=== PATIENT | female | born 1945 | race Caucasian/White ===

== ENCOUNTER 2021-09-03 13:06 | Inpatient (IN) | payer MEDICARE, OTHER ==
[~2021-09-03] VITALS: Ht 152.4 cm; Wt 49.9 kg
[~2021-09-03 13:06] MED LIST: ACEB200C PO; ALPR0.5T8 PO; ASPI-1169 PO; ATOR20TA PO; CLOP75TA15 PO; DEXL60CA3 PO; IBUP-1957 PO; MECL-159 PO; OLME1TAB19 PO; TRAM50TA2 PO
[2021-09-03] MEDS ORDERED: LOSA50TA39 PO (13:40)
[2021-09-03] MEDS ORDERED: HYDR25TA4 PO (13:40)
[2021-09-03 13:59] LABS: BASOPHILS # (AUTO) 0.1 K/uL (0.0-0.2); BASOPHILS % (AUTO) 0.5 % (0.0-2.0); HEMATOCRIT 39 % (33-45); HEMOGLOBIN 13.1 g/dL (11.5-14.8); LYMPHOCYTES # (AUTO) 2.1 K/uL (0.8-4.8); LYMPHOCYTES % (AUTO) 18.8 % (20.0-44.0); MEAN CORPUSCULAR HGB CONC 33 g/dl (31.0-36.0); MEAN CORPUSCULAR VOLUME 87 fL (82-100); MONOCYTES # (AUTO) 0.8 K/uL (0.1-1.30); MONOCYTES % (AUTO) 7.5 % (2.0-12.0); NEUTROPHILS # (AUTO) 7.9 K/uL (1.8-8.9); NEUTROPHILS % (AUTO) 72.2 % (43.0-81.0); PLATELET COUNT (AUTO) 300 K/uL (150-450); RED BLOOD CELL COUNT(AUTO) 4.51 MIL/uL (4.0-5.2)
[2021-09-03 14:33] LABS: CALCIUM, SERUM 10.2 mg/dL (8.5-10.1); CARBON DIOXIDE 29 mmol/L (21-32); CHLORIDE 103 mmol/L (98-107); CREATININE 0.9 mg/dL (0.6-1.3); GLUCOSE 143 mg/dL (74-106); POTASSIUM 4.1 mmol/L (3.5-5.1); SODIUM SERUM 140 mmol/L (136-145); UREA NITROGEN, BLOOD 16 mg/dL (7-18)
[2021-09-03 14:44] LABS: BILIRUBIN,URINE SMALL (NEGATIVE); COLOR,URINE YELLOW (YELLOW); LEUKOCYTE ESTERASE ,URINE TRACE (NEGATIVE); NITRITE, URINE POSITIVE (NEGATIVE); PROTEIN,URINE 30 mg/dl (NEGATIVE); UGLUCOSE NEGATIVE (NEGATIVE); UROBILINOGEN,URINE 0.2 EU/dL (0.2)
[2021-09-03 14:47] LABS: ALANINE AMINOTRANSFERASE 29 U/L (12-78); ALBUMIN 3.6 g/dL (3.4-5.0); ALKALINE PHOSPHATASE 78 U/L (46-116); ASPARTATE AMINOTRANSFERASE 24 U/L (15-37); BILIRUBIN,DIRECT 0.1 mg/dL (0.0-0.2); BILIRUBIN,TOTAL 0.6 mg/dL (0.2-1.0); TOTAL PROTEIN, SERUM 7.8 g/dL (6.4-8.2)
[2021-09-03 15:09] LABS: BACTERIA,URINE Many /HPF (None Seen); RBC,URINE 0-2 /HPF (0-2); SQUAMOUS EPITHELIAL CELL,UR Few /HPF (None Seen); WBC,URINE 20-30 /HPF (0-3)
[2021-09-03] MEDS ORDERED: MECL-159 PO (15:15)
[2021-09-03] MEDS ORDERED: TRAM50TA2 PO (15:15)
[2021-09-03 15:20] VITALS: BP 145/89
[2021-09-03] MEDS ORDERED: IV NS 0.9% 1,000 ML BAG IV ONE (16:30)
[2021-09-03] MEDS ORDERED: IV NS 0.9% 1,000 ML IV ONE (16:30)
[2021-09-03] MEDS ORDERED: MECLIZINE HCL 25 MG TABLET PO PRN (16:30)
[2021-09-03] MEDS ORDERED: TRAMADOL HCL 50 MG TABLET PO PRN (16:30)
[2021-09-03] MEDS ORDERED: CEFTRIAXONE 1GM BAG (ER ONLY) 50 ML IV ONE (16:30)
[2021-09-03] MEDS ORDERED: Z GUARD REMEDY 4 OZ OINT TP PRN (17:00)
[2021-09-03] MEDS ORDERED: ONDANSETRON HCL/PF 4 MG/2 ML VIAL IVP PRN (17:00)
[2021-09-03] MEDS ORDERED: ASPIRIN 325 MG TABLET PO ONE (17:00)
[2021-09-03] MEDS ORDERED: ALPRAZOLAM 0.5 MG TABLET PO PRN (17:30)
[2021-09-03] MEDS: CEFTRIAXONE 1 G in IV D5W 50 ML IV SCH (17:45)
[2021-09-03] MEDS: ENOXAPARIN SODIUM 40 MG/0.4 ML DISP.SYRIN SQ SCH (17:46)
[2021-09-03 20:00] VITALS: BP_SYST 151; BP_SYST 161; BP_DIAS 83
[2021-09-03] MEDS: ATORVASTATIN 40 MG TABLET PO SCH (21:57)
[2021-09-03] MEDS ORDERED: ALPRAZOLAM 0.5 MG TABLET PO SCH (22:00)
[2021-09-04] VITALS (7 sets, daily range): BP systolic 136–170; BP diastolic 65–82
[2021-09-04] MEDS: ACETAMINOPHEN 325 MG TABLET PO PRN ×3 (06:26→21:48)
[2021-09-04 07:08] LABS: BASOPHILS # (AUTO) 0.1 K/uL (0.0-0.2); BASOPHILS % (AUTO) 0.6 % (0.0-2.0); EOSINOPHILS % (AUTO) 1.3 % (0.0-6.0); HEMATOCRIT 38 % (33-45); HEMOGLOBIN 12.8 g/dL (11.5-14.8); LYMPHOCYTES % (AUTO) 21.2 % (20.0-44.0); MEAN CORPUSCULAR HGB CONC 34 g/dl (31.0-36.0); MEAN CORPUSCULAR VOLUME 87 fL (82-100); MONOCYTES # (AUTO) 0.9 K/uL (0.1-1.30); MONOCYTES % (AUTO) 9.5 % (2.0-12.0); NEUTROPHILS # (AUTO) 6.4 K/uL (1.8-8.9); NEUTROPHILS % (AUTO) 67.4 % (43.0-81.0); PLATELET COUNT (AUTO) 277 K/uL (150-450); RED BLOOD CELL COUNT(AUTO) 4.35 MIL/uL (4.0-5.2); WHITE BLOOD COUNT (AUTO) 9.5 K/uL (4.3-11.0)
[2021-09-04 07:37] LABS: ALBUMIN 3.1 g/dL (3.4-5.0); BILIRUBIN,TOTAL 0.6 mg/dL (0.2-1.0); CALCIUM, SERUM 9.3 mg/dL (8.5-10.1); CREATININE 0.7 mg/dL (0.6-1.3); MAGNESIUM 1.6 mg/dL (1.8-2.4); PHOSPHORUS 3.4 mg/dL (2.5-4.9); POTASSIUM 3.6 mmol/L (3.5-5.1); TOTAL PROTEIN, SERUM 7.1 g/dL (6.4-8.2)
[2021-09-04] MEDS: PANTOPRAZOLE 40 MG TABLET.DR PO SCH (08:52)
[2021-09-04] MEDS: LOSARTAN POTASSIUM 50 MG TABLET PO SCH (08:53)
[2021-09-04] MEDS: ATENOLOL 50 MG TABLET PO SCH (08:53)
[2021-09-04] MEDS: NICOTINE PATCH (7MG) 7 MG PATCH.TD24 TD SCH (08:53)
[2021-09-04] MEDS ORDERED: ACEBUTOLOL HCL 200 MG CAPSULE PO SCH (09:00)
[2021-09-04] MEDS: Magnesium 1GM/D5W 100ML PREMIX 100 ML IV SCH ×2 (09:40→11:06)
[2021-09-04] MEDS: CEFTRIAXONE 1 G in IV D5W 50 ML IV SCH (16:28)
[2021-09-04] MEDS: ENOXAPARIN SODIUM 40 MG/0.4 ML DISP.SYRIN SQ SCH (16:28)
[2021-09-04] MEDS: ATORVASTATIN 40 MG TABLET PO SCH (21:17)
[2021-09-05] VITALS: BP 145/71
[2021-09-05 04:00] VITALS: BP 137/73
[2021-09-05 06:40] LABS: BASOPHILS # (AUTO) 0.1 K/uL (0.0-0.2); BASOPHILS % (AUTO) 0.7 % (0.0-2.0); EOSINOPHILS % (AUTO) 1.6 % (0.0-6.0); HEMATOCRIT 38 % (33-45); HEMOGLOBIN 12.8 g/dL (11.5-14.8); LYMPHOCYTES % (AUTO) 21.6 % (20.0-44.0); MEAN CORPUSCULAR HGB CONC 33 g/dl (31.0-36.0); MEAN CORPUSCULAR VOLUME 88 fL (82-100); MONOCYTES # (AUTO) 0.8 K/uL (0.1-1.30); MONOCYTES % (AUTO) 9.2 % (2.0-12.0); NEUTROPHILS # (AUTO) 6.1 K/uL (1.8-8.9); NEUTROPHILS % (AUTO) 66.9 % (43.0-81.0); PLATELET COUNT (AUTO) 288 K/uL (150-450); RED BLOOD CELL COUNT(AUTO) 4.39 MIL/uL (4.0-5.2); WHITE BLOOD COUNT (AUTO) 9.2 K/uL (4.3-11.0)
[2021-09-05 06:58] LABS: CALCIUM, SERUM 9.6 mg/dL (8.5-10.1); CREATININE 0.7 mg/dL (0.6-1.3); PHOSPHORUS 3.6 mg/dL (2.5-4.9); POTASSIUM 3.7 mmol/L (3.5-5.1)
[2021-09-05] MEDS: PANTOPRAZOLE 40 MG TABLET.DR PO SCH (08:22)
[2021-09-05] MEDS: LOSARTAN POTASSIUM 50 MG TABLET PO SCH (08:22)
[2021-09-05] MEDS: NICOTINE PATCH (7MG) 7 MG PATCH.TD24 TD SCH (08:23)
[2021-09-05 09:29] VITALS: BP 139/74
[2021-09-05] MEDS: ATENOLOL 50 MG TABLET PO SCH (09:29)
[2021-09-05] MEDS: CEFTRIAXONE 1 G in IV D5W 50 ML IV SCH (16:08)
[2021-09-05] MEDS: ENOXAPARIN SODIUM 40 MG/0.4 ML DISP.SYRIN SQ SCH (16:47)
[2021-09-07] MEDS ORDERED: SULF1TAB48 PO (07:25)
== END 2021-09-05 17:00 | disposition home or self-care (01) | DRG 689 ==
LOC: ER 13:15 → TELE 16:40
PROVIDERS: ADMIT Hospitalist; ATTEND Hospitalist
DX: N12 Tubulo-interstitial nephritis, not specified as acute or chronic (principal); G93.41 Metabolic encephalopathy; J98.11 Atelectasis; D68.59 Other primary thrombophilia; E44.1 Mild protein-calorie malnutrition; M48.54XA Collapsed vertebra, not elsewhere classified, thoracic region, initial encounter for fracture; Z86.73 Personal history of transient ischemic attack (TIA), and cerebral infarction without residual deficits; N39.0 Urinary tract infection, site not specified; N20.0 Calculus of kidney; Z20.822 Contact with and (suspected) exposure to COVID-19; I10 Essential (primary) hypertension; G89.29 Other chronic pain; Z79.82 Long term (current) use of aspirin; Z79.899 Other long term (current) drug therapy; Z79.02 Long term (current) use of antithrombotics/antiplatelets; K44.9 Diaphragmatic hernia without obstruction or gangrene; E78.5 Hyperlipidemia, unspecified; I49.9 Cardiac arrhythmia, unspecified; F41.9 Anxiety disorder, unspecified; F17.200 Nicotine dependence, unspecified, uncomplicated; Z87.81 Personal history of (healed) traumatic fracture; E88.09 Other disorders of plasma-protein metabolism, not elsewhere classified; E83.42 Hypomagnesemia; F01.50 Vascular dementia, unspecified severity, without behavioral disturbance, psychotic disturbance, mood disturbance, and anxiety; I70.0 Atherosclerosis of aorta; E86.0 Dehydration; M41.9 Scoliosis, unspecified; R73.9 Hyperglycemia, unspecified; Z86.79 Personal history of other diseases of the circulatory system; I77.811 Abdominal aortic ectasia; Z98.890 Other specified postprocedural states; B96.21 Shiga toxin-producing Escherichia coli [E. coli] [STEC] O157 as the cause of diseases classified elsewhere
CPT/HCPCS: 36415; 70450-TC; 71045-TC; 80048-TC; 80053-TC; 80061-TC; 80076-TC; 81001; 83605-TC; 83735-TC; 83880; 84100-TC; 84484-TC; 85025-TC; 85730-TC; 87040-TC; 87081-TC; 87086-TC; 87186-TC; 93307-TC; C9803; G0378; J0696; J1650; J3475; J7060

== ENCOUNTER 2021-12-16 17:11 | Emergency (ER) | payer MEDICARE, OTHER ==
[~2021-12-16] VITALS: Ht 157.5 cm; Wt 47.6 kg
[~2021-12-16 17:11] MED LIST changes: -ASPI-1169 PO; -CLOP75TA15 PO; -DEXL60CA3 PO; +HYDR25TA4 PO; -IBUP-1957 PO; +LOSA50TA39 PO; -OLME1TAB19 PO; +SULF1TAB48 PO
--- NOTE | 2021-12-16 17:18 | NUR ---
CALLED CODE STROKE
--- NOTE | 2021-12-16 17:20 | NUR ---
PT TRANSPORTED TO CT.
--- NOTE | 2021-12-16 17:20 | NUR ---
BIBFAMILY THIS 76YO FEMALE PATIENT WITH CC OF SLURRING OF SPEECH, LEFT SIDED WEAKNESS AND LEFT FACIAL DROOPING. PATIENT IS ALERT, ORIENTED X4. PATIENT LAST KNOWN WELL 45MINS AGO. ATTACHED TO MOTOR VEHICLES SUPERVISOR. VITALS SIGNS BEING MONITORED.
--- NOTE | 2021-12-16 17:22 | NUR ---
CALLED [facility] [employer] TELE NEUROLOGIST WILL BE DR. GODFREY VOSS.
[2021-12-16] MEDS ORDERED: CT SWABBABLE VALVE TRANS SET 1 EA INFUS.SET MC ONE (17:23)
[2021-12-16] MEDS ORDERED: IOHEXOL-350 100 ML VIAL IV ONE (17:23)
[2021-12-16] MEDS ORDERED: IV NS 0.9% 250 ML IV ONE (17:24)
[2021-12-16 17:33] LABS: BASOPHILS # (AUTO) 0.1 K/uL (0.0-0.2); BASOPHILS % (AUTO) 0.7 % (0.0-2.0); HEMATOCRIT 40 % (33-45); HEMOGLOBIN 13.2 g/dL (11.5-14.8); LYMPHOCYTES # (AUTO) 3.7 K/uL (0.8-4.8); LYMPHOCYTES % (AUTO) 39.8 % (20.0-44.0); MEAN CORPUSCULAR HGB CONC 33 g/dl (31.0-36.0); MEAN CORPUSCULAR VOLUME 87 fL (82-100); MONOCYTES # (AUTO) 0.7 K/uL (0.1-1.30); MONOCYTES % (AUTO) 7.6 % (2.0-12.0); NEUTROPHILS # (AUTO) 4.6 K/uL (1.8-8.9); NEUTROPHILS % (AUTO) 49.9 % (43.0-81.0); PLATELET COUNT (AUTO) 280 K/uL (150-450); WHITE BLOOD COUNT (AUTO) 9.2 K/uL (4.3-11.0)
--- NOTE | 2021-12-16 17:35 | NUR ---
TELENEURO DONE WITH DR. VOSS. FAMILY MEMBER BEING INTERVIEWED WELL
[2021-12-16 17:36] LABS: CALCIUM, SERUM 9.7 mg/dL (8.5-10.1); CARBON DIOXIDE 25 mmol/L (21-32); CHLORIDE 105 mmol/L (98-107); CREATININE 0.8 mg/dL (0.6-1.3); GLUCOSE 105 mg/dL (74-106); POTASSIUM 3.5 mmol/L (3.5-5.1); SODIUM SERUM 143 mmol/L (136-145); UREA NITROGEN, BLOOD 14 mg/dL (7-18)
--- NOTE | 2021-12-16 17:48 | NUR ---
CALLED [facility] [phone] INFORMING OF POSSIBLE CODE STROKE THAT MAY NEED TRANSPORT.
--- NOTE | 2021-12-16 17:49 | NUR ---
FAXED FACE SHEET AND CT READ TO [facility]
--- NOTE | 2021-12-16 17:52 | NUR ---
CALLED [facility] CONFIMING THAT THEY HAVE OUR FAX.
[2021-12-16] MEDS ORDERED: ALTEPLASE 100 MG/VIAL VIAL IV ONE ×2 (18:00→19:00)
[2021-12-16] MEDS ORDERED: ALTEPLASE BOLUS DOSE IV ONE (18:00)
[2021-12-16] MEDS ORDERED: IV NS 0.9% 50 ML BAG IV ONE (18:00)
--- NOTE | 2021-12-16 18:08 | NUR ---
[facility] CT [facility]
--- NOTE | 2021-12-16 18:13 | NUR ---
ACTIPASE 4MG GIVEN IV BOLUS FOR 1 MINUTE ON RIGHT AC G20. FLUSHED WITH NS.
--- NOTE | 2021-12-16 18:16 | NUR ---
DR. MIKE DANGELO
--- NOTE | 2021-12-16 18:16 | NUR ---
DR. RICHARDSNO FROM [facility] SPEAKING WITH DR. ROQUE
--- NOTE | 2021-12-16 18:22 | NUR ---
ALTEPASE DRIP STARTED AT 38MG/HR. PATIENT IS BEING MONITORED FOR SIGNS OF BLEEDING. Addendum: 12/16/21 at 1905 by ARAM ALTEPASE STARTED AT 39MG/HR. PATIENT IS BEING MONITORED FOR SIGNS OF BLEEDING.
--- NOTE | 2021-12-16 18:35 | NUR ---
CASSANDRA MUSE'Kath RN [phone] SPEAKING WITH LILIA VINSON
--- NOTE | 2021-12-16 18:35 | NUR ---
REPORT GIVEN TO CASSANDRA OF [facility].
--- NOTE | 2021-12-16 18:40 | NUR ---
GEE FROM [facility] [phone]
[2021-12-16] MEDS ORDERED: ALTEPLASE IV ONE (19:00)
[2021-12-16] MEDS ORDERED: WATER FOR INJECTION STERILE IV ONE (19:00)
--- NOTE | 2021-12-16 19:00 | NUR ---
REPORT GIVEN TO MJ OF CRITICAL CARE TRANSPORT. PATIENT TRANSPORTED TO [facility] AAOX4. NO SOB, NO CP DISTRESS, WITH ONGOING IV TRANSFUSION OF TPA @39MG/HR. PATIENT IS BEING ACCOMPANIED BY FAMILY MEMBER.
[2021-12-16 19:10] VITALS: BP 170/75
== END 2021-12-16 19:11 | disposition short-term general hospital (02) ==
LOC: ER 17:13
DX: R53.1 Weakness (principal); R47.1 Dysarthria and anarthria; Z86.73 Personal history of transient ischemic attack (TIA), and cerebral infarction without residual deficits; I65.21 Occlusion and stenosis of right carotid artery; Z20.822 Contact with and (suspected) exposure to COVID-19; G89.29 Other chronic pain; M54.9 Dorsalgia, unspecified; F17.200 Nicotine dependence, unspecified, uncomplicated; I10 Essential (primary) hypertension; Z79.899 Other long term (current) drug therapy; R94.31 Abnormal electrocardiogram [ECG] [EKG]
CPT/HCPCS: 36415; 70450; 70496; 70498; 71045; 80048; 82962; 84484; 85025; 85730; 87426; 93005; 96365; 99291; 99292; J2997; J7050; Q9967; C9803

== ENCOUNTER 2022-05-24 12:32 | Inpatient (IN) | payer MEDICARE, OTHER ==
[~2022-05-24] VITALS: Ht 149.9 cm; Wt 43.1 kg
[~2022-05-24 12:32] MED LIST changes: -ALPR0.5T8 PO; +LOSA50TA39 GT; -LOSA50TA39 PO; -SULF1TAB48 PO; +TRAM50TA2 GT; -TRAM50TA2 PO
--- NOTE | 2022-05-24 12:35 | NUR ---
Received pt 76 yrs female came by loren c/o genralized weekness and diarrhea awake fallow command respiration spont and easy
[2022-05-24] MEDS ORDERED: IV NS 0.9% 500 ML BAG IV ONE (13:00)
--- NOTE | 2022-05-24 13:05 | NUR ---
MOVE SHEET SUBMITTED.
--- NOTE | 2022-05-24 13:13 | NUR ---
URINE SAMPLE COLLECTED AND SENT TO LAB
--- NOTE | 2022-05-24 13:15 | NUR ---
SHAWN LEE SENT TO LAB
[2022-05-24] MEDS ORDERED: ACET650S26 GT (14:00)
[2022-05-24] MEDS ORDERED: ASCO-352 GT (14:00)
[2022-05-24] MEDS ORDERED: INSU100V3 SQ (14:00)
[2022-05-24] MEDS ORDERED: ASPI-1169 GT (14:00)
[2022-05-24] MEDS ORDERED: CRAN425C6 GT (14:00)
[2022-05-24] MEDS ORDERED: ATOR40TA GT (14:00)
[2022-05-24] MEDS ORDERED: NA P133E RC (14:00)
[2022-05-24] MEDS ORDERED: ALBU8.5H8 IH (14:00)
[2022-05-24] MEDS ORDERED: DOCU-141 GT (14:00)
[2022-05-24] MEDS ORDERED: BISA10SU11 RC (14:00)
[2022-05-24 14:03] LABS: BILIRUBIN,URINE NEGATIVE (NEGATIVE); COLOR,URINE YELLOW (YELLOW); LEUKOCYTE ESTERASE ,URINE NEGATIVE (NEGATIVE); NITRITE, URINE NEGATIVE (NEGATIVE); PROTEIN,URINE NEGATIVE (NEGATIVE); UGLUCOSE NEGATIVE (NEGATIVE); UROBILINOGEN,URINE 0.2 EU/dL (0.2)
[2022-05-24] MEDS ORDERED: MULT-447 GT (14:04)
[2022-05-24] MEDS ORDERED: MAGN400O6 GT (14:04)
[2022-05-24] MEDS ORDERED: MODAFINIL GT (14:04)
[2022-05-24] MEDS ORDERED: NICO-676 TD (14:04)
[2022-05-24] MEDS ORDERED: AMLO5TAB4 GT (14:04)
[2022-05-24] MEDS ORDERED: PANT40SU2 GT (14:06)
[2022-05-24] MEDS ORDERED: ACET-868 GT (14:06)
[2022-05-24] MEDS ORDERED: ALPR0.25 GT (14:07)
[2022-05-24] MEDS ORDERED: SERT25TA GT (14:07)
[2022-05-24] MEDS ORDERED: ZINC1CAP2 GT (14:07)
--- NOTE | 2022-05-24 14:36 | NUR ---
UNABLE to drow blood BY LAB TACH
[2022-05-24 15:08] LABS: BASOPHILS # (AUTO) 0.1 K/uL (0.0-0.2); BASOPHILS % (AUTO) 0.7 % (0.0-2.0); HEMATOCRIT 44 % (33-45); HEMOGLOBIN 14.1 g/dL (11.5-14.8); LYMPHOCYTES # (AUTO) 2.1 K/uL (0.8-4.8); LYMPHOCYTES % (AUTO) 18.6 % (20.0-44.0); MEAN CORPUSCULAR HGB CONC 32 g/dl (31.0-36.0); MEAN CORPUSCULAR VOLUME 83 fL (82-100); MONOCYTES % (AUTO) 8.4 % (2.0-12.0); NEUTROPHILS # (AUTO) 8.1 K/uL (1.8-8.9); NEUTROPHILS % (AUTO) 71.3 % (43.0-81.0); PLATELET COUNT (AUTO) 299 K/uL (150-450); RED BLOOD CELL COUNT(AUTO) 5.31 MIL/uL (4.0-5.2); WHITE BLOOD COUNT (AUTO) 11.3 K/uL (4.3-11.0)
[2022-05-24 15:44] LABS: ALANINE AMINOTRANSFERASE 40 U/L (12-78); ALBUMIN 3.4 g/dL (3.4-5.0); ALKALINE PHOSPHATASE 128 U/L (46-116); ASPARTATE AMINOTRANSFERASE 40 U/L (15-37); BILIRUBIN,DIRECT 0.2 mg/dL (0.0-0.2); BILIRUBIN,TOTAL 0.8 mg/dL (0.2-1.0); CALCIUM, SERUM 10.8 mg/dL (8.5-10.1); CARBON DIOXIDE 30 mmol/L (21-32); CHLORIDE 103 mmol/L (98-107); CREATININE 0.7 mg/dL (0.6-1.3); GLUCOSE 106 mg/dL (74-106); POTASSIUM 3.9 mmol/L (3.5-5.1); SODIUM SERUM 141 mmol/L (136-145); UREA NITROGEN, BLOOD 23 mg/dL (7-18)
--- NOTE | 2022-05-24 16:22 | NUR ---
GOT BED 329-1
[2022-05-24] MEDS ORDERED: ACETAMINOPHEN 650 MG/SUPP.RECT RC PRN (16:30)
[2022-05-24] MEDS ORDERED: ONDANSETRON HCL/PF 4 MG/2 ML VIAL IVP PRN (16:30)
[2022-05-24] MEDS ORDERED: DEXTROSE 50%-WATER 50 ML DISP.SYRIN IV PRN (16:30)
--- NOTE | 2022-05-24 16:48 | NUR ---
PT REPORT GIVEN TO KAREL CARLSON
--- NOTE | 2022-05-24 16:50 | NUR ---
RN NOTES RECEIVED REPORT FROM ER. SWANSON GAVE THE REPORT AT 8020.
[2022-05-24] MEDS: BLOOD SUGAR DIAGNOSTIC 1 EACH STRIP IN SCH ×2 (17:24→21:39)
[2022-05-24] MEDS ORDERED: MECLIZINE HCL 25 MG TABLET PO PRN (18:00)
[2022-05-24] MEDS ORDERED: ALBUTEROL FS 2.5 MG/0.5 ML VIAL.NEB IH PRN (18:00)
--- NOTE | 2022-05-24 18:00 | NUR ---
MS MACHINERY MOVER NOTES RECEIVED PATIENT VIA GURNEY FROM ER. PATIENT IS ALERT AND ORIENTED TIMES 3 NO PAIN NOTED. NO SOB NOTED. NO DISTRESS NOTED. VITAL SIGNS IN NOR,MAL RANGES.ABLE TO MAKE NEEDS KNOWN IN SAMI LANGUAGE. IV ACCESS ON THE RAC #22 INTACT AND FUSING D5NS AT 75 ML/HR. OVERALL SKIN INTACT. GTUBE PLACEMENT CHECKED. I PLACE. NO RESIDUAL NOTED. PATIENT IS LEGALLY BLIND. BELONGINGS ACCOUNTED AND SIGNED FOR. CALLED THE SON MARCELLUS FOR VACCINE INFORMATION AND GENERAL INFO ABOUT THE PATIENT. ALL SAFETY MEASURES IN PLACE. BED LOCKED IN THE LOWEST POSITION. CALL LIGHT AND TABLE IN EASY REACH. HEAD OF THE BED ELEVATED FOR ASPIRATION PRECAUTION. WILL CONTINUE TO MONITOR CLOSELY.
[2022-05-24] MEDS: IV D5/ 0.9% NACL 1,000 ML IV SCH (18:07)
[2022-05-24] MEDS: SERTRALINE HCL 25 MG TABLET GT SCH (18:14)
[2022-05-24] MEDS: ASPIRIN 81 MG TAB.CHEW GT SCH (18:14)
[2022-05-24 18:53] VITALS: BP 104/72
[2022-05-24] MEDS: VANCOMYCIN HCL 125 MG/2.5 ML ORAL.SUSP GT SCH ×2 (19:12→23:36)
--- NOTE | 2022-05-24 19:35 | NUR ---
MS RN CLOSING NOTES PATIENT IS ALERT AND ORIENTED TIMES 3 AND AWAKE IN BED.NO PAIN NOTED. NO SOB NOTED. NO DISTRESS NOTED. VITAL SIGNS IN NOR,MAL RANGES.ABLE TO MAKE NEEDS KNOWN IN [place] LANGUAGE. IV ACCESS ON THE RAC #22 INTACT AND FUSING D5NS AT 75 ML/HR. OVERALL SKIN INTACT. GTUBE PLACEMENT CHECKED. IN PLACE. NO RESIDUAL NOTED. DUE MEDS GIVEN ORDERED.PATIENT IS LEGALLY BLIND. ALL SAFETY MEASURES IN PLACE. BED ALARM ON. BED LOCKED IN THE LOWEST POSITION. CALL LIGHT AND TABLE IN EASY REACH. HEAD OF THE BED ELEVATED FOR ASPIRATION PRECAUTION. ENDORSED INCOMING SHIFT NURSE FOR TY.
[2022-05-24 20:00] VITALS: BP 131/75
[2022-05-24] MEDS: ATORVASTATIN 40 MG TABLET GT SCH (21:30)
--- NOTE | 2022-05-25 04:44 | NUR ---
Closing Notes: alert to nurse at her bedside She is legally Blind. She will ask "who is there" "What time is it" she is changing her own position in the bed sleeping with her legs up and close to her abd bedalarm in use for safety GT flushes w/o problem towel wrapped aroung the abd over the GT as a binder to prevent pull out in continent UA
[2022-05-25] MEDS: IV D5/ 0.9% NACL 1,000 ML IV SCH ×2 (05:09→19:10)
[2022-05-25] MEDS: BLOOD SUGAR DIAGNOSTIC 1 EACH STRIP IN SCH ×4 (05:39→21:45)
[2022-05-25] MEDS: INSULIN REGULAR, HUMAN 100 UNIT/ML 3 ML VIAL SQ PRN ×2 (05:44→21:46)
[2022-05-25] MEDS: VANCOMYCIN HCL 125 MG/2.5 ML ORAL.SUSP GT SCH ×3 (06:00→18:52)
--- NOTE | 2022-05-25 06:32 | NUR ---
Vanco 250 mg /per GT not given REASON PER PHARMACIST: to be given Later D/T none available at this time will relay this message to the AM shift to give the NOON dose early
--- NOTE | 2022-05-25 07:26 | NUR ---
MS RN OPENING NOTES RECEIVED PATIENT ASLEEP, EASILY ROUSED, A/OX1, ORIENTED TO PERSON. NO SOB AND DISTRESS NOTED. IV ACCESS ON THE RAC #20 INTACT, INFUSING D5NS AT 75 ML/HR. GTUBE PLACEMENT NOTED. PATIENT IS LEGALLY BLIND. PENDING STOOL SAMPLE COLLECTION. ALL SAFETY MEASURES IN PLACE. BED ALARM ON. BED LOCKED IN THE LOWEST POSITION. CALL LIGHT AND TABLE IN EASY REACH, WILL CONT WITH PLAN OF CARE DURING SHIFT. Addendum: 05/25/22 at 0849 by MARTIN MCCLOUD RN PT IS ON 2 L OF O2 VIA NC
[2022-05-25 08:00] VITALS: BP 141/76
[2022-05-25] MEDS: ACETAMINOPHEN 650 MG/20.3 ML UDC GT SCH (08:25)
[2022-05-25] MEDS: TRAMADOL HCL 50 MG TABLET GT SCH ×2 (08:26→16:34)
[2022-05-25] MEDS: LOSARTAN POTASSIUM 50 MG TABLET GT SCH ×2 (08:27→16:34)
[2022-05-25] MEDS: AMLODIPINE BESYLATE 5 MG TABLET GT SCH (08:27)
[2022-05-25] MEDS: PANTOPRAZOLE 40 MG VIAL IV SCH (08:28)
[2022-05-25] MEDS ORDERED: MODAFINIL 100 MG TABLET GT SCH (09:00)
[2022-05-25] MEDS: ASPIRIN 81 MG TAB.CHEW GT SCH (17:18)
[2022-05-25] MEDS ORDERED: GLUCERNA 1.2 1,000 ML BOTTLE GT PRN (18:30)
--- NOTE | 2022-05-25 18:50 | NUR ---
MS RN NOTES: SENT MESSAGE TO MD FOR GTF ORDER. GLUCERNA 30ML/HR STARTED 05/25 @ 1840, D5NS PAUSED.
[2022-05-25] MEDS: SERTRALINE HCL 25 MG TABLET GT SCH (18:53)
[2022-05-25] MEDS: GLUCERNA 1.2 1,000 ML BOTTLE NG PRN (19:05)
[2022-05-25 20:00] VITALS: BP 127/56
--- NOTE | 2022-05-25 20:36 | NUR ---
MS RN OPENING NOTES PATIENT AWAKE, A/OX1, ORIENTED TO PERSON. PT IS ON 2L O2, NO SOB AND DISTRESS NOTED. IV ACCESS ON THE RAC #20 INTACT, SL. PATIENT IS LEGALLY BLIND. G TUBE FEEDING GLUCERNA @ 30ML/HR. STOOL SAMPLE COLLECTED DURING SHIFT BUT REJECTED DUE TO INADEQUATE AMOUNT, WILL RECOLLECT IF POSSIBLE. ALL SAFETY MEASURES IN PLACE. BED ALARM ON. BED LOCKED IN THE LOWEST POSITION. CALL LIGHT AND TABLE WITHIN EASY REACH, ENDORSED TO PM SHIFT.
[2022-05-25] MEDS: ATORVASTATIN 40 MG TABLET GT SCH (21:33)
--- NOTE | 2022-05-25 21:46 | NUR ---
ACCU CHECK Bld glucose 78mg/dl. Hold insulin per level ordered.
[2022-05-25] MEDS: LORAZEPAM 1 MG TABLET PO PRN (22:55)
--- NOTE | 2022-05-25 23:12 | NUR ---
RESTLESS/AGITATION Patient in bed, restless. Confused, pulled out IV line. Agitated, unable to sleep. Given Ativan via GT, will reassess. Fall precaution maintained.
[2022-05-26] MEDS: VANCOMYCIN HCL 125 MG/2.5 ML ORAL.SUSP GT SCH ×5 (01:02→23:27)
[2022-05-26] MEDS: ALPRAZOLAM 0.25 MG TABLET GT PRN ×2 (02:06→20:38)
--- NOTE | 2022-05-26 02:13 | NUR ---
ANXIOUS, NOT SLEEPING Patient confused unable to educate. Slowly calm down with Ativan in the last 3H. Now anxious, no restless in bed, anxious, not sleeping. Give Xanax via GT, will cont to monitor. Fall precaution maintained.
[2022-05-26] MEDS: IV D5/ 0.9% NACL 1,000 ML IV SCH ×2 (03:18→17:13)
[2022-05-26] MEDS: BLOOD SUGAR DIAGNOSTIC 1 EACH STRIP IN SCH ×4 (06:07→21:48)
[2022-05-26] MEDS: INSULIN REGULAR, HUMAN 100 UNIT/ML 3 ML VIAL SQ PRN ×4 (06:08→21:55)
--- NOTE | 2022-05-26 06:21 | NUR ---
END OF SHIFT REPORT Patient in bed, confused. IV in Right hand intact, IVF infusing. On IV abx. Afebrile throughout shift. Gtube feeding tolerated well, zero gastric residual. No BM during the shift as no stool specimen for test, no diarrhea. Turned and repositioned. Fall/ skin precaution maintained. Will endorse to oncoming RN.
[2022-05-26 06:37] LABS: BASOPHILS # (AUTO) 0.1 K/uL (0.0-0.2); BASOPHILS % (AUTO) 0.6 % (0.0-2.0); EOSINOPHILS % (AUTO) 1.5 % (0.0-6.0); HEMATOCRIT 40 % (33-45); HEMOGLOBIN 12.8 g/dL (11.5-14.8); LYMPHOCYTES # (AUTO) 1.8 K/uL (0.8-4.8); LYMPHOCYTES % (AUTO) 19.4 % (20.0-44.0); MEAN CORPUSCULAR HGB CONC 32 g/dl (31.0-36.0); MEAN CORPUSCULAR VOLUME 85 fL (82-100); MONOCYTES # (AUTO) 0.9 K/uL (0.1-1.30); MONOCYTES % (AUTO) 9.4 % (2.0-12.0); NEUTROPHILS # (AUTO) 6.6 K/uL (1.8-8.9); NEUTROPHILS % (AUTO) 69.1 % (43.0-81.0); PLATELET COUNT (AUTO) 271 K/uL (150-450); RED BLOOD CELL COUNT(AUTO) 4.72 MIL/uL (4.0-5.2); WHITE BLOOD COUNT (AUTO) 9.5 K/uL (4.3-11.0)
[2022-05-26 06:49] LABS: ALANINE AMINOTRANSFERASE 49 U/L (12-78); ALBUMIN 2.7 g/dL (3.4-5.0); ALKALINE PHOSPHATASE 99 U/L (46-116); ASPARTATE AMINOTRANSFERASE 48 U/L (15-37); BILIRUBIN,TOTAL 0.5 mg/dL (0.2-1.0); CALCIUM, SERUM 9.5 mg/dL (8.5-10.1); CARBON DIOXIDE 24 mmol/L (21-32); CHLORIDE 109 mmol/L (98-107); CREATININE 0.7 mg/dL (0.6-1.3); GLUCOSE 104 mg/dL (74-106); POTASSIUM 3.2 mmol/L (3.5-5.1); SODIUM SERUM 142 mmol/L (136-145); TOTAL PROTEIN, SERUM 6.7 g/dL (6.4-8.2); UREA NITROGEN, BLOOD 14 mg/dL (7-18)
--- NOTE | 2022-05-26 07:25 | NUR ---
MS RN OPENING NOTE PT IN BED, SLEEPING AT THIS TIME. A/O X1. CONFUSED, AROUSABLE. ON RA WITH NO S/S OF SOB OR DISTRESS. IV ACCESS R HAND #22G RUNNING D5NS @ 75 ML/HR, PATENT AND INTACT. GTUBE INTACT AND FLUSHABLE, RUNNING GLUCERNA @ 30 ML/HR. SAFETY PRECAUTIONS IN PLACE: BED LOCKED AND IN LOW POSITION; SIDE RAILS UP X3; BED ALARM ON; CALL LIGHT WITHIN REACH. WILL CONTINUE TO MONITOR AND ASSIST.
[2022-05-26 08:00] VITALS: BP 120/53
[2022-05-26] MEDS: PANTOPRAZOLE 40 MG VIAL IV SCH (08:19)
[2022-05-26] MEDS: ACETAMINOPHEN 650 MG/20.3 ML UDC GT SCH (08:19)
[2022-05-26] MEDS: TRAMADOL HCL 50 MG TABLET GT SCH ×2 (08:20→17:16)
[2022-05-26] MEDS: LOSARTAN POTASSIUM 50 MG TABLET GT SCH ×2 (08:20→17:17)
[2022-05-26] MEDS: AMLODIPINE BESYLATE 5 MG TABLET GT SCH (08:20)
[2022-05-26] MEDS: MUPIROCIN 2% CREAM 22 GM TUBE TP SCH ×2 (08:23→17:14)
[2022-05-26] MEDS ORDERED: POTASSIUM CHLORIDE 20 MEQ POWDER PACKET GT SCH (10:00)
[2022-05-26] MEDS ORDERED: POTASSIUM CHLORIDE 20 MEQ TAB.PRT.SR PO ONE (12:00)
[2022-05-26 16:00] VITALS: BP 118/52
[2022-05-26] MEDS: SERTRALINE HCL 25 MG TABLET GT SCH (18:03)
[2022-05-26] MEDS: ASPIRIN 81 MG TAB.CHEW GT SCH (18:03)
--- NOTE | 2022-05-26 19:22 | NUR ---
MS RN CLOSING NOTE PT IN BED, SLEEPING AT THIS TIME. A/O X1. AROUSABLE BUT CONFUSED. STABLE ON RA WITH NO S/S OF SOB OR DISTRESS. IV ACCESS R HAND #22G RUNNING D5NS @ 75 ML/HR, PATENT AND INTACT. GTUBE INTACT AND FLUSHABLE, RUNNING GLUCERNA @ 30 ML/HR. TURNED AND REPOSITIONED REGULARLY. ALL CARE PROVIDED AND ADMINISTERED MEDICATIONS TOLERATED WELL. SAFETY PRECAUTIONS MAINTAINED: BED LOCKED AND IN LOW POSITION; SIDE RAILS UP X3; BED ALARM ON; CALL LIGHT WITHIN REACH. WILL ENDORSE TY TO EVENTS TRAFFIC CONTROLLER NURSE.
[2022-05-26 20:00] VITALS: BP 143/64
--- NOTE | 2022-05-26 21:19 | NUR ---
RN NOTE PRN XANAX GIVEN FOR RESTLESSNESS PT KEEPS TRYING TO REMOVE LINES.
[2022-05-26] MEDS: ATORVASTATIN 40 MG TABLET GT SCH (21:48)
[2022-05-27] MEDS: VANCOMYCIN HCL 125 MG/2.5 ML ORAL.SUSP GT SCH ×4 (05:35→23:57)
[2022-05-27] MEDS: GLUCERNA 1.2 1,000 ML BOTTLE NG PRN (05:36)
[2022-05-27] MEDS: INSULIN REGULAR, HUMAN 100 UNIT/ML 3 ML VIAL SQ PRN ×2 (06:03→21:29)
--- NOTE | 2022-05-27 06:27 | NUR ---
MS RN CLOSING NOTE PT IN BED, SLEEPING AT THIS TIME. A/O X1 CONFUSED. STABLE ON RA WITH NO S/S OF SOB OR DISTRESS. IV ACCESS R HAND #22G RUNNING D5NS @ 75 ML/HR, PATENT AND INTACT. GTUBE INTACT AND FLUSHABLE, RUNNING GLUCERNA @ 30 ML/HR. TURNED AND REPOSITIONED REGULARLY. ALL CARE PROVIDED AND ADMINISTERED MEDICATIONS TOLERATED WELL. SAFETY PRECAUTIONS MAINTAINED: BED LOCKED AND IN LOW POSITION; SIDE RAILS UP X3; BED ALARM ON; CALL LIGHT WITHIN REACH. WILL ENDORSE TY ON COMING SHIFT NURSE.
--- NOTE | 2022-05-27 07:30 | NUR ---
MS RN OPENING NOTES PATIENT IS ALERT AND ORIENTED TIMES 3 AND AWAKE IN BED.NO PAIN NOTED. NO SOB NOTED. NO DISTRESS NOTED. ABLE TO MAKE NEEDS KNOWN IN VIETNAMESE LANGUAGE. IV ACCESS ON THE R HAND #22 INTACT AND FUSING D5NS AT 75 ML/HR. OVERALL SKIN INTACT. GTUBE PLACEMENT CHECKED. IN PLACE. NO RESIDUAL NOTED. ON GLUCERNA 1.2 AT 30 ML/HR. TOLERATING WELL.PATIENT IS LEGALLY BLIND. ALL SAFETY MEASURES IN PLACE. BED ALARM ON. BED LOCKED IN THE LOWEST POSITION. CALL LIGHT AND TABLE IN EASY REACH. HEAD OF THE BED ELEVATED FOR ASPIRATION PRECAUTION. WILL CONTINUE TO MONITOR CLOSELY.
[2022-05-27 07:56] LABS: CALCIUM, SERUM 9.1 mg/dL (8.5-10.1); CREATININE 0.6 mg/dL (0.6-1.3); POTASSIUM 3.4 mmol/L (3.5-5.1)
[2022-05-27 08:00] VITALS: BP 160/75
[2022-05-27] MEDS: PANTOPRAZOLE 40 MG/PACK PACK GT SCH (09:18)
[2022-05-27] MEDS: ACETAMINOPHEN 650 MG/20.3 ML UDC GT SCH (09:18)
[2022-05-27] MEDS: AMLODIPINE BESYLATE 5 MG TABLET GT SCH (09:19)
[2022-05-27] MEDS: LOSARTAN POTASSIUM 50 MG TABLET GT SCH ×2 (09:19→17:41)
[2022-05-27] MEDS: TRAMADOL HCL 50 MG TABLET GT SCH ×2 (09:20→17:40)
[2022-05-27] MEDS: MUPIROCIN 2% CREAM 22 GM TUBE TP SCH ×2 (09:21→17:41)
[2022-05-27] MEDS: BLOOD SUGAR DIAGNOSTIC 1 EACH STRIP IN SCH ×4 (09:59→21:21)
[2022-05-27] MEDS ORDERED: POTASSIUM CHLORIDE 20 MEQ POWDER PACKET GT ONE (11:00)
[2022-05-27] MEDS: LORAZEPAM 1 MG TABLET PO PRN (11:08)
[2022-05-27] MEDS: IV D5/ 0.9% NACL 1,000 ML IV SCH ×2 (12:04→23:57)
[2022-05-27 16:00] VITALS: BP 132/62
[2022-05-27] MEDS ORDERED: DIVALPROEX SODIUM 125 MG CAP.SPRINK PO SCH (17:00)
[2022-05-27] MEDS: SERTRALINE HCL 25 MG TABLET GT SCH (17:40)
[2022-05-27] MEDS: ASPIRIN 81 MG TAB.CHEW GT SCH (17:41)
--- NOTE | 2022-05-27 19:30 | NUR ---
MS RN CLOSING NOTES PATIENT IS ALERT AND ORIENTED TIMES 3 AND AWAKE IN BED.NO PAIN NOTED. NO SOB NOTED. NO DISTRESS NOTED. ABLE TO MAKE NEEDS KNOWN IN CAMEROONIAN LANGUAGE. IV ACCESS ON THE R HAND #22 INTACT AND FUSING D5NS AT 75 ML/HR. OVERALL SKIN INTACT. GTUBE PLACEMENT CHECKED. IN PLACE. NO RESIDUAL NOTED. ON GLUCERNA 1.2 AT 30 ML/HR. TOLERATING WELL.PATIENT IS LEGALLY BLIND. ALL DUE MEDS GIVEN ORDERED.ALL SAFETY MEASURES IN PLACE. BED ALARM ON. BED LOCKED IN THE LOWEST POSITION. CALL LIGHT AND TABLE IN EASY REACH. HEAD OF THE BED ELEVATED FOR ASPIRATION PRECAUTION. WILL ENDORSE FOR TY..
--- NOTE | 2022-05-27 19:50 | NUR ---
MS RN OPENING NOTES PATIENT IS AWAKE A/O X2- 3.NO PAIN NOTED. NO SOB NOTED. NO DISTRESS NOTED. ABLE TO MAKE NEEDS KNOWN IN GAMBIAN LANGUAGE. IV ACCESS ON THE R HAND #22 INTACT AND FUSING D5NS AT 75 ML/HR. OVERALL SKIN INTACT. GTUBE PLACEMENT CHECKED. IN PLACE. NO RESIDUAL NOTED. ON GLUCERNA 1.2 AT 30 ML/HR. TOLERATING WELL.PATIENT IS LEGALLY BLIND. ALL SAFETY MEASURES IN PLACE. BED ALARM ON. BED LOCKED IN THE LOWEST POSITION. CALL LIGHT AND TABLE IN EASY REACH. HEAD OF THE BED ELEVATED FOR ASPIRATION PRECAUTION.
[2022-05-27 20:00] VITALS: BP 144/68
[2022-05-27] MEDS: ATORVASTATIN 40 MG TABLET GT SCH (21:21)
[2022-05-28] MEDS: VANCOMYCIN HCL 125 MG/2.5 ML ORAL.SUSP GT SCH ×4 (05:20→23:37)
[2022-05-28] MEDS: INSULIN REGULAR, HUMAN 100 UNIT/ML 3 ML VIAL SQ PRN (06:07)
[2022-05-28] MEDS: GLUCERNA 1.2 1,000 ML BOTTLE NG PRN ×2 (06:08→14:34)
--- NOTE | 2022-05-28 06:36 | NUR ---
MS RN CLOSING NOTES PATIENT IS AWAKE A/O X2- 3.NO PAIN NOTED. NO SOB NOTED. NO DISTRESS NOTED. ABLE TO MAKE NEEDS KNOWN IN MALDIVIAN LANGUAGE AND [place]. IV ACCESS ON THE R HAND #22 INTACT AND FUSING D5NS AT 75 ML/HR. OVERALL SKIN INTACT. GTUBE PLACEMENT CHECKED. IN PLACE. NO RESIDUAL NOTED. ON GLUCERNA 1.2 AT 30 ML/HR. TOLERATING WELL.PATIENT IS LEGALLY BLIND. ALL SAFETY MEASURES IN PLACE. BED ALARM ON. BED LOCKED IN THE LOWEST POSITION. CALL LIGHT AND TABLE IN EASY REACH. HEAD OF THE BED ELEVATED FOR ASPIRATION PRECAUTION. WILL ENDORSE CARE TO DAY SHIFT NURSE.
--- NOTE | 2022-05-28 07:29 | NUR ---
MS RN OPENING NOTES RECEIVED PATIENT IN BED.PATIENT IS ALERT AND ORIENTED TIMES 3 AND AWAKE IN BED.NO PAIN NOTED. NO SOB NOTED. NO DISTRESS NOTED. ABLE TO MAKE NEEDS KNOWN IN MAORI LANGUAGE. IV ACCESS ON THE R HAND #22 INTACT AND FUSING D5NS AT 75 ML/HR. OVERALL SKIN INTACT. GTUBE PLACEMENT CHECKED. IN PLACE. NO RESIDUAL NOTED. ON GLUCERNA 1.2 AT 30 ML/HR. TOLERATING WELL.PATIENT IS LEGALLY BLIND. ALL SAFETY MEASURES IN PLACE. BED ALARM ON. BED LOCKED IN THE LOWEST POSITION. CALL LIGHT AND TABLE IN EASY REACH. HEAD OF THE BED ELEVATED FOR ASPIRATION PRECAUTION. WILL CONTINUE TO MONITOR CLOSELY.
[2022-05-28] MEDS: BLOOD SUGAR DIAGNOSTIC 1 EACH STRIP IN SCH ×4 (08:51→21:49)
[2022-05-28] MEDS: PANTOPRAZOLE 40 MG/PACK PACK GT SCH (08:58)
[2022-05-28] MEDS: ACETAMINOPHEN 650 MG/20.3 ML UDC GT SCH (08:59)
[2022-05-28] MEDS: DIVALPROEX SODIUM 125 MG CAP.SPRINK GT SCH ×2 (08:59→16:33)
[2022-05-28] MEDS: AMLODIPINE BESYLATE 5 MG TABLET GT SCH (08:59)
[2022-05-28] MEDS: LOSARTAN POTASSIUM 50 MG TABLET GT SCH ×2 (09:00→16:34)
[2022-05-28] MEDS: TRAMADOL HCL 50 MG TABLET GT SCH ×2 (09:00→16:34)
[2022-05-28] MEDS: MUPIROCIN 2% CREAM 22 GM TUBE TP SCH ×2 (09:00→17:53)
[2022-05-28] MEDS ORDERED: VANC125C11 GT (10:58)
[2022-05-28] MEDS: MUPIROCIN OINT 2% 22 GM TUBE TP SCH (13:30)
[2022-05-28] MEDS: IV D5/ 0.9% NACL 1,000 ML IV SCH (14:29)
[2022-05-28] MEDS: LORAZEPAM 0.5 MG TABLET PO PRN (15:43)
[2022-05-28] MEDS: ASPIRIN 81 MG TAB.CHEW GT SCH (17:52)
[2022-05-28] MEDS: SERTRALINE HCL 25 MG TABLET GT SCH (17:52)
--- NOTE | 2022-05-28 19:30 | NUR ---
MS RN CLOSING NOTES PATIENT AWAKE IN BED.PATIENT IS ALERT AND ORIENTED TIMES 3 AND AWAKE IN BED.NO PAIN NOTED. NO SOB NOTED. NO DISTRESS NOTED. ABLE TO MAKE NEEDS KNOWN IN GAMBIAN LANGUAGE.PATIENT REMOVED IV ACCESS AT 1845 . TRIED 2 TIMES UNSUCCESSFUL. WILL ENDORSE SALES OFFICE MANAGER TO TRY. R SECOND TOE WOUND NOTED . SILK SCREEN PRINTER MACHINE CHECKED . NEW ORDER GIVEN. GTUBE PLACEMENT CHECKED. IN PLACE. NO RESIDUAL NOTED. ON GLUCERNA 1.2 AT 30 ML/HR. TOLERATING WELL.PATIENT IS LEGALLY BLIND. ALL DUE MEDS GIVEN ORDERED.ALL SAFETY MEASURES IN PLACE. BED ALARM ON. BED LOCKED IN THE LOWEST POSITION. CALL LIGHT AND TABLE IN EASY REACH. HEAD OF THE BED ELEVATED FOR ASPIRATION PRECAUTION. WILL ENDORSE FOR TY.
--- NOTE | 2022-05-28 19:59 | NUR ---
MS RN OPENING NOTE; PATIENT RECEIVED IN BED AAOX2,ON RM AIR TIN WELL NO SIGN SOB/DISTRESS NOTED,BREATHING EVEN AND UNLABORED.NO COMPLAIN FOR PAIN/DISCOMFORT AT THIS TIME,IV ACCESS ON THE LEFT HAND G 22, ON SALINE LOCK, PATENT AND INTACT. SAFETY MEASURES ENSURED WITH BED ON LOWEST LOCKED POSITION. SIDERAILS RAISED, AND CALL LIGHT WITHIN REACH,WILL CONTINUE TO MONITOR.
[2022-05-28] MEDS: ATORVASTATIN 40 MG TABLET GT SCH (21:44)
[2022-05-29] MEDS: MUPIROCIN OINT 2% 22 GM TUBE TP SCH ×2 (01:18→12:25)
[2022-05-29] MEDS: IV D5/ 0.9% NACL 1,000 ML IV SCH ×2 (04:09→16:48)
[2022-05-29] MEDS: VANCOMYCIN HCL 125 MG/2.5 ML ORAL.SUSP GT SCH ×3 (05:06→17:36)
--- NOTE | 2022-05-29 06:07 | NUR ---
MS RN CLOSING NOTE; PATIENT IN BED AAOX2,ON RM AIR TIN WELL NO SIGN SOB/DISTRESS NOTED,BREATHING EVEN AND UNLABORED.NO COMPLAIN FOR PAIN/DISCOMFORT DURING SHIFT,DUE MEDS GIVEN ORDER,ALL NEEDS ATTENDED,IV ACCESS ON THE LEFT HAND G 22, ON SALINE LOCK, PATENT AND INTACT. SAFETY MEASURES ENSURED WITH BED ON LOWEST LOCKED POSITION. SIDERAILS RAISED, AND CALL LIGHT WITHIN REACH,WILL ENDORSED TO NEXT SHIFT.
[2022-05-29] MEDS: BLOOD SUGAR DIAGNOSTIC 1 EACH STRIP IN SCH ×4 (06:29→22:33)
[2022-05-29 07:00] VITALS: BP 151/75
[2022-05-29] MEDS: ACETAMINOPHEN 650 MG/20.3 ML UDC GT SCH (08:43)
[2022-05-29] MEDS: DIVALPROEX SODIUM 125 MG CAP.SPRINK GT SCH ×2 (08:44→17:01)
[2022-05-29] MEDS: PANTOPRAZOLE 40 MG/PACK PACK GT SCH (08:44)
[2022-05-29] MEDS: TRAMADOL HCL 50 MG TABLET GT SCH ×2 (08:44→17:02)
[2022-05-29] MEDS: AMLODIPINE BESYLATE 5 MG TABLET GT SCH (08:44)
[2022-05-29] MEDS: LOSARTAN POTASSIUM 50 MG TABLET GT SCH ×2 (08:44→16:22)
[2022-05-29] MEDS: MUPIROCIN 2% CREAM 22 GM TUBE TP SCH ×2 (08:45→17:02)
--- NOTE | 2022-05-29 09:00 | NUR ---
MS RN OPENING NOTES PATIENT LAYING IN BED, A/O X 2, TOLERATING WELL ON ROOM AIR WITH NO S/S RESPIRATORY DISTRESS. NO COMPLAINTS OF PAIN OR DISCOMFORT. L HAND # 22 SL CLEAN, INTACT, AND FLUSHING WELL. SAFETY MEASURES IN PLACE: BED IN LOWEST LOCKED POSITION, SIDE RAILS UP X 2, CALL LIGHT WITHIN REACH. G-TUBE IN PLACE WITH FEEDING INFUSING @ 45 ML/HR. WILL CONTINUE TO MONITOR.
[2022-05-29] MEDS: ASPIRIN 81 MG TAB.CHEW GT SCH (17:38)
[2022-05-29] MEDS: SERTRALINE HCL 25 MG TABLET GT SCH (17:38)
--- NOTE | 2022-05-29 19:00 | NUR ---
MS RN OPENING NOTES RECEIVED PATIENT IN BED. ALERT AND ORIENTED , A/O X 1. PATIENT IS ON RA, TOLERATES WELL. NO S/S OF SOB OR DISTRESS. NO S/S OF HAVING PAIN. IV ACCESS IS AT RIGHT FA, #22G, INFILTRATED. REMOVED THE NEEDLE, AND REINSERTED THE IV AT THE LEFT FA, #22G. SAFETY MEASURE IN PLACE: BED IN LOWEST POSITION, LOCKED; BED ALARM ACTIVATED, CALL MARTINEZ IN REACH, BED SIDE TABLE AND WATER ARE IN REACH.WILL MONITOR THE PATIENT'S CONDITION, AND PROVIDE PATIENT CARE.
--- NOTE | 2022-05-29 19:00 | NUR ---
MS RN CLOSING NOTES PATIENT LAYING IN BED, A/O X 2, TOLERATING WELL ON ROOM AIR WITH NO S/S RESPIRATORY DISTRESS. NO COMPLAINTS OF PAIN OR DISCOMFORT. L HAND # 22 SL CLEAN, INTACT, AND FLUSHING WELL. SAFETY MEASURES IN PLACE: BED IN LOWEST LOCKED POSITION, SIDE RAILS UP X 2, CALL LIGHT WITHIN REACH. G-TUBE IN PLACE WITH GLUCERNA 1.2 INFUSING @ 45 ML/HR. ALL NEEDS MET. WILL ENDORSE TO DOUBLE CUTTER FOR TY.
[2022-05-29 20:00] VITALS: BP 116/62
[2022-05-29] MEDS: ATORVASTATIN 40 MG TABLET GT SCH (21:55)
--- NOTE | 2022-05-29 22:40 | NUR ---
PATIENT'S BS 95 MG/DL, NO COVERAGE GIVEN. PATIENT IS ON CONTINUOUS TF, WILL MONITOR FOR HYPO/HYPERGLYCEMIA
[2022-05-30] MEDS: MUPIROCIN OINT 2% 22 GM TUBE TP SCH ×2 (01:00→12:05)
[2022-05-30] MEDS: VANCOMYCIN HCL 125 MG/2.5 ML ORAL.SUSP GT SCH ×5 (01:01→23:35)
--- NOTE | 2022-05-30 04:32 | NUR ---
RN NOTE INCREASED RATE OF TUBE FEEDING TO 40 ML/HR, WILL RECHECK RESIDUAL AND PATIENT'S TOLERANCE TO INCREASED TF RATE AT A LATER TIME.
[2022-05-30] MEDS: IV D5/ 0.9% NACL 1,000 ML IV SCH ×2 (05:14→20:28)
[2022-05-30] MEDS: GLUCERNA 1.2 1,000 ML BOTTLE NG PRN (05:20)
--- NOTE | 2022-05-30 06:30 | NUR ---
RN NOTE TUBE FEEDING INCREASED TO 45 ML/HR, TOLERATED WELL AFTER ONE HOUR OF INCREASING TF. NO RESIDUAL.
[2022-05-30] MEDS: BLOOD SUGAR DIAGNOSTIC 1 EACH STRIP IN SCH ×4 (06:59→22:20)
[2022-05-30 07:00] VITALS: BP 156/70
--- NOTE | 2022-05-30 07:00 | NUR ---
MS RN OPENING NOTES PATIENT LAYING IN BED, A/O X 2, TOLERATING WELL ON ROOM AIR WITH NO S/S RESPIRATORY DISTRESS. NO COMPLAINTS OF PAIN OR DISCOMFORT AT THIS TIME. L FA # 22 G IV WITH D5 NS @ 75 ML/HR. SAFETY MEASURES IN PLACE: BED IN LOWEST LOCKED POSITION, SIDE RAILS UP X 2, CALL LIGHT WITHIN REACH. WILL CONTINUE TO MONITOR.
--- NOTE | 2022-05-30 07:03 | NUR ---
MS RN CLOSING NOTES PATIENT IS SLEEPING IN BED. PATIENT IS ON RA, TOLERATES WELL. NO S/S OF SOB OR DISTRESS. NO S/S OF HAVING PAIN. IV ACCESS IS AT LEFT FA, #22G, PATENT AND INTACT. D5NS RUNNING @ 75 ML/HR. SAFETY MEASURE IN PLACE: BED IN LOWEST POSITION, LOCKED; BED ALARM ACTIVATED, CALL MARTINEZ IN REACH, BED SIDE TABLE AND WATER ARE IN REACH. WILL ENDORSE NEXT SHIFT NURSE FOR CONTINUING PATIENT CARE.
[2022-05-30 07:37] LABS: BASOPHILS % (AUTO) 0.7 % (0.0-2.0); EOSINOPHILS % (AUTO) 3.1 % (0.0-6.0); HEMATOCRIT 39 % (33-45); HEMOGLOBIN 12.8 g/dL (11.5-14.8); LYMPHOCYTES # (AUTO) 1.7 K/uL (0.8-4.8); LYMPHOCYTES % (AUTO) 22.3 % (20.0-44.0); MEAN CORPUSCULAR HGB CONC 33 g/dl (31.0-36.0); MEAN CORPUSCULAR VOLUME 82 fL (82-100); MONOCYTES # (AUTO) 0.8 K/uL (0.1-1.30); MONOCYTES % (AUTO) 10.5 % (2.0-12.0); NEUTROPHILS # (AUTO) 4.7 K/uL (1.8-8.9); NEUTROPHILS % (AUTO) 63.4 % (43.0-81.0); PLATELET COUNT (AUTO) 294 K/uL (150-450); WHITE BLOOD COUNT (AUTO) 7.5 K/uL (4.3-11.0)
[2022-05-30 07:54] LABS: ALBUMIN 2.6 g/dL (3.4-5.0); BILIRUBIN,TOTAL 0.5 mg/dL (0.2-1.0); CALCIUM, SERUM 9.6 mg/dL (8.5-10.1); CREATININE 0.7 mg/dL (0.6-1.3); MAGNESIUM 1.8 mg/dL (1.8-2.4); PHOSPHORUS 3.2 mg/dL (2.5-4.9); POTASSIUM 3.2 mmol/L (3.5-5.1); TOTAL PROTEIN, SERUM 6.7 g/dL (6.4-8.2)
[2022-05-30] MEDS: PANTOPRAZOLE 40 MG/PACK PACK GT SCH (08:54)
[2022-05-30] MEDS: DIVALPROEX SODIUM 125 MG CAP.SPRINK GT SCH ×2 (08:54→16:25)
[2022-05-30] MEDS: AMLODIPINE BESYLATE 5 MG TABLET GT SCH (08:54)
[2022-05-30] MEDS: TRAMADOL HCL 50 MG TABLET GT SCH ×2 (08:54→16:25)
[2022-05-30] MEDS: LOSARTAN POTASSIUM 50 MG TABLET GT SCH ×2 (08:54→16:25)
[2022-05-30] MEDS: ACETAMINOPHEN 650 MG/20.3 ML UDC GT SCH (08:55)
[2022-05-30] MEDS: MUPIROCIN 2% CREAM 22 GM TUBE TP SCH ×2 (08:55→16:26)
[2022-05-30] MEDS ORDERED: POTASSIUM CHLORIDE 20 MEQ POWDER PACKET PO SCH (11:00)
[2022-05-30] MEDS: INSULIN REGULAR, HUMAN 100 UNIT/ML 3 ML VIAL SQ PRN (11:25)
[2022-05-30 16:00] VITALS: BP 147/58
[2022-05-30] MEDS: ASPIRIN 81 MG TAB.CHEW GT SCH (17:45)
[2022-05-30] MEDS: SERTRALINE HCL 25 MG TABLET GT SCH (17:45)
--- NOTE | 2022-05-30 19:00 | NUR ---
MS RN CLOSING NOTES PATIENT LAYING IN BED, A/O X 2, TOLERATING WELL ON ROOM AIR WITH NO S/S RESPIRATORY DISTRESS. NO COMPLAINTS OF PAIN OR DISCOMFORT AT THIS TIME. NO IV ACCESS AT THIS TIME, WILL ENDORSE TO CREPE SOLE WIRE BRUSHER. SAFETY MEASURES IN PLACE: BED IN LOWEST LOCKED POSITION, SIDE RAILS UP X 2, CALL LIGHT WITHIN REACH. ALL NEEDS MET. PATIENT TURNED Q2H DURING SHIFT. WILL ENDORSE TO CREPE SOLE WIRE BRUSHER FOR TY.
--- NOTE | 2022-05-30 19:30 | NUR ---
RN OPENING NOTE PATIENT IN BED, AWAKE. PATIENT IS A/O X 1 AT THIS TIME, CONFUSED SAYING "TAKE ME TO MY LIVING ROOM", PATIENT REDIRECTABLE. PER JUDITH RN, PATIENT PULLED OUT HER IV ACCESS. WILL INSERT NEW IV ACCESS. PATIENT DOES NOT REPORT ANY PAIN AT THIS TIME. PATIENT HAS A GT WITH ONGOING GLUCERNA 1.2 45 ML/HR, TOLERATING WELL. NO RESIDUAL. GT PATENT AND INTACT, IN APPROPRIATE PLACE. PATIENT NOT IN ANY APPARENT DISTRESS. SAFETY MEASURES IN PLACE: BED LOCKED AND IN LOWEST POSITION, CALL LIGHT WITHIN REACH, SIDE RAILS UP. WILL MONITOR PATIENT CLOSELY.
--- NOTE | 2022-05-30 20:10 | NUR ---
NEW LFA IV ACCESS 22G PATENT AND INTACT, FLUSHING WELL.
[2022-05-30 20:54] VITALS: BP 143/74
[2022-05-30] MEDS: ATORVASTATIN 40 MG TABLET GT SCH (22:20)
[2022-05-30] MEDS: ALPRAZOLAM 0.25 MG TABLET GT PRN (22:29)
--- NOTE | 2022-05-30 22:30 | NUR ---
RN NOTE XANAX 0.25 MG TAB D/T PATIENT BEING RESTLESS AND ANXIOUS
[2022-05-31] MEDS: MUPIROCIN OINT 2% 22 GM TUBE TP SCH ×2 (01:05→12:05)
[2022-05-31] MEDS: VANCOMYCIN HCL 125 MG/2.5 ML ORAL.SUSP GT SCH ×3 (06:33→17:20)
[2022-05-31] MEDS: BLOOD SUGAR DIAGNOSTIC 1 EACH STRIP IN SCH ×4 (06:34→21:38)
[2022-05-31] MEDS: GLUCERNA 1.2 1,000 ML BOTTLE NG PRN (06:56)
[2022-05-31 07:15] LABS: BASOPHILS # (AUTO) 0.1 K/uL (0.0-0.2); BASOPHILS % (AUTO) 0.7 % (0.0-2.0); EOSINOPHILS % (AUTO) 2.1 % (0.0-6.0); HEMATOCRIT 40 % (33-45); HEMOGLOBIN 13.2 g/dL (11.5-14.8); LYMPHOCYTES # (AUTO) 1.3 K/uL (0.8-4.8); MEAN CORPUSCULAR HGB CONC 33 g/dl (31.0-36.0); MEAN CORPUSCULAR VOLUME 83 fL (82-100); MONOCYTES # (AUTO) 0.7 K/uL (0.1-1.30); MONOCYTES % (AUTO) 7.9 % (2.0-12.0); NEUTROPHILS # (AUTO) 6.8 K/uL (1.8-8.9); NEUTROPHILS % (AUTO) 75.3 % (43.0-81.0); PLATELET COUNT (AUTO) 302 K/uL (150-450); RED BLOOD CELL COUNT(AUTO) 4.83 MIL/uL (4.0-5.2)
[2022-05-31 07:44] LABS: CALCIUM, SERUM 9.8 mg/dL (8.5-10.1); CARBON DIOXIDE 28 mmol/L (21-32); CHLORIDE 109 mmol/L (98-107); CREATININE 0.6 mg/dL (0.6-1.3); GLUCOSE 92 mg/dL (74-106); MAGNESIUM 1.7 mg/dL (1.8-2.4); PHOSPHORUS 2.6 mg/dL (2.5-4.9); SODIUM SERUM 144 mmol/L (136-145); UREA NITROGEN, BLOOD 12 mg/dL (7-18)
--- NOTE | 2022-05-31 07:45 | NUR ---
RN OPENING NOTE RECEIVED PATIENT IN BED, AWAKE. PATIENT IS A/O X 1, CONFUSED SAYING SHE KNOWS ME SO WELL, PATIENT IS BLIND, FOLLOWS COMMANDS, PATIENT IS ON SOFT RESTRAINTS ON THE RIGHT HAND D/T HER PULLING HER IV LINES AND TUBES. WITH LFA 22G WITH D5NS @75 ML/HR PATENT, FLUSHING WELL. PATIENT DOES NOT REPORT ANY PAIN AT THIS TIME. WITH GT WITH ONGOING GLUCERNA 1.2 45 ML/HR, TOLERATING WELL. NO RESIDUAL. GT PATENT AND INTACT, IN APPROPRIATE PLACE. PATIENT NOT IN ANY APPARENT DISTRESS. SAFETY MEASURES IN PLACE: BED LOCKED AND IN LOWEST POSITION, CALL LIGHT WITHIN REACH, SIDE RAILS UP. WILL MONITOR PATIENT DURING MY SHIFT.
--- NOTE | 2022-05-31 07:47 | NUR ---
RN CLOSING NOTE PATIENT IN BED, AWAKE. PATIENT IS A/O X 1 AT THIS TIME, CONFUSED. INFORMED ALVARADO HUMPHREY TAX ADJUSTER REGARDING PATIENT BEING RESTLESS DESPITE BEING ADMINISTERED XANAX , PULLING ON HER GTUBE, DISROBING, AND PULLING OUT IV ACCESS. OBTAINED ORDER FOR R SOFT WRIST RESTRAINS. PATIENT DOES NOT REPORT ANY PAIN AT THIS TIME. PATIENT HAS A GT WITH ONGOING GLUCERNA 1.2 45 ML/HR, TOLERATING WELL. NO RESIDUAL. GT PATENT AND INTACT, IN APPROPRIATE PLACE. PATIENT NOT IN ANY APPARENT DISTRESS. SAFETY MEASURES IN PLACE: BED LOCKED AND IN LOWEST POSITION, CALL LIGHT WITHIN REACH, SIDE RAILS UP. ALL NEEDS MET AND ATTENDED. ALL ORDERS CARRIED OUT. ENDORSED PATIENT TO DAY SHIFT RN FOR TY.
--- NOTE | 2022-05-31 07:47 | NUR ---
RN OPENING NOTE PATIENT IN BED, AWAKE. PATIENT IS A/O X 1 AT THIS TIME, CONFUSED. INFORMED ALVARADO HUMPHREY NP REGARDING PATIENT BEING RESTLESS DESPITE BEING ADMINISTERED XANAX , PULLING ON HER GTUBE, DISROBING, AND PULLING OUT IV ACCESS. OBTAINED ORDER FOR R SOFT WRIST RESTRAINS. PATIENT DOES NOT REPORT ANY PAIN AT THIS TIME. PATIENT HAS A GT WITH ONGOING GLUCERNA 1.2 45 ML/HR, TOLERATING WELL. NO RESIDUAL. GT PATENT AND INTACT, IN APPROPRIATE PLACE. PATIENT NOT IN ANY APPARENT DISTRESS. SAFETY MEASURES IN PLACE: BED LOCKED AND IN LOWEST POSITION, CALL LIGHT WITHIN REACH, SIDE RAILS UP. ALL NEEDS MET AND ATTENDED. ALL ORDERS CARRIED OUT. ENDORSED PATIENT TO DAY SHIFT RN FOR TY. Addendum: 05/31/22 at 0759 by MICAELA LIANG RN RN CLOSING NOTE
[2022-05-31 08:05] LABS: POTASSIUM 2.7 mmol/L (3.5-5.1)
[2022-05-31] MEDS ORDERED: POTASSIUM CHLORIDE 20 MEQ TAB.PRT.SR PO ONE ×2 (08:30→10:30)
[2022-05-31 08:38] VITALS: BP 122/60
[2022-05-31] MEDS ORDERED: MAGNESIUM OXIDE 400 MG TABLET GT ONE (09:00)
[2022-05-31] MEDS: PANTOPRAZOLE 40 MG/PACK PACK GT SCH (09:18)
[2022-05-31] MEDS: AMLODIPINE BESYLATE 5 MG TABLET GT SCH (09:19)
[2022-05-31] MEDS: LOSARTAN POTASSIUM 50 MG TABLET GT SCH ×2 (09:20→17:17)
[2022-05-31] MEDS: ACETAMINOPHEN 650 MG/20.3 ML UDC GT SCH (09:20)
[2022-05-31] MEDS: DIVALPROEX SODIUM 125 MG CAP.SPRINK GT SCH ×2 (09:20→17:17)
[2022-05-31] MEDS: TRAMADOL HCL 50 MG TABLET GT SCH ×2 (09:26→17:18)
--- NOTE | 2022-05-31 09:40 | NUR ---
WOUND CARE CONSULT: AREAS OF REDNESS NOTED TO FEET, PRESENT ON ADMISSION. DEFER TO ULTRASONIC TESTER ON CASE. RECOMMENDATIONS MADE FOR SKIN PROTECTION DISCUSSED WITH NURSING STAFF. MD IN AGREEMENT WITH PLAN OF CARE.
[2022-05-31] MEDS: IV D5/ 0.9% NACL 1,000 ML IV SCH ×2 (09:47→21:27)
--- NOTE | 2022-05-31 10:52 | NUR ---
RN NOTES Aurelia DOAN, CALLED TO ADVISE TO GIVE 12.5 MG SEROQUEL ONCE TIME AND NOT GIVE THE 1300 DOSE.
[2022-05-31] MEDS ORDERED: QUETIAPINE FUMARATE 25 MG TABLET GT ONE (11:00)
[2022-05-31] MEDS: Z GUARD REMEDY 4 OZ OINT TP SCH (11:09)
[2022-05-31] MEDS: INSULIN REGULAR, HUMAN 100 UNIT/ML 3 ML VIAL SQ PRN ×2 (12:07→21:38)
[2022-05-31] MEDS: QUETIAPINE FUMARATE 25 MG TABLET GT SCH ×2 (12:09→21:24)
--- NOTE | 2022-05-31 12:09 | NUR ---
RN NOTES SEROQUEL 12.5 MG PLACED ON HOLD THE DOSE WAS GIVEN EARLY PER DR CRAIG'S ORDERS AT 11AM
[2022-05-31 16:23] VITALS: BP 126/64
[2022-05-31] MEDS: ASPIRIN 81 MG TAB.CHEW GT SCH (17:19)
[2022-05-31] MEDS ORDERED: SERTRALINE HCL 25 MG TABLET GT SCH (18:00)
--- NOTE | 2022-05-31 19:45 | NUR ---
RN OPENING NOTES RECEIVED PT IN BED, AWAKE. AOx1, CONFUSED. ON RA AND TOLERATING WELL. NO SOB NOTED. NO S/SX OF RESPIRATORY DISTRESS NOTED. IV ACCESS IN LFA #22G RUNNING D5NS @ 75 ML/HR. SAFETY PRECAUTIONS IN PLACE: BED IN LOWEST, LOCKED POSITION, SIDERAILS UPx2, AND BRAKES ON. TABLE AND CALL LIGHT WITHIN REACH. ALL NEEDS MET AT THIS TIME.
--- NOTE | 2022-05-31 19:56 | NUR ---
RN CLOSING NOTE RECEIVED PATIENT IN BED, AWAKE. PATIENT IS A/O X 1, PATIENT IS BLIND, FOLLOWS COMMANDS, STILL ON SOFT RESTRAINT ON THE RIGHT HAND D/T HER PULLING HER IV LINES AND TUBES. WITH LFA 22G WITH D5NS @75 ML/HR PATENT, FLUSHING WELL. PATIENT DOES NOT REPORT ANY PAIN AT THIS TIME. WITH GT WITH ONGOING GLUCERNA 1.2 45 ML/HR, TOLERATING WELL. NO RESIDUAL. GT PATENT AND INTACT, IN APPROPRIATE PLACE. PATIENT NOT IN ANY APPARENT DISTRESS. ALL DUE MEDS GIVEN, PATIENT KEPT SAFE, ALL NEEDS MET. SAFETY MEASURES MAINTAINED: BED LOCKED AND IN LOWEST POSITION, CALL LIGHT WITHIN REACH, SIDE RAILS UP. ENDORSED TO KERRICK KLEANER OPERATOR NURSE.
[2022-05-31 20:00] VITALS: BP 162/55
[2022-05-31] MEDS: ATORVASTATIN 40 MG TABLET GT SCH (21:24)
[2022-06-01] MEDS: VANCOMYCIN HCL 125 MG/2.5 ML ORAL.SUSP GT SCH ×5 (00:47→23:54)
[2022-06-01] MEDS: MUPIROCIN OINT 2% 22 GM TUBE TP SCH ×2 (00:47→13:21)
[2022-06-01] MEDS: INSULIN REGULAR, HUMAN 100 UNIT/ML 3 ML VIAL SQ PRN (06:41)
[2022-06-01] MEDS: BLOOD SUGAR DIAGNOSTIC 1 EACH STRIP IN SCH ×4 (06:41→22:11)
--- NOTE | 2022-06-01 07:35 | NUR ---
MS RN OPENING NOTE RECEIVED PATIENT IN BED, AWAKE. PATIENT IS A/O X 1, CONFUSED, PATIENT IS BLIND, PATIENT IS ON SOFT RESTRAINTS ON THE RIGHT HAND D/T HER PULLING HER IV LINES AND TUBES. WITH LFA 22G WITH D5NS @75 ML/HR PATENT, FLUSHING WELL. PATIENT DOES NOT REPORT ANY PAIN AT THIS TIME. WITH GT WITH ONGOING GLUCERNA 1.2 45 ML/HR, TOLERATING WELL. NO RESIDUAL SEEN. GT PATENT AND INTACT, IN APPROPRIATE PLACE. PATIENT NOT IN ANY APPARENT DISTRESS. SAFETY MEASURES IN PLACE: BED LOCKED AND IN LOWEST POSITION, CALL LIGHT WITHIN REACH, SIDE RAILS UP. WILL CONTINUE TO MONITOR DURING MY SHIFT.
--- NOTE | 2022-06-01 07:42 | NUR ---
RN CLOSING NOTES PT IN BED, ASLEEP, AWAKENS TO VERBAL STIMULI. AOx1, CONFUSED. ON RA AND TOLERATING WELL. NO SOB NOTED. NO S/SX OF RESPIRATORY DISTRESS NOTED. IV ACCESS IN LFA #22G RUNNING D5NS @ 75 ML/HR. ALL ORDERS CARRIED OUT. ALL NEEDS MET. PT KEPT CLEAN AND DRY. SAFETY PRECAUTIONS IN PLACE: BED IN LOWEST, LOCKED POSITION, SIDERAILS UPx2, AND BRAKES ON. TABLE AND CALL LIGHT WITHIN REACH. WILL ENDORSE TO ONCOMING SHIFT FOR TY.
[2022-06-01 07:44] LABS: BASOPHILS # (AUTO) 0.1 K/uL (0.0-0.2); BASOPHILS % (AUTO) 1.3 % (0.0-2.0); HEMOGLOBIN 12.4 g/dL (11.5-14.8); LYMPHOCYTES # (AUTO) 1.9 K/uL (0.8-4.8)
[2022-06-01 07:50] LABS: CALCIUM, SERUM 9.5 mg/dL (8.5-10.1); CARBON DIOXIDE 28 mmol/L (21-32); CHLORIDE 113 mmol/L (98-107); CREATININE 0.5 mg/dL (0.6-1.3); GLUCOSE 96 mg/dL (74-106); MAGNESIUM 1.8 mg/dL (1.8-2.4); PHOSPHORUS 3.5 mg/dL (2.5-4.9); SODIUM SERUM 145 mmol/L (136-145); UREA NITROGEN, BLOOD 9 mg/dL (7-18)
[2022-06-01 08:00] VITALS: BP 146/66
[2022-06-01 08:12] LABS: EOSINOPHILS % (AUTO) 3.9 % (0.0-6.0); HEMATOCRIT 38 % (33-45); MEAN CORPUSCULAR HGB CONC 33 g/dl (31.0-36.0); MEAN CORPUSCULAR VOLUME 83 fL (82-100); MONOCYTES # (AUTO) 0.6 K/uL (0.1-1.30); NEUTROPHILS # (AUTO) 3.4 K/uL (1.8-8.9); NEUTROPHILS % (AUTO) 54.8 % (43.0-81.0); PLATELET COUNT (AUTO) 298 K/uL (150-450); RED BLOOD CELL COUNT(AUTO) 4.56 MIL/uL (4.0-5.2); WHITE BLOOD COUNT (AUTO) 6.2 K/uL (4.3-11.0)
[2022-06-01] MEDS: DIVALPROEX SODIUM 125 MG CAP.SPRINK GT SCH ×2 (09:36→17:05)
[2022-06-01] MEDS: ACETAMINOPHEN 650 MG/20.3 ML UDC GT SCH (09:36)
[2022-06-01] MEDS: TRAMADOL HCL 50 MG TABLET GT SCH ×2 (09:36→17:05)
[2022-06-01] MEDS: LOSARTAN POTASSIUM 50 MG TABLET GT SCH ×2 (09:36→17:05)
[2022-06-01] MEDS: PANTOPRAZOLE 40 MG/PACK PACK GT SCH (09:37)
[2022-06-01] MEDS: AMLODIPINE BESYLATE 5 MG TABLET GT SCH (09:37)
[2022-06-01] MEDS: Z GUARD REMEDY 4 OZ OINT TP PRN ×2 (09:49→09:51)
[2022-06-01] MEDS: Z GUARD REMEDY 4 OZ OINT TP SCH (09:52)
[2022-06-01] MEDS: IV D5/ 0.9% NACL 1,000 ML IV SCH (12:54)
[2022-06-01] MEDS: QUETIAPINE FUMARATE 25 MG TABLET GT SCH ×2 (12:55→21:26)
[2022-06-01 16:00] VITALS: BP 139/60
[2022-06-01] MEDS: ASPIRIN 81 MG TAB.CHEW GT SCH (17:05)
--- NOTE | 2022-06-01 17:30 | NUR ---
RN NOTES PATIENT MANAGED TO RELEASE HER HAND OFF RESTRAINTS, PULLED HER LEFT ARM IV ACCESS. BLEEDING STOPPED. CHANGED PATIENT'S DIAPERS, STILL WITH WATERY STOOLS FOR THE 6TH TIME TODAY. PLACED PATIENT BACK TO RESTRAINTS SHE MIGHT PULL G-TUBE, REPOSITIONED PATIENT TO NOT BE ABLE TO REACH THE TUBES.
[2022-06-01] MEDS: LORAZEPAM 0.5 MG TABLET PO PRN (18:55)
--- NOTE | 2022-06-01 19:15 | NUR ---
MS RN CLOSING NOTE PATIENT IN BED, AWAKE. PATIENT IS A/O X 1, CONFUSED, PATIENT IS BLIND, PATIENT IS ON SOFT RESTRAINTS ON THE RIGHT HAND D/T HER PULLING HER IV LINES AND TUBES. WITH LFA 22G WITH D5NS @75 ML/HR PATENT, FLUSHING WELL. PATIENT DOES NOT REPORT ANY PAIN AT THIS TIME. WITH GT WITH ONGOING GLUCERNA 1.2 45 ML/HR, TOLERATING WELL. NO RESIDUAL SEEN. GT PATENT AND INTACT, IN APPROPRIATE PLACE. PATIENT APPEARS TO BE AGITATED AND ANXIOUS, GIVEN LORAZEPAM 0.25 AT 1857 VIA GT. MIDLINE WAS JUST INSERTED ON FABIÁN G#18. ENDORSED TO THE RISK CONTROL ANALYST NURSE. ALL NEEDS MEDS MET, ALL MEDS GIVEN, SAFETY MEASURES IN PLACE: BED LOCKED AND IN LOWEST POSITION, CALL LIGHT WITHIN REACH, SIDE RAILS UP. ENDORSED TO THE ONCOMING NURSE.
--- NOTE | 2022-06-01 19:54 | NUR ---
RN OPENING NOTES; RECEIVED PT IN BED ASLEEP BUT EASY TO AROUSED,AOx1, CONFUSED. ON RA AND TOLERATING WELL. NO SOB/DISTRESS NOTED. IV ACCESS FABIÁN ML 18G INTACT,RUNNING D5NS @ 75 ML/HR.SAFETY PRECAUTIONS IN PLACE: BED IN LOWEST, LOCKED POSITION, SIDERAILS UPx2, AND BRAKES ON. TABLE AND CALL LIGHT WITHIN REACH. WILL CONTINUE TO MONITOR.
[2022-06-01 20:00] VITALS: BP 171/70
[2022-06-01] MEDS ORDERED: QUETIAPINE FUMARATE 25 MG TABLET GT PRN (21:00)
--- NOTE | 2022-06-01 21:00 | NUR ---
RN NOTES; DOC,Marry CRAIGGIVE A NEW ORDER SEROQUEL 12.5 MG Q6HR PRN.
[2022-06-01] MEDS: ATORVASTATIN 40 MG TABLET GT SCH (21:26)
[2022-06-02] MEDS: MUPIROCIN OINT 2% 22 GM TUBE TP SCH ×2 (00:04→13:00)
[2022-06-02] MEDS: IV D5/ 0.9% NACL 1,000 ML IV SCH ×2 (00:15→17:56)
[2022-06-02] MEDS: VANCOMYCIN HCL 125 MG/2.5 ML ORAL.SUSP GT SCH ×4 (05:07→23:37)
--- NOTE | 2022-06-02 06:23 | NUR ---
RN CLOSING [id number]: PT IN BED SLEEPING BUT EASY TO AROUSED, NON VERBAL,TRACH INTACT ON COOL AEROSOL TIN WELL NO SIGN SOB/DISTRESS NOTED,DUE MEDS GIVEN ORDER,ALL NEEDS ATTENDED,IV ACCESS ON LEFT HAND GAUGE 20 PATENT INTACT AND INFUSING NS @ 75ML/HR.GTUBE FEEDING INTACT GLUCERNA 1.2 @60ML/HR.TIN WELL,NO RESIDUAL NOTED, ALL SAFETY MEASURES INITIATED: BED LOCKED AND IN LOWEST POSITION, SIDE RAILS UP X 2. CALL LIGHT IN EASY R EACH FOR HELP. HOB ELEVATED FOR ASPIRATION PRECAUTION. WILL ENDORSED TO NEXT SHIFT.
[2022-06-02 07:35] LABS: BASOPHILS % (AUTO) 0.7 % (0.0-2.0); EOSINOPHILS % (AUTO) 3.3 % (0.0-6.0); HEMATOCRIT 36 % (33-45); LYMPHOCYTES # (AUTO) 1.5 K/uL (0.8-4.8); LYMPHOCYTES % (AUTO) 22.9 % (20.0-44.0); MEAN CORPUSCULAR HGB CONC 33 g/dl (31.0-36.0); MEAN CORPUSCULAR VOLUME 83 fL (82-100); MONOCYTES # (AUTO) 0.6 K/uL (0.1-1.30); MONOCYTES % (AUTO) 9.2 % (2.0-12.0); NEUTROPHILS # (AUTO) 4.2 K/uL (1.8-8.9); NEUTROPHILS % (AUTO) 63.9 % (43.0-81.0); PLATELET COUNT (AUTO) 307 K/uL (150-450); RED BLOOD CELL COUNT(AUTO) 4.35 MIL/uL (4.0-5.2); WHITE BLOOD COUNT (AUTO) 6.7 K/uL (4.3-11.0)
[2022-06-02] MEDS: BLOOD SUGAR DIAGNOSTIC 1 EACH STRIP IN SCH ×4 (07:37→21:58)
[2022-06-02 08:00] VITALS: BP 139/72
[2022-06-02 08:21] LABS: VALPROIC ACID 33 ug/mL (50-100)
[2022-06-02 08:23] LABS: ALANINE AMINOTRANSFERASE 24 U/L (12-78); ALBUMIN 2.6 g/dL (3.4-5.0); ALKALINE PHOSPHATASE 88 U/L (46-116); ASPARTATE AMINOTRANSFERASE 25 U/L (15-37); BILIRUBIN,TOTAL 0.4 mg/dL (0.2-1.0); CALCIUM, SERUM 9.3 mg/dL (8.5-10.1); CARBON DIOXIDE 27 mmol/L (21-32); CHLORIDE 109 mmol/L (98-107); CREATININE 0.6 mg/dL (0.6-1.3); GLUCOSE 107 mg/dL (74-106); POTASSIUM 3.3 mmol/L (3.5-5.1); SODIUM SERUM 143 mmol/L (136-145); TOTAL PROTEIN, SERUM 6.3 g/dL (6.4-8.2); UREA NITROGEN, BLOOD 11 mg/dL (7-18)
[2022-06-02] MEDS ORDERED: DIVA125C2 GT (08:29)
[2022-06-02] MEDS ORDERED: Lorazepam PO (08:29)
[2022-06-02] MEDS ORDERED: Quetiapine Fumarate GT ×2 (08:29)
[2022-06-02] MEDS: PANTOPRAZOLE 40 MG/PACK PACK GT SCH (09:50)
[2022-06-02] MEDS: DIVALPROEX SODIUM 125 MG CAP.SPRINK GT SCH ×2 (09:50→17:53)
[2022-06-02] MEDS: Z GUARD REMEDY 4 OZ OINT TP SCH (09:50)
[2022-06-02] MEDS: ACETAMINOPHEN 650 MG/20.3 ML UDC GT SCH (09:50)
[2022-06-02] MEDS: TRAMADOL HCL 50 MG TABLET GT SCH ×2 (09:50→17:53)
[2022-06-02] MEDS: LOSARTAN POTASSIUM 50 MG TABLET GT SCH ×2 (09:51→17:56)
[2022-06-02] MEDS: AMLODIPINE BESYLATE 5 MG TABLET GT SCH (09:52)
[2022-06-02] MEDS ORDERED: POTASSIUM CHLORIDE 20 MEQ POWDER PACKET GT SCH (12:00)
[2022-06-02] MEDS: QUETIAPINE FUMARATE 25 MG TABLET GT SCH ×2 (12:37→21:16)
[2022-06-02 16:00] VITALS: BP 133/70
[2022-06-02] MEDS: ASPIRIN 81 MG TAB.CHEW GT SCH (17:53)
[2022-06-02 20:00] VITALS: BP 127/63
[2022-06-02] MEDS: ATORVASTATIN 40 MG TABLET GT SCH (21:16)
[2022-06-03] MEDS: MUPIROCIN OINT 2% 22 GM TUBE TP SCH ×2 (01:23→13:11)
[2022-06-03] MEDS: IV D5/ 0.9% NACL 1,000 ML IV SCH (03:32)
[2022-06-03] MEDS: VANCOMYCIN HCL 125 MG/2.5 ML ORAL.SUSP GT SCH ×3 (05:20→18:41)
--- NOTE | 2022-06-03 06:31 | NUR ---
RN CLOSING NOTES;329 PT IN BED SLEEPING BUT EASY TO AROUSED, NON VERBAL,NO SIGN SOB/DISTRESS NOTED,DUE MEDS GIVEN ORDER,ALL NEEDS ATTENDED,IV ACCESS ON FABIÁN ML G 18 PATENT INTACT AND INFUSING D5 NS @ 75ML/HR.GTUBE FEEDING INTACT GLUCERNA 1.2 @60ML/HR.TIN WELL,NO RESIDUAL NOTED, ALL SAFETY MEASURES INITIATED: BED LOCKED AND IN LOWEST POSITION, SIDE RAILS UP X 2. CALL LIGHT IN EASY R EACH FOR HELP. HOB ELEVATED FOR ASPIRATION PRECAUTION. WILL ENDORSED TO NEXT SHIFT.
[2022-06-03] MEDS: BLOOD SUGAR DIAGNOSTIC 1 EACH STRIP IN SCH ×3 (06:33→17:41)
--- NOTE | 2022-06-03 07:25 | NUR ---
RN OPENING NOTES; RECEIVED PT IN BED ASLEEP BUT EASY TO AROUSED,AOx1. ON RA AND TOLERATING WELL. NO SOB/DISTRESS NOTED. IV ACCESS FABIÁN ML 18G INTACT,RUNNING D5NS @ 75 ML/HR. ON RESTRAINT @ RT HAND, NO BLEEDING/REDNESS NOTED. SAFETY PRECAUTIONS IN PLACE: BED IN LOWEST, LOCKED POSITION, SIDERAILS UPx2, AND BRAKES ON. TABLE AND CALL LIGHT WITHIN REACH. WILL CONTINUE TO MONITOR.
[2022-06-03 08:03] LABS: CALCIUM, SERUM 9.6 mg/dL (8.5-10.1); CARBON DIOXIDE 26 mmol/L (21-32); CHLORIDE 107 mmol/L (98-107); CREATININE 0.6 mg/dL (0.6-1.3); GLUCOSE 116 mg/dL (74-106); POTASSIUM 3.5 mmol/L (3.5-5.1); SODIUM SERUM 143 mmol/L (136-145); UREA NITROGEN, BLOOD 11 mg/dL (7-18)
[2022-06-03 08:32] VITALS: BP 150/58
[2022-06-03] MEDS: PANTOPRAZOLE 40 MG/PACK PACK GT SCH (08:40)
[2022-06-03] MEDS: DIVALPROEX SODIUM 125 MG CAP.SPRINK GT SCH ×2 (08:40→17:43)
[2022-06-03] MEDS: LOSARTAN POTASSIUM 50 MG TABLET GT SCH ×2 (08:40→17:44)
[2022-06-03] MEDS: TRAMADOL HCL 50 MG TABLET GT SCH ×2 (08:40→17:45)
[2022-06-03] MEDS: AMLODIPINE BESYLATE 5 MG TABLET GT SCH (08:41)
[2022-06-03] MEDS: ACETAMINOPHEN 650 MG/20.3 ML UDC GT SCH (08:42)
[2022-06-03] MEDS: Z GUARD REMEDY 4 OZ OINT TP SCH (09:09)
[2022-06-03] MEDS: QUETIAPINE FUMARATE 25 MG TABLET GT SCH ×2 (12:30→21:28)
[2022-06-03] MEDS: IV NS 0.9% 1,000 ML IV PRN (16:05)
[2022-06-03 16:24] VITALS: BP 128/72
[2022-06-03] MEDS: ASPIRIN 81 MG TAB.CHEW GT SCH (17:52)
--- NOTE | 2022-06-03 19:30 | NUR ---
RN NOTE PATIENT IN BED, ON SEMI SERRATO'S, AO X 1, IN NO ACUTE DISTRESS, SATURATION AT 98% ON ROOM AIR, HR IS 88. FABIÁN MIDLINE PATENT AND FLUSHING WELL, NO S/S OF INFECTION OR INFILTRATION, WITH NS INFUSING AT 80 ML/HR. GTUBE IN PLACE, POSITIVE PLACEMENT NOTED, NO RESIDUAL, WITH GLUCERNA AT 45 ML/HR. SOFT RESTRAINTS IN PLACE AT R WRIST, SKIN AND CIRCULATION CHECKED AND ARE WNL. SAFETY MEASURES IN PLACE, HOB ELEVATED, BED IS LOCKED AND AT LOWEST POSITION, CALL LIGHT WITHIN REACH OF PATIENT. WILL CONT TO MONITOR AND REASSESS.
[2022-06-03 20:00] VITALS: BP 131/66
--- NOTE | 2022-06-03 20:03 | NUR ---
RN CLOSING NOTES; PT IN BED ASLEEP BUT EASY TO AROUSED,AOx1. ON RA AND TOLERATING WELL. NO SOB/DISTRESS NOTED. IV ACCESS FABIÁN ML 18G INTACT,RUNNING D5NS @ 75 ML/HR. ON RESTRAINT @ RT HAND, NO BLEEDING/REDNESS NOTED. DUE MEDS GIVEN. KEPT COMFORTABLE. SAFETY PRECAUTIONS IN PLACE: BED IN LOWEST, LOCKED POSITION, SIDERAILS UPx2, AND BRAKES ON. TABLE AND CALL LIGHT WITHIN REACH. WILL CONTINUE TO MONITOR.
[2022-06-03 20:43] VITALS: BP 131/66
[2022-06-03] MEDS ORDERED: DEXTROSE 50%-WATER 50 ML DISP.SYRIN IV PRN (21:00)
[2022-06-03] MEDS: ATORVASTATIN 40 MG TABLET GT SCH (21:28)
[2022-06-04] MEDS: VANCOMYCIN HCL 125 MG/2.5 ML ORAL.SUSP GT SCH ×4 (00:11→17:00)
[2022-06-04] MEDS: MUPIROCIN OINT 2% 22 GM TUBE TP SCH ×2 (00:16→13:36)
[2022-06-04] MEDS: BLOOD SUGAR DIAGNOSTIC 1 EACH STRIP IN SCH ×4 (00:23→17:24)
[2022-06-04] MEDS: IV NS 0.9% 1,000 ML IV PRN ×2 (04:09→19:33)
--- NOTE | 2022-06-04 04:15 | NUR ---
RN NOTE URINE COLLECTED AND PLACED IN [place], LAB WAS NOTIFIED.
[2022-06-04 04:41] LABS: BILIRUBIN,URINE NEGATIVE (NEGATIVE); COLOR,URINE YELLOW (YELLOW); LEUKOCYTE ESTERASE ,URINE NEGATIVE (NEGATIVE); NITRITE, URINE NEGATIVE (NEGATIVE); PH,URINE 7.5 (5.0-8.0); PROTEIN,URINE NEGATIVE (NEGATIVE); UGLUCOSE NEGATIVE (NEGATIVE); UROBILINOGEN,URINE 0.2 EU/dL (0.2)
[2022-06-04 07:39] LABS: ALBUMIN 2.6 g/dL (3.4-5.0); BILIRUBIN,TOTAL 0.4 mg/dL (0.2-1.0); CALCIUM, SERUM 9.4 mg/dL (8.5-10.1); CREATININE 0.6 mg/dL (0.6-1.3); POTASSIUM 3.4 mmol/L (3.5-5.1); TOTAL PROTEIN, SERUM 6.6 g/dL (6.4-8.2)
--- NOTE | 2022-06-04 07:40 | NUR ---
RN OPENING NOTE PATIENT IN BED, ON SEMI SERRATO'S, AO X 1, IN NO ACUTE DISTRESS, SATURATION AT 98% ON ROOM AIR. FABIÁN MIDLINE PATENT AND FLUSHING WELL, NO S/S OF INFECTION OR INFILTRATION, WITH NS INFUSING AT 80 ML/HR. GTUBE IN PLACE, POSITIVE PLACEMENT NOTED, NO RESIDUAL, WITH GLUCERNA AT 45 ML/HR. SOFT RESTRAINTS IN PLACE AT R WRIST, SKIN AND CIRCULATION CHECKED AND ARE WNL. SAFETY MEASURES IN PLACE, HOB ELEVATED, BED IS LOCKED AND AT LOWEST POSITION, CALL LIGHT WITHIN REACH OF PATIENT. WILL CONT TO MONITOR AND REASSESS
[2022-06-04 08:00] VITALS: BP 126/69
[2022-06-04] MEDS: ACETAMINOPHEN 650 MG/20.3 ML UDC GT SCH (08:42)
[2022-06-04 08:45] VITALS: BP 126/68
[2022-06-04] MEDS: AMLODIPINE BESYLATE 5 MG TABLET GT SCH (08:45)
[2022-06-04] MEDS: LOSARTAN POTASSIUM 50 MG TABLET GT SCH ×2 (08:45→16:57)
[2022-06-04] MEDS: PANTOPRAZOLE 40 MG/PACK PACK GT SCH (08:46)
[2022-06-04] MEDS: TRAMADOL HCL 50 MG TABLET GT SCH ×2 (08:46→16:58)
[2022-06-04] MEDS: DIVALPROEX SODIUM 125 MG CAP.SPRINK GT SCH ×2 (09:00→16:57)
[2022-06-04] MEDS: Z GUARD REMEDY 4 OZ OINT TP SCH (09:00)
[2022-06-04] MEDS: Z GUARD REMEDY 4 OZ OINT TP PRN ×3 (09:02→09:27)
[2022-06-04] MEDS: GLUCERNA 1.2 1,000 ML BOTTLE PEG PRN (09:08)
[2022-06-04] MEDS ORDERED: POTASSIUM CHLORIDE 20 MEQ POWDER PACKET PO ONE (11:00)
[2022-06-04] MEDS ORDERED: POTASSIUM CHLORIDE 20 MEQ POWDER PACKET GT ONE (11:00)
[2022-06-04] MEDS: INSULIN REGULAR, HUMAN 100 UNIT/ML 3 ML VIAL SQ PRN (11:41)
[2022-06-04] MEDS: QUETIAPINE FUMARATE 25 MG TABLET GT SCH ×2 (12:02→21:34)
[2022-06-04 15:55] VITALS: BP 144/54
[2022-06-04] MEDS: ASPIRIN 81 MG TAB.CHEW GT SCH (17:00)
--- NOTE | 2022-06-04 19:32 | NUR ---
RN OPENING NOTE PATIENT AWAKE IN BED. A/OX1 (NAME). NO S/S OF DISTRESS, BREATHING WITHOUT DIFFICULTY ON ROOM AIR. FABIÁN MIDLINE #18 INTACT AND PATENT W/ NS 80ML/HR. SAFETY MEASURES IN PLACE: BED LOCKED AND AT LOWEST POSITION, RAILS UP X2, CALL MARTINEZ WITHIN REACH. WILL CONTINUE TO MONITOR PATIENT.
--- NOTE | 2022-06-04 19:39 | NUR ---
RN CLOSING NOTE PATIENT IN BED, ON HIGH SERRATO'S, AO X 1, IN NO ACUTE DISTRESS, SATURATION AT 98% ON ROOM AIR. FABIÁN MIDLINE PATENT AND FLUSHING WELL, NO S/S OF INFECTION OR INFILTRATION, WITH NS INFUSING AT 80 ML/HR. GTUBE IN PLACE, POSITIVE PLACEMENT NOTED, NO RESIDUAL, WITH GLUCERNA AT 45 ML/HR. RESTRAINTS REMOVED AT AROUND 1500H, MITTENS IN PLACE. BRUISED NOTED ON RIGHT LOWER ARM, PICTURES TAKEN,MD AWARE. SAFETY MEASURES IN PLACE, HOB ELEVATED, BED IS LOCKED AND AT LOWEST POSITION, CALL LIGHT WITHIN REACH OF PATIENT. ENDORSED TO INCOMING STAFF
[2022-06-04 20:00] VITALS: BP 155/78
[2022-06-04] MEDS: ATORVASTATIN 40 MG TABLET GT SCH (21:34)
[2022-06-05] MEDS: VANCOMYCIN HCL 125 MG/2.5 ML ORAL.SUSP GT SCH ×4 (00:04→17:00)
[2022-06-05] MEDS: BLOOD SUGAR DIAGNOSTIC 1 EACH STRIP IN SCH ×4 (00:04→17:27)
[2022-06-05] MEDS: MUPIROCIN OINT 2% 22 GM TUBE TP SCH ×2 (00:05→12:33)
[2022-06-05] MEDS: INSULIN REGULAR, HUMAN 100 UNIT/ML 3 ML VIAL SQ PRN (05:32)
--- NOTE | 2022-06-05 06:40 | NUR ---
RN CLOSING NOTE PATIENT AWAKE IN BED. A/OX1 (NAME). NO S/S OF DISTRESS, BREATHING WITHOUT DIFFICULTY ON ROOM AIR. FABIÁN MIDLINE #18 INTACT AND PATENT W/ NS 80ML/HR. GLUCERNA 1.2 @45ML/HR. SAFETY MEASURES IN PLACE: BED LOCKED AND AT LOWEST POSITION, RAILS UP X2, CALL MARTINEZ WITHIN REACH. WILL ENDORSE TO NEXT SHIFT FOR TY.
--- NOTE | 2022-06-05 07:36 | NUR ---
MS RN OPENING NOTE RECEIVED PATIENT IN BED, AWAKE. PATIENT IS A/O X 1, CONFUSED, PATIENT IS BLIND, PATIENT HAS MITTEN ON THE RIGHT HAND D/T HER PULLING HER IV LINES AND TUBES. WITH FABIÁN MIDLINE G18 WITH NS RUNNING AT 80 ML/HR PATENT, FLUSHING WELL. PATIENT DOES NOT REPORT ANY PAIN AT THIS TIME. WITH GT WITH ONGOING GLUCERNA 1.2 45 ML/HR, TOLERATING WELL. NO RESIDUAL SEEN. GT PATENT AND INTACT, IN APPROPRIATE PLACE. PATIENT NOT IN ANY APPARENT DISTRESS. SAFETY MEASURES IN PLACE: BED LOCKED AND IN LOWEST POSITION, CALL LIGHT WITHIN REACH, SIDE RAILS UP. WILL CONTINUE TO MONITOR DURING MY SHIFT.
[2022-06-05 07:58] LABS: BASOPHILS # (AUTO) 0.1 K/uL (0.0-0.2); BASOPHILS % (AUTO) 0.7 % (0.0-2.0); EOSINOPHILS % (AUTO) 2.9 % (0.0-6.0); HEMATOCRIT 39 % (33-45); HEMOGLOBIN 12.8 g/dL (11.5-14.8); LYMPHOCYTES # (AUTO) 2.1 K/uL (0.8-4.8); LYMPHOCYTES % (AUTO) 27.2 % (20.0-44.0); MEAN CORPUSCULAR HGB CONC 33 g/dl (31.0-36.0); MEAN CORPUSCULAR VOLUME 83 fL (82-100); MONOCYTES # (AUTO) 0.6 K/uL (0.1-1.30); MONOCYTES % (AUTO) 7.2 % (2.0-12.0); NEUTROPHILS # (AUTO) 4.9 K/uL (1.8-8.9); PLATELET COUNT (AUTO) 309 K/uL (150-450); RED BLOOD CELL COUNT(AUTO) 4.75 MIL/uL (4.0-5.2); WHITE BLOOD COUNT (AUTO) 7.9 K/uL (4.3-11.0)
[2022-06-05 08:00] VITALS: BP 129/67
[2022-06-05 08:05] LABS: CALCIUM, SERUM 9.1 mg/dL (8.5-10.1); CREATININE 0.6 mg/dL (0.6-1.3); MAGNESIUM 1.6 mg/dL (1.8-2.4); POTASSIUM 3.8 mmol/L (3.5-5.1)
[2022-06-05] MEDS: IV NS 0.9% 1,000 ML IV PRN (08:34)
[2022-06-05] MEDS: GLUCERNA 1.2 1,000 ML BOTTLE PEG PRN (08:36)
[2022-06-05] MEDS: PANTOPRAZOLE 40 MG/PACK PACK GT SCH (08:38)
[2022-06-05] MEDS: ACETAMINOPHEN 650 MG/20.3 ML UDC GT SCH (08:38)
[2022-06-05] MEDS: TRAMADOL HCL 50 MG TABLET GT SCH ×2 (08:38→17:01)
[2022-06-05] MEDS: LOSARTAN POTASSIUM 50 MG TABLET GT SCH ×2 (08:38→17:01)
[2022-06-05] MEDS: DIVALPROEX SODIUM 125 MG CAP.SPRINK GT SCH ×2 (08:39→17:01)
[2022-06-05] MEDS: AMLODIPINE BESYLATE 5 MG TABLET GT SCH (08:39)
[2022-06-05] MEDS: Z GUARD REMEDY 4 OZ OINT TP SCH (08:46)
[2022-06-05] MEDS: Magnesium 1GM/D5W 100ML PREMIX 100 ML IV SCH ×2 (11:10→12:23)
[2022-06-05] MEDS: QUETIAPINE FUMARATE 25 MG TABLET GT SCH ×2 (12:23→20:59)
[2022-06-05 16:00] VITALS: BP 126/65
[2022-06-05] MEDS: ASPIRIN 81 MG TAB.CHEW GT SCH (17:01)
--- NOTE | 2022-06-05 19:14 | NUR ---
MS RN CLOSING NOTE PATIENT IN BED, AWAKE, PATIENT IS A/OX1, LEGALLY BLIND, FOLLOWS COMMANDS, RIGHT HAND D/T HER PULLING HER IV LINES AND TUBES. WITH LFA 22G WITH D5NS @75 ML/HR PATENT, FLUSHING WELL. PATIENT DOES NOT REPORT ANY PAIN AT THIS TIME. WITH GT WITH ONGOING GLUCERNA 1.2 45 ML/HR, TOLERATING WELL. NO RESIDUAL. GT PATENT AND INTACT, IN APPROPRIATE PLACE. PATIENT NOT IN ANY APPARENT DISTRESS. ALL DUE MEDS GIVEN, PATIENT KEPT SAFE, ALL NEEDS MET. SAFETY MEASURES MAINTAINED: BED LOCKED AND IN LOWEST POSITION, CALL LIGHT WITHIN REACH, SIDE RAILS UP. ENDORSED TO SAMPLE COLOR MAKER NURSE.
--- NOTE | 2022-06-05 19:30 | NUR ---
MS RN OPENING NOTE RECEIVED PT AWAKE IN BED. A/O X1 TO NAME ONLY. PT STABLE ON ROOM AIR. NO SOB OR S/S OF RESPIRATORY DISTRESS. BREATHING EVEN AND UNLABORED. IV ACCESS FABIÁN ML 18G SL, INTACT AND PATENT, RUNNING NS @ 80 ML/HR. G TUBE IN PLACE, INTACT AND PATENT, RUNNING GLUCERNA 1.2 @ 45 ML/HR, NO RESIDUAL NOTED. WITH MITTEN RESTRAINTS, CIRCULATION CHECKED AND WNL. SAFETY PRECAUTIONS IN PLACE. BED IN LOWEST LOCKED POSITION, HOB ELEVATED, SIDE RAILS UP X3, AND CALL LIGHT AND TABLE WITHIN REACH. ALL NEEDS MET AT THIS TIME.
[2022-06-05 20:00] VITALS: BP 128/69
[2022-06-05] MEDS: ATORVASTATIN 40 MG TABLET GT SCH (21:00)
[2022-06-06] MEDS: VANCOMYCIN HCL 125 MG/2.5 ML ORAL.SUSP GT SCH ×4 (00:09→17:21)
[2022-06-06] MEDS: MUPIROCIN OINT 2% 22 GM TUBE TP SCH ×2 (00:09→12:03)
[2022-06-06] MEDS: BLOOD SUGAR DIAGNOSTIC 1 EACH STRIP IN SCH ×4 (00:25→17:30)
[2022-06-06] MEDS: IV NS 0.9% 1,000 ML IV PRN ×2 (04:11→17:23)
--- NOTE | 2022-06-06 06:44 | NUR ---
MS RN CLOSING NOTE PT AWAKE IN BED. A/O X1 TO NAME ONLY. PT STABLE ON ROOM AIR. NO SOB OR S/S OF RESPIRATORY DISTRESS. BREATHING EVEN AND UNLABORED. IV ACCESS FABIÁN ML 18G SL, INTACT AND PATENT, RUNNING NS @ 80 ML/HR. G TUBE IN PLACE, INTACT AND PATENT, RUNNING GLUCERNA 1.2 @ 45 ML/HR, NO RESIDUAL NOTED. WITH MITTEN RESTRAINTS, CIRCULATION CHECKED AND WNL DURING ENTIRE SHIFT. KEPT CLEAN AND DRY. WOUND CARE RENDERED. SAFETY PRECAUTIONS IN PLACE AT ALL TIMES. BED IN LOWEST LOCKED POSITION, HOB ELEVATED, SIDE RAILS UP X3, AND CALL LIGHT AND TABLE WITHIN REACH. ALL NEEDS MET AT THIS TIME AND WILL ENDORSE TO ONCOMING NURSE FOR TY.
--- NOTE | 2022-06-06 07:45 | NUR ---
MS RN OPENING NOTE RECEIVED PATIENT IN BED, AWAKE. PATIENT IS A/O X 1, CONFUSED, PATIENT IS LEGALLY BLIND, PATIENT IS WEARING MITTENS ON THE RIGHT HAND D/T HER PULLING HER IV LINES AND TUBES. WITH FABIÁN MIDLINE G#18 DRAINING NS AT 80 ML/HR PATENT, FLUSHING WELL. PATIENT DOES NOT REPORT ANY PAIN AT THIS TIME. WITH GT WITH ONGOING GLUCERNA 1.2 45 ML/HR, TOLERATING WELL. NO RESIDUAL SEEN. GT PATENT AND INTACT, IN APPROPRIATE PLACE. PATIENT NOT IN ANY APPARENT DISTRESS. SAFETY MEASURES IN PLACE: BED LOCKED AND IN LOWEST POSITION, CALL LIGHT WITHIN REACH, SIDE RAILS UP. WILL CONTINUE TO MONITOR DURING MY SHIFT.
[2022-06-06 08:00] VITALS: BP 143/72
[2022-06-06] MEDS: PANTOPRAZOLE 40 MG/PACK PACK GT SCH (09:10)
[2022-06-06] MEDS: LOSARTAN POTASSIUM 50 MG TABLET GT SCH ×2 (09:10→17:21)
[2022-06-06] MEDS: AMLODIPINE BESYLATE 5 MG TABLET GT SCH (09:11)
[2022-06-06] MEDS: ACETAMINOPHEN 650 MG/20.3 ML UDC GT SCH (09:11)
[2022-06-06] MEDS: TRAMADOL HCL 50 MG TABLET GT SCH ×2 (09:11→17:21)
[2022-06-06] MEDS: DIVALPROEX SODIUM 125 MG CAP.SPRINK GT SCH ×2 (09:11→17:21)
[2022-06-06] MEDS: Z GUARD REMEDY 4 OZ OINT TP SCH (09:31)
[2022-06-06] MEDS: QUETIAPINE FUMARATE 25 MG TABLET GT SCH ×2 (12:02→21:31)
[2022-06-06 16:00] VITALS: BP 120/69
[2022-06-06] MEDS: ASPIRIN 81 MG TAB.CHEW GT SCH (17:22)
[2022-06-06] MEDS: GLUCERNA 1.2 1,000 ML BOTTLE PEG PRN (17:28)
--- NOTE | 2022-06-06 18:50 | NUR ---
MS RN CLOSING NOTE PATIENT IN BED, AWAKE. PATIENT IS A/O X 1, CONFUSED, WEARING MITTENS ON THE RIGHT HAND D/T HER PULLING HER IV LINES AND TUBES. LET PATIENT OFF MITTENS Q2H FOR CIRCULATION AND SAFETY, WITH FABIÁN MIDLINE G#18 DRAINING NS AT 80 ML/HR PATENT, FLUSHING WELL. PATIENT DOES NOT REPORT ANY PAIN AT THIS TIME. WITH GT WITH ONGOING GLUCERNA 1.2 45 ML/HR, TOLERATING WELL. NO RESIDUAL SEEN. GT PATENT AND INTACT, IN APPROPRIATE PLACE. PATIENT NOT IN ANY APPARENT DISTRESS. ALL DUE MEDS GIVEN, ALL NEEDS MET, WOUND CARE PROVIDED. SAFETY MEASURES IN PLACE: BED LOCKED AND IN LOWEST POSITION, CALL LIGHT WITHIN REACH, SIDE RAILS UP. WILL CONTINUE TO MONITOR DURING MY SHIFT. Addendum: 06/06/22 at 1852 by GREGORY AVINA RN WILL ENDORSE TO THE TELECOMMUNICATION OPERATOR NURSE
--- NOTE | 2022-06-06 19:45 | NUR ---
MS RN OPENING NOTE RECEIVED PATIENT IN BED, AWAKE. PATIENT IS A/O X 1, CONFUSED, PATIENT IS LEGALLY BLIND, PATIENT IS WEARING MITTENS ON THE RIGHT HAND D/T HER PULLING HER IV LINES AND TUBES. WITH LEFT UA MIDLINE G#18 RUNNING NS AT 80 ML/HR PATENT. WITH G-TUBE ONGOING GLUCERNA 1.2 45 ML/HR, TOLERATING WELL. NO RESIDUAL SEEN. GT PATENT AND INTACT, IN APPROPRIATE PLACE. PATIENT NOT IN ANY APPARENT DISTRESS. SAFETY MEASURES IN PLACE: BED LOCKED AND IN LOWEST POSITION, CALL LIGHT WITHIN REACH, SIDE RAILS UP. WILL CONTINUE TO MONITOR DURING MY SHIFT.
[2022-06-06] MEDS: ATORVASTATIN 40 MG TABLET GT SCH (21:31)
[2022-06-07] MEDS: VANCOMYCIN HCL 125 MG/2.5 ML ORAL.SUSP GT SCH ×2 (00:05→05:28)
[2022-06-07] MEDS: MUPIROCIN OINT 2% 22 GM TUBE TP SCH ×2 (00:06→13:20)
[2022-06-07] MEDS: BLOOD SUGAR DIAGNOSTIC 1 EACH STRIP IN SCH ×4 (00:06→17:28)
[2022-06-07] MEDS: IV NS 0.9% 1,000 ML IV PRN (05:18)
--- NOTE | 2022-06-07 07:22 | NUR ---
MS RN CLOSING NOTE PATIENT IN BED, AWAKE. A/O X 1, CONFUSED, WEARING MITTENS ON THE RIGHT HAND D/T HER PULLING HER IV LINES AND TUBES. LET PATIENT OFF MITTENS Q2H FOR CIRCULATION AND SAFETY, WITH FABIÁN MIDLINE G#18 DRAINING NS AT 80 ML/HR PATENT, FLUSHING WELL. PATIENT DOES NOT REPORT ANY PAIN AT THIS TIME. WITH GT WITH ONGOING GLUCERNA 1.2 45 ML/HR, TOLERATING WELL. NO RESIDUAL SEEN. GT PATENT AND INTACT, IN APPROPRIATE PLACE. PATIENT NOT IN ANY APPARENT DISTRESS. ALL DUE MEDS GIVEN, ALL NEEDS MET, WOUND CARE PROVIDED. SAFETY MEASURES IN PLACE: BED LOCKED AND IN LOWEST POSITION, CALL LIGHT WITHIN REACH, SIDE RAILS UP. WILL ENDORSE TO DAYSHIFT NURSE.
--- NOTE | 2022-06-07 07:30 | NUR ---
MS RN OPENING NOTES PATIENT IS ALERT AND ORIENTED TIMES 3 AND AWAKE IN BED.NO PAIN NOTED. NO SOB NOTED. NO DISTRESS NOTED. ABLE TO MAKE NEEDS KNOWN IN MALAYSIAN LANGUAGE. IV ACCESS ON THE FABIÁN MID LINE G# 18 INTACT AND FUSING NS AT 80 ML/HR. GTUBE PLACEMENT CHECKED. IN PLACE. NO RESIDUAL NOTED. ON GLUCERNA 1.2 AT 45 ML/HR. TOLERATING WELL.PATIENT IS LEGALLY BLIND. ALL SAFETY MEASURES IN PLACE. BED ALARM ON. BED LOCKED IN THE LOWEST POSITION. CALL LIGHT AND TABLE IN EASY REACH. HEAD OF THE BED ELEVATED FOR ASPIRATION PRECAUTION. WILL CONTINUE TO MONITOR CLOSELY.
[2022-06-07 08:00] VITALS: BP 166/89
[2022-06-07] MEDS: ACETAMINOPHEN 650 MG/20.3 ML UDC GT SCH (09:03)
[2022-06-07] MEDS: AMLODIPINE BESYLATE 5 MG TABLET GT SCH (09:03)
[2022-06-07] MEDS: PANTOPRAZOLE 40 MG/PACK PACK GT SCH (09:03)
[2022-06-07] MEDS: DIVALPROEX SODIUM 125 MG CAP.SPRINK GT SCH ×2 (09:03→16:29)
[2022-06-07] MEDS: TRAMADOL HCL 50 MG TABLET GT SCH ×2 (09:04→16:30)
[2022-06-07] MEDS: LOSARTAN POTASSIUM 50 MG TABLET GT SCH ×2 (09:04→16:30)
[2022-06-07] MEDS: Z GUARD REMEDY 4 OZ OINT TP SCH (09:06)
[2022-06-07] MEDS: QUETIAPINE FUMARATE 25 MG TABLET GT SCH ×2 (12:39→21:31)
[2022-06-07 16:00] VITALS: BP 128/64
[2022-06-07] MEDS: ASPIRIN 81 MG TAB.CHEW GT SCH (17:28)
[2022-06-07] MEDS: GLUCERNA 1.2 1,000 ML BOTTLE PEG PRN (18:37)
--- NOTE | 2022-06-07 19:00 | NUR ---
MS RN CLOSING NOTES PATIENT IS ALERT AND ORIENTED TIMES 3 AND AWAKE IN BED.NO PAIN NOTED. NO SOB NOTED. NO DISTRESS NOTED. ABLE TO MAKE NEEDS KNOWN IN ALBANIAN LANGUAGE. IV ACCESS ON THE FABIÁN MID LINE G# 18 INTACT AND FUSING NS AT 80 ML/HR. GTUBE PLACEMENT CHECKED. IN PLACE. NO RESIDUAL NOTED. ON GLUCERNA 1.2 AT 45 ML/HR. TOLERATING WELL.PATIENT IS LEGALLY BLIND. ALL DUE MEDS GIVEN ORDERED.ALL SAFETY MEASURES IN PLACE. BED ALARM ON. BED LOCKED IN THE LOWEST POSITION. CALL LIGHT AND TABLE IN EASY REACH. HEAD OF THE BED ELEVATED FOR ASPIRATION PRECAUTION. WILL ENDORSE FOR TY.
[2022-06-07 20:00] VITALS: BP 131/52
--- NOTE | 2022-06-07 20:00 | NUR ---
MS KAREL OPENING NOTES PATIENT IS ALERT AND ORIENTED TIMES 3 AND AWAKE IN BED. NO PAIN NOTED. NO SOB NOTED. NO DISTRESS NOTED. ABLE TO MAKE NEEDS KNOWN IN PORTUGUESE LANGUAGE. NO IV ACCESS, PATIENT PULLED OUT HER IV. SOFT RESTRAINTS MITTENS ON. MONITORED FOR SKIN AND CIRCULATION. G-TUBE PLACEMENT CHECKED. IN PLACE. NO RESIDUAL NOTED. ON GLUCERNA 1.2 AT 45 ML/HR. TOLERATING WELL.PATIENT IS LEGALLY BLIND. ALL SAFETY MEASURES IN PLACE. BED ALARM ON. BED LOCKED IN THE LOWEST POSITION. CALL LIGHT AND TABLE IN EASY REACH. HEAD OF THE BED ELEVATED FOR ASPIRATION PRECAUTION. WILL CONTINUE TO MONITOR CLOSELY. Addendum: 06/08/22 at 0039 by VIVIAN MELENDEZ RN PATIENT HAS NO IV ACCESS- CHARGE NURSE MADE AWARE. WITH DISCHARGE ORDER.
[2022-06-07] MEDS: ATORVASTATIN 40 MG TABLET GT SCH (21:30)
[2022-06-08] MEDS: BLOOD SUGAR DIAGNOSTIC 1 EACH STRIP IN SCH ×4 (00:11→18:00)
[2022-06-08] MEDS: MUPIROCIN OINT 2% 22 GM TUBE TP SCH ×2 (00:37→12:41)
--- NOTE | 2022-06-08 07:22 | NUR ---
MS RN CLOSING NOTES PATIENT IS ALERT AND ORIENTED TIMES 3 AND AWAKE IN BED. NO PAIN NOTED. NO SOB NOTED. NO DISTRESS NOTED. ABLE TO MAKE NEEDS KNOWN IN ANDORRAN LANGUAGE. NO IV ACCESS. G-TUBE PLACEMENT CHECKED. IN PLACE. NO RESIDUAL NOTED. ON GLUCERNA 1.2 AT 45 ML/HR. TOLERATING WELL.PATIENT IS LEGALLY BLIND. ALL DUE MEDS GIVEN ORDERED. ALL SAFETY MEASURES IN PLACE. BED ALARM ON. BED LOCKED IN THE LOWEST POSITION. CALL LIGHT AND TABLE IN EASY REACH. HEAD OF THE BED ELEVATED FOR ASPIRATION PRECAUTION. WILL ENDORSE FOR TY.
--- NOTE | 2022-06-08 07:30 | NUR ---
MS RN OPENING NOTES PATIENT IS ALERT AND ORIENTED TIMES 3 AND AWAKE IN BED.NO PAIN NOTED. NO SOB NOTED. NO DISTRESS NOTED. ABLE TO MAKE NEEDS KNOWN IN [place]GI[place] LANGUAGE. NI IV ACCESS NOTED. PATIENT RERMOVED IV ACCESS PREVIOUS SHIFT. GTUBE PLACEMENT CHECKED. IN PLACE. NO RESIDUAL NOTED. ON GLUCERNA 1.2 AT 45 ML/HR. TOLERATING WELL.PATIENT IS LEGALLY BLIND. ALL SAFETY MEASURES IN PLACE. BED ALARM ON. BED LOCKED IN THE LOWEST POSITION. CALL LIGHT AND TABLE IN EASY REACH. HEAD OF THE BED ELEVATED FOR ASPIRATION PRECAUTION. WILL CONTINUE TO MONITOR CLOSELY.
[2022-06-08 08:00] VITALS: BP 126/64
[2022-06-08] MEDS: ACETAMINOPHEN 650 MG/20.3 ML UDC GT SCH (08:32)
[2022-06-08] MEDS: DIVALPROEX SODIUM 125 MG CAP.SPRINK GT SCH ×2 (08:32→17:00)
[2022-06-08] MEDS: PANTOPRAZOLE 40 MG/PACK PACK GT SCH (08:32)
[2022-06-08] MEDS: TRAMADOL HCL 50 MG TABLET GT SCH ×2 (08:32→17:00)
[2022-06-08] MEDS: AMLODIPINE BESYLATE 5 MG TABLET GT SCH (08:33)
[2022-06-08] MEDS: LOSARTAN POTASSIUM 50 MG TABLET GT SCH ×2 (08:33→16:59)
[2022-06-08] MEDS: Z GUARD REMEDY 4 OZ OINT TP SCH (08:34)
[2022-06-08] MEDS: QUETIAPINE FUMARATE 25 MG TABLET GT SCH ×2 (12:40→17:00)
[2022-06-08 16:00] VITALS: BP 140/71
[2022-06-08 16:59] VITALS: BP 140/71
--- NOTE | 2022-06-08 17:00 | NUR ---
CALLED LENA FROM [facility] WITH PHONE NUMBER [phone] AND GAVE REPORT TO THE NURSE.
--- NOTE | 2022-06-08 19:50 | NUR ---
RN NOTES DISCHARGE PATIENT IN STABLE CONDITION WITH STABLE VITAL SIGNS. NO PAIN NOTED. NO SOB NOTED. NO DISTRESS NOTED. G-TUBE SITE INTACT AND FLUSHING WELL. ALL THE BELONGING ACCOUNTED AND SIGNED FOR BY THE DAUGHTER KAY. ID BAND REMOVED. PATIENT LEFT HOSPITAL WITH AMBULANCE AT 1830 IN STABLE CONDITION WITH STABLE VITAL SIGNS. MD DR COTTRELL AND CHARGE NURSE KYLE AWARE OF THE DISCHARGE.
[2022-06-08] MEDS ORDERED: DIVALPROEX SODIUM 250 MG TABLET.DR PO SCH (21:00)
== END 2022-06-08 19:50 | DRG 371 ==
LOC: ER 12:35 → MED 17:16
PROVIDERS: ADMIT Legal Medicine; ATTEND Legal Medicine
PROC: 05HC33Z Insertion of Infusion Device into Left Basilic Vein, Percutaneous Approach (ICD-10-PCS; principal; 2022-06-01)
DX: A04.72 Enterocolitis due to Clostridium difficile, not specified as recurrent (principal); G92.8 Other toxic encephalopathy; F01.518 Vascular dementia, unspecified severity, with other behavioral disturbance; F01.53 Vascular dementia, unspecified severity, with mood disturbance; F01.54 Vascular dementia, unspecified severity, with anxiety; F33.9 Major depressive disorder, recurrent, unspecified; F03.90 Unspecified dementia, unspecified severity, without behavioral disturbance, psychotic disturbance, mood disturbance, and anxiety; E11.621 Type 2 diabetes mellitus with foot ulcer; L97.519 Non-pressure chronic ulcer of other part of right foot with unspecified severity; E78.5 Hyperlipidemia, unspecified; I69.398 Other sequelae of cerebral infarction; G89.29 Other chronic pain; H81.10 Benign paroxysmal vertigo, unspecified ear; I10 Essential (primary) hypertension; J44.9 Chronic obstructive pulmonary disease, unspecified; L03.031 Cellulitis of right toe; Z22.322 Carrier or suspected carrier of Methicillin resistant Staphylococcus aureus; M20.11 Hallux valgus (acquired), right foot; I69.391 Dysphagia following cerebral infarction; R13.10 Dysphagia, unspecified; Z79.4 Long term (current) use of insulin; Z79.82 Long term (current) use of aspirin; Z79.899 Other long term (current) drug therapy; M54.50 Low back pain, unspecified
CPT/HCPCS: 36410; 36415; 70450-TC; 71045-TC; 73630-TC; 76700-TC; 80048-TC; 80053-TC; 80076-TC; 80164-TC; 82140-TC; 82962-TC; 83605-TC; 83735-TC; 84100-TC; 84484-TC; 85025-TC; 85730-TC; 87040-TC; 87081-TC; 87086-TC; 94799-TC; 97110-TC; 97112-TC; 97530-TC; C9113; C9803; G0378; J1815; J3475; J7030; J7040; J7042

== ENCOUNTER 2022-07-06 23:45 | Inpatient (IN) | payer MEDICARE, OTHER ==
[~2022-07-06] VITALS: Ht 154.9 cm; Wt 40.4 kg
[~2022-07-06 23:45] MED LIST changes: -ACEB200C PO; +ACET-868 GT; +ACET650S26 GT; +ALBU8.5H8 IH; +ALPR0.25 GT; +AMLO5TAB4 GT; +ASCO-352 GT; +ASPI-1169 GT; -ATOR20TA PO; +ATOR40TA GT; +BISA10SU11 RC; +CRAN425C6 GT; +DOCU-141 GT; -HYDR25TA4 PO; +INSU100V3 SQ; +MAGN400O6 GT; +MECL-159 GT; -MECL-159 PO; +MODAFINIL GT; +MULT-447 GT; +NA P133E RC; +NICO-676 TD; +PANT40SU2 GT; +SERT25TA GT; +VANC125C11 GT; +ZINC1CAP2 GT
--- NOTE | 2022-07-07 | NUR ---
BIBS THIS 76YO FEMALE FROM [facility]. CAME WITH CC OF PULLED OUT GTUBE. PATIENT WAS PLACED COMFORTABLY IN BED. PATIENT CAME WITH DRESSING APPLIED TO THE STOMA. WITH RIGHT HAND SOFT MITTENS. AAOX3. VITALS CHECKED.
--- NOTE | 2022-07-07 00:10 | NUR ---
COVID SWAB DONE AND SENT TO LAB
--- NOTE | 2022-07-07 00:39 | NUR ---
BLOOD DRAWN BY EDUCATIONAL TECHNOLOGIST
[2022-07-07 02:00] LABS: CALCIUM, SERUM 9.6 mg/dL (8.5-10.1); CARBON DIOXIDE 25 mmol/L (21-32); CHLORIDE 105 mmol/L (98-107); CREATININE 0.6 mg/dL (0.6-1.3); GLUCOSE 105 mg/dL (74-106); POTASSIUM 3.9 mmol/L (3.5-5.1); SODIUM SERUM 138 mmol/L (136-145); UREA NITROGEN, BLOOD 25 mg/dL (7-18)
[2022-07-07 02:03] LABS: BASOPHILS # (AUTO) 0.1 K/uL (0.0-0.2); BASOPHILS % (AUTO) 0.7 % (0.0-2.0); EOSINOPHILS % (AUTO) 3.9 % (0.0-6.0); HEMATOCRIT 45 % (33-45); HEMOGLOBIN 14.3 g/dL (11.5-14.8); LYMPHOCYTES # (AUTO) 2.2 K/uL (0.8-4.8); LYMPHOCYTES % (AUTO) 23.5 % (20.0-44.0); MEAN CORPUSCULAR HGB CONC 32 g/dl (31.0-36.0); MEAN CORPUSCULAR VOLUME 86 fL (82-100); MONOCYTES # (AUTO) 0.8 K/uL (0.1-1.30); MONOCYTES % (AUTO) 8.7 % (2.0-12.0); NEUTROPHILS # (AUTO) 5.9 K/uL (1.8-8.9); NEUTROPHILS % (AUTO) 63.2 % (43.0-81.0); PLATELET COUNT (AUTO) 210 K/uL (150-450); RED BLOOD CELL COUNT(AUTO) 5.19 MIL/uL (4.0-5.2); WHITE BLOOD COUNT (AUTO) 9.3 K/uL (4.3-11.0)
--- NOTE | 2022-07-07 02:07 | NUR ---
REPOSITIONED PATIENT COMFORTABLE. NEEDS ATTENDED.
[2022-07-07] MEDS ORDERED: DEXTROSE 50%-WATER 50 ML DISP.SYRIN IV PRN (02:30)
[2022-07-07] MEDS ORDERED: ACETAMINOPHEN 325 MG TABLET PO PRN (02:30)
[2022-07-07] MEDS ORDERED: ONDANSETRON HCL/PF 4 MG/2 ML VIAL IVP PRN (02:30)
--- NOTE | 2022-07-07 04:15 | NUR ---
REPORT GIVEN TO KAREL MAY
--- NOTE | 2022-07-07 04:23 | NUR ---
IV CANNULA G20 INSERTED ON RIGHT FA.
[2022-07-07 04:38] VITALS: BP 138/76
--- NOTE | 2022-07-07 04:38 | NUR ---
TRANSFERRED TO ROOM VIA BED.
[2022-07-07] MEDS: IV NS 0.9% 1,000 ML IV PRN (05:13)
[2022-07-07] MEDS: BLOOD SUGAR DIAGNOSTIC 1 EACH STRIP IN SCH ×4 (07:04→23:55)
[2022-07-07] MEDS: INSULIN REGULAR, HUMAN 100 UNIT/ML 3 ML VIAL SQ PRN ×2 (07:05→19:17)
--- NOTE | 2022-07-07 07:20 | NUR ---
MS RN OPENING NOTE PATIENT AWAKE IN BED, ALERT/ORIENTED X 2, PATIENT LEGALLY BLIND. PATIENT STABLE ON RA, NO S/S OF DISTRESS OR SOB NOTED, BREATHING EVEN AND UNLABORED. IV ACCESS ON RIGHT FOREARM #20G INTACT AND INFUSING NS @ 75 ML/HR. PATIENT KEPT NPO, HERE FOR GTUBE DISLODGEMENT. PATIENT NOTED WITH LEFT HEEL WOUND, LEFT TOE WOUND, BACK WOUND, RASH ON LEFT ARM, AND SCATTERED SCRATCH TOM ON BODY, WOUND CARE CONSULT ORDERED. PATIENT WITH RIGHT HAND MITTEN, PATIENT UNABLE TO MOVE LEFT SIDE OF BODY. BLOOD SUGAR WNL THIS AM. SAFETY MEASURES IN PLACE: CALL LIGHT WITHIN REACH, SIDE RAILS UP X 2, BED LOCKED IN LOWEST POSITION, HOB ELEVATED, BED ALARM ON. WILL ENDORSE TO DAYSHIFT RN FOR CONTINUITY OF CARE
[2022-07-07 08:00] VITALS: BP 151/72
[2022-07-07] MEDS ORDERED: DIVA250T4 GT (08:38)
[2022-07-07] MEDS ORDERED: QUET25TA GT (08:38)
[2022-07-07] MEDS ORDERED: NUT.237L30 GT (08:38)
[2022-07-07] MEDS ORDERED: POVI3780 TP (08:38)
[2022-07-07] MEDS ORDERED: ALLA266C2 TP (08:38)
[2022-07-07] MEDS ORDERED: AMIN30LI2 GT (08:38)
--- NOTE | 2022-07-07 09:13 | NUR ---
WOUND CARE CONSULT: PT PRESENTS WITH BACK WOUND, STAGE 3 WITH SURROUNDING DEEP TISSUE INJURY WELL DRY WOUNDS TO HEELS AND TOES, PRESENT ON ADMISSION. PT REFUSED ASSESSMENT OF FEET. DR PENA AND DR ABREU CALLED FOR SURGICAL AND DPM CONSULTS. PT IS INCONTINENT. DISCUSSED SKIN PROTECTION WITH NURSING STAFF. MD IN AGREEMENT WITH PLAN OF CARE.
[2022-07-07] MEDS ORDERED: Z GUARD REMEDY 4 OZ OINT TP PRN (09:30)
[2022-07-07] MEDS: Z GUARD REMEDY 4 OZ OINT TP SCH (10:00)
[2022-07-07] MEDS ORDERED: hydrALAZINE HCL IV 20 MG VIAL IV PRN (10:30)
[2022-07-07] MEDS ORDERED: hydrALAZINE HCL IV 20 MG VIAL ONE (12:08)
[2022-07-07] MEDS ORDERED: LABETALOL HCL IV 100MG VIAL ONE (12:24)
[2022-07-07] MEDS ORDERED: FENTANYL PF 100MCG/2ML AMPUL ONE (12:36)
[2022-07-07 16:00] VITALS: BP 124/61
--- NOTE | 2022-07-07 19:30 | NUR ---
MS RN OPENING NOTE RECEIVED PT AWAKE IN BED. A/O X2, EPISODES OF CONFUSION, AND ABLE TO MAKE NEEDS KNOWN. PT STABLE ON ROOM AIR. NO SOB OR S/S OF RESPIRATORY DISTRESS. BREATHING EVEN AND UNLABORED. IV ACCESS RFA 20G, INTACT AND PATENT, RUNNING NS @ 75 ML/HR. WITH GTUBE RUNNING JEVITY 1.3 @ 60 ML/HR. WITH R MITTEN, RELEASED AND CIRCULATION CHECKED. SAFETY PRECAUTIONS IN PLACE. BED IN LOWEST LOCKED POSITION, HOB ELEVATED, SIDE RAILS UP X3, AND CALL LIGHT AND TABLE WITHIN REACH. ALL NEEDS MET AT THIS TIME.
--- NOTE | 2022-07-07 21:20 | NUR ---
RN NOTE PT BP 161/78 AND HR 98. ADMINISTERED HYDRALAZINE 10 MG FOR SBP > 160 ORDERED. MADE COMFORTABLE IN BED. ALL NEEDS MET AT THIS TIME.
[2022-07-07] MEDS: GLUCERNA 1.2 1,000 ML BOTTLE GT PRN (22:22)
[2022-07-08] MEDS: BLOOD SUGAR DIAGNOSTIC 1 EACH STRIP IN SCH ×3 (05:16→17:24)
[2022-07-08 05:57] LABS: CALCIUM, SERUM 9.9 mg/dL (8.5-10.1); CREATININE 0.6 mg/dL (0.6-1.3); MAGNESIUM 1.9 mg/dL (1.8-2.4); PHOSPHORUS 3.3 mg/dL (2.5-4.9); POTASSIUM 3.2 mmol/L (3.5-5.1)
--- NOTE | 2022-07-08 06:35 | NUR ---
MS RN CLOSING NOTE PT RESTING IN BED, VERBALLY RESPONSIVE. A/O X2, EPISODES OF CONFUSION, AND ABLE TO MAKE NEEDS KNOWN. PT STABLE ON ROOM AIR. NO SOB OR S/S OF RESPIRATORY DISTRESS. BREATHING EVEN AND UNLABORED. IV ACCESS RFA 20G, INTACT AND PATENT, RUNNING NS @ 75 ML/HR. WITH GTUBE RUNNING GLUCERNA 1.2 @ 60 ML/HR. WITH R MIKATEN, RELEASED AND CIRCULATION CHECKED Q2H. TURNED AND REPOSITIONED Q2H. KEPT CLEAN AND DRY. ALL DUE MEDS GIVEN ORDERED. SAFETY PRECAUTIONS IN PLACE AT ALL TIMES. BED IN LOWEST LOCKED POSITION, HOB ELEVATED, SIDE RAILS UP X3, AND CALL LIGHT AND TABLE WITHIN REACH. ALL NEEDS MET AT THIS TIME AND WILL ENDORSE TO ONCOMING NURSE FOR TY.
--- NOTE | 2022-07-08 07:43 | NUR ---
MS RN OPENING NOTE PT RESTING IN BED, VERBALLY RESPONSIVE. A/O X2, EPISODES OF CONFUSION. ON RA, TOLERATING WELL. NO SOB OR S/S OF RESPIRATORY DISTRESS. BREATHING EVEN AND UNLABORED. IV ACCESS RFA 20G, INTACT AND PATENT, RUNNING NS @ 75 ML/HR. WITH GTUBE RUNNING GLUCERNA 1.2 @ 60 ML/HR. WITH R MITTEN, RELEASED AND CIRCULATION CHECKED Q2H. TURNED AND REPOSITIONED Q2H. KEPT CLEAN AND DRY. SAFETY PRECAUTIONS IN PLACE AT ALL TIMES. BED IN LOWEST LOCKED POSITION, HOB ELEVATED, SIDE RAILS UP X3, AND CALL LIGHT AND TABLE WITHIN REACH. WILL CONTINUE TO MONITOR.
[2022-07-08 07:50] LABS: BASOPHILS # (AUTO) 0.1 K/uL (0.0-0.2); BASOPHILS % (AUTO) 0.5 % (0.0-2.0); EOSINOPHILS % (AUTO) 1.5 % (0.0-6.0); HEMATOCRIT 42 % (33-45); HEMOGLOBIN 13.2 g/dL (11.5-14.8); LYMPHOCYTES # (AUTO) 1.8 K/uL (0.8-4.8); LYMPHOCYTES % (AUTO) 15.3 % (20.0-44.0); MEAN CORPUSCULAR HGB CONC 32 g/dl (31.0-36.0); MEAN CORPUSCULAR VOLUME 85 fL (82-100); MONOCYTES # (AUTO) 0.9 K/uL (0.1-1.30); NEUTROPHILS # (AUTO) 8.8 K/uL (1.8-8.9); NEUTROPHILS % (AUTO) 74.7 % (43.0-81.0); PLATELET COUNT (AUTO) 343 K/uL (150-450); RED BLOOD CELL COUNT(AUTO) 4.87 MIL/uL (4.0-5.2); WHITE BLOOD COUNT (AUTO) 11.7 K/uL (4.3-11.0)
[2022-07-08 08:08] VITALS: BP 131/94
[2022-07-08] MEDS: Z GUARD REMEDY 4 OZ OINT TP SCH (08:44)
[2022-07-08] MEDS ORDERED: ALPRAZOLAM 0.25 MG TABLET GT PRN (10:00)
[2022-07-08] MEDS ORDERED: MAGNESIUM HYDROXIDE 30 ML UDC GT PRN (10:00)
[2022-07-08] MEDS ORDERED: BISACODYL SUPP (10 MG) 10 MG/SUPP.RECT SUPP.RECT RC PRN (10:00)
[2022-07-08] MEDS ORDERED: MECLIZINE HCL 25 MG TABLET GT PRN (10:00)
[2022-07-08] MEDS ORDERED: POTASSIUM CHLORIDE 20 MEQ POWDER PACKET GT SCH (10:00)
[2022-07-08] MEDS ORDERED: NA PHOS,M-B/NA PHOS,DI-BA 1 EA ENEMA RC PRN (10:00)
[2022-07-08] MEDS ORDERED: GLUCERNA 1.2 1,000 ML BOTTLE GT PRN (10:30)
[2022-07-08] MEDS ORDERED: ACETAMINOPHEN 650 MG/20.3 ML UDC GT PRN (10:30)
[2022-07-08] MEDS ORDERED: ALBUTEROL FS 2.5 MG/3 ML VIAL.NEB NEB PRN (10:30)
[2022-07-08] MEDS: INSULIN REGULAR, HUMAN 100 UNIT/ML 3 ML VIAL SQ PRN ×2 (11:22→16:44)
[2022-07-08 15:44] VITALS: BP 140/75
[2022-07-08] MEDS: TRAMADOL HCL 50 MG TABLET GT SCH (16:13)
[2022-07-08] MEDS: LOSARTAN POTASSIUM 50 MG TABLET GT SCH (16:13)
[2022-07-08] MEDS: ASPIRIN 81 MG TAB.CHEW GT SCH (17:24)
[2022-07-08] MEDS: ASCORBIC ACID 500 MG TABLET GT SCH (17:24)
--- NOTE | 2022-07-08 18:08 | NUR ---
MS RN CLOSING NOTE PT AWAKE IN BED, VERBALLY RESPONSIVE. A/O X2, EPISODES OF CONFUSION, AND ABLE TO MAKE NEEDS KNOWN. PT STABLE ON ROOM AIR. NO SOB OR S/S OF RESPIRATORY DISTRESS. BREATHING EVEN AND UNLABORED. IV ACCESS RFA 20G, INTACT AND PATENT, RUNNING NS @ 75 ML/HR. WITH GTUBE RUNNING GLUCERNA 1.2 @ 60 ML/HR. WITH R MITTEN, RELEASED AND CIRCULATION CHECKED Q2H. TURNED AND REPOSITIONED Q2H. KEPT CLEAN AND DRY. ALL DUE MEDS GIVEN ORDERED. WOUND CARE DONE. SAFETY PRECAUTIONS IN PLACE AT ALL TIMES. BED IN LOWEST LOCKED POSITION, HOB ELEVATED, SIDE RAILS UP X3, AND CALL LIGHT AND TABLE WITHIN REACH. ALL NEEDS MET AT THIS TIME AND WILL ENDORSE TO ONCOMING NURSE FOR TY.
[2022-07-08 20:00] VITALS: BP 141/77
--- NOTE | 2022-07-08 20:00 | NUR ---
MS RN OPENING NOTE RECEIVED PATIENT RESTING IN BED, VERBALLY RESPONSIVE. A/O X2, EPISODES OF CONFUSION. ON RA, TOLERATING WELL. NO SOB OR S/S OF RESPIRATORY DISTRESS. BREATHING EVEN AND UNLABORED. IV ACCESS RFA 20G, INTACT AND PATENT, RIGHT HAND #20, RUNNING NS @ 75 ML/HR. WITH G-TUBE RUNNING GLUCERNA 1.2 @ 60 ML/HR. WITH R MITTEN, RELEASED AND CIRCULATION CHECKED Q2H. TURNED AND REPOSITIONED Q2H. KEPT CLEAN AND DRY. SAFETY PRECAUTIONS IN PLACE AT ALL TIMES. BED IN LOWEST LOCKED POSITION, HOB ELEVATED, SIDE RAILS UP X3, AND CALL LIGHT AND TABLE WITHIN REACH. WILL CONTINUE TO MONITOR.
[2022-07-08] MEDS: ATORVASTATIN 40 MG TABLET GT SCH (21:11)
[2022-07-08] MEDS: QUETIAPINE FUMARATE 25 MG TABLET GT SCH (21:11)
[2022-07-09] MEDS: GLUCERNA 1.2 1,000 ML BOTTLE GT PRN (00:11)
[2022-07-09] MEDS: IV NS 0.9% 1,000 ML IV PRN (00:19)
--- NOTE | 2022-07-09 03:00 | NUR ---
RN NOTES IV ACCESS INFILTRATION NOTED AT RIGHT FOREARM. EDEMA NOTED ABOVE THE IV SITE. APPLIED ICE PACK. RAISED ARM WITH PILLOW. IV REMOVED. TOLERATED PROC WELL. WILL CONT TO MONITOR. Addendum: 07/09/22 at 0627 by VIVIAN MELENDEZ RN ADD: BLISTERS NOTED JUST ABOVE THE ELBOW WITH ACCOMPANYING EDEMA ABOVE THE IV SITE. PLACED ICE PACK. TOLERATED WELL. WILL CONT TO MONITOR.
[2022-07-09 04:00] VITALS: BP 144/95
[2022-07-09] MEDS: THERAHONEY GEL 1.5 OZ TUBE TP SCH ×2 (05:54→09:59)
[2022-07-09 06:12] LABS: CALCIUM, SERUM 9.3 mg/dL (8.5-10.1); CARBON DIOXIDE 21 mmol/L (21-32); CHLORIDE 116 mmol/L (98-107); CREATININE 0.7 mg/dL (0.6-1.3); GLUCOSE 144 mg/dL (74-106); POTASSIUM 3.7 mmol/L (3.5-5.1); SODIUM SERUM 147 mmol/L (136-145); UREA NITROGEN, BLOOD 23 mg/dL (7-18)
[2022-07-09] MEDS: BLOOD SUGAR DIAGNOSTIC 1 EACH STRIP IN SCH ×4 (06:16→17:17)
[2022-07-09] MEDS: INSULIN REGULAR, HUMAN 100 UNIT/ML 3 ML VIAL SQ PRN ×3 (06:25→17:17)
--- NOTE | 2022-07-09 06:36 | NUR ---
MS RN CLOSING NOTE PT AWAKE IN BED, VERBALLY RESPONSIVE. A/O X2, EPISODES OF CONFUSION, AND ABLE TO MAKE NEEDS KNOWN. PT STABLE ON ROOM AIR. NO SOB OR S/S OF RESPIRATORY DISTRESS. BREATHING EVEN AND UNLABORED. IV ACCESS RIGHT HAND #20, INTACT AND PATENT. WITH G-TUBE RUNNING GLUCERNA 1.2 @ 60 ML/HR. WITH R MITTEN, RELEASED AND CIRCULATION CHECKED Q2H. STILL WITH EDEMA AT RIGHT ARM AND BLISTERS NOTED ABOVE TH ELBOW. TURNED AND REPOSITIONED Q2H. KEPT CLEAN AND DRY. ALL DUE MEDS GIVEN ORDERED. WOUND CARE DONE. SAFETY PRECAUTIONS IN PLACE AT ALL TIMES. BED IN LOWEST LOCKED POSITION, HOB ELEVATED, SIDE RAILS UP X3, AND CALL LIGHT AND TABLE WITHIN REACH. ALL NEEDS MET AT THIS TIME. WILL ENDORSE TO NEXT SHIFT RN FOR TY.
--- NOTE | 2022-07-09 07:57 | NUR ---
MS RN CLOSING NOTE RECEIVED PT AWAKE IN BED, VERBALLY RESPONSIVE. A/O X2, WITH PERIODS OF CONFUSION. PT ON RA, NO NO S/S OF SOB, BREATHING EVEN AND UNLABORED. IV ACCESS RIGHT HAND #20, INTACT AND PATENT. WITH G-TUBE RUNNING GLUCERNA 1.2 @ 60 ML/HR. R HAND MITTEN NOTED, CHECKED CIRCULATION AND SKIN AT RESTRAINT SITE, NO ISSUES NOTED. EDEMA AT RIGHT ARM AND BLISTERS NOTED ABOVE TH ELBOW. SAFETY PRECAUTIONS IN PLACE AT ALL TIMES. BED IN LOWEST LOCKED POSITION, HOB ELEVATED, SIDE RAILS UP X3, CALL LIGHT AND TABLE WITHIN REACH; WILL CONT WITH PLAN OF CARE DURING SHIFT. Addendum: 07/09/22 at 0802 by MARTIN MCCLOUD RN MS RN OPENING NOTES:
--- NOTE | 2022-07-09 08:23 | NUR ---
WOUND CARE CONSULT: PT SEEN FOR RT ELBOW INTACT BLISTER. PT NOTED TO BE MOVING HER ARMS AND LEGS IN THE BED FREQUENTLY. DISCUSSED INTACT BLISTER WITH SURGICAL P.A. CURRENTLY ON CASE. SKIN PROTECTION DISCUSSED WITH NURSING STAFF. IN AGREEMENT WITH PLAN OF CARE.
[2022-07-09 08:31] VITALS: BP 104/48
[2022-07-09] MEDS: PROSOURCE / PROSTAT (PYXIS) 30 ML UDC GT SCH (08:53)
[2022-07-09] MEDS: DOCUSATE SODIUM 100 MG CAPSULE PO SCH (08:54)
[2022-07-09] MEDS: ACETAMINOPHEN 650 MG/20.3 ML UDC GT SCH (08:54)
[2022-07-09] MEDS: ZINC SULFATE 220 MG CAPSULE GT SCH (08:54)
[2022-07-09] MEDS: MULTIVITAMINS,THERAGRAN 1 UDTAB TABLET GT SCH (08:54)
[2022-07-09] MEDS: DIVALPROEX SODIUM 250 MG TABLET.DR PO SCH (08:54)
[2022-07-09] MEDS: AMLODIPINE BESYLATE 5 MG TABLET GT SCH (08:55)
[2022-07-09] MEDS: TRAMADOL HCL 50 MG TABLET GT SCH ×2 (08:57→17:02)
[2022-07-09] MEDS: LOSARTAN POTASSIUM 50 MG TABLET GT SCH ×2 (08:57→16:58)
[2022-07-09] MEDS ORDERED: Z GUARD REMEDY 2 OZ OINT TP SCH (09:00)
[2022-07-09] MEDS: Z GUARD REMEDY 4 OZ OINT TP SCH (09:59)
[2022-07-09 16:30] VITALS: BP 106/64
[2022-07-09] MEDS: ASPIRIN 81 MG TAB.CHEW GT SCH (17:02)
[2022-07-09] MEDS: ASCORBIC ACID 500 MG TABLET GT SCH (17:02)
--- NOTE | 2022-07-09 18:40 | NUR ---
MS RN CLOSING NOTES PT ASLEEP IN BED, EASILY ROUSED, A/O X2, WITH PERIODS OF CONFUSION. PT ON RA, NO S/S OF SOB, BREATHING EVEN AND UNLABORED. IV ACCESS RIGHT HAND #20, INTACT AND PATENT. G-TUBE RUNNING GLUCERNA 1.2 @ 60 ML/HR. R HAND MITTEN NOTED, CHECKED CIRCULATION AND SKIN AT RESTRAINT SITE Q 2 HR DURING SHIFT, NO ISSUES NOTED. ABD BINDER NOTED, CLEAN AND DRY, CHANGED G TUBE SITE DRESSING. EDEMA AT RIGHT ARM AND BLISTERS NOTED AT R ELBOW, PHOTO DOCUMENTED IN CHART, WOUND CONSULT DONE AND MD AWARE. PER AGATHA WOUND PA, CONT TO OBSERVE BLISTER, COVER WITH OPTIFORM ONCE DEFLATED. WOUND CARE DONE ORDERED, KEPT PT CLEAN, DRY AND COMFORTABLE, DUE MEDS GIVEN. SAFETY PRECAUTIONS IN PLACE AT ALL TIMES. BED IN LOWEST LOCKED POSITION, HOB ELEVATED, SIDE RAILS UP X3, CALL LIGHT AND TABLE WITHIN REACH; WILL ENDORSE TO PM SHIFT.
--- NOTE | 2022-07-09 18:41 | NUR ---
MS RN CLOSING NOTES: PT ASLEEP IN BED, EASILY ROUSED, A/O X1, NONVERBAL. PT ON O2 @ 4LPM WITH COOL AEROSOL VIA NC, TOLERATING WELL. NO SOB OR S/S OF RESPIRATORY DISTRESS. BREATHING EVEN AND UNLABORED. S/P FABIÁN MIDLINE REINSERTION #18, RUNNING 1/2 NS @ 60ML/HR. IV ACCESS L FA #22, SL INTACT AND PATENT. G TUBE FEEDING RUNNING JEVITY 1.2 @ 70 ML/HR, TOLERATING WELL. R HAND MITTEN, NOTED CHECKED Q2H DURING SHIFT, CIRCULATION AND SKIN ASSESSED, NO ISSUES NOTED. CRAWFORD CATHETER DRAINED 400CC OF CLEAR, YELLOW URINE DURING SHIFT. KEPT PT CLEAN, DRY AND COMFORTABLE. WOUND CARE DONE ORDERED, DUE MEDS GIVEN. SAFETY PRECAUTIONS IN PLACE AT ALL TIMES. BED IN LOWEST LOCKED POSITION, HOB ELEVATED, SIDE RAILS UP X3, AND CALL LIGHT AND TABLE WITHIN REACH, WILL ENDORSE TO PM SHIFT.
--- NOTE | 2022-07-09 19:58 | NUR ---
RN OPENING NOTE PATIENT AWAKE IN BED. A/OX1 (NAME). NO S/S OF DISTRESS, BREATHING WITHOUT DIFFICULTY ON ROOM AIR. R-HAND #20 INTACT AND PATENT W/ NS 75ML/HR. GLUCERNA 1.2 TF TO BE RESUMED AT 2200. TUBE INTACT W/ NO SIGNS OF DISLODGMENT. SAFETY MEASURES IN PLACE: BED LOCKED AND AT LOWEST POSITION, RAILS UP X2, CALL MARTINEZ WITHIN REACH. WILL CONTINUE TO MONITOR PATIENT.
[2022-07-09 20:03] VITALS: BP 119/61
[2022-07-09] MEDS: QUETIAPINE FUMARATE 25 MG TABLET GT SCH (21:24)
[2022-07-09] MEDS: ATORVASTATIN 40 MG TABLET GT SCH (21:25)
[2022-07-10] MEDS: INSULIN REGULAR, HUMAN 100 UNIT/ML 3 ML VIAL SQ PRN ×4 (00:40→17:21)
[2022-07-10] MEDS: BLOOD SUGAR DIAGNOSTIC 1 EACH STRIP IN SCH ×5 (00:40→23:18)
[2022-07-10] MEDS: IV NS 0.9% 1,000 ML IV PRN ×2 (05:17→17:53)
[2022-07-10] MEDS: GLUCERNA 1.2 1,000 ML BOTTLE GT PRN (05:17)
--- NOTE | 2022-07-10 06:51 | NUR ---
RN NOTE PATIENT ASLEEP IN BED. A/OX2(NAME, PLACE). NO S/S OF DISTRESS, BREATHING WITHOUT DIFFICULTY ON ROOM AIR. R-HAND #20 W/ NS 75ML/HR. GLUCERNA 1.2 @60ML/HR. SAFETY MEASURES IN PLACE: BED LOCKED AND AT LOWEST POSITION, RAILS UP X2, CALL MARTINEZ WITHIN REACH. WILL ENDORSE TO NEXT SHIFT FOR TY.
--- NOTE | 2022-07-10 07:35 | NUR ---
MS RN OPENING NOTE RECEIVED PATIENT IN BED AWAKE . A/OX1 (NAME). ROOM AIR AND TOLERATED WELL , NO SOB OR DISTRESS NOTED , NO S/S OF ANY P[AIN AND DISCOMFORT NOTED . R-HAND #20 INTACT AND PATENT W/ NS 75ML/HR. GLUCERNA 1.2 TF ON GOING 60 ML / HOUR . G- TUBE INTACT W/ NO SIGNS OF DISLODGMENT. SAFETY MEASURES IN PLACE: BED LOCKED AND AT LOWEST POSITION, SIDE RAILS UP X2, CALL MARTINEZ WITHIN REACH. WILL CONTINUE TO MONITOR PATIENT.
[2022-07-10] MEDS: DIVALPROEX SODIUM 250 MG TABLET.DR PO SCH (08:37)
[2022-07-10] MEDS: ZINC SULFATE 220 MG CAPSULE GT SCH (08:37)
[2022-07-10] MEDS: ACETAMINOPHEN 650 MG/20.3 ML UDC GT SCH (08:37)
[2022-07-10] MEDS: DOCUSATE SODIUM 100 MG CAPSULE PO SCH (08:37)
[2022-07-10] MEDS: TRAMADOL HCL 50 MG TABLET GT SCH ×2 (08:38→17:17)
[2022-07-10] MEDS: MULTIVITAMINS,THERAGRAN 1 UDTAB TABLET GT SCH (08:38)
[2022-07-10] MEDS: PROSOURCE / PROSTAT (PYXIS) 30 ML UDC GT SCH (08:39)
[2022-07-10] MEDS: AMLODIPINE BESYLATE 5 MG TABLET GT SCH (08:39)
[2022-07-10] MEDS: LOSARTAN POTASSIUM 50 MG TABLET GT SCH ×2 (08:39→17:17)
[2022-07-10] MEDS: Z GUARD REMEDY 4 OZ OINT TP SCH (08:45)
[2022-07-10] MEDS: THERAHONEY GEL 1.5 OZ TUBE TP SCH (08:46)
[2022-07-10] MEDS ORDERED: GLUCERNA 1.2 1,000 ML BOTTLE GT PRN (13:00)
[2022-07-10] MEDS: ASPIRIN 81 MG TAB.CHEW GT SCH (17:14)
[2022-07-10] MEDS: ASCORBIC ACID 500 MG TABLET GT SCH (17:18)
--- NOTE | 2022-07-10 19:02 | NUR ---
MS RN CLOSING NOTE PATIENT IN BED AWAKE . A/OX1 (NAME). ROOM AIR AND TOLERATED WELL , NO SOB OR DISTRESS NOTED , NO S/S OF ANY P[AIN AND DISCOMFORT NOTED . ALL DUE MEDS ORDERED GIVEN , R-HAND #20 INTACT AND PATENT W/ NS 75ML/HR. GLUCERNA 1.2 TF ON GOING 60 ML / HOUR . G- TUBE INTACT W/ NO SIGNS OF DISLODGMENT. SAFETY MEASURES IN PLACE: BED LOCKED AND AT LOWEST POSITION, SIDE RAILS UP X2, CALL MARTINEZ WITHIN REACH. ENDORSED TO NEXT SHIFT .
--- NOTE | 2022-07-10 19:29 | NUR ---
MS RN OPENING NOTE; RECEIVED PATIENT IN BED AWAKE. A/OX1 CONFUSED,ROOM AIR AND TOLERATED WELL , NO SIGN SOB/DISTRESS NOTED,NO SIGN OF PAIN/DISCOMFORT AT THIS TIME,R-HAND #20 INTACT AND PATENT W/ NS 75ML/HR. GLUCERNA 1.2 TF ON GOING 60 ML / HOUR ,TIN WELL NO RESIDUAL NOTED,SAFETY MEASURES IN PLACE: BED LOCKED AND AT LOWEST POSITION, SIDE RAILS UP X2, CALL MARTINEZ WITHIN REACH.WILL CONTINUE TO MONITOR.
[2022-07-10 20:00] VITALS: BP 108/59
[2022-07-10] MEDS: ATORVASTATIN 40 MG TABLET GT SCH (21:04)
[2022-07-10] MEDS: QUETIAPINE FUMARATE 25 MG TABLET GT SCH (21:04)
--- NOTE | 2022-07-11 02:34 | NUR ---
MS RN CLOSING NOTE; PATIENT IN BED AWAKE. A/OX1 CONFUSED,ROOM AIR AND TOLERATED WELL , NO SIGN SOB/DISTRESS NOTED,NO SIGN OF PAIN/DISCOMFORT AT THIS TIME,DUE MEDS GIVEN ORDER,ALL NEEDS ATTENDED,RFA 22G INTACT AND PATENT W/ NS 75ML/HR. GLUCERNA 1.2 TF ON GOING 60 ML / HOUR ,TIN WELL NO RESIDUAL NOTED,SAFETY MEASURES IN PLACE: BED LOCKED AND AT LOWEST POSITION, SIDE RAILS UP X2, CALL MARTINEZ WITHIN REACH.WILL ENDORSED TO NEXT SHIFT. Addendum: 07/11/22 at 0238 by ELEUTERIO VILA RN WRONG .
[2022-07-11] MEDS: BLOOD SUGAR DIAGNOSTIC 1 EACH STRIP IN SCH ×4 (05:37→23:41)
--- NOTE | 2022-07-11 06:19 | NUR ---
MS RN CLOSING NOTE; PATIENT IN BED AWAKE. A/OX1 CONFUSED,ROOM AIR AND TOLERATED WELL , NO SIGN SOB/DISTRESS NOTED,NO SIGN OF PAIN/DISCOMFORT AT THIS TIME,DUE MEDS GIVEN ORDER,ALL NEEDS ATTENDED,RFA 22G INTACT AND PATENT W/ NS 75ML/HR. GLUCERNA 1.2 TF ON GOING 60 ML / HOUR ,TIN WELL NO RESIDUAL NOTED,SAFETY MEASURES IN PLACE: BED LOCKED AND AT LOWEST POSITION, SIDE RAILS UP X2, CALL MARTINEZ WITHIN REACH.WILL ENDORSED TO NEXT SHIFT.
--- NOTE | 2022-07-11 07:30 | NUR ---
MS RN OPENING NOTE RECEIVED PATIENT IN BED AWAKE . A/OX1 (NAME). ROOM AIR AND TOLERATED WELL , NO SOB OR DISTRESS NOTED , NO S/S OF ANY PAIN AND DISCOMFORT NOTED . R-HAND #22 INTACT AND PATENT W/ NS 75ML/HR. GLUCERNA 1.2 TF ON GOING 60 ML / HOUR . G- TUBE INTACT W/ NO SIGNS OF DISLODGMENT. SAFETY MEASURES IN PLACE: BED LOCKED AND AT LOWEST POSITION, SIDE RAILS UP X2, CALL MARTINEZ WITHIN REACH. WILL CONTINUE TO MONITOR PATIENT.
[2022-07-11 08:18] VITALS: BP 131/61
[2022-07-11] MEDS: AMLODIPINE BESYLATE 5 MG TABLET GT SCH (08:31)
[2022-07-11] MEDS: ZINC SULFATE 220 MG CAPSULE GT SCH (08:32)
[2022-07-11] MEDS: MULTIVITAMINS,THERAGRAN 1 UDTAB TABLET GT SCH (08:32)
[2022-07-11] MEDS: DIVALPROEX SODIUM 250 MG TABLET.DR PO SCH (08:32)
[2022-07-11] MEDS: DOCUSATE SODIUM 100 MG CAPSULE PO SCH (08:32)
[2022-07-11] MEDS: TRAMADOL HCL 50 MG TABLET GT SCH ×2 (08:33→16:10)
[2022-07-11] MEDS: LOSARTAN POTASSIUM 50 MG TABLET GT SCH ×2 (08:33→16:12)
[2022-07-11] MEDS: PROSOURCE / PROSTAT (PYXIS) 30 ML UDC GT SCH (08:34)
[2022-07-11] MEDS: Z GUARD REMEDY 4 OZ OINT TP SCH (08:34)
[2022-07-11] MEDS: THERAHONEY GEL 1.5 OZ TUBE TP SCH (08:35)
[2022-07-11] MEDS: ACETAMINOPHEN 650 MG/20.3 ML UDC GT SCH (08:37)
[2022-07-11] MEDS: INSULIN REGULAR, HUMAN 100 UNIT/ML 3 ML VIAL SQ PRN (13:39)
[2022-07-11] MEDS: IV NS 0.9% 1,000 ML IV PRN (14:55)
[2022-07-11 16:21] VITALS: BP 132/63
[2022-07-11] MEDS: ASPIRIN 81 MG TAB.CHEW GT SCH (17:20)
[2022-07-11] MEDS: ASCORBIC ACID 500 MG TABLET GT SCH (17:20)
--- NOTE | 2022-07-11 19:26 | NUR ---
MS RN CLOSING NOTE PATIENT IN BED AWAKE . A/OX1 (NAME). ROOM AIR AND TOLERATED WELL , NO SOB OR DISTRESS NOTED , NO S/S OF ANY P[AIN AND DISCOMFORT NOTED . ALL DUE MEDS ORDERED GIVEN , R-HAND #20 INTACT AND PATENT W/ NS 75ML/HR. GLUCERNA 1.2 TF ON GOING 60 ML / HOUR . G- TUBE INTACT W/ NO SIGNS OF DISLODGMENT. DRESSING ON THE WOUND DONE , SAFETY MEASURES IN PLACE: BED LOCKED AND AT LOWEST POSITION, SIDE RAILS UP X2, CALL MARTINEZ WITHIN REACH. ENDORSED TO NEXT SHIFT .
--- NOTE | 2022-07-11 19:30 | NUR ---
MS RN OPENING NOTE; RECEIVED PATIENT IN BED AWAKE. A/OX1 CONFUSED,ROOM AIR AND TOLERATED WELL , NO SIGN SOB/DISTRESS NOTED,NO SIGN OF PAIN/DISCOMFORT AT THIS TIME,R-HAND #20 INTACT AND PATENT W/ NS 75ML/HR. GLUCERNA 1.2 ON GOING 60 ML / HOUR ,NO RESIDUAL NOTED, GTUBE INTACT. ALL SAFETY MEASURES IN PLACE: BED LOCKED AND AT LOWEST POSITION, SIDE RAILS UP X2, CALL MARTINEZ WITHIN REACH. HEAD OF THE BED ELEVATED FOR ASPIRATION PRECAUTION. WILL CONTINUE TO MONITOR CLOSELY.
[2022-07-11 20:00] VITALS: BP 124/58
[2022-07-11] MEDS: QUETIAPINE FUMARATE 25 MG TABLET GT SCH (21:42)
[2022-07-11] MEDS: ATORVASTATIN 40 MG TABLET GT SCH (21:42)
[2022-07-12] MEDS: GLUCERNA 1.2 1,000 ML BOTTLE GT PRN (02:10)
[2022-07-12] MEDS: IV NS 0.9% 1,000 ML IV PRN ×2 (02:19→19:03)
[2022-07-12] MEDS: BLOOD SUGAR DIAGNOSTIC 1 EACH STRIP IN SCH ×3 (05:56→18:08)
[2022-07-12 06:27] LABS: BASOPHILS # (AUTO) 0.1 K/uL (0.0-0.2); BASOPHILS % (AUTO) 0.8 % (0.0-2.0); EOSINOPHILS % (AUTO) 5.1 % (0.0-6.0); HEMATOCRIT 35 % (33-45); HEMOGLOBIN 11.3 g/dL (11.5-14.8); LYMPHOCYTES # (AUTO) 1.5 K/uL (0.8-4.8); LYMPHOCYTES % (AUTO) 15.4 % (20.0-44.0); MEAN CORPUSCULAR HGB CONC 32 g/dl (31.0-36.0); MEAN CORPUSCULAR VOLUME 86 fL (82-100); MONOCYTES # (AUTO) 0.7 K/uL (0.1-1.30); MONOCYTES % (AUTO) 7.1 % (2.0-12.0); NEUTROPHILS # (AUTO) 7.1 K/uL (1.8-8.9); NEUTROPHILS % (AUTO) 71.6 % (43.0-81.0); PLATELET COUNT (AUTO) 281 K/uL (150-450); RED BLOOD CELL COUNT(AUTO) 4.05 MIL/uL (4.0-5.2); WHITE BLOOD COUNT (AUTO) 9.9 K/uL (4.3-11.0)
--- NOTE | 2022-07-12 06:32 | NUR ---
MS RN CLOSING NOTE; PATIENT IN BED AWAKE. A/OX1 CONFUSED,ROOM AIR AND TOLERATED WELL , NO SIGN SOB/DISTRESS NOTED,NO SIGN OF PAIN/DISCOMFORT AT THIS TIME, LEFT HAND IV ACCESS #20 INTACT AND PATENT W/ NS 75ML/HR. GLUCERNA 1.2 ON GOING 60 ML / HOUR ,NO RESIDUAL NOTED, GTUBE INTACT. ALL DUE MEDS GIVEN ORDERED.ALL SAFETY MEASURES IN PLACE: BED LOCKED AND AT LOWEST POSITION, SIDE RAILS UP X2, CALL MARTINEZ WITHIN REACH. HEAD OF THE BED ELEVATED FOR ASPIRATION PRECAUTION. WILL ENDORSE FOR TY.
[2022-07-12 06:44] LABS: CALCIUM, SERUM 8.7 mg/dL (8.5-10.1); CREATININE 0.6 mg/dL (0.6-1.3); POTASSIUM 3.2 mmol/L (3.5-5.1)
[2022-07-12 07:00] VITALS: BP 136/70
--- NOTE | 2022-07-12 07:23 | NUR ---
MS RN OPENING NOTE RECEIVED PATIENT IN BED AWAKE . A/OX1 (NAME). ROOM AIR AND TOLERATED WELL , NO SOB OR DISTRESS NOTED , NO S/S OF ANY PAIN AND DISCOMFORT NOTED . L HAND #20 INTACT AND PATENT W/ NS 75ML/HR. GLUCERNA 1.2 TF ON GOING 60 ML / HOUR . G- TUBE INTACT W/ NO SIGNS OF DISLODGMENT. SAFETY MEASURES IN PLACE: BED LOCKED AND AT LOWEST POSITION, SIDE RAILS UP X2, CALL MARTINEZ WITHIN REACH. WILL CONTINUE TO MONITOR PATIENT.
[2022-07-12] MEDS: ACETAMINOPHEN 650 MG/20.3 ML UDC GT SCH (08:47)
[2022-07-12] MEDS: DIVALPROEX SODIUM 250 MG TABLET.DR PO SCH (08:48)
[2022-07-12] MEDS: DOCUSATE SODIUM 100 MG CAPSULE PO SCH (08:48)
[2022-07-12] MEDS: ZINC SULFATE 220 MG CAPSULE GT SCH (08:48)
[2022-07-12] MEDS: TRAMADOL HCL 50 MG TABLET GT SCH ×2 (08:49→17:40)
[2022-07-12] MEDS: MULTIVITAMINS,THERAGRAN 1 UDTAB TABLET GT SCH (08:49)
[2022-07-12] MEDS: LOSARTAN POTASSIUM 50 MG TABLET GT SCH ×2 (08:49→17:39)
[2022-07-12] MEDS: PROSOURCE / PROSTAT (PYXIS) 30 ML UDC GT SCH (08:50)
[2022-07-12] MEDS: AMLODIPINE BESYLATE 5 MG TABLET GT SCH (08:50)
[2022-07-12] MEDS: Z GUARD REMEDY 4 OZ OINT TP SCH (08:51)
[2022-07-12] MEDS: THERAHONEY GEL 1.5 OZ TUBE TP SCH (08:51)
[2022-07-12] MEDS ORDERED: POTASSIUM CHLORIDE 20 MEQ POWDER PACKET GT SCH (13:00)
[2022-07-12] MEDS: INSULIN REGULAR, HUMAN 100 UNIT/ML 3 ML VIAL SQ PRN (14:31)
[2022-07-12 16:00] VITALS: BP 135/65
[2022-07-12] MEDS: ASPIRIN 81 MG TAB.CHEW GT SCH (17:39)
[2022-07-12] MEDS: ASCORBIC ACID 500 MG TABLET GT SCH (17:40)
--- NOTE | 2022-07-12 19:27 | NUR ---
MS RN CLOSING NOTE PATIENT IN BED AWAKE . A/OX1 (NAME). ROOM AIR AND TOLERATED WELL , NO SOB OR DISTRESS NOTED , NO S/S OF ANY PAIN AND DISCOMFORT NOTED . ALL DUE MEDS ORDERED GIVEN , R-HAND #20 INTACT AND PATENT W/ NS 75ML/HR. GLUCERNA 1.2 TF ON GOING 60 ML / HOUR . G- TUBE INTACT W/ NO SIGNS OF DISLODGMENT. DRESSING ON THE WOUND DONE , NOTED WITH OPEN BLISTER ON THE RIGHT UPPER ARM AND COVERED WITH TEGADERM PATCH AND ORDERED FOR WOUND CARE CONSULT , SAFETY MEASURES IN PLACE: BED LOCKED AND AT LOWEST POSITION, SIDE RAILS UP X2, CALL MARTINEZ WITHIN REACH. ENDORSED TO NEXT SHIFT .
[2022-07-12 20:00] VITALS: BP 118/62
--- NOTE | 2022-07-12 20:35 | NUR ---
MS RN OPENING NOTE RECEIVED PATIENT IN BED AWAKE, A/OX1 (NAME). BREATHING IN ROOM AIR AND TOLERATED WELL, NO SOB OR DISTRESS NOTED, NO S/S OF ANY PAIN AND DISCOMFORT NOTED. IV ACCESS AT LEFT HAND #20, PATENT AND INTACT. GLUCERNA 1.2 60ML/H. OFF AT THIS TIME. G- TUBE INTACT W/ NO SIGNS OF DISLODGMENT. NOTED WITH OPEN BLISTER ON THE RIGHT UPPER ARM AND COVERED WITH TEGADERM PATCH AND ORDERED FOR WOUND CARE CONSULT. SAFETY MEASURES IN PLACE: BED LOCKED AND AT LOWEST POSITION, SIDE RAILS UP X2, CALL MARTINEZ WITHIN REACH. WILL CONTINUE TO MONITOR.
[2022-07-12] MEDS: ATORVASTATIN 40 MG TABLET GT SCH (21:02)
[2022-07-12] MEDS: QUETIAPINE FUMARATE 25 MG TABLET GT SCH (21:02)
[2022-07-13] MEDS: BLOOD SUGAR DIAGNOSTIC 1 EACH STRIP IN SCH ×4 (00:32→18:15)
[2022-07-13] MEDS: GLUCERNA 1.2 1,000 ML BOTTLE GT PRN (04:30)
[2022-07-13 05:52] LABS: BASOPHILS # (AUTO) 0.1 K/uL (0.0-0.2); BASOPHILS % (AUTO) 0.5 % (0.0-2.0); EOSINOPHILS % (AUTO) 5.7 % (0.0-6.0); HEMATOCRIT 36 % (33-45); HEMOGLOBIN 11.9 g/dL (11.5-14.8); LYMPHOCYTES # (AUTO) 1.6 K/uL (0.8-4.8); LYMPHOCYTES % (AUTO) 15.6 % (20.0-44.0); MEAN CORPUSCULAR HGB CONC 33 g/dl (31.0-36.0); MEAN CORPUSCULAR VOLUME 86 fL (82-100); MONOCYTES # (AUTO) 0.8 K/uL (0.1-1.30); MONOCYTES % (AUTO) 7.3 % (2.0-12.0); NEUTROPHILS # (AUTO) 7.4 K/uL (1.8-8.9); NEUTROPHILS % (AUTO) 70.9 % (43.0-81.0); PLATELET COUNT (AUTO) 304 K/uL (150-450); RED BLOOD CELL COUNT(AUTO) 4.19 MIL/uL (4.0-5.2); WHITE BLOOD COUNT (AUTO) 10.4 K/uL (4.3-11.0)
--- NOTE | 2022-07-13 06:06 | NUR ---
RN NOTES PATIENT ACCIDENTALLY PULLED OUT HER IV. PRESSURE DRESSING APPLIED. COLD COMPRESS DONE. RE INSERTED AT RIGHT FA #[id number]. INTACT AND PATENT. INFUSING WELL.
[2022-07-13 06:10] LABS: CALCIUM, SERUM 8.9 mg/dL (8.5-10.1); CARBON DIOXIDE 25 mmol/L (21-32); CHLORIDE 111 mmol/L (98-107); CREATININE 0.5 mg/dL (0.6-1.3); GLUCOSE 106 mg/dL (74-106); MAGNESIUM 1.9 mg/dL (1.8-2.4); PHOSPHORUS 2.5 mg/dL (2.5-4.9); POTASSIUM 3.8 mmol/L (3.5-5.1); SODIUM SERUM 143 mmol/L (136-145); UREA NITROGEN, BLOOD 17 mg/dL (7-18)
--- NOTE | 2022-07-13 06:40 | NUR ---
MS RN CLOSING NOTE PATIENT IN BED ASLEEP, A/OX1 (NAME). BREATHING IN ROOM AIR AND TOLERATED WELL, NO SOB OR DISTRESS NOTED, NO S/S OF ANY PAIN AND DISCOMFORT NOTED. IV ACCESS AT RFA #22, PATENT AND INTACT INFUSING NS @75ML/H. GLUCERNA 1.2 60ML/H. G- TUBE INTACT W/ NO SIGNS OF DISLODGMENT. NOTED WITH OPEN BLISTER ON THE RIGHT UPPER ARM AND COVERED WITH TEGADERM PATCH AND ORDERED FOR WOUND CARE CONSULT. SAFETY MEASURES IN PLACE: BED LOCKED AND AT LOWEST POSITION, SIDE RAILS UP X2, CALL MARTINEZ WITHIN REACH. WILL ENDORSE TO NEXT SHIFT RN FOR TY.
[2022-07-13 07:00] VITALS: BP 138/52
--- NOTE | 2022-07-13 07:30 | NUR ---
RN OPENING NOTE RECEIVED PATIENT IN BED AWAKE. A/OX1. BREATHING ON RA AND TOLERATED WELL , NO SOB OR DISTRESS NOTED AT THE MOMENT. NO S/S OF ANY PAIN AND DISCOMFORT NOTED. IV ACCESS R HAND #20 INTACT AND PATENT RUNNING NS 75ML/HR. G TUBE RUNNING GLUCERNA 1.2 TF ON GOING 60 ML / HOUR. G- TUBE INTACT W/ NO SIGNS OF DISLODGMENT. SAFETY MEASURES IN PLACE: BED LOCKED AND AT LOWEST POSITION, HOB ELEVATED, SIDE RAILS UP X2, CALL MARTINEZ AND TABLE WITHIN EASY REACH. WILL CONTINUE TO MONITOR PATIENT.
[2022-07-13] MEDS: Z GUARD REMEDY 4 OZ OINT TP SCH (08:39)
[2022-07-13] MEDS: THERAHONEY GEL 1.5 OZ TUBE TP SCH (08:39)
[2022-07-13] MEDS: DOCUSATE SODIUM 100 MG CAPSULE PO SCH (08:40)
[2022-07-13] MEDS: ZINC SULFATE 220 MG CAPSULE GT SCH (08:40)
[2022-07-13] MEDS: ACETAMINOPHEN 650 MG/20.3 ML UDC GT SCH (08:40)
[2022-07-13] MEDS: MULTIVITAMINS,THERAGRAN 1 UDTAB TABLET GT SCH (08:40)
[2022-07-13] MEDS: AMLODIPINE BESYLATE 5 MG TABLET GT SCH (08:41)
[2022-07-13] MEDS: DIVALPROEX SODIUM 250 MG TABLET.DR PO SCH (08:41)
[2022-07-13] MEDS: TRAMADOL HCL 50 MG TABLET GT SCH ×2 (08:41→17:26)
[2022-07-13] MEDS: LOSARTAN POTASSIUM 50 MG TABLET GT SCH ×2 (08:41→17:26)
[2022-07-13] MEDS: PROSOURCE / PROSTAT (PYXIS) 30 ML UDC GT SCH (08:42)
--- NOTE | 2022-07-13 08:59 | NUR ---
WOUND CARE CONSULT: PT SEEN FOR RE-EVALUATION OF RT ELBOW OPEN BLISTER. NO SIGN OF INFECTION NOTED. RECOMMENDATIONS MADE FOR SKIN PROTECTION AND WOUND CARE. DISCUSSED WITH NURSING STAFF. IN AGREEMENT WITH PLAN OF CARE. Addendum: 07/13/22 at 0900 by TINY COVARRUBIAS WNDNU Amended: Links added.
[2022-07-13] MEDS: IV NS 0.9% 1,000 ML IV PRN (15:39)
[2022-07-13 16:00] VITALS: BP 136/63
[2022-07-13] MEDS: ASCORBIC ACID 500 MG TABLET GT SCH (17:26)
[2022-07-13] MEDS: ASPIRIN 81 MG TAB.CHEW GT SCH (17:26)
--- NOTE | 2022-07-13 19:00 | NUR ---
RN CLOSING NOTE PATIENT IN BED AWAKE . A/OX1 . ON ROOM AIR AND TOLERATED WELL , NO SOB OR DISTRESS NOTED , NO S/S OF ANY PAIN AND DISCOMFORT NOTED. ALL DUE MEDS ORDERED GIVEN , R-FA #22G INTACT AND PATENT RUNNING NS 75ML/HR. G TUBE RUNNING GLUCERNA 1.2 TF ON GOING 60 ML / HOUR . G- TUBE INTACT W/ NO SIGNS OF DISLODGMENT. DRESSING ON THE WOUND DONE , KEPT PATIENT CLEAN AND DRY. REPOSITIONED EVERY 2HRS. SAFETY MEASURES IN PLACE: BED LOCKED AND AT LOWEST POSITION, SIDE RAILS UP X2, CALL MARTINEZ WITHIN REACH. WILL ENDORSE TO WORKFORCE PLANNER NURSE FOR TY.
[2022-07-13 20:27] VITALS: BP 90/46
--- NOTE | 2022-07-13 20:40 | NUR ---
MS RN OPENING NOTE RECEIVED PATIENT IN BED AWAKE, A/OX1 (NAME). BREATHING IN ROOM AIR AND TOLERATED WELL, NO SOB OR DISTRESS NOTED. COMPLAINS OF PAIN AT RIGHT FOOT, MOANING AND GUARDING SITE OF PAIN. GIVEN TYLENOL PRN VIA G-TUBE ORDERED. TOLERATED WELL. IV ACCESS AT RIGHT HAND #22, PATENT AND INTACT. GLUCERNA 1.2 60ML/H. OFF AT THIS TIME. G- TUBE INTACT W/ NO SIGNS OF DISLODGMENT. SAFETY MEASURES IN PLACE: BED LOCKED AND AT LOWEST POSITION, SIDE RAILS UP X2, CALL MARTINEZ WITHIN REACH. RIGHT HAND MITTENS IN PLACE, CIRCULATION CHECKED EVERY 2 HOURS AND RELEASED. WILL CONTINUE TO MONITOR.
[2022-07-13] MEDS: DIVALPROEX SODIUM 125 MG CAP.SPRINK PO SCH (20:58)
[2022-07-13] MEDS: ATORVASTATIN 40 MG TABLET GT SCH (20:59)
[2022-07-13] MEDS ORDERED: DIVALPROEX SODIUM 250 MG TABLET.DR PO SCH (21:00)
[2022-07-13] MEDS ORDERED: QUETIAPINE FUMARATE 25 MG TABLET GT PRN (21:00)
[2022-07-14] MEDS: BLOOD SUGAR DIAGNOSTIC 1 EACH STRIP IN SCH ×3 (01:01→12:40)
[2022-07-14 06:36] LABS: BASOPHILS # (AUTO) 0.1 K/uL (0.0-0.2); BASOPHILS % (AUTO) 0.6 % (0.0-2.0); EOSINOPHILS % (AUTO) 4.7 % (0.0-6.0); HEMATOCRIT 38 % (33-45); LYMPHOCYTES # (AUTO) 1.5 K/uL (0.8-4.8); LYMPHOCYTES % (AUTO) 13.5 % (20.0-44.0); MEAN CORPUSCULAR HGB CONC 32 g/dl (31.0-36.0); MEAN CORPUSCULAR VOLUME 86 fL (82-100); MONOCYTES # (AUTO) 0.8 K/uL (0.1-1.30); MONOCYTES % (AUTO) 7.4 % (2.0-12.0); NEUTROPHILS # (AUTO) 8.4 K/uL (1.8-8.9); NEUTROPHILS % (AUTO) 73.8 % (43.0-81.0); PLATELET COUNT (AUTO) 279 K/uL (150-450); RED BLOOD CELL COUNT(AUTO) 4.42 MIL/uL (4.0-5.2); WHITE BLOOD COUNT (AUTO) 11.4 K/uL (4.3-11.0)
--- NOTE | 2022-07-14 06:39 | NUR ---
MS RN CLOSING NOTE PATIENT IN BED AWAKE, A/OX1 (NAME). BREATHING IN ROOM AIR AND TOLERATED WELL, NO SOB OR DISTRESS NOTED. IV ACCESS AT RIGHT HAND #22, PATENT AND INTACT. GLUCERNA 1.2 60ML/H. G- TUBE INTACT W/ NO SIGNS OF DISLODGMENT. SAFETY MEASURES IN PLACE: BED LOCKED AND AT LOWEST POSITION, SIDE RAILS UP X2, CALL MARTINEZ WITHIN REACH. RIGHT HAND MITTENS IN PLACE, CIRCULATION CHECKED EVERY 2 HOURS AND RELEASED. WOUND CARE DONE. WILL ENDORSE TO NEXT SHIFT RN FOR TY.
--- NOTE | 2022-07-14 07:02 | NUR ---
MS RN OPENING NOTES RECEIVED PATIENT AWAKE IN BED, A/Ox2, BLIND. ABLE TO VERBALIZE NEEDS. ON ROOM AIR NO S/S OF RESPIRATORY DISTRESS OR DISCOMFORT. IV ACCESS R FA #22 WITH NS RUNNING @75 ML/HR. INTACT AND PATENT. PATIENT HAS MITTEN ON RIGHT HAND, CIRCULATION AND SKIN WNL. PATIENT HAS TUBE FEEDING GLUCERNA 1.2 @60 ML/HR. TOLERATING WELL. PATIENT IS INCONTINENT USES DIAPER. SKIN ISSUES: R ELBOW OPEN BLISTER, DRESSING IN PLACE NO DRAINAGE NOTED. SAFETY MEASURES IN PLACE: BED LOCKED AND IN LOWEST POSITION, HOB ELEVATED, SIDE RAILS UP x3, BED ALARM ON, CALL LIGHT WITHIN REACH. WILL CONTINUE TO MONITOR.
[2022-07-14 07:18] LABS: CALCIUM, SERUM 9.1 mg/dL (8.5-10.1); CARBON DIOXIDE 23 mmol/L (21-32); CHLORIDE 109 mmol/L (98-107); CREATININE 0.5 mg/dL (0.6-1.3); GLUCOSE 116 mg/dL (74-106); PHOSPHORUS 2.5 mg/dL (2.5-4.9); POTASSIUM 3.3 mmol/L (3.5-5.1); SODIUM SERUM 140 mmol/L (136-145); UREA NITROGEN, BLOOD 11 mg/dL (7-18)
[2022-07-14 08:00] VITALS: BP 147/81
[2022-07-14] MEDS: DOCUSATE SODIUM 100 MG CAPSULE PO SCH (09:27)
[2022-07-14] MEDS: MULTIVITAMINS,THERAGRAN 1 UDTAB TABLET GT SCH (09:27)
[2022-07-14] MEDS: ZINC SULFATE 220 MG CAPSULE GT SCH (09:27)
[2022-07-14] MEDS: ACETAMINOPHEN 650 MG/20.3 ML UDC GT SCH (09:27)
[2022-07-14] MEDS: DIVALPROEX SODIUM 125 MG CAP.SPRINK PO SCH (09:27)
[2022-07-14 09:28] VITALS: BP 147/81
[2022-07-14] MEDS: TRAMADOL HCL 50 MG TABLET GT SCH (09:28)
[2022-07-14] MEDS: LOSARTAN POTASSIUM 50 MG TABLET GT SCH (09:28)
[2022-07-14] MEDS: AMLODIPINE BESYLATE 5 MG TABLET GT SCH (09:28)
[2022-07-14] MEDS: PROSOURCE / PROSTAT (PYXIS) 30 ML UDC GT SCH (09:28)
[2022-07-14] MEDS: Z GUARD REMEDY 4 OZ OINT TP SCH (09:29)
[2022-07-14] MEDS: THERAHONEY GEL 1.5 OZ TUBE TP SCH (09:29)
[2022-07-14] MEDS ORDERED: QUETIAPINE FUMARATE 25 MG TABLET GT SCH ×2 (11:00→17:00)
[2022-07-14] MEDS ORDERED: QUETIAPINE FUMARATE 25 MG TABLET PO SCH (11:00)
--- NOTE | 2022-07-14 12:00 | NUR ---
RN NOTES PATIENT R HAND CIRCULATION WNL AND SKIN INTACT. WILL CONTINUE TO MONITOR.
[2022-07-14] MEDS: INSULIN REGULAR, HUMAN 100 UNIT/ML 3 ML VIAL SQ PRN (12:42)
--- NOTE | 2022-07-14 17:00 | NUR ---
ADMINISTRATIVE SECRETARY NOTES PATIENT DISCHARGED TO SNF, REPORT GIVEN TO ROM. PATIENT A/Ox2 BLIND, ABLE TO VERBALIZE NEEDS. PATIENT STABLE ON ROOM AIR, V/S STABLE. PATIENT IV ACCESS REMOVED. PRESSURE DRESSING APPLIED. PATIENT UNABLE TO COMPREHEND HEALTH TEACHINGS AND DISCHARGE INSTRUCTIONS. GIVEN TO ROM. PHOTOS TAKEN OF SKIN ISSUES AND FILED INTO CHART. PATIENT LEFT UNIT ACCOMPANIED BY TWO retail visual merchandiser, @1630. CHARGE NURSE AND MD AWARE OF DISCHARGE.
== END 2022-07-14 16:45 | DRG 356 ==
LOC: ER 23:46 → MED 07-07 03:25
PROVIDERS: ADMIT Nurse Practitioner Acute Care; ATTEND Nurse Practitioner Family
PROC: 0DH63UZ Insertion of Feeding Device into Stomach, Percutaneous Approach (ICD-10-PCS; principal; 2022-07-07)
PROC: 0JB70ZZ Excision of Back Subcutaneous Tissue and Fascia, Open Approach (ICD-10-PCS; 2022-07-14)
DX: Z43.1 Encounter for attention to gastrostomy (principal); E43 Unspecified severe protein-calorie malnutrition; L89.123 Pressure ulcer of left upper back, stage 3; R53.2 Functional quadriplegia; G93.40 Encephalopathy, unspecified; R64 Cachexia; F01.518 Vascular dementia, unspecified severity, with other behavioral disturbance; Z68.1 Body mass index [BMI] 19.9 or less, adult; I69.354 Hemiplegia and hemiparesis following cerebral infarction affecting left non-dominant side; Z20.822 Contact with and (suspected) exposure to COVID-19; E11.9 Type 2 diabetes mellitus without complications; E78.5 Hyperlipidemia, unspecified; F32.9 Major depressive disorder, single episode, unspecified; G89.29 Other chronic pain; I10 Essential (primary) hypertension; K02.9 Dental caries, unspecified; K29.70 Gastritis, unspecified, without bleeding; M24.561 Contracture, right knee; M24.562 Contracture, left knee; R13.10 Dysphagia, unspecified; K21.9 Gastro-esophageal reflux disease without esophagitis; Z79.82 Long term (current) use of aspirin; Z79.4 Long term (current) use of insulin; M27.62 Post-osseointegration biological failure of dental implant; L89.626 Pressure-induced deep tissue damage of left heel; L89.896 Pressure-induced deep tissue damage of other site; M27.69 Other endosseous dental implant failure; S40.821A Blister (nonthermal) of right upper arm, initial encounter; X58.XXXA Exposure to other specified factors, initial encounter; Y93.9 Activity, unspecified; Y92.129 Unspecified place in nursing home as the place of occurrence of the external cause; J44.9 Chronic obstructive pulmonary disease, unspecified; Z87.891 Personal history of nicotine dependence
CPT/HCPCS: 36415; 43760; 71045-TC; 80048-TC; 82962-TC; 83735-TC; 84100-TC; 85025-TC; 85730-TC; 87081-TC; 92526; 92611-TC; 93971-TC; A6403; C9803; G0378; J0360; J1815; J2704; J3010; J3490; J7030

== ENCOUNTER 2022-08-24 14:06 | Emergency (ER) | payer MEDICARE, OTHER ==
[~2022-08-24] VITALS: Ht 154.9 cm; Wt 48.1 kg
[2022-08-24 14:06] VITALS: BP 99/46
[~2022-08-24 14:06] MED LIST changes: +ALLA266C2 TP; +AMIN30LI2 GT; +DIVA250T4 GT; -MODAFINIL GT; -NICO-676 TD; +NUT.237L30 GT; -PANT40SU2 GT; +POVI3780 TP; +QUET25TA GT; -SERT25TA GT; -VANC125C11 GT
--- NOTE | 2022-08-24 14:08 | NUR ---
TO ER BED 14, [facility], PULLED OUT HER G TUBE THIS MORNING, AAOX1, BREATHING EVEN AND NON LABORED, AWAITING MD AGARWAL
[2022-08-24] MEDS ORDERED: DIATR MEGLU/DIATRIZOATE SODIUM 30 ML BOTTLE (GASTROGRAPHIN) ONE (14:56)
--- NOTE | 2022-08-24 16:55 | NUR ---
[facility] CALLED FOR BLS TRANSPORT BACK TO PATIENTS FACILITY, ETA 60-90 MINS
--- NOTE | 2022-08-24 20:00 | NUR ---
PATIENT WAS PICKED UP BY [facility] AND TRANSFERRED BACK TO THE FACILITY IN STABLE CONDITION
== END 2022-08-24 20:00 ==
LOC: ER 14:11
DX: Z43.1 Encounter for attention to gastrostomy (principal); Z86.73 Personal history of transient ischemic attack (TIA), and cerebral infarction without residual deficits; I10 Essential (primary) hypertension; E11.9 Type 2 diabetes mellitus without complications; M54.50 Low back pain, unspecified; G89.29 Other chronic pain; F17.200 Nicotine dependence, unspecified, uncomplicated; Z79.4 Long term (current) use of insulin; Z79.82 Long term (current) use of aspirin; Z79.899 Other long term (current) drug therapy
CPT/HCPCS: 99284; 43762; 74018; Q9963

== ENCOUNTER 2022-09-13 10:47 | Inpatient (IN) | payer MEDICARE, OTHER ==
[~2022-09-13] VITALS: Ht 154.9 cm; Wt 59.9 kg
[2022-09-13] MEDS ORDERED: CHLO473M5 MM (11:39)
[2022-09-13] MEDS ORDERED: GLUC1KIT IM (11:39)
[2022-09-13] MEDS ORDERED: MOME15OI2 TP (11:39)
[2022-09-13] MEDS ORDERED: COLL30OI TP (11:39)
[2022-09-13] MEDS ORDERED: DIPH25CA51 PO (11:39)
[2022-09-13 12:17] LABS: CALCIUM, SERUM 9.8 mg/dL (8.5-10.1); CARBON DIOXIDE 24 mmol/L (21-32); CHLORIDE 102 mmol/L (98-107); CREATININE 0.9 mg/dL (0.6-1.3); GLUCOSE 202 mg/dL (74-106); POTASSIUM 3.8 mmol/L (3.5-5.1); SODIUM SERUM 137 mmol/L (136-145)
[2022-09-13 12:22] LABS: ALANINE AMINOTRANSFERASE 26 U/L (12-78); ALBUMIN 2.5 g/dL (3.4-5.0); ALKALINE PHOSPHATASE 82 U/L (46-116); ASPARTATE AMINOTRANSFERASE 36 U/L (15-37); BASOPHILS % (AUTO) 0.2 % (0.0-2.0); BILIRUBIN,DIRECT 0.1 mg/dL (0.0-0.2); BILIRUBIN,TOTAL 0.2 mg/dL (0.2-1.0); EOSINOPHILS % (AUTO) 0.1 % (0.0-6.0); HEMATOCRIT 31 % (33-45); HEMOGLOBIN 9.9 g/dL (11.5-14.8); LYMPHOCYTES # (AUTO) 1.8 K/uL (0.8-4.8); LYMPHOCYTES % (AUTO) 8.7 % (20.0-44.0); MEAN CORPUSCULAR HGB CONC 32 g/dl (31.0-36.0); MEAN CORPUSCULAR VOLUME 86 fL (82-100); MONOCYTES # (AUTO) 1.2 K/uL (0.1-1.30); MONOCYTES % (AUTO) 5.5 % (2.0-12.0); NEUTROPHILS # (AUTO) 18.2 K/uL (1.8-8.9); NEUTROPHILS % (AUTO) 85.5 % (43.0-81.0); PLATELET COUNT (AUTO) 342 K/uL (150-450); RED BLOOD CELL COUNT(AUTO) 3.58 MIL/uL (4.0-5.2); TOTAL PROTEIN, SERUM 6.8 g/dL (6.4-8.2); WHITE BLOOD COUNT (AUTO) 21.3 K/uL (4.3-11.0)
[2022-09-13 12:25] LABS: UREA NITROGEN, BLOOD 99 mg/dL (7-18)
[2022-09-13 12:41] LABS: BAND % (MANUAL) 2 % (0.0-5.0); LYMPHOCYTES % (MANUAL) 6 % (16-48); MONOCYTES % (MANUAL) 6 % (0-11.0); NEUTROPHILS % (MANUAL) 86 (42-76)
[2022-09-13 12:54] LABS: BILIRUBIN,URINE NEGATIVE (NEGATIVE); COLOR,URINE YELLOW (YELLOW); LEUKOCYTE ESTERASE ,URINE NEGATIVE (NEGATIVE); NITRITE, URINE NEGATIVE (NEGATIVE); PROTEIN,URINE NEGATIVE (NEGATIVE); UGLUCOSE NEGATIVE (NEGATIVE); UROBILINOGEN,URINE 0.2 EU/dL (0.2)
[2022-09-13 12:56] LABS: BACTERIA,URINE Moderate /HPF (None Seen); RBC,URINE 0-2 /HPF (0-2); SQUAMOUS EPITHELIAL CELL,UR Few /HPF (None Seen); URINE AMORPHOUS URATE Few /HPF (None Seen); WBC,URINE 0-2 /HPF (0-3)
[2022-09-13] MEDS ORDERED: PANTOPRAZOLE 40 MG VIAL ONE (13:28)
[2022-09-13] MEDS ORDERED: CEFTRIAXONE 1GM BAG (ER ONLY) 50 ML IV ONE ×2 (13:29→13:30)
[2022-09-13] MEDS ORDERED: IV NS 0.9% 1,000 ML BAG IV ONE (13:30)
[2022-09-13] MEDS ORDERED: PANTOPRAZOLE 40 MG VIAL IV ONE (13:30)
[2022-09-13 16:00] VITALS: BP 117/60
[2022-09-13] MEDS ORDERED: ONDANSETRON HCL/PF 4 MG/2 ML VIAL IVP PRN (17:30)
[2022-09-13] MEDS ORDERED: ACETAMINOPHEN 650 MG/SUPP.RECT RC PRN (17:30)
[2022-09-13] MEDS ORDERED: DEXTROSE 50%-WATER 50 ML DISP.SYRIN IV PRN (17:30)
[2022-09-13] MEDS: IV D5/ 0.9% NACL 1,000 ML IV SCH (17:35)
[2022-09-13] MEDS ORDERED: VANCOMYCIN 1 GM in IV D5W 250 ML IV ONE (18:00)
[2022-09-13] MEDS: PIPERACILLIN /TAZOBACTAM 3.375 G in IV D5W 50 ML IV SCH (18:16)
[2022-09-13] MEDS: BLOOD SUGAR DIAGNOSTIC 1 EACH STRIP IN SCH (18:34)
[2022-09-14] VITALS: BP 132/81
[2022-09-14] MEDS: PIPERACILLIN /TAZOBACTAM 3.375 G in IV D5W 50 ML IV SCH ×5 (00:09→23:57)
[2022-09-14] MEDS: BLOOD SUGAR DIAGNOSTIC 1 EACH STRIP IN SCH ×5 (00:37→23:57)
[2022-09-14] MEDS: INSULIN REGULAR, HUMAN 100 UNIT/ML 3 ML VIAL SQ PRN ×3 (00:38→14:08)
[2022-09-14] MEDS: IV D5/ 0.9% NACL 1,000 ML IV SCH ×2 (05:24→11:58)
[2022-09-14 08:00] VITALS: BP 124/61
[2022-09-14 08:56] LABS: CALCIUM, SERUM 9.5 mg/dL (8.5-10.1); CARBON DIOXIDE 23 mmol/L (21-32); CHLORIDE 114 mmol/L (98-107); CREATININE 0.8 mg/dL (0.6-1.3); GLUCOSE 184 mg/dL (74-106); POTASSIUM 3.2 mmol/L (3.5-5.1); SODIUM SERUM 148 mmol/L (136-145); UREA NITROGEN, BLOOD 63 mg/dL (7-18)
[2022-09-14] MEDS: PANTOPRAZOLE 40 MG VIAL IV SCH (09:06)
[2022-09-14] MEDS ORDERED: Z GUARD REMEDY 4 OZ OINT TP PRN (12:00)
[2022-09-14] MEDS: Z GUARD REMEDY 4 OZ OINT TP SCH (12:02)
[2022-09-14 12:30] LABS: BASOPHILS # (AUTO) 0.1 K/uL (0.0-0.2); BASOPHILS % (AUTO) 0.5 % (0.0-2.0); HEMATOCRIT 28 % (33-45); HEMOGLOBIN 8.7 g/dL (11.5-14.8); LYMPHOCYTES # (AUTO) 1.5 K/uL (0.8-4.8); LYMPHOCYTES % (AUTO) 6.5 % (20.0-44.0); MEAN CORPUSCULAR HGB CONC 31 g/dl (31.0-36.0); MEAN CORPUSCULAR VOLUME 88 fL (82-100); MONOCYTES % (AUTO) 8.4 % (2.0-12.0); NEUTROPHILS # (AUTO) 19.8 K/uL (1.8-8.9); NEUTROPHILS % (AUTO) 84.6 % (43.0-81.0); PLATELET COUNT (AUTO) 252 K/uL (150-450); RED BLOOD CELL COUNT(AUTO) 3.19 MIL/uL (4.0-5.2); WHITE BLOOD COUNT (AUTO) 23.4 K/uL (4.3-11.0)
[2022-09-14] MEDS: POTASSIUM CL. PREMIX PERIPHER. 50 ML IV SCH ×2 (12:48→13:56)
[2022-09-14] MEDS ORDERED: diphenhydrAMINE HCL 25 MG CAPSULE PO PRN (13:00)
[2022-09-14] MEDS ORDERED: ALPRAZOLAM 0.25 MG TABLET GT PRN (13:00)
[2022-09-14] MEDS ORDERED: MECLIZINE HCL 25 MG TABLET GT PRN (13:00)
[2022-09-14] MEDS ORDERED: MAGNESIUM HYDROXIDE 30 ML UDC GT PRN (13:00)
[2022-09-14] MEDS ORDERED: ALBUTEROL FS 2.5 MG/3 ML VIAL.NEB NEB PRN (13:00)
[2022-09-14] MEDS: THERAHONEY GEL 1.5 OZ TUBE TP SCH ×2 (14:09→23:11)
[2022-09-14] MEDS ORDERED: GLUCERNA 1.2 1,000 ML BOTTLE GT SCH (14:30)
[2022-09-14] MEDS: GLUCERNA 1.2 1,000 ML BOTTLE GT SCH (15:26)
[2022-09-14 16:00] VITALS: BP 122/87
[2022-09-14] MEDS: CHLORHEXIDINE GLUCONATE 15 ML UDC MM SCH (17:46)
[2022-09-14] MEDS: TRAMADOL HCL 50 MG TABLET GT SCH (17:46)
[2022-09-14] MEDS: LOSARTAN POTASSIUM 50 MG TABLET GT SCH (17:46)
[2022-09-14] MEDS: VANCOMYCIN 0.75 GM in IV D5W 250 ML IV SCH (18:45)
[2022-09-14] MEDS: QUETIAPINE FUMARATE 25 MG TABLET GT SCH (22:49)
[2022-09-14] MEDS: ATORVASTATIN 40 MG TABLET GT SCH (22:49)
[2022-09-15] VITALS: BP 108/41
[2022-09-15] MEDS: INSULIN REGULAR, HUMAN 100 UNIT/ML 3 ML VIAL SQ PRN ×2 (00:09→12:37)
[2022-09-15] MEDS: BLOOD SUGAR DIAGNOSTIC 1 EACH STRIP IN SCH ×4 (05:32→23:12)
[2022-09-15] MEDS: PIPERACILLIN /TAZOBACTAM 3.375 G in IV D5W 50 ML IV SCH ×4 (06:00→23:24)
[2022-09-15 06:01] LABS: BASOPHILS % (AUTO) 0.1 % (0.0-2.0); HEMATOCRIT 23 % (33-45); HEMOGLOBIN 7.3 g/dL (11.5-14.8); LYMPHOCYTES # (AUTO) 1.3 K/uL (0.8-4.8); LYMPHOCYTES % (AUTO) 6.2 % (20.0-44.0); MEAN CORPUSCULAR HGB CONC 31 g/dl (31.0-36.0); MEAN CORPUSCULAR VOLUME 88 fL (82-100); MONOCYTES # (AUTO) 2.2 K/uL (0.1-1.30); MONOCYTES % (AUTO) 10.7 % (2.0-12.0); NEUTROPHILS # (AUTO) 17.3 K/uL (1.8-8.9); PLATELET COUNT (AUTO) 277 K/uL (150-450); RED BLOOD CELL COUNT(AUTO) 2.64 MIL/uL (4.0-5.2); WHITE BLOOD COUNT (AUTO) 20.9 K/uL (4.3-11.0)
[2022-09-15 06:29] LABS: CALCIUM, SERUM 9.3 mg/dL (8.5-10.1); CARBON DIOXIDE 29 mmol/L (21-32); CHLORIDE 123 mmol/L (98-107); CREATININE 0.8 mg/dL (0.6-1.3); GLUCOSE 130 mg/dL (74-106); UREA NITROGEN, BLOOD 38 mg/dL (7-18)
[2022-09-15 07:13] LABS: SODIUM SERUM 158 mmol/L (136-145)
[2022-09-15 08:00] VITALS: BP 102/52
[2022-09-15] MEDS: CHLORHEXIDINE GLUCONATE 15 ML UDC MM SCH ×2 (08:41→16:18)
[2022-09-15] MEDS: DOCUSATE SODIUM 100 MG CAPSULE PO SCH (08:42)
[2022-09-15] MEDS: ACETAMINOPHEN 650 MG/20.3 ML UDC GT SCH (08:42)
[2022-09-15] MEDS: TRAMADOL HCL 50 MG TABLET GT SCH ×2 (08:43→16:17)
[2022-09-15] MEDS: PANTOPRAZOLE 40 MG VIAL IV SCH (08:45)
[2022-09-15] MEDS ORDERED: COLLAGENASE 30 GM TUBE TP SCH (09:00)
[2022-09-15] MEDS: LOSARTAN POTASSIUM 50 MG TABLET GT SCH ×2 (09:01→16:18)
[2022-09-15] MEDS: CADEXOMER IODINE 40 GM TUBE TP SCH (09:01)
[2022-09-15] MEDS: AMLODIPINE BESYLATE 5 MG TABLET GT SCH (09:01)
[2022-09-15] MEDS: THERAHONEY GEL 1.5 OZ TUBE TP SCH ×2 (09:02)
[2022-09-15] MEDS: Z GUARD REMEDY 4 OZ OINT TP SCH (09:02)
[2022-09-15] MEDS: POTASSIUM CHLORIDE 20 MEQ POWDER PACKET NG SCH ×3 (10:35→11:35)
[2022-09-15] MEDS: Potassium Chloride 20 MEQ in IV D5W 1,000 ML IV SCH ×2 (12:21→22:31)
[2022-09-15 16:00] VITALS: BP 122/61
[2022-09-15] MEDS: VANCOMYCIN 0.75 GM in IV D5W 250 ML IV SCH (17:01)
[2022-09-15] MEDS: QUETIAPINE FUMARATE 25 MG TABLET GT SCH (21:22)
[2022-09-15] MEDS: ATORVASTATIN 40 MG TABLET GT SCH (21:22)
[2022-09-16] VITALS (9 sets, daily range): BP systolic 94–123; BP diastolic 44–79
[2022-09-16] MEDS: PIPERACILLIN /TAZOBACTAM 3.375 G in IV D5W 50 ML IV SCH ×3 (05:03→17:27)
[2022-09-16] MEDS: VANCOMYCIN 500 MG in IV D5W 100ml IV SCH ×2 (05:03→17:40)
[2022-09-16] MEDS: INSULIN REGULAR, HUMAN 100 UNIT/ML 3 ML VIAL SQ PRN (05:15)
[2022-09-16] MEDS: BLOOD SUGAR DIAGNOSTIC 1 EACH STRIP IN SCH ×3 (06:00→17:29)
[2022-09-16 07:11] LABS: CALCIUM, SERUM 8.4 mg/dL (8.5-10.1); CREATININE 0.7 mg/dL (0.6-1.3); MAGNESIUM 1.8 mg/dL (1.8-2.4); POTASSIUM 3.9 mmol/L (3.5-5.1)
[2022-09-16] MEDS: PANTOPRAZOLE 40 MG VIAL IV SCH (09:05)
[2022-09-16] MEDS: Potassium Chloride 20 MEQ in IV D5W 1,000 ML IV SCH ×2 (09:05→17:40)
[2022-09-16] MEDS: THERAHONEY GEL 1.5 OZ TUBE TP SCH ×2 (09:06→09:12)
[2022-09-16] MEDS: Z GUARD REMEDY 4 OZ OINT TP SCH (09:06)
[2022-09-16] MEDS: ACETAMINOPHEN 650 MG/20.3 ML UDC GT SCH (09:06)
[2022-09-16] MEDS: CHLORHEXIDINE GLUCONATE 15 ML UDC MM SCH ×2 (09:06→17:27)
[2022-09-16] MEDS: AMLODIPINE BESYLATE 5 MG TABLET GT SCH (09:07)
[2022-09-16] MEDS: TRAMADOL HCL 50 MG TABLET GT SCH ×2 (09:07→17:28)
[2022-09-16] MEDS: LOSARTAN POTASSIUM 50 MG TABLET GT SCH ×2 (09:07→17:00)
[2022-09-16] MEDS: DOCUSATE SODIUM 100 MG CAPSULE PO SCH (09:07)
[2022-09-16] MEDS: CADEXOMER IODINE 40 GM TUBE TP SCH (09:11)
[2022-09-16] MEDS: PROSOURCE / PROSTAT (PYXIS) 30 ML UDC GT SCH (09:11)
[2022-09-16 09:18] LABS: BASOPHILS % (AUTO) 0.2 % (0.0-2.0); EOSINOPHILS % (AUTO) 2.1 % (0.0-6.0); LYMPHOCYTES # (AUTO) 1.3 K/uL (0.8-4.8); LYMPHOCYTES % (AUTO) 7.7 % (20.0-44.0); MEAN CORPUSCULAR HGB CONC 31 g/dl (31.0-36.0); MEAN CORPUSCULAR VOLUME 89 fL (82-100); MONOCYTES # (AUTO) 1.6 K/uL (0.1-1.30); MONOCYTES % (AUTO) 9.4 % (2.0-12.0); NEUTROPHILS % (AUTO) 80.6 % (43.0-81.0); PLATELET COUNT (AUTO) 247 K/uL (150-450); WHITE BLOOD COUNT (AUTO) 17.4 K/uL (4.3-11.0)
[2022-09-16 09:22] LABS: HEMATOCRIT 20 % (33-45); HEMOGLOBIN 6.3 g/dL (11.5-14.8)
[2022-09-16 13:49] LABS: BAND % (MANUAL) 2 % (0.0-5.0); BASOPHILS % (MANUAL) 0 % (0.0-2.0); EOSINOPHILS % (MANUAL) 2 % (0-4); LYMPHOCYTES % (MANUAL) 6 % (16-48); MONOCYTES % (MANUAL) 9 % (0-11.0); NEUTROPHILS % (MANUAL) 81 (42-76)
[2022-09-16] MEDS: ATORVASTATIN 40 MG TABLET GT SCH (21:38)
[2022-09-16] MEDS: QUETIAPINE FUMARATE 25 MG TABLET GT SCH (21:39)
[2022-09-17] VITALS: BP 118/62
[2022-09-17] MEDS: BLOOD SUGAR DIAGNOSTIC 1 EACH STRIP IN SCH ×4 (00:18→17:40)
[2022-09-17] MEDS: PIPERACILLIN /TAZOBACTAM 3.375 G in IV D5W 50 ML IV SCH ×4 (00:18→17:45)
[2022-09-17] MEDS: Potassium Chloride 20 MEQ in IV D5W 1,000 ML IV SCH (04:31)
[2022-09-17 06:52] LABS: BASOPHILS # (AUTO) 0.1 K/uL (0.0-0.2); BASOPHILS % (AUTO) 0.3 % (0.0-2.0); EOSINOPHILS % (AUTO) 6.6 % (0.0-6.0); HEMATOCRIT 33 % (33-45); HEMOGLOBIN 10.3 g/dL (11.5-14.8); LYMPHOCYTES # (AUTO) 1.5 K/uL (0.8-4.8); LYMPHOCYTES % (AUTO) 7.4 % (20.0-44.0); MEAN CORPUSCULAR HGB CONC 31 g/dl (31.0-36.0); MEAN CORPUSCULAR VOLUME 89 fL (82-100); MONOCYTES # (AUTO) 1.4 K/uL (0.1-1.30); MONOCYTES % (AUTO) 6.9 % (2.0-12.0); NEUTROPHILS # (AUTO) 15.7 K/uL (1.8-8.9); NEUTROPHILS % (AUTO) 78.8 % (43.0-81.0); PLATELET COUNT (AUTO) 252 K/uL (150-450); RED BLOOD CELL COUNT(AUTO) 3.69 MIL/uL (4.0-5.2); WHITE BLOOD COUNT (AUTO) 19.9 K/uL (4.3-11.0)
[2022-09-17 07:15] LABS: CALCIUM, SERUM 8.4 mg/dL (8.5-10.1); CARBON DIOXIDE 23 mmol/L (21-32); CHLORIDE 112 mmol/L (98-107); CREATININE 0.7 mg/dL (0.6-1.3); GLUCOSE 146 mg/dL (74-106); MAGNESIUM 1.9 mg/dL (1.8-2.4); SODIUM SERUM 141 mmol/L (136-145); UREA NITROGEN, BLOOD 20 mg/dL (7-18)
[2022-09-17 08:00] VITALS: BP_SYST 101; BP_SYST 144; BP_DIAS 44; BP_DIAS 66
[2022-09-17] MEDS: GLUCERNA 1.2 1,000 ML BOTTLE GT SCH (08:41)
[2022-09-17] MEDS: VANCOMYCIN 500 MG in IV D5W 100ml IV SCH ×2 (09:40→17:45)
[2022-09-17] MEDS: ACETAMINOPHEN 650 MG/20.3 ML UDC GT SCH (09:40)
[2022-09-17] MEDS: CHLORHEXIDINE GLUCONATE 15 ML UDC MM SCH ×2 (09:40→17:45)
[2022-09-17] MEDS: DOCUSATE SODIUM 100 MG CAPSULE PO SCH (09:41)
[2022-09-17] MEDS: TRAMADOL HCL 50 MG TABLET GT SCH ×2 (09:41→17:45)
[2022-09-17] MEDS: PANTOPRAZOLE 40 MG VIAL IV SCH ×2 (09:41→21:32)
[2022-09-17] MEDS: AMLODIPINE BESYLATE 5 MG TABLET GT SCH (09:41)
[2022-09-17] MEDS: LOSARTAN POTASSIUM 50 MG TABLET GT SCH ×2 (09:41→17:00)
[2022-09-17] MEDS: CADEXOMER IODINE 40 GM TUBE TP SCH (09:42)
[2022-09-17] MEDS: Z GUARD REMEDY 4 OZ OINT TP SCH (09:42)
[2022-09-17] MEDS: THERAHONEY GEL 1.5 OZ TUBE TP SCH ×2 (09:43)
[2022-09-17] MEDS: PROSOURCE / PROSTAT (PYXIS) 30 ML UDC GT SCH (09:45)
[2022-09-17 11:37] LABS: BAND % (MANUAL) 3 % (0.0-5.0); BASOPHILS % (MANUAL) 0 % (0.0-2.0); EOSINOPHILS % (MANUAL) 4 % (0-4); LYMPHOCYTES % (MANUAL) 8 % (16-48); MONOCYTES % (MANUAL) 6 % (0-11.0); NEUTROPHILS % (MANUAL) 79 (42-76)
[2022-09-17 12:00] VITALS: BP 102/48
[2022-09-17 13:08] LABS: HEMOGLOBIN 9.2 g/dL (11.5-14.8)
[2022-09-17 16:00] VITALS: BP 104/57
[2022-09-17 20:00] VITALS: BP 120/66
[2022-09-17 20:11] LABS: HEMOGLOBIN 9.5 g/dL (11.5-14.8)
[2022-09-17] MEDS: ATORVASTATIN 40 MG TABLET GT SCH (21:32)
[2022-09-17] MEDS: QUETIAPINE FUMARATE 25 MG TABLET GT SCH (21:32)
[2022-09-18] VITALS: BP 98/56
[2022-09-18] MEDS: PIPERACILLIN /TAZOBACTAM 3.375 G in IV D5W 50 ML IV SCH ×2 (01:27→05:07)
[2022-09-18] MEDS: INSULIN REGULAR, HUMAN 100 UNIT/ML 3 ML VIAL SQ PRN ×3 (01:31→23:20)
[2022-09-18] MEDS: BLOOD SUGAR DIAGNOSTIC 1 EACH STRIP IN SCH ×5 (01:31→23:19)
[2022-09-18 01:36] LABS: HEMOGLOBIN 9.5 g/dL (11.5-14.8)
[2022-09-18 04:00] VITALS: BP 105/61
[2022-09-18] MEDS: VANCOMYCIN 500 MG in IV D5W 100ml IV SCH ×2 (05:10→17:03)
[2022-09-18] MEDS: GLUCERNA 1.2 1,000 ML BOTTLE GT SCH (05:44)
[2022-09-18 07:14] LABS: BASOPHILS % (AUTO) 0.3 % (0.0-2.0); EOSINOPHILS % (AUTO) 6.8 % (0.0-6.0); HEMATOCRIT 29 % (33-45); HEMOGLOBIN 9.3 g/dL (11.5-14.8); LYMPHOCYTES % (AUTO) 7.5 % (20.0-44.0); MEAN CORPUSCULAR HGB CONC 32 g/dl (31.0-36.0); MEAN CORPUSCULAR VOLUME 87 fL (82-100); MONOCYTES # (AUTO) 0.8 K/uL (0.1-1.30); MONOCYTES % (AUTO) 6.5 % (2.0-12.0); NEUTROPHILS # (AUTO) 10.4 K/uL (1.8-8.9); NEUTROPHILS % (AUTO) 78.9 % (43.0-81.0); PLATELET COUNT (AUTO) 246 K/uL (150-450); WHITE BLOOD COUNT (AUTO) 13.1 K/uL (4.3-11.0)
[2022-09-18 07:41] LABS: CALCIUM, SERUM 8.4 mg/dL (8.5-10.1); CREATININE 0.7 mg/dL (0.6-1.3)
[2022-09-18 08:00] VITALS: BP 123/58
[2022-09-18] MEDS: ACETAMINOPHEN 650 MG/20.3 ML UDC GT SCH (08:23)
[2022-09-18] MEDS: TRAMADOL HCL 50 MG TABLET GT SCH ×2 (08:24→16:53)
[2022-09-18] MEDS: AMLODIPINE BESYLATE 5 MG TABLET GT SCH (08:24)
[2022-09-18] MEDS: CHLORHEXIDINE GLUCONATE 15 ML UDC MM SCH ×2 (08:24→16:52)
[2022-09-18] MEDS: CADEXOMER IODINE 40 GM TUBE TP SCH (08:28)
[2022-09-18] MEDS: Z GUARD REMEDY 4 OZ OINT TP SCH (08:28)
[2022-09-18] MEDS: DOCUSATE SODIUM 100 MG CAPSULE PO SCH (08:28)
[2022-09-18] MEDS: PANTOPRAZOLE 40 MG VIAL IV SCH ×2 (08:28→21:22)
[2022-09-18] MEDS: LOSARTAN POTASSIUM 50 MG TABLET GT SCH ×2 (08:28→16:53)
[2022-09-18] MEDS: THERAHONEY GEL 1.5 OZ TUBE TP SCH ×2 (08:29)
[2022-09-18] MEDS: PROSOURCE / PROSTAT (PYXIS) 30 ML UDC GT SCH (08:31)
[2022-09-18 12:00] VITALS: BP 108/58
[2022-09-18] MEDS: PIPERACILLIN /TAZOBACTAM 3.375 G in IV D5W 100 ML IV SCH ×2 (12:08→21:22)
[2022-09-18 16:00] VITALS: BP 103/48
[2022-09-18 17:09] LABS: HEMOGLOBIN 9.6 g/dL (11.5-14.8)
[2022-09-18 20:00] VITALS: BP 122/66
[2022-09-18 21:02] LABS: BAND % (MANUAL) 2 % (0.0-5.0); EOSINOPHILS % (MANUAL) 8 % (0-4); LYMPHOCYTES % (MANUAL) 6 % (16-48); MONOCYTES % (MANUAL) 4 % (0-11.0); NEUTROPHILS % (MANUAL) 80 (42-76)
[2022-09-18] MEDS: QUETIAPINE FUMARATE 25 MG TABLET GT SCH (21:23)
[2022-09-18] MEDS: ATORVASTATIN 40 MG TABLET GT SCH (21:24)
[2022-09-19 04:00] VITALS: BP 112/62
[2022-09-19] MEDS: PIPERACILLIN /TAZOBACTAM 3.375 G in IV D5W 100 ML IV SCH ×2 (04:55→12:45)
[2022-09-19] MEDS: BLOOD SUGAR DIAGNOSTIC 1 EACH STRIP IN SCH ×4 (05:42→23:40)
[2022-09-19] MEDS: INSULIN REGULAR, HUMAN 100 UNIT/ML 3 ML VIAL SQ PRN ×2 (05:44→23:40)
[2022-09-19] MEDS: VANCOMYCIN 500 MG in IV D5W 100ml IV SCH ×2 (06:17→17:11)
[2022-09-19 07:12] LABS: BASOPHILS % (AUTO) 0.2 % (0.0-2.0); EOSINOPHILS % (AUTO) 3.8 % (0.0-6.0); HEMATOCRIT 34 % (33-45); HEMOGLOBIN 10.6 g/dL (11.5-14.8); LYMPHOCYTES # (AUTO) 1.2 K/uL (0.8-4.8); LYMPHOCYTES % (AUTO) 6.8 % (20.0-44.0); MEAN CORPUSCULAR HGB CONC 31 g/dl (31.0-36.0); MEAN CORPUSCULAR VOLUME 91 fL (82-100); MONOCYTES # (AUTO) 1.4 K/uL (0.1-1.30); MONOCYTES % (AUTO) 7.9 % (2.0-12.0); NEUTROPHILS # (AUTO) 14.7 K/uL (1.8-8.9); NEUTROPHILS % (AUTO) 81.3 % (43.0-81.0); PLATELET COUNT (AUTO) 275 K/uL (150-450); RED BLOOD CELL COUNT(AUTO) 3.75 MIL/uL (4.0-5.2); WHITE BLOOD COUNT (AUTO) 18.1 K/uL (4.3-11.0)
[2022-09-19 07:34] LABS: CALCIUM, SERUM 8.9 mg/dL (8.5-10.1); CREATININE 0.8 mg/dL (0.6-1.3); MAGNESIUM 2.3 mg/dL (1.8-2.4); PHOSPHORUS 2.8 mg/dL (2.5-4.9); POTASSIUM 4.3 mmol/L (3.5-5.1)
[2022-09-19 08:00] VITALS: BP 127/52
[2022-09-19] MEDS: LOSARTAN POTASSIUM 50 MG TABLET GT SCH ×2 (08:54→17:11)
[2022-09-19] MEDS: Z GUARD REMEDY 4 OZ OINT TP SCH (08:55)
[2022-09-19] MEDS: ACETAMINOPHEN 650 MG/20.3 ML UDC GT SCH (08:55)
[2022-09-19] MEDS: PANTOPRAZOLE 40 MG VIAL IV SCH ×2 (08:55→21:42)
[2022-09-19] MEDS: CHLORHEXIDINE GLUCONATE 15 ML UDC MM SCH ×2 (08:55→17:11)
[2022-09-19] MEDS: TRAMADOL HCL 50 MG TABLET GT SCH ×2 (08:55→17:11)
[2022-09-19] MEDS: PROSOURCE / PROSTAT (PYXIS) 30 ML UDC GT SCH (08:55)
[2022-09-19] MEDS: AMLODIPINE BESYLATE 5 MG TABLET GT SCH (08:55)
[2022-09-19] MEDS: GLUCERNA 1.2 1,000 ML BOTTLE GT SCH (08:56)
[2022-09-19] MEDS: THERAHONEY GEL 1.5 OZ TUBE TP SCH ×2 (08:56→09:00)
[2022-09-19] MEDS: DOCUSATE SODIUM LIQ 100 MG/10 ML UDC PO SCH (09:03)
[2022-09-19] MEDS: CADEXOMER IODINE 40 GM TUBE TP SCH (12:31)
[2022-09-19 14:23] LABS: HEMOGLOBIN 9.6 g/dL (11.5-14.8)
[2022-09-19 16:00] VITALS: BP 115/60
[2022-09-19 20:00] VITALS: BP 116/59
[2022-09-19] MEDS: QUETIAPINE FUMARATE 25 MG TABLET GT SCH (21:42)
[2022-09-19] MEDS ORDERED: MEROPENEM 500 MG VIAL IV ONE (21:42)
[2022-09-19] MEDS: ATORVASTATIN 40 MG TABLET GT SCH (21:42)
[2022-09-19] MEDS: MEROPENEM 500 MG in IV NS 0.9% 50 ML IV SCH (21:42)
[2022-09-19] MEDS: MUPIROCIN OINT 2% 22 GM TUBE NS SCH (21:42)
[2022-09-20] MEDS: VANCOMYCIN 500 MG in IV D5W 100ml IV SCH ×2 (05:29→17:02)
[2022-09-20] MEDS: BLOOD SUGAR DIAGNOSTIC 1 EACH STRIP IN SCH ×3 (05:42→17:03)
[2022-09-20] MEDS: INSULIN REGULAR, HUMAN 100 UNIT/ML 3 ML VIAL SQ PRN ×3 (05:45→17:03)
[2022-09-20 06:00] VITALS: BP 128/67
[2022-09-20 06:50] LABS: BASOPHILS % (AUTO) 0.1 % (0.0-2.0); EOSINOPHILS % (AUTO) 3.3 % (0.0-6.0); HEMATOCRIT 30 % (33-45); HEMOGLOBIN 9.3 g/dL (11.5-14.8); LYMPHOCYTES # (AUTO) 1.2 K/uL (0.8-4.8); LYMPHOCYTES % (AUTO) 8.4 % (20.0-44.0); MEAN CORPUSCULAR HGB CONC 32 g/dl (31.0-36.0); MEAN CORPUSCULAR VOLUME 89 fL (82-100); MONOCYTES # (AUTO) 1.3 K/uL (0.1-1.30); NEUTROPHILS # (AUTO) 11.4 K/uL (1.8-8.9); NEUTROPHILS % (AUTO) 79.2 % (43.0-81.0); PLATELET COUNT (AUTO) 323 K/uL (150-450); RED BLOOD CELL COUNT(AUTO) 3.31 MIL/uL (4.0-5.2); WHITE BLOOD COUNT (AUTO) 14.3 K/uL (4.3-11.0)
[2022-09-20 07:28] LABS: CALCIUM, SERUM 8.6 mg/dL (8.5-10.1); CREATININE 0.7 mg/dL (0.6-1.3); PHOSPHORUS 2.4 mg/dL (2.5-4.9); POTASSIUM 3.8 mmol/L (3.5-5.1)
[2022-09-20 08:00] VITALS: BP 139/69
[2022-09-20 08:14] LABS: MAGNESIUM 1.9 mg/dL (1.8-2.4)
[2022-09-20 08:24] LABS: BAND % (MANUAL) 4 % (0.0-5.0); EOSINOPHILS % (MANUAL) 1 % (0-4); LYMPHOCYTES % (MANUAL) 4 % (16-48); METAMYELOCYTES % 1 % (0-0); MONOCYTES % (MANUAL) 2 % (0-11.0); MYELOCYTES % 1 % (0-0); NEUTROPHILS % (MANUAL) 87 (42-76)
[2022-09-20] MEDS: PANTOPRAZOLE 40 MG VIAL IV SCH ×2 (09:00→09:12)
[2022-09-20] MEDS: PROSOURCE / PROSTAT (PYXIS) 30 ML UDC GT SCH (09:11)
[2022-09-20] MEDS: LOSARTAN POTASSIUM 50 MG TABLET GT SCH ×2 (09:11→16:48)
[2022-09-20] MEDS: ACETAMINOPHEN 650 MG/20.3 ML UDC GT SCH (09:12)
[2022-09-20] MEDS: AMLODIPINE BESYLATE 5 MG TABLET GT SCH (09:12)
[2022-09-20] MEDS: DOCUSATE SODIUM LIQ 100 MG/10 ML UDC PO SCH (09:13)
[2022-09-20] MEDS: TRAMADOL HCL 50 MG TABLET GT SCH ×2 (09:14→17:18)
[2022-09-20] MEDS: THERAHONEY GEL 1.5 OZ TUBE TP SCH ×2 (09:14→09:15)
[2022-09-20] MEDS: MUPIROCIN OINT 2% 22 GM TUBE NS SCH ×2 (09:14→21:05)
[2022-09-20] MEDS: Z GUARD REMEDY 4 OZ OINT TP SCH (09:15)
[2022-09-20] MEDS: CADEXOMER IODINE 40 GM TUBE TP SCH (09:15)
[2022-09-20] MEDS: CHLORHEXIDINE GLUCONATE 15 ML UDC MM SCH ×2 (09:25→17:02)
[2022-09-20] MEDS: MEROPENEM 500 MG in IV NS 0.9% 50 ML IV SCH ×2 (09:32→21:02)
[2022-09-20] MEDS: GLUCERNA 1.2 1,000 ML BOTTLE GT SCH (14:02)
[2022-09-20 14:18] LABS: HEMOGLOBIN 9.9 g/dL (11.5-14.8)
[2022-09-20 16:00] VITALS: BP 111/63
[2022-09-20] MEDS ORDERED: NEUTRA PHOS 1 POWD.PACKET GT ONE (16:00)
[2022-09-20 20:00] VITALS: BP 138/71
[2022-09-20] MEDS: QUETIAPINE FUMARATE 25 MG TABLET GT SCH (21:10)
[2022-09-20] MEDS: ATORVASTATIN 40 MG TABLET GT SCH (21:11)
[2022-09-21] MEDS: BLOOD SUGAR DIAGNOSTIC 1 EACH STRIP IN SCH ×4 (00:20→17:07)
[2022-09-21 04:00] VITALS: BP 133/60
[2022-09-21] MEDS: VANCOMYCIN 500 MG in IV D5W 100ml IV SCH (06:32)
[2022-09-21 06:40] LABS: BASOPHILS % (AUTO) 0.3 % (0.0-2.0); HEMATOCRIT 30 % (33-45); HEMOGLOBIN 9.9 g/dL (11.5-14.8); LYMPHOCYTES # (AUTO) 1.4 K/uL (0.8-4.8); LYMPHOCYTES % (AUTO) 9.7 % (20.0-44.0); MEAN CORPUSCULAR HGB CONC 33 g/dl (31.0-36.0); MEAN CORPUSCULAR VOLUME 90 fL (82-100); MONOCYTES # (AUTO) 1.4 K/uL (0.1-1.30); MONOCYTES % (AUTO) 9.7 % (2.0-12.0); NEUTROPHILS # (AUTO) 11.3 K/uL (1.8-8.9); NEUTROPHILS % (AUTO) 78.3 % (43.0-81.0); PLATELET COUNT (AUTO) 366 K/uL (150-450); RED BLOOD CELL COUNT(AUTO) 3.36 MIL/uL (4.0-5.2); WHITE BLOOD COUNT (AUTO) 14.5 K/uL (4.3-11.0)
[2022-09-21] MEDS: INSULIN REGULAR, HUMAN 100 UNIT/ML 3 ML VIAL SQ PRN (07:07)
[2022-09-21 07:11] LABS: CALCIUM, SERUM 9.1 mg/dL (8.5-10.1); CARBON DIOXIDE 25 mmol/L (21-32); CHLORIDE 108 mmol/L (98-107); CREATININE 0.6 mg/dL (0.6-1.3); GLUCOSE 155 mg/dL (74-106); PHOSPHORUS 3.2 mg/dL (2.5-4.9); POTASSIUM 4.2 mmol/L (3.5-5.1); SODIUM SERUM 141 mmol/L (136-145); UREA NITROGEN, BLOOD 25 mg/dL (7-18)
[2022-09-21] MEDS: ACETAMINOPHEN 650 MG/20.3 ML UDC GT SCH (08:16)
[2022-09-21] MEDS: CHLORHEXIDINE GLUCONATE 15 ML UDC MM SCH ×2 (08:16→17:07)
[2022-09-21] MEDS: DOCUSATE SODIUM LIQ 100 MG/10 ML UDC PO SCH (08:16)
[2022-09-21] MEDS: AMLODIPINE BESYLATE 5 MG TABLET GT SCH (08:17)
[2022-09-21] MEDS: TRAMADOL HCL 50 MG TABLET GT SCH ×2 (08:18→17:07)
[2022-09-21] MEDS: LOSARTAN POTASSIUM 50 MG TABLET GT SCH ×2 (08:19→17:07)
[2022-09-21] MEDS: PANTOPRAZOLE 40 MG VIAL IV SCH (08:19)
[2022-09-21] MEDS: PROSOURCE / PROSTAT (PYXIS) 30 ML UDC GT SCH (08:20)
[2022-09-21] MEDS: Z GUARD REMEDY 4 OZ OINT TP SCH (08:23)
[2022-09-21] MEDS: MUPIROCIN OINT 2% 22 GM TUBE NS SCH ×2 (08:23→20:55)
[2022-09-21] MEDS: CADEXOMER IODINE 40 GM TUBE TP SCH (08:23)
[2022-09-21] MEDS: THERAHONEY GEL 1.5 OZ TUBE TP SCH ×2 (08:24→08:28)
[2022-09-21] MEDS: MEROPENEM 500 MG in IV NS 0.9% 50 ML IV SCH ×2 (09:46→20:23)
[2022-09-21 15:06] LABS: HEMOGLOBIN 9.3 g/dL (11.5-14.8)
[2022-09-21 16:00] VITALS: BP 127/72
[2022-09-21 20:00] VITALS: BP 116/66
[2022-09-21] MEDS: ACETAMINOPHEN 325 MG TABLET PO PRN (20:33)
[2022-09-21] MEDS: QUETIAPINE FUMARATE 25 MG TABLET GT SCH (21:17)
[2022-09-21] MEDS: ATORVASTATIN 40 MG TABLET GT SCH (21:17)
[2022-09-22] MEDS: GLUCERNA 1.2 1,000 ML BOTTLE GT SCH (00:10)
[2022-09-22] MEDS: BLOOD SUGAR DIAGNOSTIC 1 EACH STRIP IN SCH ×4 (00:27→17:12)
[2022-09-22 05:00] VITALS: BP 100/53
[2022-09-22] MEDS: INSULIN REGULAR, HUMAN 100 UNIT/ML 3 ML VIAL SQ PRN (06:52)
[2022-09-22 07:05] LABS: BASOPHILS % (AUTO) 0.4 % (0.0-2.0); EOSINOPHILS % (AUTO) 3.3 % (0.0-6.0); HEMATOCRIT 30 % (33-45); HEMOGLOBIN 9.6 g/dL (11.5-14.8); LYMPHOCYTES # (AUTO) 1.5 K/uL (0.8-4.8); LYMPHOCYTES % (AUTO) 11.2 % (20.0-44.0); MEAN CORPUSCULAR HGB CONC 32 g/dl (31.0-36.0); MEAN CORPUSCULAR VOLUME 90 fL (82-100); MONOCYTES # (AUTO) 1.1 K/uL (0.1-1.30); MONOCYTES % (AUTO) 7.9 % (2.0-12.0); NEUTROPHILS # (AUTO) 10.5 K/uL (1.8-8.9); NEUTROPHILS % (AUTO) 77.2 % (43.0-81.0); PLATELET COUNT (AUTO) 374 K/uL (150-450); RED BLOOD CELL COUNT(AUTO) 3.32 MIL/uL (4.0-5.2); WHITE BLOOD COUNT (AUTO) 13.5 K/uL (4.3-11.0)
[2022-09-22 07:15] LABS: CALCIUM, SERUM 9.4 mg/dL (8.5-10.1); CARBON DIOXIDE 26 mmol/L (21-32); CHLORIDE 111 mmol/L (98-107); CREATININE 0.6 mg/dL (0.6-1.3); GLUCOSE 132 mg/dL (74-106); POTASSIUM 4.1 mmol/L (3.5-5.1); SODIUM SERUM 143 mmol/L (136-145); UREA NITROGEN, BLOOD 29 mg/dL (7-18)
[2022-09-22] MEDS: LOSARTAN POTASSIUM 50 MG TABLET GT SCH ×2 (08:38→16:14)
[2022-09-22] MEDS: CHLORHEXIDINE GLUCONATE 15 ML UDC MM SCH ×2 (08:39→16:13)
[2022-09-22] MEDS: DOCUSATE SODIUM LIQ 100 MG/10 ML UDC PO SCH (08:39)
[2022-09-22] MEDS: AMLODIPINE BESYLATE 5 MG TABLET GT SCH (08:39)
[2022-09-22] MEDS: ACETAMINOPHEN 325 MG TABLET PO PRN (08:40)
[2022-09-22] MEDS: PANTOPRAZOLE 40 MG VIAL IV SCH (08:40)
[2022-09-22] MEDS: PROSOURCE / PROSTAT (PYXIS) 30 ML UDC GT SCH (08:40)
[2022-09-22] MEDS: TRAMADOL HCL 50 MG TABLET GT SCH ×2 (08:43→16:13)
[2022-09-22] MEDS: Z GUARD REMEDY 4 OZ OINT TP SCH (08:43)
[2022-09-22] MEDS: MUPIROCIN OINT 2% 22 GM TUBE NS SCH ×2 (08:43→21:49)
[2022-09-22] MEDS: THERAHONEY GEL 1.5 OZ TUBE TP SCH ×2 (08:44→08:45)
[2022-09-22] MEDS: CADEXOMER IODINE 40 GM TUBE TP SCH (08:44)
[2022-09-22] MEDS: ACETAMINOPHEN 650 MG/20.3 ML UDC GT SCH (08:45)
[2022-09-22] MEDS: MEROPENEM 500 MG in IV NS 0.9% 50 ML IV SCH ×2 (08:45→21:48)
[2022-09-22 14:44] LABS: HEMOGLOBIN 9.4 g/dL (11.5-14.8)
[2022-09-22 16:15] VITALS: BP 130/74
[2022-09-22 20:00] VITALS: BP 120/75
[2022-09-22] MEDS: ATORVASTATIN 40 MG TABLET GT SCH (21:48)
[2022-09-22] MEDS: QUETIAPINE FUMARATE 25 MG TABLET GT SCH (21:49)
[2022-09-23] VITALS (7 sets, daily range): BP systolic 111–134; BP diastolic 57–78
[2022-09-23] MEDS: BLOOD SUGAR DIAGNOSTIC 1 EACH STRIP IN SCH ×4 (00:13→18:07)
[2022-09-23 06:40] LABS: BASOPHILS % (AUTO) 0.3 % (0.0-2.0); EOSINOPHILS % (AUTO) 2.3 % (0.0-6.0); HEMATOCRIT 32 % (33-45); LYMPHOCYTES # (AUTO) 1.7 K/uL (0.8-4.8); LYMPHOCYTES % (AUTO) 13.7 % (20.0-44.0); MEAN CORPUSCULAR HGB CONC 32 g/dl (31.0-36.0); MEAN CORPUSCULAR VOLUME 89 fL (82-100); MONOCYTES # (AUTO) 0.9 K/uL (0.1-1.30); MONOCYTES % (AUTO) 7.5 % (2.0-12.0); NEUTROPHILS # (AUTO) 9.5 K/uL (1.8-8.9); NEUTROPHILS % (AUTO) 76.2 % (43.0-81.0); PLATELET COUNT (AUTO) 411 K/uL (150-450); RED BLOOD CELL COUNT(AUTO) 3.56 MIL/uL (4.0-5.2); WHITE BLOOD COUNT (AUTO) 12.4 K/uL (4.3-11.0)
[2022-09-23 06:48] LABS: CALCIUM, SERUM 9.5 mg/dL (8.5-10.1); CARBON DIOXIDE 26 mmol/L (21-32); CHLORIDE 109 mmol/L (98-107); CREATININE 0.6 mg/dL (0.6-1.3); GLUCOSE 112 mg/dL (74-106); POTASSIUM 3.8 mmol/L (3.5-5.1); SODIUM SERUM 142 mmol/L (136-145); UREA NITROGEN, BLOOD 22 mg/dL (7-18)
[2022-09-23] MEDS: AMLODIPINE BESYLATE 5 MG TABLET GT SCH (08:13)
[2022-09-23] MEDS: CHLORHEXIDINE GLUCONATE 15 ML UDC MM SCH ×2 (08:13→16:10)
[2022-09-23] MEDS: DOCUSATE SODIUM LIQ 100 MG/10 ML UDC PO SCH (08:13)
[2022-09-23] MEDS: TRAMADOL HCL 50 MG TABLET GT SCH ×2 (08:13→16:11)
[2022-09-23] MEDS: ACETAMINOPHEN 325 MG TABLET PO PRN (08:14)
[2022-09-23] MEDS: MUPIROCIN OINT 2% 22 GM TUBE NS SCH ×2 (08:14→21:21)
[2022-09-23] MEDS: PROSOURCE / PROSTAT (PYXIS) 30 ML UDC GT SCH (08:14)
[2022-09-23] MEDS: LOSARTAN POTASSIUM 50 MG TABLET GT SCH ×2 (08:14→16:11)
[2022-09-23] MEDS: Z GUARD REMEDY 4 OZ OINT TP SCH (08:15)
[2022-09-23] MEDS: THERAHONEY GEL 1.5 OZ TUBE TP SCH ×2 (08:15→08:23)
[2022-09-23] MEDS: PANTOPRAZOLE 40 MG/PACK PACK GT SCH (08:22)
[2022-09-23] MEDS: ACETAMINOPHEN 650 MG/20.3 ML UDC GT SCH (08:23)
[2022-09-23] MEDS: CADEXOMER IODINE 40 GM TUBE TP SCH (08:23)
[2022-09-23 14:24] LABS: HEMOGLOBIN 9.7 g/dL (11.5-14.8)
[2022-09-23] MEDS: ATORVASTATIN 40 MG TABLET GT SCH (21:20)
[2022-09-23] MEDS: QUETIAPINE FUMARATE 25 MG TABLET GT SCH (21:20)
[2022-09-24] MEDS: BLOOD SUGAR DIAGNOSTIC 1 EACH STRIP IN SCH ×3 (00:27→11:36)
[2022-09-24 05:00] VITALS: BP 118/66
[2022-09-24] MEDS: INSULIN REGULAR, HUMAN 100 UNIT/ML 3 ML VIAL SQ PRN ×2 (05:58→11:39)
[2022-09-24 07:21] LABS: CALCIUM, SERUM 9.6 mg/dL (8.5-10.1); CREATININE 0.6 mg/dL (0.6-1.3); POTASSIUM 4.2 mmol/L (3.5-5.1)
[2022-09-24] MEDS: LOSARTAN POTASSIUM 50 MG TABLET GT SCH (09:24)
[2022-09-24] MEDS: PANTOPRAZOLE 40 MG/PACK PACK GT SCH (09:24)
[2022-09-24] MEDS: DOCUSATE SODIUM LIQ 100 MG/10 ML UDC PO SCH (09:24)
[2022-09-24] MEDS: ACETAMINOPHEN 650 MG/20.3 ML UDC GT SCH (09:24)
[2022-09-24] MEDS: THERAHONEY GEL 1.5 OZ TUBE TP SCH ×2 (09:25→09:37)
[2022-09-24] MEDS: AMLODIPINE BESYLATE 5 MG TABLET GT SCH (09:25)
[2022-09-24] MEDS: CADEXOMER IODINE 40 GM TUBE TP SCH (09:25)
[2022-09-24] MEDS: CHLORHEXIDINE GLUCONATE 15 ML UDC MM SCH (09:25)
[2022-09-24] MEDS: Z GUARD REMEDY 4 OZ OINT TP SCH (09:26)
[2022-09-24] MEDS: PROSOURCE / PROSTAT (PYXIS) 30 ML UDC GT SCH (09:27)
[2022-09-24] MEDS: TRAMADOL HCL 50 MG TABLET GT SCH (09:27)
[2022-09-24] MEDS: MUPIROCIN OINT 2% 22 GM TUBE NS SCH (09:28)
[2022-09-24] MEDS: GLUCERNA 1.2 1,000 ML BOTTLE GT SCH (11:48)
[2022-09-24] MEDS ORDERED: OMEP40CA21 PO (12:30)
[2022-09-24 13:00] VITALS: BP 138/75
[2022-09-24 14:16] LABS: HEMOGLOBIN 10.4 g/dL (11.5-14.8)
== END 2022-09-24 16:00 | DRG 853 ==
LOC: ER 10:47 → MEDSG1 14:20 → TELE1 09-14 14:20 → MEDSG1 09-18 14:05
PROVIDERS: ADMIT Legal Medicine; ATTEND Legal Medicine
PROC: 0JB70ZZ Excision of Back Subcutaneous Tissue and Fascia, Open Approach (ICD-10-PCS; principal; 2022-09-14)
PROC: 05H933Z Insertion of Infusion Device into Right Brachial Vein, Percutaneous Approach (ICD-10-PCS; 2022-09-15)
PROC: 30233N1 Transfusion of Nonautologous Red Blood Cells into Peripheral Vein, Percutaneous Approach (ICD-10-PCS; 2022-09-16)
PROC: 0JB70ZZ Excision of Back Subcutaneous Tissue and Fascia, Open Approach (ICD-10-PCS; 2022-09-21)
DX: A41.9 Sepsis, unspecified organism (principal); G92.8 Other toxic encephalopathy; J18.9 Pneumonia, unspecified organism; L89.123 Pressure ulcer of left upper back, stage 3; R53.2 Functional quadriplegia; N17.0 Acute kidney failure with tubular necrosis; R65.21 Severe sepsis with septic shock; D62 Acute posthemorrhagic anemia; K92.2 Gastrointestinal hemorrhage, unspecified; I69.351 Hemiplegia and hemiparesis following cerebral infarction affecting right dominant side; E87.0 Hyperosmolality and hypernatremia; J44.0 Chronic obstructive pulmonary disease with (acute) lower respiratory infection; J98.11 Atelectasis; R65.20 Severe sepsis without septic shock; Z20.822 Contact with and (suspected) exposure to COVID-19; I10 Essential (primary) hypertension; Z87.440 Personal history of urinary (tract) infections; Z93.1 Gastrostomy status; Z86.79 Personal history of other diseases of the circulatory system; E78.5 Hyperlipidemia, unspecified; E11.621 Type 2 diabetes mellitus with foot ulcer; L97.519 Non-pressure chronic ulcer of other part of right foot with unspecified severity; G89.29 Other chronic pain; Z79.4 Long term (current) use of insulin; Z79.82 Long term (current) use of aspirin; Z79.51 Long term (current) use of inhaled steroids; Z79.899 Other long term (current) drug therapy; R13.10 Dysphagia, unspecified; R62.7 Adult failure to thrive; F17.200 Nicotine dependence, unspecified, uncomplicated; M62.421 Contracture of muscle, right upper arm; M62.422 Contracture of muscle, left upper arm; S50.812A Abrasion of left forearm, initial encounter; X58.XXXA Exposure to other specified factors, initial encounter; Y92.9 Unspecified place or not applicable
CPT/HCPCS: 36410; 36415; 71045-TC; 80048-TC; 80076-TC; 80202-TC; 81001; 82962-TC; 83605-TC; 83735-TC; 84100-TC; 84484-TC; 85025-TC; 85027-TC; 85730-TC; 86850-TC; 87040-TC; 87081-TC; 87086-TC; A4223; C9113; C9803; G0378; J0696; J1815; J2185; J2405; J2543; J3370; J3480; J7030; J7042; J7050; J7060; J7070; P9016

== ENCOUNTER 2022-11-02 14:36 | Inpatient (IN) | payer MEDICARE, OTHER ==
[~2022-11-02] VITALS: Ht 152.4 cm; Wt 39.0 kg
[~2022-11-02 14:36] MED LIST changes: +CHLO473M5 MM; +COLL30OI TP; -CRAN425C6 GT; +DIPH25CA51 GT; -DIVA250T4 GT; +GLUC1KIT IM; +MOME15OI2 TP; +OMEP40CA21 PO
[2022-11-02] MEDS ORDERED: OMEP40CA21 GT (15:26)
[2022-11-02] MEDS ORDERED: ARGI1POW13 GT (15:26)
[2022-11-02] MEDS ORDERED: CALC1TAB30 GT (15:26)
[2022-11-02] MEDS ORDERED: VANCOMYCIN 1 GM in IV D5W 250 ML IV ONE (15:30)
[2022-11-02] MEDS ORDERED: CEFEPIME 1 GM in IV D5W 50 ML IV ONE ×2 (15:30→20:00)
[2022-11-02] MEDS ORDERED: IV NS 0.9% 1,000 ML BAG IV ONE (15:30)
[2022-11-02 15:53] LABS: BASOPHILS % (AUTO) 0.2 % (0.0-2.0); EOSINOPHILS % (AUTO) 0.1 % (0.0-6.0); HEMATOCRIT 35 % (33-45); HEMOGLOBIN 10.6 g/dL (11.5-14.8); LYMPHOCYTES # (AUTO) 1.2 K/uL (0.8-4.8); LYMPHOCYTES % (AUTO) 5.6 % (20.0-44.0); MEAN CORPUSCULAR HGB CONC 30 g/dl (31.0-36.0); MEAN CORPUSCULAR VOLUME 81 fL (82-100); MONOCYTES % (AUTO) 4.5 % (2.0-12.0); NEUTROPHILS # (AUTO) 20.1 K/uL (1.8-8.9); NEUTROPHILS % (AUTO) 89.6 % (43.0-81.0); PLATELET COUNT (AUTO) 584 K/uL (150-450); RED BLOOD CELL COUNT(AUTO) 4.34 MIL/uL (4.0-5.2); WHITE BLOOD COUNT (AUTO) 22.4 K/uL (4.3-11.0)
[2022-11-02 16:25] LABS: CALCIUM, SERUM 10.2 mg/dL (8.5-10.1); CARBON DIOXIDE 23 mmol/L (21-32); CHLORIDE 114 mmol/L (98-107); CREATININE 0.8 mg/dL (0.6-1.3); GLUCOSE 153 mg/dL (74-106); POTASSIUM 3.9 mmol/L (3.5-5.1); SODIUM SERUM 148 mmol/L (136-145); UREA NITROGEN, BLOOD 34 mg/dL (7-18)
[2022-11-02 16:28] LABS: ALANINE AMINOTRANSFERASE 69 U/L (12-78); ALBUMIN 2.1 g/dL (3.4-5.0); ALKALINE PHOSPHATASE 125 U/L (46-116); ASPARTATE AMINOTRANSFERASE 53 U/L (15-37); BILIRUBIN,DIRECT 0.1 mg/dL (0.0-0.2); BILIRUBIN,TOTAL 0.4 mg/dL (0.2-1.0)
[2022-11-02 17:00] LABS: BILIRUBIN,URINE NEGATIVE (NEGATIVE); COLOR,URINE YELLOW (YELLOW); LEUKOCYTE ESTERASE ,URINE 1+ (NEGATIVE); NITRITE, URINE NEGATIVE (NEGATIVE); PROTEIN,URINE 1+ mg/dl (NEGATIVE); UGLUCOSE NEGATIVE (NEGATIVE); UROBILINOGEN,URINE 0.2 EU/dL (0.2)
[2022-11-02 17:22] LABS: BACTERIA,URINE Many /HPF (None Seen); RBC,URINE 0-2 /HPF (0-2); SQUAMOUS EPITHELIAL CELL,UR Moderate /HPF (None Seen); YEAST,URINE Many /HPF (None Seen)
[2022-11-02 17:23] LABS: URINE AMORPHOUS URATE Many /HPF (None Seen)
[2022-11-02] MEDS ORDERED: DEXTROSE 50%-WATER 50 ML DISP.SYRIN IV PRN ×2 (19:00)
[2022-11-02] MEDS ORDERED: ALPRAZOLAM 0.25 MG TABLET GT PRN (19:00)
[2022-11-02] MEDS ORDERED: ONDANSETRON HCL/PF 4 MG/2 ML VIAL IVP PRN (19:00)
[2022-11-02] MEDS ORDERED: IV NS 0.9% 1,000 ML IV SCH (19:00)
[2022-11-02] MEDS ORDERED: INSULIN REGULAR, HUMAN 100 UNIT/ML 3 ML VIAL SQ PRN (19:00)
[2022-11-02] MEDS ORDERED: ALBUTEROL FS 2.5 MG/3 ML VIAL.NEB NEB PRN (19:30)
[2022-11-02 20:00] VITALS: BP 141/78
[2022-11-02] MEDS ORDERED: IV NS 0.9% 500 ML IV ONE (22:30)
[2022-11-02] MEDS: QUETIAPINE FUMARATE 25 MG TABLET GT SCH (22:53)
[2022-11-02] MEDS: ATORVASTATIN 40 MG TABLET GT SCH (22:53)
[2022-11-03] VITALS: BP 144/58
[2022-11-03] MEDS ORDERED: BLOOD SUGAR DIAGNOSTIC 1 EACH STRIP IN SCH
[2022-11-03] MEDS: BLOOD SUGAR DIAGNOSTIC 1 EACH STRIP IN SCH ×5 (00:09→23:49)
[2022-11-03] MEDS: INSULIN REGULAR, HUMAN 100 UNIT/ML 3 ML VIAL SQ PRN ×4 (00:10→17:24)
[2022-11-03 04:00] VITALS: BP 126/81
[2022-11-03] MEDS: VANCOMYCIN 500 MG in IV D5W 100ml IV SCH ×2 (04:53→16:41)
[2022-11-03 06:33] LABS: CALCIUM, SERUM 9.5 mg/dL (8.5-10.1); CARBON DIOXIDE 23 mmol/L (21-32); CHLORIDE 117 mmol/L (98-107); CREATININE 0.6 mg/dL (0.6-1.3); GLUCOSE 113 mg/dL (74-106); POTASSIUM 3.2 mmol/L (3.5-5.1); SODIUM SERUM 151 mmol/L (136-145); UREA NITROGEN, BLOOD 22 mg/dL (7-18)
[2022-11-03 08:00] VITALS: BP 134/71
[2022-11-03] MEDS: DOCUSATE SODIUM LIQ 100 MG/10 ML UDC GT SCH (09:34)
[2022-11-03] MEDS: ACETAMINOPHEN 650 MG/20.3 ML UDC GT SCH (09:34)
[2022-11-03] MEDS: TRAMADOL HCL 50 MG TABLET GT SCH ×2 (09:35→17:46)
[2022-11-03] MEDS: AMLODIPINE BESYLATE 5 MG TABLET GT SCH (09:36)
[2022-11-03] MEDS: LOSARTAN POTASSIUM 50 MG TABLET GT SCH ×2 (09:36→17:47)
[2022-11-03] MEDS ORDERED: IV NS 0.9% 1,000 ML IV SCH (09:37)
[2022-11-03] MEDS: PROSOURCE / PROSTAT (PYXIS) 30 ML UDC GT SCH (09:52)
[2022-11-03] MEDS ORDERED: THERAHONEY GEL 1.5 OZ TUBE TP SCH (10:00)
[2022-11-03] MEDS: POTASSIUM CHLORIDE 20 MEQ POWDER PACKET NG SCH ×2 (10:41→11:43)
[2022-11-03] MEDS: ENOXAPARIN SODIUM 40 MG/0.4 ML DISP.SYRIN SQ SCH (10:43)
[2022-11-03] MEDS: PANTOPRAZOLE 40 MG/PACK PACK GT SCH (11:43)
[2022-11-03 12:00] VITALS: BP 123/65
[2022-11-03] MEDS: IV 1/2NS 1000 ML 1,000 ML IV SCH (12:25)
[2022-11-03] MEDS: GLUCERNA 1.2 1,000 ML BOTTLE NG PRN (12:28)
[2022-11-03 16:00] VITALS: BP 123/62
[2022-11-03] MEDS: CEFEPIME 2 GM in IV D5W 100 ML IV SCH (16:07)
[2022-11-03] MEDS: ASPIRIN 81 MG TAB.CHEW GT SCH (18:11)
[2022-11-03 20:00] VITALS: BP 133/68
[2022-11-03] MEDS: ATORVASTATIN 40 MG TABLET GT SCH (21:39)
[2022-11-03] MEDS: QUETIAPINE FUMARATE 25 MG TABLET GT SCH (21:40)
[2022-11-04] VITALS: BP 92/50
[2022-11-04] MEDS: IV 1/2NS 1000 ML 1,000 ML IV SCH ×2 (00:39→12:17)
[2022-11-04] MEDS: VANCOMYCIN 500 MG in IV D5W 100ml IV SCH ×2 (04:04→18:29)
[2022-11-04 05:00] VITALS: BP 123/63
[2022-11-04] MEDS: BLOOD SUGAR DIAGNOSTIC 1 EACH STRIP IN SCH ×4 (06:14→23:14)
[2022-11-04 07:17] LABS: CARBON DIOXIDE 16 mmol/L (21-32); CHLORIDE 117 mmol/L (98-107); CREATININE 0.5 mg/dL (0.6-1.3); GLUCOSE 129 mg/dL (74-106); POTASSIUM 3.8 mmol/L (3.5-5.1); SODIUM SERUM 145 mmol/L (136-145); UREA NITROGEN, BLOOD 25 mg/dL (7-18)
[2022-11-04 08:09] VITALS: BP 114/64
[2022-11-04] MEDS: PROSOURCE / PROSTAT (PYXIS) 30 ML UDC GT SCH (08:49)
[2022-11-04] MEDS: TRAMADOL HCL 50 MG TABLET GT SCH ×2 (08:49→17:32)
[2022-11-04] MEDS: ACETAMINOPHEN 650 MG/20.3 ML UDC GT SCH (08:49)
[2022-11-04] MEDS: DOCUSATE SODIUM LIQ 100 MG/10 ML UDC GT SCH (08:49)
[2022-11-04] MEDS: AMLODIPINE BESYLATE 5 MG TABLET GT SCH (08:50)
[2022-11-04] MEDS: LOSARTAN POTASSIUM 50 MG TABLET GT SCH ×2 (08:50→17:36)
[2022-11-04] MEDS: ENOXAPARIN SODIUM 40 MG/0.4 ML DISP.SYRIN SQ SCH (08:53)
[2022-11-04] MEDS: THERAHONEY GEL 1.5 OZ TUBE TP SCH (08:54)
[2022-11-04] MEDS: INSULIN REGULAR, HUMAN 100 UNIT/ML 3 ML VIAL SQ PRN ×2 (11:21→23:14)
[2022-11-04] MEDS: PANTOPRAZOLE 40 MG/PACK PACK GT SCH (11:27)
[2022-11-04 11:33] VITALS: BP 90/63
[2022-11-04] MEDS: CEFEPIME 2 GM in IV D5W 100 ML IV SCH (15:55)
[2022-11-04] MEDS: GLUCERNA 1.2 1,000 ML BOTTLE NG PRN (16:52)
[2022-11-04] MEDS: ASPIRIN 81 MG TAB.CHEW GT SCH (17:32)
[2022-11-04 20:00] VITALS: BP 136/68
[2022-11-04] MEDS: QUETIAPINE FUMARATE 25 MG TABLET GT SCH (22:07)
[2022-11-04] MEDS: ATORVASTATIN 40 MG TABLET GT SCH (22:07)
[2022-11-05] VITALS: BP 138/68
[2022-11-05] MEDS: IV 1/2NS 1000 ML 1,000 ML IV SCH ×2 (01:55→10:58)
[2022-11-05] MEDS: VANCOMYCIN 500 MG in IV D5W 100ml IV SCH ×2 (03:11→17:37)
[2022-11-05 05:00] VITALS: BP 104/55
[2022-11-05] MEDS: BLOOD SUGAR DIAGNOSTIC 1 EACH STRIP IN SCH ×3 (05:09→17:35)
[2022-11-05] MEDS: INSULIN REGULAR, HUMAN 100 UNIT/ML 3 ML VIAL SQ PRN ×3 (05:09→17:36)
[2022-11-05 05:58] LABS: BASOPHILS # (AUTO) 0.1 K/uL (0.0-0.2); BASOPHILS % (AUTO) 0.8 % (0.0-2.0); EOSINOPHILS % (AUTO) 5.2 % (0.0-6.0); HEMATOCRIT 30 % (33-45); HEMOGLOBIN 9.3 g/dL (11.5-14.8); LYMPHOCYTES # (AUTO) 1.1 K/uL (0.8-4.8); LYMPHOCYTES % (AUTO) 9.9 % (20.0-44.0); MEAN CORPUSCULAR HGB CONC 31 g/dl (31.0-36.0); MEAN CORPUSCULAR VOLUME 81 fL (82-100); MONOCYTES # (AUTO) 0.6 K/uL (0.1-1.30); NEUTROPHILS # (AUTO) 8.7 K/uL (1.8-8.9); NEUTROPHILS % (AUTO) 79.1 % (43.0-81.0); PLATELET COUNT (AUTO) 575 K/uL (150-450); RED BLOOD CELL COUNT(AUTO) 3.76 MIL/uL (4.0-5.2)
[2022-11-05 06:19] LABS: CALCIUM, SERUM 8.9 mg/dL (8.5-10.1); CARBON DIOXIDE 25 mmol/L (21-32); CHLORIDE 114 mmol/L (98-107); CREATININE 0.7 mg/dL (0.6-1.3); GLUCOSE 116 mg/dL (74-106); MAGNESIUM 1.9 mg/dL (1.8-2.4); PHOSPHORUS 1.9 mg/dL (2.5-4.9); POTASSIUM 3.1 mmol/L (3.5-5.1); SODIUM SERUM 147 mmol/L (136-145); UREA NITROGEN, BLOOD 22 mg/dL (7-18)
[2022-11-05 08:15] VITALS: BP 125/62
[2022-11-05] MEDS: PROSOURCE / PROSTAT (PYXIS) 30 ML UDC GT SCH ×2 (08:44→16:22)
[2022-11-05] MEDS: ENOXAPARIN SODIUM 40 MG/0.4 ML DISP.SYRIN SQ SCH (08:45)
[2022-11-05] MEDS: DOCUSATE SODIUM LIQ 100 MG/10 ML UDC GT SCH (08:45)
[2022-11-05] MEDS: TRAMADOL HCL 50 MG TABLET GT SCH ×2 (08:45→16:22)
[2022-11-05] MEDS: THERAHONEY GEL 1.5 OZ TUBE TP SCH (08:46)
[2022-11-05] MEDS: LOSARTAN POTASSIUM 50 MG TABLET GT SCH ×2 (08:47→16:22)
[2022-11-05] MEDS: AMLODIPINE BESYLATE 5 MG TABLET GT SCH (08:48)
[2022-11-05] MEDS: ACETAMINOPHEN 650 MG/20.3 ML UDC GT SCH (08:49)
[2022-11-05] MEDS: PANTOPRAZOLE 40 MG/PACK PACK GT SCH (11:46)
[2022-11-05 12:00] VITALS: BP 120/63
[2022-11-05] MEDS ORDERED: POTASSIUM CHLORIDE 20 MEQ POWDER PACKET NG SCH (12:30)
[2022-11-05] MEDS: POTASSIUM CHLORIDE 20 MEQ POWDER PACKET NG SCH ×2 (13:58→16:22)
[2022-11-05] MEDS: GLUCERNA 1.2 1,000 ML BOTTLE NG PRN (13:58)
[2022-11-05] MEDS ORDERED: NEUTRA PHOS 1 POWD.PACKET NG ONE (16:00)
[2022-11-05 16:10] VITALS: BP 122/72
[2022-11-05] MEDS: CEFEPIME 2 GM in IV D5W 100 ML IV SCH (16:22)
[2022-11-05] MEDS: ASPIRIN 81 MG TAB.CHEW GT SCH (17:47)
[2022-11-05 20:00] VITALS: BP 92/68
[2022-11-05] MEDS ORDERED: HYDROCODONE/APAP 5/325MG TABLET GT PRN (21:00)
[2022-11-05] MEDS: ATORVASTATIN 40 MG TABLET GT SCH (21:27)
[2022-11-05] MEDS: QUETIAPINE FUMARATE 25 MG TABLET GT SCH (21:27)
[2022-11-06] VITALS: BP 153/54
[2022-11-06] MEDS: BLOOD SUGAR DIAGNOSTIC 1 EACH STRIP IN SCH ×4 (00:09→17:06)
[2022-11-06] MEDS: INSULIN REGULAR, HUMAN 100 UNIT/ML 3 ML VIAL SQ PRN ×2 (00:09→06:25)
[2022-11-06] MEDS: IV 1/2NS 1000 ML 1,000 ML IV SCH ×2 (01:40→15:27)
[2022-11-06] MEDS: VANCOMYCIN 500 MG in IV D5W 100ml IV SCH ×2 (03:12→16:17)
[2022-11-06 04:00] VITALS: BP 120/55
[2022-11-06 06:32] LABS: CALCIUM, SERUM 8.8 mg/dL (8.5-10.1); CARBON DIOXIDE 23 mmol/L (21-32); CHLORIDE 111 mmol/L (98-107); CREATININE 0.5 mg/dL (0.6-1.3); GLUCOSE 123 mg/dL (74-106); PHOSPHORUS 2.7 mg/dL (2.5-4.9); POTASSIUM 4.1 mmol/L (3.5-5.1); SODIUM SERUM 143 mmol/L (136-145); UREA NITROGEN, BLOOD 21 mg/dL (7-18)
[2022-11-06 08:00] VITALS: BP 115/60
[2022-11-06] MEDS: AMLODIPINE BESYLATE 5 MG TABLET GT SCH (08:57)
[2022-11-06] MEDS: TRAMADOL HCL 50 MG TABLET GT SCH ×2 (08:57→16:42)
[2022-11-06] MEDS: LOSARTAN POTASSIUM 50 MG TABLET GT SCH ×2 (08:57→16:42)
[2022-11-06] MEDS: DOCUSATE SODIUM LIQ 100 MG/10 ML UDC GT SCH (08:57)
[2022-11-06] MEDS: ACETAMINOPHEN 650 MG/20.3 ML UDC GT SCH (08:58)
[2022-11-06] MEDS: ENOXAPARIN SODIUM 40 MG/0.4 ML DISP.SYRIN SQ SCH (08:59)
[2022-11-06] MEDS: THERAHONEY GEL 1.5 OZ TUBE TP SCH (09:57)
[2022-11-06 12:00] VITALS: BP 106/58
[2022-11-06] MEDS: PANTOPRAZOLE 40 MG/PACK PACK GT SCH (12:06)
[2022-11-06] MEDS: GLUCERNA 1.2 1,000 ML BOTTLE NG PRN (12:18)
[2022-11-06] MEDS: CEFEPIME 2 GM in IV D5W 100 ML IV SCH (15:28)
[2022-11-06 16:00] VITALS: BP 115/56
[2022-11-06] MEDS: CLOTRIMAZOLE 1% 15 GM TUBE TP SCH (16:42)
[2022-11-06] MEDS: ASPIRIN 81 MG TAB.CHEW GT SCH (17:06)
[2022-11-06 20:00] VITALS: BP 114/63
[2022-11-06] MEDS: ATORVASTATIN 40 MG TABLET GT SCH (21:15)
[2022-11-06] MEDS: QUETIAPINE FUMARATE 25 MG TABLET GT SCH (21:17)
[2022-11-07] VITALS: BP 116/62
[2022-11-07] MEDS: BLOOD SUGAR DIAGNOSTIC 1 EACH STRIP IN SCH ×5 (00:40→23:56)
[2022-11-07] MEDS: INSULIN REGULAR, HUMAN 100 UNIT/ML 3 ML VIAL SQ PRN ×2 (00:41→06:16)
[2022-11-07 04:00] VITALS: BP 107/55
[2022-11-07] MEDS: IV 1/2NS 1000 ML 1,000 ML IV SCH ×2 (04:21→17:23)
[2022-11-07] MEDS: VANCOMYCIN 500 MG in IV D5W 100ml IV SCH ×2 (04:22→16:31)
[2022-11-07 07:00] VITALS: BP 123/61
[2022-11-07] MEDS: DOCUSATE SODIUM LIQ 100 MG/10 ML UDC GT SCH (09:27)
[2022-11-07] MEDS: ACETAMINOPHEN 650 MG/20.3 ML UDC GT SCH (09:27)
[2022-11-07] MEDS: AMLODIPINE BESYLATE 5 MG TABLET GT SCH (09:28)
[2022-11-07] MEDS: LOSARTAN POTASSIUM 50 MG TABLET GT SCH ×2 (09:29→17:00)
[2022-11-07] MEDS: TRAMADOL HCL 50 MG TABLET GT SCH ×2 (09:30→16:42)
[2022-11-07] MEDS: ENOXAPARIN SODIUM 40 MG/0.4 ML DISP.SYRIN SQ SCH (09:31)
[2022-11-07] MEDS: PROSOURCE / PROSTAT (PYXIS) 30 ML UDC GT SCH (09:32)
[2022-11-07] MEDS: THERAHONEY GEL 1.5 OZ TUBE TP SCH (09:32)
[2022-11-07] MEDS: CLOTRIMAZOLE 1% 15 GM TUBE TP SCH ×2 (09:33→17:23)
[2022-11-07] MEDS: PANTOPRAZOLE 40 MG/PACK PACK GT SCH (11:44)
[2022-11-07 12:00] VITALS: BP 125/62
[2022-11-07] MEDS: CEFEPIME 2 GM in IV D5W 100 ML IV SCH (15:33)
[2022-11-07 15:42] LABS: BASOPHILS # (AUTO) 0.1 K/uL (0.0-0.2); BASOPHILS % (AUTO) 0.4 % (0.0-2.0); EOSINOPHILS % (AUTO) 6.3 % (0.0-6.0); HEMATOCRIT 34 % (33-45); HEMOGLOBIN 10.3 g/dL (11.5-14.8); LYMPHOCYTES # (AUTO) 1.5 K/uL (0.8-4.8); LYMPHOCYTES % (AUTO) 10.2 % (20.0-44.0); MEAN CORPUSCULAR HGB CONC 30 g/dl (31.0-36.0); MEAN CORPUSCULAR VOLUME 81 fL (82-100); MONOCYTES # (AUTO) 0.7 K/uL (0.1-1.30); MONOCYTES % (AUTO) 4.5 % (2.0-12.0); NEUTROPHILS # (AUTO) 11.6 K/uL (1.8-8.9); NEUTROPHILS % (AUTO) 78.6 % (43.0-81.0); PLATELET COUNT (AUTO) 559 K/uL (150-450); RED BLOOD CELL COUNT(AUTO) 4.21 MIL/uL (4.0-5.2); WHITE BLOOD COUNT (AUTO) 14.8 K/uL (4.3-11.0)
[2022-11-07 16:00] VITALS: BP 114/65
[2022-11-07 16:25] LABS: CALCIUM, SERUM 8.9 mg/dL (8.5-10.1); CREATININE 0.7 mg/dL (0.6-1.3); POTASSIUM 3.8 mmol/L (3.5-5.1)
[2022-11-07] MEDS ORDERED: IV NS 0.9% 500 ML IV ONE (17:30)
[2022-11-07] MEDS: ASPIRIN 81 MG TAB.CHEW GT SCH (18:20)
[2022-11-07] MEDS: GLUCERNA 1.2 1,000 ML BOTTLE NG PRN (19:51)
[2022-11-07 20:00] VITALS: BP 125/58
[2022-11-07] MEDS: QUETIAPINE FUMARATE 25 MG TABLET GT SCH (21:43)
[2022-11-07] MEDS: ATORVASTATIN 40 MG TABLET GT SCH (21:43)
[2022-11-07 22:19] LABS: BAND % (MANUAL) 2 % (0.0-5.0); EOSINOPHILS % (MANUAL) 4 % (0-4); LYMPHOCYTES % (MANUAL) 8 % (16-48); MONOCYTES % (MANUAL) 1 % (0-11.0); NEUTROPHILS % (MANUAL) 85 (42-76)
[2022-11-08 00:35] VITALS: BP 147/75
[2022-11-08 04:52] VITALS: BP 114/42
[2022-11-08] MEDS: IV 1/2NS 1000 ML 1,000 ML IV SCH (05:17)
[2022-11-08 05:19] LABS: CALCIUM, SERUM 8.9 mg/dL (8.5-10.1); CREATININE 0.6 mg/dL (0.6-1.3); POTASSIUM 3.8 mmol/L (3.5-5.1)
[2022-11-08 05:22] LABS: BASOPHILS # (AUTO) 0.1 K/uL (0.0-0.2); BASOPHILS % (AUTO) 0.4 % (0.0-2.0); EOSINOPHILS % (AUTO) 5.8 % (0.0-6.0); HEMATOCRIT 32 % (33-45); LYMPHOCYTES # (AUTO) 1.3 K/uL (0.8-4.8); LYMPHOCYTES % (AUTO) 9.5 % (20.0-44.0); MEAN CORPUSCULAR HGB CONC 31 g/dl (31.0-36.0); MEAN CORPUSCULAR VOLUME 80 fL (82-100); MONOCYTES # (AUTO) 0.6 K/uL (0.1-1.30); MONOCYTES % (AUTO) 4.3 % (2.0-12.0); NEUTROPHILS # (AUTO) 11.2 K/uL (1.8-8.9); PLATELET COUNT (AUTO) 535 K/uL (150-450); RED BLOOD CELL COUNT(AUTO) 4.06 MIL/uL (4.0-5.2)
[2022-11-08] MEDS: INSULIN REGULAR, HUMAN 100 UNIT/ML 3 ML VIAL SQ PRN ×2 (06:42)
[2022-11-08] MEDS: BLOOD SUGAR DIAGNOSTIC 1 EACH STRIP IN SCH ×3 (06:42→18:16)
[2022-11-08] MEDS: VANCOMYCIN 500 MG in IV D5W 100ml IV SCH ×3 (06:47→18:09)
[2022-11-08 08:00] VITALS: BP 149/87
[2022-11-08] MEDS ORDERED: IV 1/2NS 1000 ML 1,000 ML IV PRN (08:25)
[2022-11-08] MEDS: ENOXAPARIN SODIUM 40 MG/0.4 ML DISP.SYRIN SQ SCH (09:00)
[2022-11-08] MEDS: PROSOURCE / PROSTAT (PYXIS) 30 ML UDC GT SCH (09:31)
[2022-11-08] MEDS: CLOTRIMAZOLE 1% 15 GM TUBE TP SCH ×2 (09:31→18:08)
[2022-11-08] MEDS: THERAHONEY GEL 1.5 OZ TUBE TP SCH (09:31)
[2022-11-08] MEDS: TRAMADOL HCL 50 MG TABLET GT SCH ×2 (09:32→18:07)
[2022-11-08] MEDS: ACETAMINOPHEN 650 MG/20.3 ML UDC GT SCH (09:32)
[2022-11-08] MEDS: DOCUSATE SODIUM LIQ 100 MG/10 ML UDC GT SCH (09:32)
[2022-11-08] MEDS: GLUCERNA 1.2 1,000 ML BOTTLE NG PRN (10:55)
[2022-11-08 12:00] VITALS: BP 136/80
[2022-11-08] MEDS: PANTOPRAZOLE 40 MG/PACK PACK GT SCH (13:27)
[2022-11-08] MEDS ORDERED: PERMETHRIN 5% CRM 60 GM TUBE TP ONE (14:00)
[2022-11-08 16:00] VITALS: BP 122/60
[2022-11-08] MEDS: CEFEPIME 2 GM in IV D5W 100 ML IV SCH (16:28)
[2022-11-08] MEDS: ASPIRIN 81 MG TAB.CHEW GT SCH (18:07)
[2022-11-08 21:25] VITALS: BP 111/81
[2022-11-08] MEDS: ATORVASTATIN 40 MG TABLET GT SCH (21:29)
[2022-11-08] MEDS: QUETIAPINE FUMARATE 25 MG TABLET GT SCH (21:29)
[2022-11-09] VITALS (7 sets, daily range): BP systolic 97–128; BP diastolic 54–64
[2022-11-09] MEDS: BLOOD SUGAR DIAGNOSTIC 1 EACH STRIP IN SCH ×5 (00:51→23:21)
[2022-11-09] MEDS: INSULIN REGULAR, HUMAN 100 UNIT/ML 3 ML VIAL SQ PRN ×3 (00:51→23:22)
[2022-11-09] MEDS: VANCOMYCIN 500 MG in IV D5W 100ml IV SCH ×2 (05:50→17:30)
[2022-11-09 06:17] LABS: CALCIUM, SERUM 9.9 mg/dL (8.5-10.1); CARBON DIOXIDE 21 mmol/L (21-32); CHLORIDE 107 mmol/L (98-107); CREATININE 0.6 mg/dL (0.6-1.3); GLUCOSE 116 mg/dL (74-106); POTASSIUM 4.3 mmol/L (3.5-5.1); SODIUM SERUM 138 mmol/L (136-145); UREA NITROGEN, BLOOD 17 mg/dL (7-18)
[2022-11-09 07:11] LABS: BASOPHILS % (AUTO) 0.3 % (0.0-2.0); EOSINOPHILS % (AUTO) 6.2 % (0.0-6.0); HEMATOCRIT 42 % (33-45); HEMOGLOBIN 12.4 g/dL (11.5-14.8); LYMPHOCYTES # (AUTO) 1.6 K/uL (0.8-4.8); LYMPHOCYTES % (AUTO) 11.6 % (20.0-44.0); MEAN CORPUSCULAR HGB CONC 29 g/dl (31.0-36.0); MEAN CORPUSCULAR VOLUME 85 fL (82-100); MONOCYTES # (AUTO) 0.9 K/uL (0.1-1.30); NEUTROPHILS # (AUTO) 10.2 K/uL (1.8-8.9); NEUTROPHILS % (AUTO) 74.9 % (43.0-81.0); PLATELET COUNT (AUTO) 520 K/uL (150-450); RED BLOOD CELL COUNT(AUTO) 4.94 MIL/uL (4.0-5.2); WHITE BLOOD COUNT (AUTO) 13.6 K/uL (4.3-11.0)
[2022-11-09] MEDS: PROSOURCE / PROSTAT (PYXIS) 30 ML UDC GT SCH (09:44)
[2022-11-09] MEDS: DOCUSATE SODIUM LIQ 100 MG/10 ML UDC GT SCH (09:44)
[2022-11-09] MEDS: TRAMADOL HCL 50 MG TABLET GT SCH ×3 (09:44→18:23)
[2022-11-09] MEDS: ACETAMINOPHEN 650 MG/20.3 ML UDC GT SCH (09:44)
[2022-11-09] MEDS: ENOXAPARIN SODIUM 40 MG/0.4 ML DISP.SYRIN SQ SCH (09:45)
[2022-11-09] MEDS: THERAHONEY GEL 1.5 OZ TUBE TP SCH (09:46)
[2022-11-09] MEDS: CLOTRIMAZOLE 1% 15 GM TUBE TP SCH ×2 (09:46→17:24)
[2022-11-09] MEDS: PANTOPRAZOLE 40 MG/PACK PACK GT SCH (12:18)
[2022-11-09] MEDS: GLUCERNA 1.2 1,000 ML BOTTLE NG PRN (15:27)
[2022-11-09] MEDS: CEFEPIME 2 GM in IV D5W 100 ML IV SCH (15:35)
[2022-11-09] MEDS: ASPIRIN 81 MG TAB.CHEW GT SCH (17:22)
[2022-11-09] MEDS: IVERMECTIN 3 MG TABLET PO SCH (17:22)
[2022-11-09] MEDS: ATORVASTATIN 40 MG TABLET GT SCH (22:02)
[2022-11-09] MEDS: QUETIAPINE FUMARATE 25 MG TABLET GT SCH (22:02)
[2022-11-10 03:51] VITALS: BP 101/73
[2022-11-10] MEDS: GLUCERNA 1.2 1,000 ML BOTTLE NG PRN (05:09)
[2022-11-10] MEDS: VANCOMYCIN 500 MG in IV D5W 100ml IV SCH ×2 (05:09→17:16)
[2022-11-10] MEDS: INSULIN REGULAR, HUMAN 100 UNIT/ML 3 ML VIAL SQ PRN ×3 (05:23→17:08)
[2022-11-10] MEDS: BLOOD SUGAR DIAGNOSTIC 1 EACH STRIP IN SCH ×3 (05:23→17:06)
[2022-11-10 06:43] LABS: CALCIUM, SERUM 9.4 mg/dL (8.5-10.1); CARBON DIOXIDE 27 mmol/L (21-32); CHLORIDE 107 mmol/L (98-107); CREATININE 0.6 mg/dL (0.6-1.3); GLUCOSE 140 mg/dL (74-106); MAGNESIUM 2.1 mg/dL (1.8-2.4); POTASSIUM 4.2 mmol/L (3.5-5.1); SODIUM SERUM 141 mmol/L (136-145); UREA NITROGEN, BLOOD 25 mg/dL (7-18)
[2022-11-10 07:00] VITALS: BP 102/53
[2022-11-10 07:00] LABS: BASOPHILS # (AUTO) 0.1 K/uL (0.0-0.2); BASOPHILS % (AUTO) 0.5 % (0.0-2.0); EOSINOPHILS % (AUTO) 6.8 % (0.0-6.0); HEMATOCRIT 36 % (33-45); HEMOGLOBIN 10.8 g/dL (11.5-14.8); LYMPHOCYTES # (AUTO) 2.1 K/uL (0.8-4.8); LYMPHOCYTES % (AUTO) 13.4 % (20.0-44.0); MEAN CORPUSCULAR HGB CONC 30 g/dl (31.0-36.0); MEAN CORPUSCULAR VOLUME 81 fL (82-100); MONOCYTES % (AUTO) 6.5 % (2.0-12.0); NEUTROPHILS # (AUTO) 11.2 K/uL (1.8-8.9); NEUTROPHILS % (AUTO) 72.8 % (43.0-81.0); PLATELET COUNT (AUTO) 460 K/uL (150-450); RED BLOOD CELL COUNT(AUTO) 4.39 MIL/uL (4.0-5.2); WHITE BLOOD COUNT (AUTO) 15.3 K/uL (4.3-11.0)
[2022-11-10] MEDS: DOCUSATE SODIUM LIQ 100 MG/10 ML UDC GT SCH (08:42)
[2022-11-10] MEDS: ACETAMINOPHEN 650 MG/20.3 ML UDC GT SCH (08:43)
[2022-11-10] MEDS: TRAMADOL HCL 50 MG TABLET GT SCH ×2 (08:43→17:15)
[2022-11-10] MEDS: ENOXAPARIN SODIUM 40 MG/0.4 ML DISP.SYRIN SQ SCH (08:44)
[2022-11-10] MEDS: THERAHONEY GEL 1.5 OZ TUBE TP SCH (08:49)
[2022-11-10] MEDS: CLOTRIMAZOLE 1% 15 GM TUBE TP SCH ×2 (08:49→17:41)
[2022-11-10] MEDS: PROSOURCE / PROSTAT (PYXIS) 30 ML UDC GT SCH (08:56)
[2022-11-10] MEDS: PANTOPRAZOLE 40 MG/PACK PACK GT SCH (11:58)
[2022-11-10 12:07] VITALS: BP 108/66
[2022-11-10 15:23] LABS: BAND % (MANUAL) 2 % (0.0-5.0); EOSINOPHILS % (MANUAL) 8 % (0-4); LYMPHOCYTES % (MANUAL) 11 % (16-48); MONOCYTES % (MANUAL) 5 % (0-11.0); NEUTROPHILS % (MANUAL) 74 (42-76)
[2022-11-10 16:00] VITALS: BP 112/70
[2022-11-10] MEDS: CEFEPIME 2 GM in IV D5W 100 ML IV SCH (16:02)
[2022-11-10] MEDS: ASPIRIN 81 MG TAB.CHEW GT SCH (17:16)
[2022-11-10 20:00] VITALS: BP 99/56
[2022-11-10] MEDS: ATORVASTATIN 40 MG TABLET GT SCH (21:14)
[2022-11-10] MEDS: QUETIAPINE FUMARATE 25 MG TABLET GT SCH (21:14)
[2022-11-11] MEDS: INSULIN REGULAR, HUMAN 100 UNIT/ML 3 ML VIAL SQ PRN ×5 (00:10→23:55)
[2022-11-11] MEDS: BLOOD SUGAR DIAGNOSTIC 1 EACH STRIP IN SCH ×5 (00:10→23:55)
[2022-11-11 04:00] VITALS: BP 115/76
[2022-11-11] MEDS: GLUCERNA 1.2 1,000 ML BOTTLE NG PRN (04:34)
[2022-11-11] MEDS: VANCOMYCIN 500 MG in IV D5W 100ml IV SCH ×2 (05:03→17:50)
[2022-11-11 06:06] LABS: BASOPHILS # (AUTO) 0.1 K/uL (0.0-0.2); BASOPHILS % (AUTO) 0.6 % (0.0-2.0); HEMATOCRIT 34 % (33-45); HEMOGLOBIN 10.4 g/dL (11.5-14.8); LYMPHOCYTES # (AUTO) 1.4 K/uL (0.8-4.8); LYMPHOCYTES % (AUTO) 8.4 % (20.0-44.0); MEAN CORPUSCULAR HGB CONC 30 g/dl (31.0-36.0); MEAN CORPUSCULAR VOLUME 81 fL (82-100); MONOCYTES % (AUTO) 5.8 % (2.0-12.0); NEUTROPHILS # (AUTO) 13.7 K/uL (1.8-8.9); NEUTROPHILS % (AUTO) 81.2 % (43.0-81.0); PLATELET COUNT (AUTO) 452 K/uL (150-450); RED BLOOD CELL COUNT(AUTO) 4.25 MIL/uL (4.0-5.2); WHITE BLOOD COUNT (AUTO) 16.8 K/uL (4.3-11.0)
[2022-11-11 06:33] LABS: CALCIUM, SERUM 9.7 mg/dL (8.5-10.1); CARBON DIOXIDE 26 mmol/L (21-32); CHLORIDE 103 mmol/L (98-107); CREATININE 0.7 mg/dL (0.6-1.3); GLUCOSE 186 mg/dL (74-106); POTASSIUM 3.8 mmol/L (3.5-5.1); SODIUM SERUM 137 mmol/L (136-145); UREA NITROGEN, BLOOD 20 mg/dL (7-18)
[2022-11-11 07:00] VITALS: BP 131/86
[2022-11-11] MEDS: THERAHONEY GEL 1.5 OZ TUBE TP SCH (08:23)
[2022-11-11] MEDS: ACETAMINOPHEN 650 MG/20.3 ML UDC GT SCH (08:23)
[2022-11-11] MEDS: DOCUSATE SODIUM LIQ 100 MG/10 ML UDC GT SCH (08:23)
[2022-11-11] MEDS: PROSOURCE / PROSTAT (PYXIS) 30 ML UDC GT SCH (08:23)
[2022-11-11] MEDS: ENOXAPARIN SODIUM 40 MG/0.4 ML DISP.SYRIN SQ SCH (08:34)
[2022-11-11] MEDS: CLOTRIMAZOLE 1% 15 GM TUBE TP SCH ×2 (08:37→16:29)
[2022-11-11] MEDS: PANTOPRAZOLE 40 MG/PACK PACK GT SCH (11:53)
[2022-11-11 12:00] VITALS: BP 122/50
[2022-11-11] MEDS: CEFEPIME 2 GM in IV D5W 100 ML IV SCH (16:28)
[2022-11-11] MEDS: TRAMADOL HCL 50 MG TABLET GT SCH (16:29)
[2022-11-11] MEDS: ASPIRIN 81 MG TAB.CHEW GT SCH (17:51)
[2022-11-11 20:00] VITALS: BP 130/71
[2022-11-11] MEDS: QUETIAPINE FUMARATE 25 MG TABLET GT SCH (21:20)
[2022-11-11] MEDS: ATORVASTATIN 40 MG TABLET GT SCH (21:20)
[2022-11-12] VITALS: BP_SYST 112; BP_SYST 120; BP_DIAS 63; BP_DIAS 66
[2022-11-12] MEDS: GLUCERNA 1.2 1,000 ML BOTTLE NG PRN (04:00)
[2022-11-12 05:00] VITALS: BP 122/68
[2022-11-12] MEDS: VANCOMYCIN 500 MG in IV D5W 100ml IV SCH ×2 (05:03→17:32)
[2022-11-12] MEDS: BLOOD SUGAR DIAGNOSTIC 1 EACH STRIP IN SCH ×4 (05:23→23:55)
[2022-11-12] MEDS: INSULIN REGULAR, HUMAN 100 UNIT/ML 3 ML VIAL SQ PRN ×3 (05:24→23:56)
[2022-11-12 07:00] VITALS: BP 144/69
[2022-11-12] MEDS: PROSOURCE / PROSTAT (PYXIS) 30 ML UDC GT SCH (08:37)
[2022-11-12 08:38] LABS: BASOPHILS # (AUTO) 0.1 K/uL (0.0-0.2); BASOPHILS % (AUTO) 0.6 % (0.0-2.0); EOSINOPHILS % (AUTO) 5.4 % (0.0-6.0); HEMATOCRIT 34 % (33-45); HEMOGLOBIN 10.1 g/dL (11.5-14.8); LYMPHOCYTES # (AUTO) 1.5 K/uL (0.8-4.8); LYMPHOCYTES % (AUTO) 9.1 % (20.0-44.0); MEAN CORPUSCULAR HGB CONC 30 g/dl (31.0-36.0); MEAN CORPUSCULAR VOLUME 80 fL (82-100); MONOCYTES # (AUTO) 1.1 K/uL (0.1-1.30); MONOCYTES % (AUTO) 7.2 % (2.0-12.0); NEUTROPHILS # (AUTO) 12.4 K/uL (1.8-8.9); NEUTROPHILS % (AUTO) 77.7 % (43.0-81.0); PLATELET COUNT (AUTO) 444 K/uL (150-450); RED BLOOD CELL COUNT(AUTO) 4.21 MIL/uL (4.0-5.2); WHITE BLOOD COUNT (AUTO) 15.9 K/uL (4.3-11.0)
[2022-11-12 09:07] LABS: CALCIUM, SERUM 9.9 mg/dL (8.5-10.1); CREATININE 0.7 mg/dL (0.6-1.3); POTASSIUM 3.8 mmol/L (3.5-5.1)
[2022-11-12] MEDS: DOCUSATE SODIUM LIQ 100 MG/10 ML UDC GT SCH (09:22)
[2022-11-12] MEDS: TRAMADOL HCL 50 MG TABLET GT SCH ×2 (09:23→16:50)
[2022-11-12] MEDS: ACETAMINOPHEN 650 MG/20.3 ML UDC GT SCH (09:24)
[2022-11-12] MEDS: ENOXAPARIN SODIUM 40 MG/0.4 ML DISP.SYRIN SQ SCH (09:24)
[2022-11-12] MEDS: CLOTRIMAZOLE 1% 15 GM TUBE TP SCH ×2 (09:25→16:51)
[2022-11-12] MEDS: THERAHONEY GEL 1.5 OZ TUBE TP SCH (09:25)
[2022-11-12] MEDS: PANTOPRAZOLE 40 MG/PACK PACK GT SCH (11:35)
[2022-11-12] MEDS: CEFEPIME 2 GM in IV D5W 100 ML IV SCH (15:30)
[2022-11-12] MEDS: ASPIRIN 81 MG TAB.CHEW GT SCH (17:32)
[2022-11-12 20:00] VITALS: BP 120/81
[2022-11-12] MEDS: ATORVASTATIN 40 MG TABLET GT SCH (22:28)
[2022-11-12] MEDS: QUETIAPINE FUMARATE 25 MG TABLET GT SCH (22:28)
[2022-11-13] VITALS: BP 129/68
[2022-11-13] MEDS: GLUCERNA 1.2 1,000 ML BOTTLE NG PRN (03:29)
[2022-11-13 04:00] VITALS: BP 119/68
[2022-11-13] MEDS: VANCOMYCIN 500 MG in IV D5W 100ml IV SCH ×2 (06:00→17:33)
[2022-11-13] MEDS: BLOOD SUGAR DIAGNOSTIC 1 EACH STRIP IN SCH ×3 (06:11→17:53)
[2022-11-13] MEDS: INSULIN REGULAR, HUMAN 100 UNIT/ML 3 ML VIAL SQ PRN ×2 (06:12→18:11)
[2022-11-13 06:44] LABS: CALCIUM, SERUM 9.9 mg/dL (8.5-10.1); CARBON DIOXIDE 30 mmol/L (21-32); CHLORIDE 108 mmol/L (98-107); CREATININE 0.7 mg/dL (0.6-1.3); GLUCOSE 122 mg/dL (74-106); POTASSIUM 4.1 mmol/L (3.5-5.1); SODIUM SERUM 143 mmol/L (136-145); UREA NITROGEN, BLOOD 28 mg/dL (7-18)
[2022-11-13 08:00] VITALS: BP 129/60
[2022-11-13] MEDS: PROSOURCE / PROSTAT (PYXIS) 30 ML UDC GT SCH (08:08)
[2022-11-13] MEDS: DOCUSATE SODIUM LIQ 100 MG/10 ML UDC GT SCH (09:01)
[2022-11-13] MEDS: ACETAMINOPHEN 650 MG/20.3 ML UDC GT SCH (09:01)
[2022-11-13] MEDS: THERAHONEY GEL 1.5 OZ TUBE TP SCH (09:02)
[2022-11-13] MEDS: TRAMADOL HCL 50 MG TABLET GT SCH ×2 (09:02→17:21)
[2022-11-13] MEDS: CLOTRIMAZOLE 1% 15 GM TUBE TP SCH ×2 (09:03→16:44)
[2022-11-13] MEDS: ENOXAPARIN SODIUM 40 MG/0.4 ML DISP.SYRIN SQ SCH (09:04)
[2022-11-13] MEDS: DIPHENHYDRAMINE HCL 12.5 MG/5 ML UDC PO PRN (10:27)
[2022-11-13] MEDS: PANTOPRAZOLE 40 MG/PACK PACK GT SCH (11:22)
[2022-11-13 12:00] VITALS: BP 107/68
[2022-11-13] MEDS: VITAMINS A AND D 56.7 GM TUBE TP SCH ×2 (15:28→16:44)
[2022-11-13] MEDS: CEFEPIME 2 GM in IV D5W 100 ML IV SCH (15:58)
[2022-11-13 16:00] VITALS: BP 120/64
[2022-11-13] MEDS: ASPIRIN 81 MG TAB.CHEW GT SCH (17:22)
[2022-11-13 20:25] VITALS: BP 145/79
[2022-11-13] MEDS: ATORVASTATIN 40 MG TABLET GT SCH (21:16)
[2022-11-13] MEDS: QUETIAPINE FUMARATE 25 MG TABLET GT SCH (21:16)
[2022-11-14] VITALS: BP 147/70
[2022-11-14] MEDS: BLOOD SUGAR DIAGNOSTIC 1 EACH STRIP IN SCH ×5 (00:35→23:23)
[2022-11-14] MEDS: VANCOMYCIN 500 MG in IV D5W 100ml IV SCH (06:07)
[2022-11-14 06:15] LABS: BASOPHILS # (AUTO) 0.1 K/uL (0.0-0.2); BASOPHILS % (AUTO) 0.4 % (0.0-2.0); EOSINOPHILS % (AUTO) 7.3 % (0.0-6.0); HEMATOCRIT 33 % (33-45); HEMOGLOBIN 10.1 g/dL (11.5-14.8); LYMPHOCYTES # (AUTO) 1.7 K/uL (0.8-4.8); LYMPHOCYTES % (AUTO) 10.2 % (20.0-44.0); MEAN CORPUSCULAR HGB CONC 30 g/dl (31.0-36.0); MEAN CORPUSCULAR VOLUME 79 fL (82-100); MONOCYTES % (AUTO) 6.1 % (2.0-12.0); PLATELET COUNT (AUTO) 457 K/uL (150-450); RED BLOOD CELL COUNT(AUTO) 4.25 MIL/uL (4.0-5.2)
[2022-11-14 06:49] LABS: ALBUMIN 2.2 g/dL (3.4-5.0); BILIRUBIN,TOTAL 0.3 mg/dL (0.2-1.0); CALCIUM, SERUM 10.3 mg/dL (8.5-10.1); CREATININE 0.6 mg/dL (0.6-1.3); TOTAL PROTEIN, SERUM 7.3 g/dL (6.4-8.2)
[2022-11-14 07:00] VITALS: BP 120/58
[2022-11-14] MEDS: PROSOURCE / PROSTAT (PYXIS) 30 ML UDC GT SCH (08:44)
[2022-11-14] MEDS: ACETAMINOPHEN 650 MG/20.3 ML UDC GT SCH (08:49)
[2022-11-14] MEDS: TRAMADOL HCL 50 MG TABLET GT SCH ×2 (08:49→17:25)
[2022-11-14] MEDS: DOCUSATE SODIUM LIQ 100 MG/10 ML UDC GT SCH (08:49)
[2022-11-14] MEDS: ENOXAPARIN SODIUM 40 MG/0.4 ML DISP.SYRIN SQ SCH (08:53)
[2022-11-14] MEDS: CLOTRIMAZOLE 1% 15 GM TUBE TP SCH ×2 (08:53→16:52)
[2022-11-14] MEDS: VITAMINS A AND D 56.7 GM TUBE TP SCH ×2 (08:53→16:52)
[2022-11-14] MEDS: THERAHONEY GEL 1.5 OZ TUBE TP SCH (08:54)
[2022-11-14] MEDS ORDERED: CEFEPIME 2 GM in IV D5W 100 ML IV SCH (11:00)
[2022-11-14] MEDS: PANTOPRAZOLE 40 MG/PACK PACK GT SCH (11:42)
[2022-11-14 12:00] VITALS: BP 101/59
[2022-11-14] MEDS: INSULIN REGULAR, HUMAN 100 UNIT/ML 3 ML VIAL SQ PRN (13:19)
[2022-11-14 16:10] VITALS: BP 105/66
[2022-11-14] MEDS: ASPIRIN 81 MG TAB.CHEW GT SCH (17:25)
[2022-11-14 20:00] VITALS: BP 125/67
[2022-11-14] MEDS: QUETIAPINE FUMARATE 25 MG TABLET GT SCH (21:11)
[2022-11-14] MEDS: ATORVASTATIN 40 MG TABLET GT SCH (21:11)
[2022-11-14] MEDS: GLUCERNA 1.2 1,000 ML BOTTLE NG PRN (23:30)
[2022-11-15] VITALS: BP 99/81
[2022-11-15 05:00] VITALS: BP 108/64
[2022-11-15] MEDS: BLOOD SUGAR DIAGNOSTIC 1 EACH STRIP IN SCH ×4 (06:14→23:21)
[2022-11-15 07:00] VITALS: BP 101/66
[2022-11-15 07:02] LABS: CALCIUM, SERUM 10.3 mg/dL (8.5-10.1); CARBON DIOXIDE 26 mmol/L (21-32); CHLORIDE 111 mmol/L (98-107); CREATININE 0.6 mg/dL (0.6-1.3); GLUCOSE 126 mg/dL (74-106); POTASSIUM 3.9 mmol/L (3.5-5.1); SODIUM SERUM 146 mmol/L (136-145); UREA NITROGEN, BLOOD 26 mg/dL (7-18)
[2022-11-15] MEDS: ACETAMINOPHEN 650 MG/20.3 ML UDC GT SCH (09:36)
[2022-11-15] MEDS: DOCUSATE SODIUM LIQ 100 MG/10 ML UDC GT SCH (09:36)
[2022-11-15] MEDS: PROSOURCE / PROSTAT (PYXIS) 30 ML UDC GT SCH (09:36)
[2022-11-15] MEDS: TRAMADOL HCL 50 MG TABLET GT SCH ×2 (09:37→17:37)
[2022-11-15] MEDS: ENOXAPARIN SODIUM 40 MG/0.4 ML DISP.SYRIN SQ SCH (09:41)
[2022-11-15] MEDS: THERAHONEY GEL 1.5 OZ TUBE TP SCH (10:20)
[2022-11-15] MEDS: VITAMINS A AND D 56.7 GM TUBE TP SCH ×2 (10:21→17:39)
[2022-11-15] MEDS: CLOTRIMAZOLE 1% 15 GM TUBE TP SCH ×2 (10:21→17:38)
[2022-11-15 12:00] VITALS: BP 138/72
[2022-11-15] MEDS: PANTOPRAZOLE 40 MG/PACK PACK GT SCH (12:07)
[2022-11-15 16:00] VITALS: BP 138/84
[2022-11-15] MEDS: ASPIRIN 81 MG TAB.CHEW GT SCH (17:37)
[2022-11-15 20:00] VITALS: BP 153/78
[2022-11-15] MEDS: QUETIAPINE FUMARATE 25 MG TABLET GT SCH (21:32)
[2022-11-15] MEDS: ATORVASTATIN 40 MG TABLET GT SCH (21:32)
[2022-11-15] MEDS: INSULIN REGULAR, HUMAN 100 UNIT/ML 3 ML VIAL SQ PRN (23:38)
[2022-11-16] MEDS: GLUCERNA 1.2 1,000 ML BOTTLE NG PRN ×2 (02:16→22:42)
[2022-11-16 04:46] VITALS: BP 146/67
[2022-11-16] MEDS: BLOOD SUGAR DIAGNOSTIC 1 EACH STRIP IN SCH ×3 (05:24→18:03)
[2022-11-16] MEDS: INSULIN REGULAR, HUMAN 100 UNIT/ML 3 ML VIAL SQ PRN ×2 (05:27→17:41)
[2022-11-16 08:00] VITALS: BP 138/71
[2022-11-16] MEDS: ACETAMINOPHEN 650 MG/20.3 ML UDC GT SCH (09:12)
[2022-11-16] MEDS: DOCUSATE SODIUM LIQ 100 MG/10 ML UDC GT SCH (09:12)
[2022-11-16] MEDS: PROSOURCE / PROSTAT (PYXIS) 30 ML UDC GT SCH (09:12)
[2022-11-16] MEDS: TRAMADOL HCL 50 MG TABLET GT SCH ×2 (09:13→17:19)
[2022-11-16] MEDS: ENOXAPARIN SODIUM 40 MG/0.4 ML DISP.SYRIN SQ SCH (09:13)
[2022-11-16] MEDS: CLOTRIMAZOLE 1% 15 GM TUBE TP SCH ×2 (09:14→17:19)
[2022-11-16] MEDS: VITAMINS A AND D 56.7 GM TUBE TP SCH ×2 (09:15→17:20)
[2022-11-16] MEDS: THERAHONEY GEL 1.5 OZ TUBE TP SCH (09:15)
[2022-11-16] MEDS: PANTOPRAZOLE 40 MG/PACK PACK GT SCH (11:58)
[2022-11-16 12:00] VITALS: BP 141/72
[2022-11-16] MEDS: DIPHENHYDRAMINE HCL 12.5 MG/5 ML UDC PO PRN (14:57)
[2022-11-16 16:00] VITALS: BP 116/61
[2022-11-16] MEDS: IVERMECTIN 3 MG TABLET PO SCH (16:09)
[2022-11-16] MEDS: ASPIRIN 81 MG TAB.CHEW GT SCH (17:18)
[2022-11-16] MEDS: VANCOMYCIN HCL 125 MG/2.5 ML ORAL.SUSP PO SCH (17:18)
[2022-11-16 20:02] VITALS: BP 118/66
[2022-11-16] MEDS: QUETIAPINE FUMARATE 25 MG TABLET GT SCH (21:29)
[2022-11-16] MEDS: ATORVASTATIN 40 MG TABLET GT SCH (21:31)
[2022-11-17 00:02] VITALS: BP 128/79
[2022-11-17] MEDS: VANCOMYCIN HCL 125 MG/2.5 ML ORAL.SUSP PO SCH ×5 (00:18→23:40)
[2022-11-17] MEDS: BLOOD SUGAR DIAGNOSTIC 1 EACH STRIP IN SCH ×5 (00:30→23:21)
[2022-11-17 04:09] VITALS: BP 116/73
[2022-11-17] MEDS: INSULIN REGULAR, HUMAN 100 UNIT/ML 3 ML VIAL SQ PRN ×2 (05:21→23:21)
[2022-11-17 07:29] LABS: BASOPHILS # (AUTO) 0.1 K/uL (0.0-0.2); BASOPHILS % (AUTO) 0.6 % (0.0-2.0); EOSINOPHILS % (AUTO) 4.9 % (0.0-6.0); HEMATOCRIT 32 % (33-45); LYMPHOCYTES # (AUTO) 1.5 K/uL (0.8-4.8); LYMPHOCYTES % (AUTO) 9.2 % (20.0-44.0); MEAN CORPUSCULAR HGB CONC 32 g/dl (31.0-36.0); MEAN CORPUSCULAR VOLUME 78 fL (82-100); MONOCYTES # (AUTO) 1.1 K/uL (0.1-1.30); MONOCYTES % (AUTO) 6.4 % (2.0-12.0); NEUTROPHILS # (AUTO) 13.1 K/uL (1.8-8.9); NEUTROPHILS % (AUTO) 78.9 % (43.0-81.0); PLATELET COUNT (AUTO) 393 K/uL (150-450); RED BLOOD CELL COUNT(AUTO) 4.05 MIL/uL (4.0-5.2); WHITE BLOOD COUNT (AUTO) 16.7 K/uL (4.3-11.0)
[2022-11-17 08:00] VITALS: BP 129/64
[2022-11-17] MEDS: DOCUSATE SODIUM LIQ 100 MG/10 ML UDC GT SCH (08:33)
[2022-11-17] MEDS: PROSOURCE / PROSTAT (PYXIS) 30 ML UDC GT SCH (08:33)
[2022-11-17] MEDS: ACETAMINOPHEN 650 MG/20.3 ML UDC GT SCH (08:34)
[2022-11-17] MEDS: TRAMADOL HCL 50 MG TABLET GT SCH ×2 (08:34→17:31)
[2022-11-17] MEDS: CLOTRIMAZOLE 1% 15 GM TUBE TP SCH ×2 (08:35→17:31)
[2022-11-17] MEDS: VITAMINS A AND D 56.7 GM TUBE TP SCH ×2 (08:36→17:32)
[2022-11-17] MEDS: THERAHONEY GEL 1.5 OZ TUBE TP SCH (08:36)
[2022-11-17] MEDS: ENOXAPARIN SODIUM 40 MG/0.4 ML DISP.SYRIN SQ SCH (10:15)
[2022-11-17] MEDS: PANTOPRAZOLE 40 MG/PACK PACK GT SCH (11:44)
[2022-11-17 12:00] VITALS: BP 107/58
[2022-11-17 14:38] LABS: CALCIUM, SERUM 9.6 mg/dL (8.5-10.1); CARBON DIOXIDE 29 mmol/L (21-32); CHLORIDE 109 mmol/L (98-107); CREATININE 0.6 mg/dL (0.6-1.3); GLUCOSE 135 mg/dL (74-106); POTASSIUM 3.9 mmol/L (3.5-5.1); SODIUM SERUM 145 mmol/L (136-145); UREA NITROGEN, BLOOD 32 mg/dL (7-18)
[2022-11-17 16:00] VITALS: BP 105/55
[2022-11-17] MEDS: ASPIRIN 81 MG TAB.CHEW GT SCH (17:31)
[2022-11-17] MEDS ORDERED: IV NS 0.9% 500 ML IV ONE (18:56)
[2022-11-17] MEDS: GLUCERNA 1.2 1,000 ML BOTTLE NG PRN (19:07)
[2022-11-17 20:00] VITALS: BP 136/77
[2022-11-17] MEDS: ATORVASTATIN 40 MG TABLET GT SCH (21:45)
[2022-11-17] MEDS: QUETIAPINE FUMARATE 25 MG TABLET GT SCH (21:45)
[2022-11-18] MEDS: BLOOD SUGAR DIAGNOSTIC 1 EACH STRIP IN SCH ×3 (05:11→17:09)
[2022-11-18] MEDS: VANCOMYCIN HCL 125 MG/2.5 ML ORAL.SUSP PO SCH ×3 (05:12→17:13)
[2022-11-18] MEDS: INSULIN REGULAR, HUMAN 100 UNIT/ML 3 ML VIAL SQ PRN (05:14)
[2022-11-18 07:43] LABS: BASOPHILS # (AUTO) 0.1 K/uL (0.0-0.2); BASOPHILS % (AUTO) 0.6 % (0.0-2.0); EOSINOPHILS % (AUTO) 0.3 % (0.0-6.0); HEMATOCRIT 32 % (33-45); HEMOGLOBIN 9.7 g/dL (11.5-14.8); LYMPHOCYTES # (AUTO) 1.1 K/uL (0.8-4.8); LYMPHOCYTES % (AUTO) 7.1 % (20.0-44.0); MEAN CORPUSCULAR HGB CONC 30 g/dl (31.0-36.0); MEAN CORPUSCULAR VOLUME 80 fL (82-100); MONOCYTES % (AUTO) 6.4 % (2.0-12.0); NEUTROPHILS # (AUTO) 13.8 K/uL (1.8-8.9); NEUTROPHILS % (AUTO) 85.6 % (43.0-81.0); PLATELET COUNT (AUTO) 353 K/uL (150-450); RED BLOOD CELL COUNT(AUTO) 4.05 MIL/uL (4.0-5.2); WHITE BLOOD COUNT (AUTO) 16.1 K/uL (4.3-11.0)
[2022-11-18 08:06] LABS: CALCIUM, SERUM 9.3 mg/dL (8.5-10.1); CREATININE 0.7 mg/dL (0.6-1.3); POTASSIUM 3.7 mmol/L (3.5-5.1)
[2022-11-18 08:26] VITALS: BP 143/63
[2022-11-18] MEDS: PROSOURCE / PROSTAT (PYXIS) 30 ML UDC GT SCH (08:57)
[2022-11-18] MEDS: ENOXAPARIN SODIUM 40 MG/0.4 ML DISP.SYRIN SQ SCH (08:57)
[2022-11-18] MEDS: DOCUSATE SODIUM LIQ 100 MG/10 ML UDC GT SCH (08:57)
[2022-11-18] MEDS: ACETAMINOPHEN 650 MG/20.3 ML UDC GT SCH (08:57)
[2022-11-18] MEDS: TRAMADOL HCL 50 MG TABLET GT SCH ×2 (08:58→16:11)
[2022-11-18] MEDS: CLOTRIMAZOLE 1% 15 GM TUBE TP SCH ×2 (09:00→16:12)
[2022-11-18] MEDS: THERAHONEY GEL 1.5 OZ TUBE TP SCH (09:02)
[2022-11-18] MEDS: VITAMINS A AND D 56.7 GM TUBE TP SCH ×2 (09:03→16:13)
[2022-11-18] MEDS: PANTOPRAZOLE 40 MG/PACK PACK GT SCH (12:07)
[2022-11-18] MEDS ORDERED: MECLIZINE HCL 25 MG TABLET PO PRN (12:30)
[2022-11-18] MEDS ORDERED: MECLIZINE HCL 12.5 MG TABLET PO SCH (13:00)
[2022-11-18] MEDS: GLUCERNA 1.2 1,000 ML BOTTLE NG PRN (13:19)
[2022-11-18 16:00] VITALS: BP 152/71
[2022-11-18] MEDS: ASPIRIN 81 MG TAB.CHEW GT SCH (17:09)
[2022-11-18 19:30] LABS: BILIRUBIN,URINE NEGATIVE (NEGATIVE); COLOR,URINE YELLOW (YELLOW); LEUKOCYTE ESTERASE ,URINE TRACE (NEGATIVE); NITRITE, URINE NEGATIVE (NEGATIVE); PROTEIN,URINE 2+ mg/dl (NEGATIVE); UGLUCOSE NEGATIVE (NEGATIVE); UROBILINOGEN,URINE 0.2 EU/dL (0.2)
[2022-11-18 19:37] LABS: BACTERIA,URINE 2+ /HPF (None Seen); SQUAMOUS EPITHELIAL CELL,UR 0-2 /HPF (None Seen); TRIPLE PHOSPHATE CRYSTAL,UR Moderate /HPF (None Seen)
[2022-11-18 20:00] VITALS: BP 131/66
[2022-11-18 20:04] VITALS: BP 151/62
[2022-11-18] MEDS: QUETIAPINE FUMARATE 25 MG TABLET GT SCH (21:11)
[2022-11-18] MEDS: ATORVASTATIN 40 MG TABLET GT SCH (21:11)
[2022-11-19] MEDS: BLOOD SUGAR DIAGNOSTIC 1 EACH STRIP IN SCH ×5 (00:17→23:55)
[2022-11-19] MEDS: INSULIN REGULAR, HUMAN 100 UNIT/ML 3 ML VIAL SQ PRN ×3 (00:18→23:58)
[2022-11-19] MEDS: VANCOMYCIN HCL 125 MG/2.5 ML ORAL.SUSP PO SCH ×5 (00:38→23:47)
[2022-11-19] MEDS: GLUCERNA 1.2 1,000 ML BOTTLE NG PRN (02:44)
[2022-11-19 06:19] LABS: BASOPHILS # (AUTO) 0.1 K/uL (0.0-0.2); BASOPHILS % (AUTO) 0.5 % (0.0-2.0); EOSINOPHILS % (AUTO) 1.9 % (0.0-6.0); HEMATOCRIT 30 % (33-45); HEMOGLOBIN 9.3 g/dL (11.5-14.8); LYMPHOCYTES # (AUTO) 1.4 K/uL (0.8-4.8); LYMPHOCYTES % (AUTO) 8.5 % (20.0-44.0); MEAN CORPUSCULAR HGB CONC 31 g/dl (31.0-36.0); MEAN CORPUSCULAR VOLUME 78 fL (82-100); MONOCYTES # (AUTO) 1.3 K/uL (0.1-1.30); MONOCYTES % (AUTO) 8.1 % (2.0-12.0); NEUTROPHILS # (AUTO) 13.3 K/uL (1.8-8.9); PLATELET COUNT (AUTO) 372 K/uL (150-450); RED BLOOD CELL COUNT(AUTO) 3.86 MIL/uL (4.0-5.2); WHITE BLOOD COUNT (AUTO) 16.4 K/uL (4.3-11.0)
[2022-11-19 06:33] LABS: CALCIUM, SERUM 9.6 mg/dL (8.5-10.1); CREATININE 0.6 mg/dL (0.6-1.3); POTASSIUM 3.7 mmol/L (3.5-5.1)
[2022-11-19 08:00] VITALS: BP 128/77
[2022-11-19] MEDS: PROSOURCE / PROSTAT (PYXIS) 30 ML UDC GT SCH (08:11)
[2022-11-19] MEDS: DOCUSATE SODIUM LIQ 100 MG/10 ML UDC GT SCH (08:12)
[2022-11-19] MEDS: ACETAMINOPHEN 650 MG/20.3 ML UDC GT SCH (08:12)
[2022-11-19] MEDS: ENOXAPARIN SODIUM 40 MG/0.4 ML DISP.SYRIN SQ SCH (08:14)
[2022-11-19] MEDS: TRAMADOL HCL 50 MG TABLET GT SCH ×2 (08:16→16:24)
[2022-11-19] MEDS: CLOTRIMAZOLE 1% 15 GM TUBE TP SCH ×2 (09:20→16:59)
[2022-11-19] MEDS: THERAHONEY GEL 1.5 OZ TUBE TP SCH (09:20)
[2022-11-19] MEDS: VITAMINS A AND D 56.7 GM TUBE TP SCH ×2 (09:21→16:59)
[2022-11-19] MEDS: PANTOPRAZOLE 40 MG/PACK PACK GT SCH (13:00)
[2022-11-19] MEDS ORDERED: VANCOMYCIN 1 GM in IV D5W 250ml IV ONE (15:00)
[2022-11-19 16:00] VITALS: BP_SYST 134
[2022-11-19] MEDS: CEFEPIME 2 GM in IV D5W 100 ML IV SCH (16:07)
[2022-11-19] MEDS: FUROSEMIDE 20 MG/2 ML VIAL IV SCH (16:58)
[2022-11-19] MEDS: ASPIRIN 81 MG TAB.CHEW GT SCH (18:08)
[2022-11-19] MEDS: METRONIDAZOLE 500 MG TABLET PO SCH (21:44)
[2022-11-19] MEDS: QUETIAPINE FUMARATE 25 MG TABLET GT SCH (21:44)
[2022-11-19] MEDS: ATORVASTATIN 40 MG TABLET GT SCH (21:44)
[2022-11-20] MEDS: VANCOMYCIN 500 MG in IV D5W 100ml IV SCH ×2 (03:01→15:36)
[2022-11-20] MEDS: GLUCERNA 1.2 1,000 ML BOTTLE NG PRN ×2 (03:36→21:41)
[2022-11-20] MEDS: METRONIDAZOLE 500 MG TABLET PO SCH ×3 (05:04→21:26)
[2022-11-20] MEDS: VANCOMYCIN HCL 125 MG/2.5 ML ORAL.SUSP PO SCH ×4 (05:07→23:46)
[2022-11-20] MEDS: BLOOD SUGAR DIAGNOSTIC 1 EACH STRIP IN SCH ×3 (06:13→18:05)
[2022-11-20] MEDS: INSULIN REGULAR, HUMAN 100 UNIT/ML 3 ML VIAL SQ PRN ×3 (06:36→18:08)
[2022-11-20 08:00] VITALS: BP 147/70
[2022-11-20] MEDS: PROSOURCE / PROSTAT (PYXIS) 30 ML UDC GT SCH (08:09)
[2022-11-20] MEDS: DOCUSATE SODIUM LIQ 100 MG/10 ML UDC GT SCH (08:48)
[2022-11-20] MEDS: TRAMADOL HCL 50 MG TABLET GT SCH ×2 (08:48→17:44)
[2022-11-20] MEDS: FUROSEMIDE 20 MG/2 ML VIAL IV SCH ×2 (08:48→17:44)
[2022-11-20] MEDS: ACETAMINOPHEN 650 MG/20.3 ML UDC GT SCH (08:48)
[2022-11-20] MEDS: ENOXAPARIN SODIUM 40 MG/0.4 ML DISP.SYRIN SQ SCH (08:50)
[2022-11-20] MEDS: THERAHONEY GEL 1.5 OZ TUBE TP SCH (09:52)
[2022-11-20] MEDS: CLOTRIMAZOLE 1% 15 GM TUBE TP SCH ×2 (09:52→17:38)
[2022-11-20] MEDS: VITAMINS A AND D 56.7 GM TUBE TP SCH ×2 (09:55→17:43)
[2022-11-20 10:32] LABS: CALCIUM, SERUM 10.1 mg/dL (8.5-10.1); CREATININE 0.8 mg/dL (0.6-1.3); POTASSIUM 3.7 mmol/L (3.5-5.1)
[2022-11-20] MEDS: PANTOPRAZOLE 40 MG/PACK PACK GT SCH (10:40)
[2022-11-20] MEDS: CEFEPIME 2 GM in IV D5W 100 ML IV SCH (14:57)
[2022-11-20 16:00] VITALS: BP 152/83
[2022-11-20] MEDS: ASPIRIN 81 MG TAB.CHEW GT SCH (17:43)
[2022-11-20] MEDS: CARVEDILOL 3.125 MG TABLET PO SCH (17:48)
[2022-11-20 20:00] VITALS: BP 139/75
[2022-11-20] MEDS: ATORVASTATIN 40 MG TABLET GT SCH (21:26)
[2022-11-20] MEDS: QUETIAPINE FUMARATE 25 MG TABLET GT SCH (21:26)
[2022-11-21] MEDS: BLOOD SUGAR DIAGNOSTIC 1 EACH STRIP IN SCH ×5 (00:30→23:20)
[2022-11-21] MEDS: INSULIN REGULAR, HUMAN 100 UNIT/ML 3 ML VIAL SQ PRN ×5 (00:38→23:25)
[2022-11-21] MEDS: VANCOMYCIN 500 MG in IV D5W 100ml IV SCH (03:00)
[2022-11-21] MEDS: METRONIDAZOLE 500 MG TABLET PO SCH ×3 (05:48→21:14)
[2022-11-21] MEDS: VANCOMYCIN HCL 125 MG/2.5 ML ORAL.SUSP PO SCH ×4 (05:48→23:05)
[2022-11-21 05:56] LABS: BASOPHILS # (AUTO) 0.1 K/uL (0.0-0.2); BASOPHILS % (AUTO) 0.5 % (0.0-2.0); EOSINOPHILS % (AUTO) 2.7 % (0.0-6.0); HEMATOCRIT 34 % (33-45); HEMOGLOBIN 10.1 g/dL (11.5-14.8); LYMPHOCYTES # (AUTO) 1.1 K/uL (0.8-4.8); LYMPHOCYTES % (AUTO) 7.8 % (20.0-44.0); MEAN CORPUSCULAR HGB CONC 30 g/dl (31.0-36.0); MEAN CORPUSCULAR VOLUME 78 fL (82-100); MONOCYTES # (AUTO) 1.2 K/uL (0.1-1.30); MONOCYTES % (AUTO) 8.7 % (2.0-12.0); NEUTROPHILS # (AUTO) 11.3 K/uL (1.8-8.9); NEUTROPHILS % (AUTO) 80.3 % (43.0-81.0); PLATELET COUNT (AUTO) 403 K/uL (150-450); RED BLOOD CELL COUNT(AUTO) 4.33 MIL/uL (4.0-5.2)
[2022-11-21 06:06] LABS: CALCIUM, SERUM 9.8 mg/dL (8.5-10.1); CARBON DIOXIDE 32 mmol/L (21-32); CHLORIDE 109 mmol/L (98-107); CREATININE 0.7 mg/dL (0.6-1.3); GLUCOSE 145 mg/dL (74-106); POTASSIUM 3.9 mmol/L (3.5-5.1); SODIUM SERUM 146 mmol/L (136-145); UREA NITROGEN, BLOOD 37 mg/dL (7-18)
[2022-11-21 06:07] LABS: MAGNESIUM 2.5 mg/dL (1.8-2.4)
[2022-11-21 08:00] VITALS: BP 123/68
[2022-11-21] MEDS: PROSOURCE / PROSTAT (PYXIS) 30 ML UDC GT SCH (08:50)
[2022-11-21] MEDS: LOSARTAN POTASSIUM 25 MG TABLET PO SCH (08:50)
[2022-11-21] MEDS: DOCUSATE SODIUM LIQ 100 MG/10 ML UDC GT SCH (08:50)
[2022-11-21] MEDS: ACETAMINOPHEN 650 MG/20.3 ML UDC GT SCH (08:50)
[2022-11-21] MEDS: FUROSEMIDE 20 MG/2 ML VIAL IV SCH (08:51)
[2022-11-21] MEDS: CARVEDILOL 3.125 MG TABLET PO SCH ×2 (08:51→17:12)
[2022-11-21] MEDS: TRAMADOL HCL 50 MG TABLET GT SCH ×2 (08:51→17:11)
[2022-11-21] MEDS: CLOTRIMAZOLE 1% 15 GM TUBE TP SCH ×2 (08:52→17:19)
[2022-11-21] MEDS: THERAHONEY GEL 1.5 OZ TUBE TP SCH (08:52)
[2022-11-21] MEDS: VITAMINS A AND D 56.7 GM TUBE TP SCH ×2 (08:53→17:20)
[2022-11-21] MEDS: PANTOPRAZOLE 40 MG/PACK PACK GT SCH (11:24)
[2022-11-21 11:36] LABS: CHOLESTEROL 97 mg/dL (<200); HDL CHOLESTEROL 23 mg/dL (40-60); LDL 65 mg/dL (0-99); TRIGLYCERIDES 98 mg/dL (30-150)
[2022-11-21] MEDS: CEFEPIME 2 GM in IV D5W 100 ML IV SCH (15:03)
[2022-11-21] MEDS: VANCOMYCIN 0.75 GM in IV D5W 250 ML IV SCH (15:31)
[2022-11-21 16:00] VITALS: BP 125/68
[2022-11-21] MEDS: ASPIRIN 81 MG TAB.CHEW GT SCH (17:11)
[2022-11-21 20:00] VITALS: BP_SYST 127; BP_DIAS 48; BP_DIAS 78
[2022-11-21] MEDS: ATORVASTATIN 40 MG TABLET GT SCH (21:14)
[2022-11-21] MEDS: QUETIAPINE FUMARATE 25 MG TABLET GT SCH (21:14)
[2022-11-22] MEDS: METRONIDAZOLE 500 MG TABLET PO SCH ×3 (04:09→21:43)
[2022-11-22] MEDS: VANCOMYCIN HCL 125 MG/2.5 ML ORAL.SUSP PO SCH ×4 (05:04→23:06)
[2022-11-22] MEDS: BLOOD SUGAR DIAGNOSTIC 1 EACH STRIP IN SCH ×4 (05:22→23:26)
[2022-11-22] MEDS: INSULIN REGULAR, HUMAN 100 UNIT/ML 3 ML VIAL SQ PRN ×3 (05:25→17:22)
[2022-11-22] MEDS: PROSOURCE / PROSTAT (PYXIS) 30 ML UDC GT SCH (07:51)
[2022-11-22 08:00] VITALS: BP 136/71
[2022-11-22] MEDS: DOCUSATE SODIUM LIQ 100 MG/10 ML UDC GT SCH (08:46)
[2022-11-22] MEDS: CARVEDILOL 3.125 MG TABLET PO SCH ×2 (08:47→17:20)
[2022-11-22] MEDS: TRAMADOL HCL 50 MG TABLET GT SCH ×2 (08:47→17:19)
[2022-11-22] MEDS: LOSARTAN POTASSIUM 25 MG TABLET PO SCH (08:47)
[2022-11-22] MEDS: ACETAMINOPHEN 650 MG/20.3 ML UDC GT SCH (08:47)
[2022-11-22] MEDS: THERAHONEY GEL 1.5 OZ TUBE TP SCH (09:34)
[2022-11-22] MEDS: CLOTRIMAZOLE 1% 15 GM TUBE TP SCH ×2 (09:34→17:29)
[2022-11-22] MEDS: VITAMINS A AND D 56.7 GM TUBE TP SCH ×2 (09:35→17:29)
[2022-11-22 09:50] LABS: CALCIUM, SERUM 9.8 mg/dL (8.5-10.1); CREATININE 0.8 mg/dL (0.6-1.3); POTASSIUM 3.7 mmol/L (3.5-5.1)
[2022-11-22] MEDS: PANTOPRAZOLE 40 MG/PACK PACK GT SCH (11:36)
[2022-11-22] MEDS: CEFEPIME 2 GM in IV D5W 100 ML IV SCH (14:43)
[2022-11-22] MEDS: VANCOMYCIN 0.75 GM in IV D5W 250 ML IV SCH (15:02)
[2022-11-22 16:00] VITALS: BP 113/66
[2022-11-22] MEDS: ASPIRIN 81 MG TAB.CHEW GT SCH (17:19)
[2022-11-22] MEDS: GLUCERNA 1.2 1,000 ML BOTTLE NG PRN (19:07)
[2022-11-22 20:00] VITALS: BP 126/54
[2022-11-22] MEDS: ATORVASTATIN 40 MG TABLET GT SCH (21:43)
[2022-11-22] MEDS: QUETIAPINE FUMARATE 25 MG TABLET GT SCH (21:43)
[2022-11-23] MEDS: INSULIN REGULAR, HUMAN 100 UNIT/ML 3 ML VIAL SQ PRN ×2 (00:30→05:52)
[2022-11-23] MEDS: METRONIDAZOLE 500 MG TABLET PO SCH ×2 (04:44→12:56)
[2022-11-23] MEDS: VANCOMYCIN HCL 125 MG/2.5 ML ORAL.SUSP PO SCH ×3 (05:15→17:28)
[2022-11-23] MEDS: BLOOD SUGAR DIAGNOSTIC 1 EACH STRIP IN SCH ×3 (05:52→17:28)
[2022-11-23 06:38] LABS: BASOPHILS # (AUTO) 0.1 K/uL (0.0-0.2); BASOPHILS % (AUTO) 0.6 % (0.0-2.0); EOSINOPHILS % (AUTO) 2.8 % (0.0-6.0); HEMATOCRIT 34 % (33-45); LYMPHOCYTES # (AUTO) 1.6 K/uL (0.8-4.8); LYMPHOCYTES % (AUTO) 11.1 % (20.0-44.0); MEAN CORPUSCULAR HGB CONC 30 g/dl (31.0-36.0); MEAN CORPUSCULAR VOLUME 77 fL (82-100); MONOCYTES # (AUTO) 1.1 K/uL (0.1-1.30); MONOCYTES % (AUTO) 7.7 % (2.0-12.0); NEUTROPHILS # (AUTO) 11.1 K/uL (1.8-8.9); NEUTROPHILS % (AUTO) 77.8 % (43.0-81.0); PLATELET COUNT (AUTO) 459 K/uL (150-450); RED BLOOD CELL COUNT(AUTO) 4.32 MIL/uL (4.0-5.2); WHITE BLOOD COUNT (AUTO) 14.2 K/uL (4.3-11.0)
[2022-11-23 07:03] LABS: ALANINE AMINOTRANSFERASE 60 U/L (12-78); ALBUMIN 1.8 g/dL (3.4-5.0); ALKALINE PHOSPHATASE 87 U/L (46-116); ASPARTATE AMINOTRANSFERASE 41 U/L (15-37); BILIRUBIN,TOTAL 0.3 mg/dL (0.2-1.0); CALCIUM, SERUM 9.8 mg/dL (8.5-10.1); CARBON DIOXIDE 29 mmol/L (21-32); CHLORIDE 111 mmol/L (98-107); CREATININE 0.6 mg/dL (0.6-1.3); GLUCOSE 134 mg/dL (74-106); MAGNESIUM 2.4 mg/dL (1.8-2.4); PHOSPHORUS 2.9 mg/dL (2.5-4.9); POTASSIUM 3.5 mmol/L (3.5-5.1); SODIUM SERUM 146 mmol/L (136-145); UREA NITROGEN, BLOOD 36 mg/dL (7-18)
[2022-11-23 08:00] VITALS: BP 140/66
[2022-11-23] MEDS: THERAHONEY GEL 1.5 OZ TUBE TP SCH (08:33)
[2022-11-23] MEDS: PROSOURCE / PROSTAT (PYXIS) 30 ML UDC GT SCH (08:33)
[2022-11-23] MEDS: CLOTRIMAZOLE 1% 15 GM TUBE TP SCH ×2 (08:34→17:12)
[2022-11-23] MEDS: TRAMADOL HCL 50 MG TABLET GT SCH ×2 (08:41→17:12)
[2022-11-23] MEDS: DOCUSATE SODIUM LIQ 100 MG/10 ML UDC GT SCH (08:41)
[2022-11-23] MEDS: ACETAMINOPHEN 650 MG/20.3 ML UDC GT SCH (08:41)
[2022-11-23] MEDS: LOSARTAN POTASSIUM 25 MG TABLET PO SCH (08:43)
[2022-11-23] MEDS: CARVEDILOL 3.125 MG TABLET PO SCH ×2 (08:44→17:11)
[2022-11-23] MEDS: VITAMINS A AND D 56.7 GM TUBE TP SCH ×2 (10:22→17:12)
[2022-11-23 10:23] LABS: CALCIUM, SERUM 9.6 mg/dL (8.5-10.1); CARBON DIOXIDE 31 mmol/L (21-32); CHLORIDE 109 mmol/L (98-107); CREATININE 0.7 mg/dL (0.6-1.3); GLUCOSE 160 mg/dL (74-106); SODIUM SERUM 147 mmol/L (136-145); UREA NITROGEN, BLOOD 36 mg/dL (7-18)
[2022-11-23] MEDS: PANTOPRAZOLE 40 MG/PACK PACK GT SCH (11:38)
[2022-11-23] MEDS: CEFEPIME 2 GM in IV D5W 100 ML IV SCH (15:43)
[2022-11-23] MEDS: VANCOMYCIN 0.75 GM in IV D5W 250 ML IV SCH (15:46)
[2022-11-23 16:00] VITALS: BP 125/68
[2022-11-23] MEDS: ASPIRIN 81 MG TAB.CHEW GT SCH (17:17)
[2022-11-23 20:00] VITALS: BP 148/76
[2022-11-23 20:42] VITALS: BP 148/76
[2022-11-23] MEDS ORDERED: MECLIZINE HCL 25 MG TABLET GT PRN (20:53)
[2022-11-23] MEDS ORDERED: DIPHENHYDRAMINE HCL 12.5 MG/5 ML UDC GT PRN (20:53)
[2022-11-23] MEDS: QUETIAPINE FUMARATE 25 MG TABLET GT SCH (21:27)
[2022-11-23] MEDS: ATORVASTATIN 40 MG TABLET GT SCH (21:27)
[2022-11-23] MEDS: METRONIDAZOLE 500 MG TABLET GT SCH (21:27)
[2022-11-23] MEDS ORDERED: POTASSIUM CHLORIDE 20 MEQ TAB.PRT.SR PO ONE (22:30)
[2022-11-23] MEDS ORDERED: POTASSIUM CHLORIDE 20 MEQ POWDER PACKET GT ONE (23:00)
[2022-11-23] MEDS: VANCOMYCIN HCL 125 MG/2.5 ML ORAL.SUSP GT SCH (23:37)
[2022-11-24] MEDS: BLOOD SUGAR DIAGNOSTIC 1 EACH STRIP IN SCH ×4 (00:37→17:17)
[2022-11-24] MEDS: INSULIN REGULAR, HUMAN 100 UNIT/ML 3 ML VIAL SQ PRN ×3 (00:37→17:22)
[2022-11-24] MEDS: METRONIDAZOLE 500 MG TABLET GT SCH ×3 (05:21→21:45)
[2022-11-24] MEDS: VANCOMYCIN HCL 125 MG/2.5 ML ORAL.SUSP GT SCH ×4 (05:54→23:56)
[2022-11-24] MEDS: GLUCERNA 1.2 1,000 ML BOTTLE NG PRN (05:57)
[2022-11-24 07:00] VITALS: BP 124/88
[2022-11-24 07:17] LABS: ALANINE AMINOTRANSFERASE 52 U/L (12-78); ALKALINE PHOSPHATASE 98 U/L (46-116); ASPARTATE AMINOTRANSFERASE 40 U/L (15-37); BILIRUBIN,TOTAL 0.2 mg/dL (0.2-1.0); CARBON DIOXIDE 27 mmol/L (21-32); CHLORIDE 114 mmol/L (98-107); CREATININE 0.7 mg/dL (0.6-1.3); GLUCOSE 132 mg/dL (74-106); POTASSIUM 4.3 mmol/L (3.5-5.1); SODIUM SERUM 149 mmol/L (136-145); TOTAL PROTEIN, SERUM 7.2 g/dL (6.4-8.2); UREA NITROGEN, BLOOD 37 mg/dL (7-18)
[2022-11-24] MEDS: PROSOURCE / PROSTAT (PYXIS) 30 ML UDC GT SCH (08:53)
[2022-11-24] MEDS: DOCUSATE SODIUM LIQ 100 MG/10 ML UDC GT SCH (08:53)
[2022-11-24] MEDS: TRAMADOL HCL 50 MG TABLET GT SCH ×2 (08:53→17:15)
[2022-11-24] MEDS: ACETAMINOPHEN 650 MG/20.3 ML UDC GT SCH (08:53)
[2022-11-24] MEDS: CARVEDILOL 3.125 MG TABLET GT SCH ×2 (08:54→17:00)
[2022-11-24] MEDS: LOSARTAN POTASSIUM 25 MG TABLET GT SCH (08:54)
[2022-11-24] MEDS: THERAHONEY GEL 1.5 OZ TUBE TP SCH (08:55)
[2022-11-24] MEDS: VITAMINS A AND D 56.7 GM TUBE TP SCH ×2 (08:56→17:16)
[2022-11-24] MEDS: CLOTRIMAZOLE 1% 15 GM TUBE TP SCH ×2 (08:56→17:15)
[2022-11-24] MEDS: PANTOPRAZOLE 40 MG/PACK PACK GT SCH (11:32)
[2022-11-24] MEDS ORDERED: VANC1VIA34 XX (12:08)
[2022-11-24] MEDS ORDERED: CARV3.122 GT (12:08)
[2022-11-24] MEDS ORDERED: METR500T GT (12:08)
[2022-11-24] MEDS: CEFEPIME 2 GM in IV D5W 100 ML IV SCH (15:30)
[2022-11-24 16:00] VITALS: BP 104/62
[2022-11-24] MEDS: VANCOMYCIN 0.75 GM in IV D5W 250 ML IV SCH (16:06)
[2022-11-24] MEDS: ASPIRIN 81 MG TAB.CHEW GT SCH (17:14)
[2022-11-24 20:00] VITALS: BP 124/62
[2022-11-24] MEDS: ATORVASTATIN 40 MG TABLET GT SCH (21:45)
[2022-11-24] MEDS: QUETIAPINE FUMARATE 25 MG TABLET GT SCH (21:45)
[2022-11-25] MEDS: VANCOMYCIN HCL 125 MG/2.5 ML ORAL.SUSP GT SCH (05:25)
[2022-11-25] MEDS: METRONIDAZOLE 500 MG TABLET GT SCH (05:25)
[2022-11-25] MEDS: GLUCERNA 1.2 1,000 ML BOTTLE NG PRN (05:25)
[2022-11-25] MEDS: INSULIN REGULAR, HUMAN 100 UNIT/ML 3 ML VIAL SQ PRN (06:27)
[2022-11-25] MEDS: BLOOD SUGAR DIAGNOSTIC 1 EACH STRIP IN SCH ×2 (06:27)
[2022-11-25] MEDS: PROSOURCE / PROSTAT (PYXIS) 30 ML UDC GT SCH (08:56)
[2022-11-25] MEDS: DOCUSATE SODIUM LIQ 100 MG/10 ML UDC GT SCH (09:20)
[2022-11-25] MEDS: ACETAMINOPHEN 650 MG/20.3 ML UDC GT SCH (09:20)
[2022-11-25 09:21] VITALS: BP 144/81
[2022-11-25] MEDS: TRAMADOL HCL 50 MG TABLET GT SCH (09:21)
[2022-11-25] MEDS: CARVEDILOL 3.125 MG TABLET GT SCH (09:21)
[2022-11-25] MEDS: LOSARTAN POTASSIUM 25 MG TABLET GT SCH (09:21)
[2022-11-25] MEDS: CLOTRIMAZOLE 1% 15 GM TUBE TP SCH (09:32)
[2022-11-25] MEDS: THERAHONEY GEL 1.5 OZ TUBE TP SCH (09:32)
[2022-11-25] MEDS: VITAMINS A AND D 56.7 GM TUBE TP SCH (09:32)
[2022-11-25 10:34] LABS: CALCIUM, SERUM 9.2 mg/dL (8.5-10.1); CREATININE 0.7 mg/dL (0.6-1.3); POTASSIUM 3.9 mmol/L (3.5-5.1)
== END 2022-11-25 10:50 | DRG 853 ==
LOC: ER 14:47 → TELE 17:45 → MED 11-17 14:50
PROVIDERS: ADMIT Nurse Practitioner Family; ATTEND Legal Medicine
PROC: 0JB70ZZ Excision of Back Subcutaneous Tissue and Fascia, Open Approach (ICD-10-PCS; principal; 2022-11-08)
PROC: 0JB70ZZ Excision of Back Subcutaneous Tissue and Fascia, Open Approach (ICD-10-PCS; 2022-11-24)
PROC: 05H933Z Insertion of Infusion Device into Right Brachial Vein, Percutaneous Approach (ICD-10-PCS; 2022-11-25)
DX: A41.9 Sepsis, unspecified organism (principal); G92.8 Other toxic encephalopathy; L89.613 Pressure ulcer of right heel, stage 3; L89.123 Pressure ulcer of left upper back, stage 3; J69.0 Pneumonitis due to inhalation of food and vomit; R53.2 Functional quadriplegia; E11.52 Type 2 diabetes mellitus with diabetic peripheral angiopathy with gangrene; I69.351 Hemiplegia and hemiparesis following cerebral infarction affecting right dominant side; E87.0 Hyperosmolality and hypernatremia; N39.0 Urinary tract infection, site not specified; E44.0 Moderate protein-calorie malnutrition; F03.94 Unspecified dementia, unspecified severity, with anxiety; D68.59 Other primary thrombophilia; M86.8X7 Other osteomyelitis, ankle and foot; A04.72 Enterocolitis due to Clostridium difficile, not specified as recurrent; L03.115 Cellulitis of right lower limb; R64 Cachexia; J96.10 Chronic respiratory failure, unspecified whether with hypoxia or hypercapnia; L97.518 Non-pressure chronic ulcer of other part of right foot with other specified severity; I69.391 Dysphagia following cerebral infarction; R13.10 Dysphagia, unspecified; E86.0 Dehydration; E88.09 Other disorders of plasma-protein metabolism, not elsewhere classified; F17.210 Nicotine dependence, cigarettes, uncomplicated; J44.9 Chronic obstructive pulmonary disease, unspecified; E78.5 Hyperlipidemia, unspecified; B86 Scabies; L89.621 Pressure ulcer of left heel, stage 1; M24.562 Contracture, left knee; M24.561 Contracture, right knee; E11.69 Type 2 diabetes mellitus with other specified complication; Z20.822 Contact with and (suspected) exposure to COVID-19; Z79.4 Long term (current) use of insulin; I70.0 Atherosclerosis of aorta; M24.552 Contracture, left hip; M24.551 Contracture, right hip; G89.29 Other chronic pain; M54.50 Low back pain, unspecified; N28.9 Disorder of kidney and ureter, unspecified; L30.9 Dermatitis, unspecified; I11.9 Hypertensive heart disease without heart failure; E11.621 Type 2 diabetes mellitus with foot ulcer; E87.6 Hypokalemia; Z86.59 Personal history of other mental and behavioral disorders; S60.821A Blister (nonthermal) of right wrist, initial encounter; X58.XXXA Exposure to other specified factors, initial encounter; Y92.230 Patient room in hospital as the place of occurrence of the external cause; Z78.1 Physical restraint status; Z93.1 Gastrostomy status
CPT/HCPCS: 36415; 71045-TC; 80048-TC; 80053-TC; 80061-TC; 80076-TC; 80202-TC; 81001; 82962-TC; 83605-TC; 83735-TC; 83880; 84100-TC; 84484-TC; 85025-TC; 85652-TC; 85730-TC; 86140-TC; 87040-TC; 87081-TC; 87086-TC; 92526; 93307-TC; A4223; A6253; A6403; C9803; G0378; J0692; J1650; J1815; J1940; J3370; J3490; J7030; J7040; J7050; J7060; J8597; Q0163

== ENCOUNTER 2023-03-23 19:27 | Inpatient (IN) | payer MEDICARE, OTHER ==
[~2023-03-23] VITALS: Ht 162.6 cm; Wt 45.8 kg
[~2023-03-23 19:27] MED LIST changes: -ACET650S26 GT; -ALLA266C2 TP; -ALPR0.25 GT; -ASCO-352 GT; +ASCORBIC ACID GT; +CALC1TAB30 GT; -COLL30OI TP; +CRAN425C6 GT; +MERO500P IV; +METO25TA20 PO; -MOME15OI2 TP; +OMEP40CA21 GT; -OMEP40CA21 PO; +VANC500F2 IV
[2023-03-23] MEDS ORDERED: VANCOMYCIN 1 GM in IV D5W 250 ML IV ONE (19:30)
[2023-03-23] MEDS ORDERED: PIPERACILLIN /TAZOBACTAM 3.375 G in IV D5W 50 ML IV ONE (19:30)
[2023-03-23] MEDS ORDERED: PIPERACI/TAZO 3.375GM/D5W 50ML PB IV ONE (20:38)
[2023-03-23] MEDS ORDERED: VANCOMYCIN 1 GM /D5W 250 ML PB IV ONE (20:38)
[2023-03-23 21:11] LABS: BASOPHILS # (AUTO) 0.1 K/uL (0.0-0.2); BASOPHILS % (AUTO) 0.4 % (0.0-2.0); EOSINOPHILS % (AUTO) 0.1 % (0.0-6.0); HEMATOCRIT 41 % (33-45); HEMOGLOBIN 13.1 g/dL (11.5-14.8); LYMPHOCYTES # (AUTO) 1.5 K/uL (0.8-4.8); LYMPHOCYTES % (AUTO) 7.3 % (20.0-44.0); MEAN CORPUSCULAR HEMOGLOBIN 26 PG (26.0-33.0); MEAN CORPUSCULAR HGB CONC 32 g/dl (31.0-36.0); MEAN CORPUSCULAR VOLUME 80 fL (82-100); MONOCYTES # (AUTO) 1.2 K/uL (0.1-1.30); MONOCYTES % (AUTO) 5.8 % (2.0-12.0); NEUTROPHILS # (AUTO) 18.4 K/uL (1.8-8.9); NEUTROPHILS % (AUTO) 86.4 % (43.0-81.0); PLATELET COUNT (AUTO) 499 K/uL (150-450); RED BLOOD CELL COUNT(AUTO) 5.11 MIL/uL (4.0-5.2); RED CELL DISTRIBUTION WIDTH 20.5 % (11.5-15.0); WHITE BLOOD COUNT (AUTO) 21.3 K/uL (4.3-11.0)
[2023-03-23 21:18] LABS: INR 1.05 (0.91-1.10); PARTIAL THROMBOPLASTIN TIME 30.7 SEC (24.3-34.3)
[2023-03-23] MEDS ORDERED: ACETAMINOPHEN 650 MG/SUPP.RECT RC ONE (21:30)
[2023-03-23 21:52] LABS: LACTIC ACID 1.9 mmol/L (0.4-2.0)
[2023-03-23 22:04] LABS: LYMPHOCYTES % (MANUAL) 9 % (16-48); MONOCYTES % (MANUAL) 4 % (0-11.0); NEUTROPHILS % (MANUAL) 87 (42-76); PLATELET ESTIMATE INCREASED
[2023-03-23 22:33] LABS: CALCIUM, SERUM 10.1 mg/dL (8.5-10.1); CARBON DIOXIDE 21 mmol/L (21-32); CHLORIDE 107 mmol/L (98-107); CREATININE 0.9 mg/dL (0.6-1.3); GLUCOSE 147 mg/dL (74-106); POTASSIUM 4.3 mmol/L (3.5-5.1); SODIUM SERUM 142 mmol/L (136-145); UREA NITROGEN, BLOOD 41 mg/dL (7-18)
[2023-03-23 22:38] LABS: ALANINE AMINOTRANSFERASE 33 U/L (12-78); ALBUMIN 2.9 g/dL (3.4-5.0); ALKALINE PHOSPHATASE 129 U/L (46-116); ASPARTATE AMINOTRANSFERASE 32 U/L (15-37); BILIRUBIN,DIRECT 0.1 mg/dL (0.0-0.2); BILIRUBIN,TOTAL 0.3 mg/dL (0.2-1.0); TOTAL PROTEIN, SERUM 8.6 g/dL (6.4-8.2)
[2023-03-23 23:46] LABS: APPEARANCE,URINE SLIGHTLY CLOUDY (CLEAR); BILIRUBIN,URINE NEGATIVE (NEGATIVE); BLOOD, URINE TRACE-INTA Ery/uL (NEGATIVE); COLOR,URINE YELLOW (YELLOW); KETONES,URINE NEGATIVE (NEGATIVE); LEUKOCYTE ESTERASE ,URINE 3+ (NEGATIVE); NITRITE, URINE NEGATIVE (NEGATIVE); PH,URINE 6.5 (5.0-8.0); PROTEIN,URINE 1+ mg/dl (NEGATIVE); UGLUCOSE NEGATIVE (NEGATIVE); UROBILINOGEN,URINE 0.2 EU/dL (0.2)
[2023-03-23 23:53] LABS: ADD URINE CULTURE YES; BACTERIA,URINE Rare /HPF (None Seen); RBC,URINE 0-2 /HPF (0-2); SQUAMOUS EPITHELIAL CELL,UR Few /HPF (None Seen)
[2023-03-24] MEDS ORDERED: PANTOPRAZOLE 40 MG VIAL IV SCH
[2023-03-24] MEDS ORDERED: Z GUARD REMEDY 4 OZ OINT TP PRN
[2023-03-24] MEDS ORDERED: ONDANSETRON HCL/PF 4 MG/2 ML VIAL IVP PRN
[2023-03-24] MEDS ORDERED: PIPERACILLIN /TAZOBACTAM 3.375 G in IV D5W 50 ML IV SCH ×2
[2023-03-24] MEDS ORDERED: IV D5/0.45 NACL 1,000 ML IV PRN
[2023-03-24] MEDS ORDERED: MAGNESIUM HYDROXIDE 30 ML UDC PO PRN
[2023-03-24] MEDS ORDERED: IOHEXOL-300 100 ML VIAL IV ONE (00:12)
[2023-03-24] MEDS ORDERED: CT SWABBABLE VALVE TRANS SET 1 EA INFUS.SET MC ONE (00:12)
[2023-03-24] MEDS ORDERED: IV NS 0.9% 250 ML IV ONE (00:12)
[2023-03-24] MEDS ORDERED: PANTOPRAZOLE 40 MG VIAL IV STA (00:21)
[2023-03-24] MEDS ORDERED: IV NS 0.9% 1,000 ML BAG IV ONE (00:30)
[2023-03-24] MEDS ORDERED: ZOSYN IVPB 3.375 G in IV D5W 50ml IV ONE (02:00)
[2023-03-24] MEDS ORDERED: PIPERACI/TAZO 3.375GM/D5W 50ML PB IV ONE (02:11)
[2023-03-24 04:00] VITALS: BP 118/100; TEMP 98.4; O2SAT 91
[2023-03-24 06:40] LABS: BASOPHILS % (AUTO) 0.1 % (0.0-2.0); EOSINOPHILS % (AUTO) 0.2 % (0.0-6.0); HEMATOCRIT 37 % (33-45); HEMOGLOBIN 11.7 g/dL (11.5-14.8); LYMPHOCYTES # (AUTO) 0.8 K/uL (0.8-4.8); LYMPHOCYTES % (AUTO) 3.9 % (20.0-44.0); MEAN CORPUSCULAR HEMOGLOBIN 26 PG (26.0-33.0); MEAN CORPUSCULAR HGB CONC 32 g/dl (31.0-36.0); MEAN CORPUSCULAR VOLUME 80 fL (82-100); MONOCYTES # (AUTO) 1.2 K/uL (0.1-1.30); MONOCYTES % (AUTO) 5.7 % (2.0-12.0); NEUTROPHILS # (AUTO) 18.9 K/uL (1.8-8.9); NEUTROPHILS % (AUTO) 90.1 % (43.0-81.0); PLATELET COUNT (AUTO) 405 K/uL (150-450); RED BLOOD CELL COUNT(AUTO) 4.59 MIL/uL (4.0-5.2); RED CELL DISTRIBUTION WIDTH 19.8 % (11.5-15.0)
[2023-03-24 06:58] LABS: CALCIUM, SERUM 9.1 mg/dL (8.5-10.1); CREATININE 0.8 mg/dL (0.6-1.3); MAGNESIUM 2.1 mg/dL (1.8-2.4); PHOSPHORUS 2.8 mg/dL (2.5-4.9); POTASSIUM 3.5 mmol/L (3.5-5.1)
[2023-03-24 07:00] VITALS: BP 146/90; TEMP 99.1; O2SAT 94
[2023-03-24 07:15] LABS: THYROID STIMULATING HORMONE 0.711 uIU/mL (0.358-3.74)
[2023-03-24] MEDS ORDERED: TRAM50TA2 GT (08:44)
[2023-03-24] MEDS ORDERED: CARB15DR EACHEYE (08:44)
[2023-03-24] MEDS ORDERED: CALC-1026 GT (08:44)
[2023-03-24] MEDS ORDERED: NUTR1PAC14 GT (08:44)
[2023-03-24] MEDS ORDERED: ZINC50TA69 GT (08:44)
[2023-03-24] MEDS ORDERED: ASCO500L2 GT (08:44)
[2023-03-24] MEDS ORDERED: DIPH25TA25 GT (08:44)
[2023-03-24] MEDS ORDERED: DEXT15DR23 EACHEYE (08:44)
[2023-03-24] MEDS ORDERED: COLL1POW2 TP (08:44)
[2023-03-24] MEDS ORDERED: METO25TA6 GT (08:44)
[2023-03-24] MEDS: VANCOMYCIN 500 MG in IV D5W 100 ML IV SCH ×2 (08:45→21:56)
[2023-03-24] MEDS: PANTOPRAZOLE 40 MG VIAL IV SCH ×2 (08:45→21:55)
[2023-03-24] MEDS: PIPERACILLIN /TAZOBACTAM 3.375 G in IV D5W 100 ML IV SCH ×2 (09:48→17:48)
[2023-03-24] MEDS: THERAHONEY GEL 1.5 OZ TUBE TP SCH (11:46)
[2023-03-24 12:01] LABS: HEMOGLOBIN 11.1 g/dL (11.5-14.8)
[2023-03-24 16:00] VITALS: BP 118/98; TEMP 99; O2SAT 98
[2023-03-24] MEDS ORDERED: QUETIAPINE FUMARATE 25 MG TABLET PO SCH (17:00)
[2023-03-24] MEDS: ARGININE/GLUTAMINE/CALCIUM BMB 1 EACH POWD.PACK GT SCH (17:00)
[2023-03-24] MEDS: GLUCERNA 1.2 1,000 ML BOTTLE NG PRN (17:47)
[2023-03-24] MEDS: PROSOURCE / PROSTAT (PYXIS) 30 ML UDC GT SCH (17:47)
[2023-03-24 20:00] VITALS: BP 153/76; TEMP 98; TEMP 98.8; O2SAT 95
[2023-03-24] MEDS: QUETIAPINE FUMARATE 25 MG TABLET GT SCH (22:17)
[2023-03-25] VITALS (11 sets, daily range): BP systolic 120–157; BP diastolic 55–84; TEMP 97.6–98.2; O2SAT 96–99
[2023-03-25] MEDS: PIPERACILLIN /TAZOBACTAM 3.375 G in IV D5W 100 ML IV SCH ×3 (01:11→18:25)
[2023-03-25 07:50] LABS: BASOPHILS # (AUTO) 0.1 K/uL (0.0-0.2); BASOPHILS % (AUTO) 0.5 % (0.0-2.0); EOSINOPHILS # (AUTO) 0.8 K/uL (0.0-0.7); EOSINOPHILS % (AUTO) 4.3 % (0.0-6.0); HEMATOCRIT 34 % (33-45); HEMOGLOBIN 10.7 g/dL (11.5-14.8); LYMPHOCYTES # (AUTO) 0.9 K/uL (0.8-4.8); LYMPHOCYTES % (AUTO) 4.6 % (20.0-44.0); MEAN CORPUSCULAR HEMOGLOBIN 26 PG (26.0-33.0); MEAN CORPUSCULAR HGB CONC 32 g/dl (31.0-36.0); MEAN CORPUSCULAR VOLUME 81 fL (82-100); MONOCYTES # (AUTO) 1.2 K/uL (0.1-1.30); MONOCYTES % (AUTO) 6.2 % (2.0-12.0); NEUTROPHILS # (AUTO) 15.7 K/uL (1.8-8.9); NEUTROPHILS % (AUTO) 84.4 % (43.0-81.0); PLATELET COUNT (AUTO) 363 K/uL (150-450); RED BLOOD CELL COUNT(AUTO) 4.16 MIL/uL (4.0-5.2); RED CELL DISTRIBUTION WIDTH 20.2 % (11.5-15.0); WHITE BLOOD COUNT (AUTO) 18.7 K/uL (4.3-11.0)
[2023-03-25 07:52] LABS: CALCIUM, SERUM 9.3 mg/dL (8.5-10.1); CREATININE 0.8 mg/dL (0.6-1.3); POTASSIUM 3.3 mmol/L (3.5-5.1)
[2023-03-25] MEDS ORDERED: POTASSIUM CHLORIDE 20 MEQ POWDER PACKET GT SCH (08:30)
[2023-03-25] MEDS: QUETIAPINE FUMARATE 25 MG TABLET GT SCH ×3 (08:45→21:55)
[2023-03-25] MEDS: ASCORBIC ACID 500 MG TABLET GT SCH (08:45)
[2023-03-25] MEDS: PANTOPRAZOLE 40 MG VIAL IV SCH ×2 (08:45→21:29)
[2023-03-25] MEDS: ZINC SULFATE 220 MG CAPSULE GT SCH (08:45)
[2023-03-25] MEDS: PROSOURCE / PROSTAT (PYXIS) 30 ML UDC GT SCH ×2 (08:46→18:08)
[2023-03-25] MEDS: ARGININE/GLUTAMINE/CALCIUM BMB 1 EACH POWD.PACK GT SCH ×2 (08:46→18:08)
[2023-03-25] MEDS: AMLODIPINE BESYLATE 5 MG TABLET GT SCH (08:55)
[2023-03-25] MEDS: DOCUSATE SODIUM LIQ 100 MG/10 ML UDC GT SCH (08:55)
[2023-03-25] MEDS: CHLORHEXIDINE GLUCONATE 15 ML UDC MM SCH ×2 (08:55→18:08)
[2023-03-25] MEDS: LOSARTAN POTASSIUM 50 MG TABLET GT SCH ×2 (08:56→18:09)
[2023-03-25] MEDS: METOPROLOL TARTRATE 25 MG TABLET GT SCH ×2 (08:56→20:29)
[2023-03-25] MEDS: TRAMADOL HCL 50 MG TABLET GT SCH ×2 (09:00→18:09)
[2023-03-25] MEDS ORDERED: ALBUTEROL FS 2.5 MG/3 ML VIAL.NEB NEB PRN (09:00)
[2023-03-25] MEDS ORDERED: MECLIZINE HCL 25 MG TABLET GT PRN (09:00)
[2023-03-25] MEDS ORDERED: MULTIVITAMIN LIQ 5 ML UDC GT SCH (09:00)
[2023-03-25] MEDS ORDERED: POTASSIUM CHLORIDE 10 MEQ/50 ML PREMIXED IVPB FOR PERIPHERAL LINE IV ONE (09:00)
[2023-03-25] MEDS: MULTIVITAMINS,THERAGRAN 1 UDTAB TABLET GT SCH (09:00)
[2023-03-25] MEDS: VANCOMYCIN 500 MG in IV D5W 100 ML IV SCH ×2 (09:31→21:28)
[2023-03-25] MEDS: THERAHONEY GEL 1.5 OZ TUBE TP SCH (09:31)
[2023-03-25] MEDS ORDERED: ACETAMINOPHEN 650 MG/20.3 ML UDC GT PRN (10:00)
[2023-03-25 12:04] LABS: OCCULT BLOOD STOOL POSITIVE (NEGATIVE)
[2023-03-25] MEDS ORDERED: ANESTHESIA TRAY IN PYXIS 1 EA TRAY MC ONE (15:14)
[2023-03-25] MEDS: ASPIRIN 81 MG TAB.CHEW GT SCH (18:00)
[2023-03-25] MEDS: CALCIUM CARBONATE (1250) 500 MG TABLET GT SCH (18:08)
[2023-03-25] MEDS: MUPIROCIN OINT 2% 22 GM TUBE NS SCH (21:29)
[2023-03-25] MEDS: MEROPENEM 500 MG in IV NS 0.9% 50 ML IV SCH (21:42)
[2023-03-25] MEDS ORDERED: QUETIAPINE FUMARATE 25 MG TABLET GT SCH (22:00)
[2023-03-26] VITALS: BP 131/80; TEMP 98; O2SAT 97
[2023-03-26 04:00] VITALS: BP 119/60; TEMP 97.6; O2SAT 97
[2023-03-26] MEDS: MEROPENEM 500 MG in IV NS 0.9% 50 ML IV SCH ×3 (04:14→21:14)
[2023-03-26] MEDS: IV D5/0.45 NACL 1,000 ML IV PRN (05:19)
[2023-03-26 06:03] LABS: BASOPHILS # (AUTO) 0.1 K/uL (0.0-0.2); BASOPHILS % (AUTO) 0.5 % (0.0-2.0); EOSINOPHILS # (AUTO) 1.1 K/uL (0.0-0.7); EOSINOPHILS % (AUTO) 7.5 % (0.0-6.0); HEMATOCRIT 33 % (33-45); HEMOGLOBIN 10.4 g/dL (11.5-14.8); LYMPHOCYTES # (AUTO) 0.7 K/uL (0.8-4.8); MEAN CORPUSCULAR HEMOGLOBIN 25 PG (26.0-33.0); MEAN CORPUSCULAR HGB CONC 31 g/dl (31.0-36.0); MEAN CORPUSCULAR VOLUME 81 fL (82-100); MONOCYTES # (AUTO) 0.9 K/uL (0.1-1.30); MONOCYTES % (AUTO) 6.2 % (2.0-12.0); NEUTROPHILS # (AUTO) 11.8 K/uL (1.8-8.9); NEUTROPHILS % (AUTO) 80.8 % (43.0-81.0); PLATELET COUNT (AUTO) 351 K/uL (150-450); RED BLOOD CELL COUNT(AUTO) 4.08 MIL/uL (4.0-5.2); RED CELL DISTRIBUTION WIDTH 20.3 % (11.5-15.0); WHITE BLOOD COUNT (AUTO) 14.6 K/uL (4.3-11.0)
[2023-03-26 06:20] LABS: CALCIUM, SERUM 9.4 mg/dL (8.5-10.1); CARBON DIOXIDE 22 mmol/L (21-32); CHLORIDE 117 mmol/L (98-107); CREATININE 0.7 mg/dL (0.6-1.3); GLUCOSE 123 mg/dL (74-106); MAGNESIUM 1.9 mg/dL (1.8-2.4); POTASSIUM 3.5 mmol/L (3.5-5.1); SODIUM SERUM 148 mmol/L (136-145); UREA NITROGEN, BLOOD 32 mg/dL (7-18)
[2023-03-26 08:00] VITALS: BP 124/69; TEMP 97.4; O2SAT 99
[2023-03-26] MEDS: TRAMADOL HCL 50 MG TABLET GT SCH ×2 (08:56→16:23)
[2023-03-26] MEDS: PANTOPRAZOLE 40 MG VIAL IV SCH ×2 (08:56→21:14)
[2023-03-26] MEDS: DOCUSATE SODIUM LIQ 100 MG/10 ML UDC GT SCH (08:56)
[2023-03-26] MEDS: ZINC SULFATE 220 MG CAPSULE GT SCH (08:56)
[2023-03-26] MEDS: MULTIVITAMINS,THERAGRAN 1 UDTAB TABLET GT SCH (08:56)
[2023-03-26] MEDS: CHLORHEXIDINE GLUCONATE 15 ML UDC MM SCH ×2 (08:56→16:22)
[2023-03-26] MEDS: QUETIAPINE FUMARATE 25 MG TABLET GT SCH ×3 (08:56→21:14)
[2023-03-26] MEDS: METOPROLOL TARTRATE 25 MG TABLET GT SCH ×2 (08:57→21:13)
[2023-03-26] MEDS: ASCORBIC ACID 500 MG TABLET GT SCH (08:57)
[2023-03-26] MEDS: PROSOURCE / PROSTAT (PYXIS) 30 ML UDC GT SCH ×2 (08:58→16:22)
[2023-03-26] MEDS: AMLODIPINE BESYLATE 5 MG TABLET GT SCH (08:58)
[2023-03-26] MEDS: ARGININE/GLUTAMINE/CALCIUM BMB 1 EACH POWD.PACK GT SCH ×2 (08:58→16:22)
[2023-03-26] MEDS: LOSARTAN POTASSIUM 50 MG TABLET GT SCH ×2 (08:58→16:23)
[2023-03-26] MEDS: MUPIROCIN OINT 2% 22 GM TUBE NS SCH ×2 (09:21→21:14)
[2023-03-26] MEDS: THERAHONEY GEL 1.5 OZ TUBE TP SCH (09:22)
[2023-03-26] MEDS: VANCOMYCIN 500 MG in IV D5W 100 ML IV SCH ×2 (09:23→21:41)
[2023-03-26] MEDS: GLUCERNA 1.2 1,000 ML BOTTLE NG PRN (09:33)
[2023-03-26] MEDS: ENOXAPARIN SODIUM 40 MG/0.4 ML DISP.SYRIN SQ SCH (10:38)
[2023-03-26 16:00] VITALS: BP 121/80; TEMP 98.6; O2SAT 99
[2023-03-26] MEDS: CALCIUM CARBONATE (1250) 500 MG TABLET GT SCH (17:01)
[2023-03-26] MEDS: ASPIRIN 81 MG TAB.CHEW GT SCH (17:02)
[2023-03-26 20:00] VITALS: BP 146/71; TEMP 99.1; O2SAT 96
[2023-03-27] MEDS: GLUCERNA 1.2 1,000 ML BOTTLE NG PRN ×2 (02:55→23:42)
[2023-03-27] MEDS: MEROPENEM 500 MG in IV NS 0.9% 50 ML IV SCH ×3 (04:35→21:17)
[2023-03-27] MEDS: TRAMADOL HCL 50 MG TABLET GT SCH ×2 (08:54→17:14)
[2023-03-27] MEDS: CHLORHEXIDINE GLUCONATE 15 ML UDC MM SCH ×2 (08:54→17:14)
[2023-03-27] MEDS: PANTOPRAZOLE 40 MG VIAL IV SCH ×2 (08:54→21:29)
[2023-03-27] MEDS: ASCORBIC ACID 500 MG TABLET GT SCH (08:54)
[2023-03-27] MEDS: ZINC SULFATE 220 MG CAPSULE GT SCH (08:54)
[2023-03-27] MEDS: MULTIVITAMINS,THERAGRAN 1 UDTAB TABLET GT SCH (08:54)
[2023-03-27] MEDS: DOCUSATE SODIUM LIQ 100 MG/10 ML UDC GT SCH (08:54)
[2023-03-27] MEDS: AMLODIPINE BESYLATE 5 MG TABLET GT SCH (08:55)
[2023-03-27] MEDS: QUETIAPINE FUMARATE 25 MG TABLET GT SCH ×3 (08:55→22:26)
[2023-03-27] MEDS: LOSARTAN POTASSIUM 50 MG TABLET GT SCH ×2 (08:56→17:18)
[2023-03-27] MEDS: METOPROLOL TARTRATE 25 MG TABLET GT SCH ×2 (08:56→20:50)
[2023-03-27] MEDS: PROSOURCE / PROSTAT (PYXIS) 30 ML UDC GT SCH ×2 (09:04→17:13)
[2023-03-27] MEDS: VANCOMYCIN 500 MG in IV D5W 100 ML IV SCH ×2 (09:13→21:55)
[2023-03-27] MEDS: ARGININE/GLUTAMINE/CALCIUM BMB 1 EACH POWD.PACK GT SCH ×2 (09:13→17:18)
[2023-03-27] MEDS: THERAHONEY GEL 1.5 OZ TUBE TP SCH (09:40)
[2023-03-27] MEDS: MUPIROCIN OINT 2% 22 GM TUBE NS SCH ×2 (09:40→21:30)
[2023-03-27 11:09] LABS: CALCIUM, SERUM 9.3 mg/dL (8.5-10.1); CARBON DIOXIDE 23 mmol/L (21-32); CHLORIDE 112 mmol/L (98-107); CREATININE 0.5 mg/dL (0.6-1.3); GLUCOSE 154 mg/dL (74-106); SODIUM SERUM 145 mmol/L (136-145); UREA NITROGEN, BLOOD 28 mg/dL (7-18)
[2023-03-27 11:20] LABS: BASOPHILS # (AUTO) 0.1 K/uL (0.0-0.2); BASOPHILS % (AUTO) 0.3 % (0.0-2.0); EOSINOPHILS # (AUTO) 0.3 K/uL (0.0-0.7); EOSINOPHILS % (AUTO) 1.8 % (0.0-6.0); HEMATOCRIT 31 % (33-45); LYMPHOCYTES # (AUTO) 1.4 K/uL (0.8-4.8); MEAN CORPUSCULAR HEMOGLOBIN 26 PG (26.0-33.0); MEAN CORPUSCULAR HGB CONC 32 g/dl (31.0-36.0); MEAN CORPUSCULAR VOLUME 81 fL (82-100); MONOCYTES # (AUTO) 1.1 K/uL (0.1-1.30); MONOCYTES % (AUTO) 6.5 % (2.0-12.0); NEUTROPHILS # (AUTO) 14.6 K/uL (1.8-8.9); NEUTROPHILS % (AUTO) 83.4 % (43.0-81.0); PLATELET COUNT (AUTO) 350 K/uL (150-450); RED BLOOD CELL COUNT(AUTO) 3.86 MIL/uL (4.0-5.2); RED CELL DISTRIBUTION WIDTH 20.1 % (11.5-15.0); WHITE BLOOD COUNT (AUTO) 17.5 K/uL (4.3-11.0)
[2023-03-27] MEDS: ENOXAPARIN SODIUM 40 MG/0.4 ML DISP.SYRIN SQ SCH (12:14)
[2023-03-27] MEDS: FLUCONAZOLE IN NS,PREMIX 100 MG in PREMIX 1 EA IV SCH ×2 (17:13)
[2023-03-27] MEDS: ASPIRIN 81 MG TAB.CHEW GT SCH (17:17)
[2023-03-27] MEDS: CALCIUM CARBONATE (1250) 500 MG TABLET GT SCH (17:17)
[2023-03-27 20:42] VITALS: BP 111/55; TEMP 97.9; O2SAT 98
[2023-03-27] MEDS: POTASSIUM CHLORIDE 20 MEQ POWDER PACKET GT SCH ×2 (20:50→22:26)
[2023-03-27] MEDS: IV D5/0.45 NACL 1,000 ML IV PRN (21:17)
[2023-03-28] MEDS: MEROPENEM 500 MG in IV NS 0.9% 50 ML IV SCH ×3 (05:04→20:38)
[2023-03-28 05:46] LABS: BASOPHILS # (AUTO) 0.1 K/uL (0.0-0.2); BASOPHILS % (AUTO) 0.5 % (0.0-2.0); EOSINOPHILS % (AUTO) 6.3 % (0.0-6.0); HEMATOCRIT 32 % (33-45); HEMOGLOBIN 9.9 g/dL (11.5-14.8); LYMPHOCYTES # (AUTO) 1.8 K/uL (0.8-4.8); LYMPHOCYTES % (AUTO) 11.1 % (20.0-44.0); MEAN CORPUSCULAR HEMOGLOBIN 25 PG (26.0-33.0); MEAN CORPUSCULAR HGB CONC 31 g/dl (31.0-36.0); MEAN CORPUSCULAR VOLUME 82 fL (82-100); MONOCYTES # (AUTO) 1.1 K/uL (0.1-1.30); MONOCYTES % (AUTO) 6.7 % (2.0-12.0); NEUTROPHILS # (AUTO) 12.4 K/uL (1.8-8.9); NEUTROPHILS % (AUTO) 75.4 % (43.0-81.0); PLATELET COUNT (AUTO) 353 K/uL (150-450); RED BLOOD CELL COUNT(AUTO) 3.89 MIL/uL (4.0-5.2); RED CELL DISTRIBUTION WIDTH 20.8 % (11.5-15.0); WHITE BLOOD COUNT (AUTO) 16.4 K/uL (4.3-11.0)
[2023-03-28 06:03] LABS: CALCIUM, SERUM 9.5 mg/dL (8.5-10.1); CREATININE 0.7 mg/dL (0.6-1.3); MAGNESIUM 1.9 mg/dL (1.8-2.4); POTASSIUM 4.4 mmol/L (3.5-5.1)
[2023-03-28 07:30] VITALS: BP 152/77; TEMP 98.4; O2SAT 97
[2023-03-28] MEDS: VANCOMYCIN 500 MG in IV D5W 100 ML IV SCH ×2 (08:35→21:26)
[2023-03-28] MEDS: DOCUSATE SODIUM LIQ 100 MG/10 ML UDC GT SCH (10:48)
[2023-03-28] MEDS: ZINC SULFATE 220 MG CAPSULE GT SCH (10:48)
[2023-03-28] MEDS: ASCORBIC ACID 500 MG TABLET GT SCH (10:48)
[2023-03-28] MEDS: CHLORHEXIDINE GLUCONATE 15 ML UDC MM SCH ×2 (10:48→16:19)
[2023-03-28] MEDS: QUETIAPINE FUMARATE 25 MG TABLET GT SCH ×2 (10:49→21:27)
[2023-03-28] MEDS: TRAMADOL HCL 50 MG TABLET GT SCH ×2 (10:49→16:22)
[2023-03-28] MEDS: LOSARTAN POTASSIUM 50 MG TABLET GT SCH ×2 (10:50→16:21)
[2023-03-28] MEDS: AMLODIPINE BESYLATE 5 MG TABLET GT SCH (10:50)
[2023-03-28] MEDS: METOPROLOL TARTRATE 25 MG TABLET GT SCH ×2 (10:50→20:40)
[2023-03-28] MEDS: PROSOURCE / PROSTAT (PYXIS) 30 ML UDC GT SCH ×2 (10:51→16:22)
[2023-03-28] MEDS: ARGININE/GLUTAMINE/CALCIUM BMB 1 EACH POWD.PACK GT SCH ×2 (10:51→16:22)
[2023-03-28] MEDS: MULTIVITAMINS,THERAGRAN 1 UDTAB TABLET GT SCH (11:07)
[2023-03-28] MEDS: THERAHONEY GEL 1.5 OZ TUBE TP SCH (11:07)
[2023-03-28] MEDS: MUPIROCIN OINT 2% 22 GM TUBE NS SCH ×2 (11:07→20:40)
[2023-03-28] MEDS: ENOXAPARIN SODIUM 40 MG/0.4 ML DISP.SYRIN SQ SCH (11:08)
[2023-03-28 16:00] VITALS: BP 130/68; TEMP 100; O2SAT 97
[2023-03-28] MEDS: FLUCONAZOLE IN NS,PREMIX 100 MG in PREMIX 1 EA IV SCH ×2 (16:19)
[2023-03-28] MEDS ORDERED: QUETIAPINE FUMARATE 25 MG TABLET GT PRN (17:00)
[2023-03-28] MEDS ORDERED: NEUTRA PHOS 1 POWD.PACKET PO ONE (17:00)
[2023-03-28] MEDS ORDERED: NEUTRA PHOS 1 POWD.PACKET GT ONE (17:00)
[2023-03-28] MEDS: ASPIRIN 81 MG TAB.CHEW GT SCH (17:30)
[2023-03-28] MEDS: CALCIUM CARBONATE (1250) 500 MG TABLET GT SCH (17:30)
[2023-03-28] MEDS: GLUCERNA 1.2 1,000 ML BOTTLE NG PRN (17:41)
[2023-03-28 20:00] VITALS: BP 121/65; TEMP 98.6; O2SAT 98
[2023-03-28] MEDS: PANTOPRAZOLE 40 MG/PACK PACK GT SCH (20:39)
[2023-03-29] MEDS: MEROPENEM 500 MG in IV NS 0.9% 50 ML IV SCH ×3 (04:40→20:37)
[2023-03-29] MEDS: GLUCERNA 1.2 1,000 ML BOTTLE NG PRN (06:02)
[2023-03-29 07:30] VITALS: BP 119/58; TEMP 98.2; O2SAT 98
[2023-03-29 07:51] LABS: BASOPHILS # (AUTO) 0.1 K/uL (0.0-0.2); BASOPHILS % (AUTO) 0.7 % (0.0-2.0); EOSINOPHILS # (AUTO) 1.3 K/uL (0.0-0.7); EOSINOPHILS % (AUTO) 7.5 % (0.0-6.0); HEMATOCRIT 34 % (33-45); HEMOGLOBIN 10.7 g/dL (11.5-14.8); LYMPHOCYTES # (AUTO) 1.8 K/uL (0.8-4.8); LYMPHOCYTES % (AUTO) 10.7 % (20.0-44.0); MEAN CORPUSCULAR HEMOGLOBIN 26 PG (26.0-33.0); MEAN CORPUSCULAR HGB CONC 31 g/dl (31.0-36.0); MEAN CORPUSCULAR VOLUME 82 fL (82-100); MONOCYTES % (AUTO) 6.1 % (2.0-12.0); NEUTROPHILS # (AUTO) 12.6 K/uL (1.8-8.9); PLATELET COUNT (AUTO) 386 K/uL (150-450); RED CELL DISTRIBUTION WIDTH 20.2 % (11.5-15.0); WHITE BLOOD COUNT (AUTO) 16.9 K/uL (4.3-11.0)
[2023-03-29 08:02] LABS: CALCIUM, SERUM 9.4 mg/dL (8.5-10.1); CREATININE 0.6 mg/dL (0.6-1.3); POTASSIUM 4.7 mmol/L (3.5-5.1)
[2023-03-29] MEDS: AMLODIPINE BESYLATE 5 MG TABLET GT SCH (09:00)
[2023-03-29] MEDS: LOSARTAN POTASSIUM 50 MG TABLET GT SCH ×2 (09:00→17:57)
[2023-03-29] MEDS: DOCUSATE SODIUM LIQ 100 MG/10 ML UDC GT SCH (09:17)
[2023-03-29] MEDS: TRAMADOL HCL 50 MG TABLET GT SCH ×2 (09:17→17:56)
[2023-03-29] MEDS: PROSOURCE / PROSTAT (PYXIS) 30 ML UDC GT SCH ×2 (09:17→17:57)
[2023-03-29] MEDS: CHLORHEXIDINE GLUCONATE 15 ML UDC MM SCH ×2 (09:17→17:56)
[2023-03-29] MEDS: ARGININE/GLUTAMINE/CALCIUM BMB 1 EACH POWD.PACK GT SCH ×2 (09:17→17:57)
[2023-03-29] MEDS: MULTIVITAMINS,THERAGRAN 1 UDTAB TABLET GT SCH (09:17)
[2023-03-29] MEDS: METOPROLOL TARTRATE 25 MG TABLET GT SCH ×2 (09:18→20:38)
[2023-03-29] MEDS: ASCORBIC ACID 500 MG TABLET GT SCH (09:18)
[2023-03-29] MEDS: PANTOPRAZOLE 40 MG/PACK PACK GT SCH ×2 (09:18→20:37)
[2023-03-29] MEDS: ZINC SULFATE 220 MG CAPSULE GT SCH (09:19)
[2023-03-29] MEDS: THERAHONEY GEL 1.5 OZ TUBE TP SCH (09:26)
[2023-03-29] MEDS: MUPIROCIN OINT 2% 22 GM TUBE NS SCH ×2 (09:28→20:38)
[2023-03-29] MEDS: ENOXAPARIN SODIUM 40 MG/0.4 ML DISP.SYRIN SQ SCH (09:31)
[2023-03-29] MEDS: VANCOMYCIN 500 MG in IV D5W 100 ML IV SCH ×2 (10:45→21:51)
[2023-03-29 16:00] VITALS: BP 127/69; TEMP 98.6; O2SAT 97
[2023-03-29 16:33] LABS: EOSINOPHILS % (MANUAL) 11 % (0-4); LYMPHOCYTES % (MANUAL) 18 % (16-48); MONOCYTES % (MANUAL) 4 % (0-11.0); NEUTROPHILS % (MANUAL) 67 (42-76); PLATELET ESTIMATE ADEQUATE
[2023-03-29 16:34] LABS: ANISOCYTOSIS 1+; OVALOCYTES 1+
[2023-03-29] MEDS: FLUCONAZOLE (100 MG) 100 MG TABLET PO SCH (17:56)
[2023-03-29] MEDS: CALCIUM CARBONATE (1250) 500 MG TABLET GT SCH (17:56)
[2023-03-29] MEDS: ASPIRIN 81 MG TAB.CHEW GT SCH (17:56)
[2023-03-29 20:00] VITALS: BP 109/66; TEMP 99.6; O2SAT 95
[2023-03-29] MEDS: QUETIAPINE FUMARATE 25 MG TABLET GT SCH (21:51)
[2023-03-30] MEDS: GLUCERNA 1.2 1,000 ML BOTTLE NG PRN ×2 (02:12→21:35)
[2023-03-30] MEDS: MEROPENEM 500 MG in IV NS 0.9% 50 ML IV SCH ×3 (05:04→20:22)
[2023-03-30 06:11] LABS: CALCIUM, SERUM 9.9 mg/dL (8.5-10.1); CARBON DIOXIDE 25 mmol/L (21-32); CHLORIDE 104 mmol/L (98-107); CREATININE 0.6 mg/dL (0.6-1.3); GLUCOSE 150 mg/dL (74-106); SODIUM SERUM 138 mmol/L (136-145); UREA NITROGEN, BLOOD 26 mg/dL (7-18)
[2023-03-30 08:00] VITALS: BP 122/77; TEMP 98.4; O2SAT 98
[2023-03-30] MEDS: ZINC SULFATE 220 MG CAPSULE GT SCH (08:46)
[2023-03-30] MEDS: AMLODIPINE BESYLATE 5 MG TABLET GT SCH (08:47)
[2023-03-30] MEDS: LOSARTAN POTASSIUM 50 MG TABLET GT SCH ×2 (08:48→16:17)
[2023-03-30] MEDS: MULTIVITAMINS,THERAGRAN 1 UDTAB TABLET GT SCH (08:48)
[2023-03-30] MEDS: ASCORBIC ACID 500 MG TABLET GT SCH (08:48)
[2023-03-30] MEDS: PANTOPRAZOLE 40 MG/PACK PACK GT SCH ×2 (08:48→21:04)
[2023-03-30] MEDS: METOPROLOL TARTRATE 25 MG TABLET GT SCH ×2 (08:49→21:06)
[2023-03-30] MEDS: DOCUSATE SODIUM LIQ 100 MG/10 ML UDC GT SCH (08:49)
[2023-03-30] MEDS: CHLORHEXIDINE GLUCONATE 15 ML UDC MM SCH ×2 (08:49→16:20)
[2023-03-30] MEDS: ARGININE/GLUTAMINE/CALCIUM BMB 1 EACH POWD.PACK GT SCH ×2 (08:50→16:22)
[2023-03-30] MEDS: PROSOURCE / PROSTAT (PYXIS) 30 ML UDC GT SCH ×2 (08:50→16:22)
[2023-03-30] MEDS: TRAMADOL HCL 50 MG TABLET GT SCH ×2 (08:54→16:20)
[2023-03-30] MEDS: VANCOMYCIN 500 MG in IV D5W 100 ML IV SCH ×2 (09:30→21:07)
[2023-03-30] MEDS: ENOXAPARIN SODIUM 40 MG/0.4 ML DISP.SYRIN SQ SCH (09:47)
[2023-03-30] MEDS: MUPIROCIN OINT 2% 22 GM TUBE NS SCH ×2 (10:00→21:07)
[2023-03-30] MEDS: THERAHONEY GEL 1.5 OZ TUBE TP SCH (10:01)
[2023-03-30 12:00] VITALS: BP 121/81; TEMP 98.4; O2SAT 95
[2023-03-30 16:00] VITALS: BP 106/49; TEMP 97.7; O2SAT 97
[2023-03-30] MEDS: FLUCONAZOLE (100 MG) 100 MG TABLET PO SCH (16:00)
[2023-03-30] MEDS: ASPIRIN 81 MG TAB.CHEW GT SCH (17:02)
[2023-03-30] MEDS: CALCIUM CARBONATE (1250) 500 MG TABLET GT SCH (17:02)
[2023-03-30 20:00] VITALS: BP 112/68; TEMP 98.9; O2SAT 96
[2023-03-30] MEDS: QUETIAPINE FUMARATE 25 MG TABLET GT SCH (21:04)
[2023-03-31] MEDS: MEROPENEM 500 MG in IV NS 0.9% 50 ML IV SCH ×2 (04:48→12:01)
[2023-03-31 07:37] LABS: CALCIUM, SERUM 9.8 mg/dL (8.5-10.1); CARBON DIOXIDE 23 mmol/L (21-32); CREATININE 0.7 mg/dL (0.6-1.3); GLUCOSE 142 mg/dL (74-106); UREA NITROGEN, BLOOD 47 mg/dL (7-18)
[2023-03-31 08:00] VITALS: BP 132/85; TEMP 97.8; O2SAT 95
[2023-03-31 08:04] LABS: CHLORIDE 109 mmol/L (98-107); POTASSIUM 4.2 mmol/L (3.5-5.1); SODIUM SERUM 141 mmol/L (136-145)
[2023-03-31] MEDS: DOCUSATE SODIUM LIQ 100 MG/10 ML UDC GT SCH (08:58)
[2023-03-31] MEDS: MULTIVITAMINS,THERAGRAN 1 UDTAB TABLET GT SCH (08:58)
[2023-03-31] MEDS: CHLORHEXIDINE GLUCONATE 15 ML UDC MM SCH ×2 (08:58→16:08)
[2023-03-31] MEDS: TRAMADOL HCL 50 MG TABLET GT SCH ×2 (08:58→17:17)
[2023-03-31] MEDS: PANTOPRAZOLE 40 MG/PACK PACK GT SCH ×2 (08:58→23:02)
[2023-03-31] MEDS: ASCORBIC ACID 500 MG TABLET GT SCH (08:58)
[2023-03-31] MEDS: LOSARTAN POTASSIUM 50 MG TABLET GT SCH ×2 (08:59→16:03)
[2023-03-31] MEDS: AMLODIPINE BESYLATE 5 MG TABLET GT SCH (08:59)
[2023-03-31] MEDS: PROSOURCE / PROSTAT (PYXIS) 30 ML UDC GT SCH ×2 (09:00→16:08)
[2023-03-31] MEDS: METOPROLOL TARTRATE 25 MG TABLET GT SCH ×2 (09:00→23:03)
[2023-03-31] MEDS: THERAHONEY GEL 1.5 OZ TUBE TP SCH (09:02)
[2023-03-31] MEDS: ENOXAPARIN SODIUM 40 MG/0.4 ML DISP.SYRIN SQ SCH (09:04)
[2023-03-31] MEDS: ARGININE/GLUTAMINE/CALCIUM BMB 1 EACH POWD.PACK GT SCH ×2 (09:11→16:06)
[2023-03-31] MEDS: VANCOMYCIN 500 MG in IV D5W 100 ML IV SCH ×2 (09:11→21:52)
[2023-03-31] MEDS: ZINC SULFATE 220 MG CAPSULE GT SCH (09:11)
[2023-03-31] MEDS: IV D5/0.45 NACL 1,000 ML IV PRN (09:12)
[2023-03-31] MEDS: MUPIROCIN OINT 2% 22 GM TUBE NS SCH ×2 (09:21→21:00)
[2023-03-31] MEDS: GLUCERNA 1.2 1,000 ML BOTTLE NG PRN (15:15)
[2023-03-31] MEDS: FLUCONAZOLE (100 MG) 100 MG TABLET PO SCH (15:16)
[2023-03-31 16:00] VITALS: BP 142/79; TEMP 98.2; O2SAT 98
[2023-03-31] MEDS: ASPIRIN 81 MG TAB.CHEW GT SCH (17:17)
[2023-03-31] MEDS: CALCIUM CARBONATE (1250) 500 MG TABLET GT SCH (17:17)
[2023-03-31 20:00] VITALS: BP 148/69; TEMP 98.4; O2SAT 96
[2023-03-31] MEDS: QUETIAPINE FUMARATE 25 MG TABLET GT SCH (22:00)
[2023-03-31] MEDS: MEROPENEM 500 MG in IV NS 0.9% 100 ML IV SCH (23:02)
[2023-03-31 23:30] VITALS: BP 123/62; TEMP 98.8; O2SAT 95
[2023-03-31] MEDS ORDERED: FUROSEMIDE 20 MG/2 ML VIAL IV STA (23:48)
[2023-04-01] VITALS (9 sets, daily range): BP systolic 64–133; BP diastolic 44–78; TEMP 98.1–99; O2SAT 80–98
[2023-04-01 00:21] LABS: ABG BASE EXCESS 3.4 mmol/L; ABG OXYGEN SATURATION 91.5 % (92.0-98.5); ABG PH 7.554 (7.350-7.450); ABG PO2 58.4 mmHg (75.0-100.0); ABG TOTAL HEMOGLOBIN 12.5 G/dL (12.0-16.0); AaDO2 135.8 mmHg; COHb 0.5 % (0.5-1.5); MetHb 0.2 % (0.0-1.5); O2Hb 90.9 % (94.0-97.0); SITE, ABG Left Brachial; VENT MODE, BG Nasal Cannula
[2023-04-01 05:48] LABS: BASOPHILS # (AUTO) 0.1 K/uL (0.0-0.2); BASOPHILS % (AUTO) 0.2 % (0.0-2.0); EOSINOPHILS % (AUTO) 0.1 % (0.0-6.0); HEMATOCRIT 37 % (33-45); HEMOGLOBIN 11.2 g/dL (11.5-14.8); LYMPHOCYTES # (AUTO) 1.8 K/uL (0.8-4.8); LYMPHOCYTES % (AUTO) 5.2 % (20.0-44.0); MEAN CORPUSCULAR HEMOGLOBIN 25 PG (26.0-33.0); MEAN CORPUSCULAR HGB CONC 31 g/dl (31.0-36.0); MEAN CORPUSCULAR VOLUME 81 fL (82-100); MONOCYTES % (AUTO) 5.6 % (2.0-12.0); NEUTROPHILS # (AUTO) 31.1 K/uL (1.8-8.9); NEUTROPHILS % (AUTO) 88.9 % (43.0-81.0); PLATELET COUNT (AUTO) 440 K/uL (150-450); RED CELL DISTRIBUTION WIDTH 19.7 % (11.5-15.0)
[2023-04-01] MEDS ORDERED: FUROSEMIDE 20 MG/2 ML VIAL IV STA (05:51)
[2023-04-01] MEDS: MEROPENEM 500 MG in IV NS 0.9% 100 ML IV SCH ×3 (06:03→20:47)
[2023-04-01 06:20] LABS: CALCIUM, SERUM 9.6 mg/dL (8.5-10.1); CARBON DIOXIDE 25 mmol/L (21-32); CHLORIDE 110 mmol/L (98-107); CREATININE 0.7 mg/dL (0.6-1.3); GLUCOSE 181 mg/dL (74-106); MAGNESIUM 2.3 mg/dL (1.8-2.4); POTASSIUM 3.5 mmol/L (3.5-5.1); SODIUM SERUM 146 mmol/L (136-145); UREA NITROGEN, BLOOD 31 mg/dL (7-18)
[2023-04-01] MEDS: DOCUSATE SODIUM LIQ 100 MG/10 ML UDC GT SCH (08:42)
[2023-04-01] MEDS: CHLORHEXIDINE GLUCONATE 15 ML UDC MM SCH ×2 (08:42→16:22)
[2023-04-01] MEDS: PANTOPRAZOLE 40 MG/PACK PACK GT SCH ×2 (08:42→20:50)
[2023-04-01] MEDS: ZINC SULFATE 220 MG CAPSULE GT SCH (08:42)
[2023-04-01] MEDS: LOSARTAN POTASSIUM 50 MG TABLET GT SCH ×2 (08:43→17:00)
[2023-04-01] MEDS: ASCORBIC ACID 500 MG TABLET GT SCH (08:43)
[2023-04-01] MEDS: TRAMADOL HCL 50 MG TABLET GT SCH ×2 (08:44→16:21)
[2023-04-01] MEDS: METOPROLOL TARTRATE 25 MG TABLET GT SCH ×2 (08:44→20:50)
[2023-04-01] MEDS: AMLODIPINE BESYLATE 5 MG TABLET GT SCH (08:45)
[2023-04-01] MEDS: PROSOURCE / PROSTAT (PYXIS) 30 ML UDC GT SCH ×2 (08:48→16:22)
[2023-04-01] MEDS: MUPIROCIN OINT 2% 22 GM TUBE NS SCH (08:48)
[2023-04-01] MEDS: THERAHONEY GEL 1.5 OZ TUBE TP SCH (08:48)
[2023-04-01] MEDS: ARGININE/GLUTAMINE/CALCIUM BMB 1 EACH POWD.PACK GT SCH ×2 (08:49→16:22)
[2023-04-01] MEDS: MULTIVITAMINS,THERAGRAN 1 UDTAB TABLET GT SCH (08:52)
[2023-04-01] MEDS: ENOXAPARIN SODIUM 40 MG/0.4 ML DISP.SYRIN SQ SCH (08:53)
[2023-04-01] MEDS: VANCOMYCIN 500 MG in IV D5W 100 ML IV SCH ×2 (09:02→22:00)
[2023-04-01 11:20] LABS: ANISOCYTOSIS 1+; BASOPHILS % (MANUAL) 0 % (0.0-2.0); EOSINOPHILS % (MANUAL) 0 % (0-4); LYMPHOCYTES % (MANUAL) 5 % (16-48); MONOCYTES % (MANUAL) 4 % (0-11.0); NEUTROPHILS % (MANUAL) 91 (42-76); PLATELET ESTIMATE ADEQUATE
[2023-04-01] MEDS: ACETAMINOPHEN 650 MG/SUPP.RECT RC PRN (12:06)
[2023-04-01] MEDS: IPRATROPIUM NEB FS 0.5 MG/2.5 ML AMPUL.NEB NEB SCH ×2 (13:52→19:39)
[2023-04-01] MEDS: ACETYLCYSTEINE 10% SOLN 400 MG/4 ML VIAL NEB SCH ×3 (13:52→23:08)
[2023-04-01] MEDS: ALBUTEROL HALF STRENGTH 1.25 MG/3 ML VIAL.NEB NEB SCH ×2 (13:52→19:39)
[2023-04-01 15:58] LABS: ABG BASE EXCESS 3.7 mmol/L; ABG OXYGEN SATURATION 95.2 % (92.0-98.5); ABG PCO2 29.5 mmHg (35.0-45.0); ABG PH 7.552 (7.350-7.450); ABG PO2 74.4 mmHg (75.0-100.0); ABG TOTAL HEMOGLOBIN 12.5 G/dL (12.0-16.0); AaDO2 148.1 mmHg; COHb 0.3 % (0.5-1.5); MetHb 0.1 % (0.0-1.5); O2Hb 94.8 % (94.0-97.0); SITE, ABG Right Radial; VENT MODE, BG NC 4LPM
[2023-04-01] MEDS: FLUCONAZOLE (100 MG) 100 MG TABLET PO SCH (16:21)
[2023-04-01] MEDS ORDERED: ACETAMINOPHEN 650 MG/20.3 ML UDC GT PRN (16:30)
[2023-04-01] MEDS: CALCIUM CARBONATE (1250) 500 MG TABLET GT SCH (18:08)
[2023-04-01] MEDS: ASPIRIN 81 MG TAB.CHEW GT SCH (18:09)
[2023-04-01] MEDS ORDERED: NOREPINEPHRINE 8 MG in IV NS 0.9% 242 ML IV PRN ×4 (20:00)
[2023-04-01] MEDS: IV D5/0.45 NACL 1,000 ML IV PRN (20:08)
[2023-04-01] MEDS: QUETIAPINE FUMARATE 25 MG TABLET GT SCH (22:00)
[2023-04-02] VITALS (30 sets, daily range): BP systolic 96–150; BP diastolic 47–118; TEMP 98–99; O2SAT 91–100
[2023-04-02] MEDS: ALBUTEROL HALF STRENGTH 1.25 MG/3 ML VIAL.NEB NEB SCH ×4 (01:28→19:37)
[2023-04-02] MEDS: IPRATROPIUM NEB FS 0.5 MG/2.5 ML AMPUL.NEB NEB SCH ×4 (01:28→19:37)
[2023-04-02] MEDS: MEROPENEM 500 MG in IV NS 0.9% 100 ML IV SCH ×2 (04:20→20:04)
[2023-04-02 05:19] LABS: BASOPHILS % (AUTO) 0.1 % (0.0-2.0); HEMATOCRIT 34 % (33-45); HEMOGLOBIN 10.6 g/dL (11.5-14.8); LYMPHOCYTES # (AUTO) 1.2 K/uL (0.8-4.8); LYMPHOCYTES % (AUTO) 3.9 % (20.0-44.0); MEAN CORPUSCULAR HEMOGLOBIN 25 PG (26.0-33.0); MEAN CORPUSCULAR HGB CONC 31 g/dl (31.0-36.0); MEAN CORPUSCULAR VOLUME 79 fL (82-100); MONOCYTES # (AUTO) 1.5 K/uL (0.1-1.30); MONOCYTES % (AUTO) 4.8 % (2.0-12.0); NEUTROPHILS # (AUTO) 28.5 K/uL (1.8-8.9); NEUTROPHILS % (AUTO) 91.2 % (43.0-81.0); PLATELET COUNT (AUTO) 409 K/uL (150-450); RED BLOOD CELL COUNT(AUTO) 4.27 MIL/uL (4.0-5.2); RED CELL DISTRIBUTION WIDTH 19.8 % (11.5-15.0)
[2023-04-02 05:25] LABS: CALCIUM, SERUM 9.7 mg/dL (8.5-10.1); POTASSIUM 3.6 mmol/L (3.5-5.1)
[2023-04-02 05:33] LABS: WHITE BLOOD COUNT (AUTO) 31.3 K/uL (4.3-11.0)
[2023-04-02] MEDS: ACETYLCYSTEINE 10% SOLN 400 MG/4 ML VIAL NEB SCH ×3 (07:33→23:30)
[2023-04-02] MEDS ORDERED: HYDROCORTISONE SOD SUCCINATE 100 MG/2 ML VIAL IV SCH (09:00)
[2023-04-02] MEDS: DOCUSATE SODIUM LIQ 100 MG/10 ML UDC GT SCH (10:45)
[2023-04-02] MEDS: MULTIVITAMINS,THERAGRAN 1 UDTAB TABLET GT SCH (10:46)
[2023-04-02] MEDS: CHLORHEXIDINE GLUCONATE 15 ML UDC MM SCH ×2 (10:46→17:38)
[2023-04-02] MEDS: ZINC SULFATE 220 MG CAPSULE GT SCH (10:47)
[2023-04-02] MEDS: PANTOPRAZOLE 40 MG/PACK PACK GT SCH ×2 (10:47→21:06)
[2023-04-02] MEDS: ASCORBIC ACID 500 MG TABLET GT SCH (10:47)
[2023-04-02] MEDS: TRAMADOL HCL 50 MG TABLET GT SCH ×2 (10:48→17:39)
[2023-04-02] MEDS: PROSOURCE / PROSTAT (PYXIS) 30 ML UDC GT SCH ×2 (10:49→17:39)
[2023-04-02] MEDS: THERAHONEY GEL 1.5 OZ TUBE TP SCH (10:51)
[2023-04-02] MEDS: ENOXAPARIN SODIUM 40 MG/0.4 ML DISP.SYRIN SQ SCH (10:52)
[2023-04-02 11:13] LABS: ANISOCYTOSIS 1+; BAND % (MANUAL) 4 % (0.0-5.0); BASOPHILS % (MANUAL) 0 % (0.0-2.0); EOSINOPHILS % (MANUAL) 0 % (0-4); LYMPHOCYTES % (MANUAL) 5 % (16-48); MONOCYTES % (MANUAL) 5 % (0-11.0); NEUTROPHILS % (MANUAL) 86 (42-76); PLATELET ESTIMATE ADEQUATE
[2023-04-02] MEDS ORDERED: METRONIDAZOLE 500 MG TABLET PO SCH (14:00)
[2023-04-02] MEDS: ACETAMINOPHEN 650 MG/SUPP.RECT RC PRN (15:08)
[2023-04-02] MEDS ORDERED: PHARMACY TO CHANGE PO MEDS TO GT/NG XX PRN (15:30)
[2023-04-02] MEDS: CALCIUM CARBONATE (1250) 500 MG TABLET GT SCH (17:39)
[2023-04-02] MEDS: ASPIRIN 81 MG TAB.CHEW GT SCH (17:39)
[2023-04-02] MEDS: HYDROCORTISONE SOD SUCCINATE 100 MG/2 ML VIAL IV SCH (17:39)
[2023-04-02] MEDS: FLUCONAZOLE (100 MG) 100 MG TABLET GT SCH (17:40)
[2023-04-02] MEDS ORDERED: VANCOMYCIN 500 MG in IV D5W 100 ML IV SCH (21:00)
[2023-04-02] MEDS ORDERED: MEROPENEM 500 MG in IV NS 0.9% 100 ML IV SCH (21:00)
[2023-04-02] MEDS: METRONIDAZOLE 500 MG TABLET GT SCH (21:06)
[2023-04-02] MEDS: QUETIAPINE FUMARATE 25 MG TABLET GT SCH (21:06)
[2023-04-02] MEDS: VANCOMYCIN HCL 0.75 GM in IV D5W 250 ML IV SCH (23:23)
[2023-04-03] VITALS (26 sets, daily range): BP systolic 94–158; BP diastolic 53–81; TEMP 97.6–98.8; O2SAT 90–100
[2023-04-03] MEDS: IPRATROPIUM NEB FS 0.5 MG/2.5 ML AMPUL.NEB NEB SCH ×5 (01:54→20:07)
[2023-04-03] MEDS: ALBUTEROL HALF STRENGTH 1.25 MG/3 ML VIAL.NEB NEB SCH ×5 (01:54→20:07)
[2023-04-03] MEDS: HYDROCORTISONE SOD SUCCINATE 100 MG/2 ML VIAL IV SCH ×4 (02:09→17:15)
[2023-04-03 04:57] LABS: HEMATOCRIT 31 % (33-45); HEMOGLOBIN 9.5 g/dL (11.5-14.8); LYMPHOCYTES # (AUTO) 0.6 K/uL (0.8-4.8); LYMPHOCYTES % (AUTO) 2.6 % (20.0-44.0); MEAN CORPUSCULAR HEMOGLOBIN 25 PG (26.0-33.0); MEAN CORPUSCULAR HGB CONC 31 g/dl (31.0-36.0); MEAN CORPUSCULAR VOLUME 80 fL (82-100); MONOCYTES # (AUTO) 0.5 K/uL (0.1-1.30); MONOCYTES % (AUTO) 1.9 % (2.0-12.0); NEUTROPHILS # (AUTO) 22.7 K/uL (1.8-8.9); NEUTROPHILS % (AUTO) 95.5 % (43.0-81.0); PLATELET COUNT (AUTO) 347 K/uL (150-450); RED BLOOD CELL COUNT(AUTO) 3.81 MIL/uL (4.0-5.2); RED CELL DISTRIBUTION WIDTH 19.2 % (11.5-15.0); WHITE BLOOD COUNT (AUTO) 23.8 K/uL (4.3-11.0)
[2023-04-03] MEDS: IV D5/0.45 NACL 1,000 ML IV PRN (05:00)
[2023-04-03] MEDS: METRONIDAZOLE 500 MG TABLET GT SCH ×3 (05:02→20:30)
[2023-04-03 05:05] LABS: CALCIUM, SERUM 9.7 mg/dL (8.5-10.1); CARBON DIOXIDE 25 mmol/L (21-32); CHLORIDE 113 mmol/L (98-107); CREATININE 0.8 mg/dL (0.6-1.3); GLUCOSE 153 mg/dL (74-106); SODIUM SERUM 148 mmol/L (136-145); UREA NITROGEN, BLOOD 35 mg/dL (7-18)
[2023-04-03] MEDS ORDERED: POTASSIUM CHLORIDE 20 MEQ POWDER PACKET GT ONE ×2 (07:30→08:00)
[2023-04-03] MEDS: ACETYLCYSTEINE 10% SOLN 400 MG/4 ML VIAL NEB SCH ×2 (07:55→15:06)
[2023-04-03] MEDS: DOCUSATE SODIUM LIQ 100 MG/10 ML UDC GT SCH (08:06)
[2023-04-03] MEDS: CHLORHEXIDINE GLUCONATE 15 ML UDC MM SCH ×2 (08:06→16:27)
[2023-04-03] MEDS: TRAMADOL HCL 50 MG TABLET GT SCH ×2 (08:06→16:27)
[2023-04-03] MEDS: ZINC SULFATE 220 MG CAPSULE GT SCH (08:07)
[2023-04-03] MEDS: MEROPENEM 500 MG in IV NS 0.9% 100 ML IV SCH ×2 (08:07→20:30)
[2023-04-03] MEDS: ASCORBIC ACID 500 MG TABLET GT SCH (08:07)
[2023-04-03] MEDS: PANTOPRAZOLE 40 MG/PACK PACK GT SCH ×2 (08:07→20:30)
[2023-04-03] MEDS: MULTIVITAMINS,THERAGRAN 1 UDTAB TABLET GT SCH (08:07)
[2023-04-03] MEDS: PROSOURCE / PROSTAT (PYXIS) 30 ML UDC GT SCH ×2 (08:10→16:29)
[2023-04-03] MEDS: ENOXAPARIN SODIUM 40 MG/0.4 ML DISP.SYRIN SQ SCH (08:11)
[2023-04-03] MEDS: THERAHONEY GEL 1.5 OZ TUBE TP SCH (08:11)
[2023-04-03] MEDS: IV NS 0.9% 250 ML IV PRN (08:13)
[2023-04-03] MEDS: FLUCONAZOLE (100 MG) 100 MG TABLET GT SCH (16:32)
[2023-04-03] MEDS: ASPIRIN 81 MG TAB.CHEW GT SCH (17:08)
[2023-04-03] MEDS: CALCIUM CARBONATE (1250) 500 MG TABLET GT SCH (17:38)
[2023-04-03] MEDS: VANCOMYCIN HCL 0.75 GM in IV D5W 250 ML IV SCH (20:30)
[2023-04-03] MEDS: QUETIAPINE FUMARATE 25 MG TABLET GT SCH (22:46)
[2023-04-04] VITALS (15 sets, daily range): BP systolic 120–152; BP diastolic 57–82; TEMP 97–98.2; O2SAT 94–100
[2023-04-04] MEDS: ACETYLCYSTEINE 10% SOLN 400 MG/4 ML VIAL NEB SCH ×4 (00:12→23:30)
[2023-04-04] MEDS: ALBUTEROL HALF STRENGTH 1.25 MG/3 ML VIAL.NEB NEB SCH ×4 (02:02→19:47)
[2023-04-04] MEDS: IPRATROPIUM NEB FS 0.5 MG/2.5 ML AMPUL.NEB NEB SCH ×4 (02:02→19:47)
[2023-04-04] MEDS: HYDROCORTISONE SOD SUCCINATE 100 MG/2 ML VIAL IV SCH ×3 (02:42→17:12)
[2023-04-04] MEDS: METRONIDAZOLE 500 MG TABLET GT SCH ×3 (05:26→21:14)
[2023-04-04 06:17] LABS: HEMATOCRIT 30 % (33-45); HEMOGLOBIN 9.3 g/dL (11.5-14.8); LYMPHOCYTES # (AUTO) 0.4 K/uL (0.8-4.8); LYMPHOCYTES % (AUTO) 2.6 % (20.0-44.0); MEAN CORPUSCULAR HEMOGLOBIN 25 PG (26.0-33.0); MEAN CORPUSCULAR HGB CONC 32 g/dl (31.0-36.0); MEAN CORPUSCULAR VOLUME 80 fL (82-100); MONOCYTES # (AUTO) 0.3 K/uL (0.1-1.30); MONOCYTES % (AUTO) 2.1 % (2.0-12.0); NEUTROPHILS # (AUTO) 15.4 K/uL (1.8-8.9); NEUTROPHILS % (AUTO) 95.3 % (43.0-81.0); PLATELET COUNT (AUTO) 326 K/uL (150-450); RED BLOOD CELL COUNT(AUTO) 3.71 MIL/uL (4.0-5.2); RED CELL DISTRIBUTION WIDTH 19.3 % (11.5-15.0); WHITE BLOOD COUNT (AUTO) 16.2 K/uL (4.3-11.0)
[2023-04-04 06:29] LABS: CALCIUM, SERUM 8.9 mg/dL (8.5-10.1); CARBON DIOXIDE 26 mmol/L (21-32); CHLORIDE 113 mmol/L (98-107); CREATININE 0.6 mg/dL (0.6-1.3); GLUCOSE 261 mg/dL (74-106); SODIUM SERUM 148 mmol/L (136-145); UREA NITROGEN, BLOOD 31 mg/dL (7-18)
[2023-04-04 07:42] LABS: POTASSIUM 2.7 mmol/L (3.5-5.1)
[2023-04-04] MEDS: MEROPENEM 500 MG in IV NS 0.9% 100 ML IV SCH ×2 (08:18→20:09)
[2023-04-04] MEDS: PANTOPRAZOLE 40 MG/PACK PACK GT SCH ×2 (08:19→21:14)
[2023-04-04] MEDS: CHLORHEXIDINE GLUCONATE 15 ML UDC MM SCH ×2 (08:19→16:07)
[2023-04-04] MEDS: ZINC SULFATE 220 MG CAPSULE GT SCH (08:19)
[2023-04-04] MEDS: MULTIVITAMINS,THERAGRAN 1 UDTAB TABLET GT SCH (08:19)
[2023-04-04] MEDS: ASCORBIC ACID 500 MG TABLET GT SCH (08:19)
[2023-04-04] MEDS: DOCUSATE SODIUM LIQ 100 MG/10 ML UDC GT SCH (08:20)
[2023-04-04] MEDS: TRAMADOL HCL 50 MG TABLET GT SCH ×2 (08:20→16:07)
[2023-04-04] MEDS: ENOXAPARIN SODIUM 40 MG/0.4 ML DISP.SYRIN SQ SCH (08:21)
[2023-04-04] MEDS: THERAHONEY GEL 1.5 OZ TUBE TP SCH (08:21)
[2023-04-04] MEDS: PROSOURCE / PROSTAT (PYXIS) 30 ML UDC GT SCH ×2 (08:22→16:07)
[2023-04-04] MEDS ORDERED: POTASSIUM CHLORIDE 20 MEQ POWDER PACKET GT ONE (08:30)
[2023-04-04 11:21] LABS: CALCIUM, SERUM 9.2 mg/dL (8.5-10.1); CARBON DIOXIDE 23 mmol/L (21-32); CHLORIDE 116 mmol/L (98-107); CREATININE 0.6 mg/dL (0.6-1.3); GLUCOSE 143 mg/dL (74-106); POTASSIUM 3.5 mmol/L (3.5-5.1); SODIUM SERUM 148 mmol/L (136-145); UREA NITROGEN, BLOOD 31 mg/dL (7-18)
[2023-04-04] MEDS: IV NS 0.9% 250 ML IV PRN (13:56)
[2023-04-04] MEDS: IV D5/0.45 NACL 1,000 ML IV PRN (13:57)
[2023-04-04] MEDS: FLUCONAZOLE (100 MG) 100 MG TABLET GT SCH (15:39)
[2023-04-04] MEDS: ASPIRIN 81 MG TAB.CHEW GT SCH (17:12)
[2023-04-04] MEDS: CALCIUM CARBONATE (1250) 500 MG TABLET GT SCH (17:12)
[2023-04-04] MEDS: QUETIAPINE FUMARATE 25 MG TABLET GT SCH (21:14)
[2023-04-05] VITALS (10 sets, daily range): BP systolic 127–136; BP diastolic 80–87; TEMP 97.5–97.8; O2SAT 98–100
[2023-04-05] MEDS: ACETYLCYSTEINE 10% SOLN 400 MG/4 ML VIAL NEB SCH ×4 (01:53→23:21)
[2023-04-05] MEDS: ALBUTEROL HALF STRENGTH 1.25 MG/3 ML VIAL.NEB NEB SCH ×4 (01:53→19:48)
[2023-04-05] MEDS: IPRATROPIUM NEB FS 0.5 MG/2.5 ML AMPUL.NEB NEB SCH ×4 (01:53→19:48)
[2023-04-05] MEDS: HYDROCORTISONE SOD SUCCINATE 100 MG/2 ML VIAL IV SCH ×3 (03:11→17:03)
[2023-04-05] MEDS: METRONIDAZOLE 500 MG TABLET GT SCH ×3 (04:47→21:03)
[2023-04-05 06:58] LABS: CALCIUM, SERUM 9.4 mg/dL (8.5-10.1); CARBON DIOXIDE 26 mmol/L (21-32); CHLORIDE 111 mmol/L (98-107); CREATININE 0.5 mg/dL (0.6-1.3); GLUCOSE 149 mg/dL (74-106); SODIUM SERUM 147 mmol/L (136-145); UREA NITROGEN, BLOOD 27 mg/dL (7-18)
[2023-04-05 07:10] LABS: POTASSIUM 2.4 mmol/L (3.5-5.1)
[2023-04-05] MEDS: MEROPENEM 500 MG in IV NS 0.9% 100 ML IV SCH ×2 (07:49→20:06)
[2023-04-05] MEDS: THERAHONEY GEL 1.5 OZ TUBE TP SCH (08:50)
[2023-04-05] MEDS: DOCUSATE SODIUM LIQ 100 MG/10 ML UDC GT SCH (08:58)
[2023-04-05] MEDS: CHLORHEXIDINE GLUCONATE 15 ML UDC MM SCH ×2 (08:58→16:16)
[2023-04-05] MEDS: ASCORBIC ACID 500 MG TABLET GT SCH (08:59)
[2023-04-05] MEDS: MULTIVITAMINS,THERAGRAN 1 UDTAB TABLET GT SCH (08:59)
[2023-04-05] MEDS: TRAMADOL HCL 50 MG TABLET GT SCH ×2 (08:59→16:16)
[2023-04-05] MEDS: ENOXAPARIN SODIUM 40 MG/0.4 ML DISP.SYRIN SQ SCH (08:59)
[2023-04-05] MEDS: POTASSIUM CHLORIDE 20 MEQ TAB.PRT.SR PO SCH ×3 (09:00→12:33)
[2023-04-05] MEDS: PANTOPRAZOLE 40 MG/PACK PACK GT SCH ×2 (09:00→21:04)
[2023-04-05] MEDS: ZINC SULFATE 220 MG CAPSULE GT SCH (09:00)
[2023-04-05] MEDS: PROSOURCE / PROSTAT (PYXIS) 30 ML UDC GT SCH ×2 (09:00→16:16)
[2023-04-05] MEDS: FLUCONAZOLE (100 MG) 100 MG TABLET GT SCH (16:16)
[2023-04-05] MEDS: ASPIRIN 81 MG TAB.CHEW GT SCH (17:03)
[2023-04-05] MEDS: CALCIUM CARBONATE (1250) 500 MG TABLET GT SCH (17:04)
[2023-04-05] MEDS: QUETIAPINE FUMARATE 25 MG TABLET GT SCH (21:04)
[2023-04-05] MEDS: IV D5/0.45 NACL 1,000 ML IV PRN (23:14)
[2023-04-06] VITALS (11 sets, daily range): BP systolic 142–148; BP diastolic 79–85; TEMP 97.9–98.1; O2SAT 95–100
[2023-04-06] MEDS: ALBUTEROL HALF STRENGTH 1.25 MG/3 ML VIAL.NEB NEB SCH ×5 (01:47→20:25)
[2023-04-06] MEDS: IPRATROPIUM NEB FS 0.5 MG/2.5 ML AMPUL.NEB NEB SCH ×5 (01:47→20:25)
[2023-04-06] MEDS: HYDROCORTISONE SOD SUCCINATE 100 MG/2 ML VIAL IV SCH ×3 (02:02→17:25)
[2023-04-06] MEDS: METRONIDAZOLE 500 MG TABLET GT SCH ×3 (04:27→20:19)
[2023-04-06 06:19] LABS: BASOPHILS % (AUTO) 0.1 % (0.0-2.0); HEMATOCRIT 31 % (33-45); HEMOGLOBIN 9.8 g/dL (11.5-14.8); LYMPHOCYTES # (AUTO) 0.3 K/uL (0.8-4.8); LYMPHOCYTES % (AUTO) 2.4 % (20.0-44.0); MEAN CORPUSCULAR HEMOGLOBIN 25 PG (26.0-33.0); MEAN CORPUSCULAR HGB CONC 31 g/dl (31.0-36.0); MEAN CORPUSCULAR VOLUME 81 fL (82-100); MONOCYTES # (AUTO) 0.4 K/uL (0.1-1.30); MONOCYTES % (AUTO) 3.3 % (2.0-12.0); NEUTROPHILS # (AUTO) 12.5 K/uL (1.8-8.9); NEUTROPHILS % (AUTO) 94.2 % (43.0-81.0); PLATELET COUNT (AUTO) 418 K/uL (150-450); RED BLOOD CELL COUNT(AUTO) 3.89 MIL/uL (4.0-5.2); RED CELL DISTRIBUTION WIDTH 19.5 % (11.5-15.0); WHITE BLOOD COUNT (AUTO) 13.2 K/uL (4.3-11.0)
[2023-04-06 06:30] LABS: CALCIUM, SERUM 9.7 mg/dL (8.5-10.1); CARBON DIOXIDE 25 mmol/L (21-32); CHLORIDE 113 mmol/L (98-107); CREATININE 0.5 mg/dL (0.6-1.3); GLUCOSE 156 mg/dL (74-106); POTASSIUM 3.5 mmol/L (3.5-5.1); SODIUM SERUM 147 mmol/L (136-145); UREA NITROGEN, BLOOD 27 mg/dL (7-18)
[2023-04-06] MEDS: MEROPENEM 500 MG in IV NS 0.9% 100 ML IV SCH ×2 (07:51→20:19)
[2023-04-06] MEDS ORDERED: GLUCERNA 1.2 1,000 ML BOTTLE NG PRN (08:00)
[2023-04-06] MEDS: ACETYLCYSTEINE 10% SOLN 400 MG/4 ML VIAL NEB SCH ×2 (08:27→15:23)
[2023-04-06] MEDS: PROSOURCE / PROSTAT (PYXIS) 30 ML UDC GT SCH ×2 (08:47→16:34)
[2023-04-06] MEDS: CHLORHEXIDINE GLUCONATE 15 ML UDC MM SCH ×2 (08:53→16:40)
[2023-04-06] MEDS: MULTIVITAMINS,THERAGRAN 1 UDTAB TABLET GT SCH (08:54)
[2023-04-06] MEDS: DOCUSATE SODIUM LIQ 100 MG/10 ML UDC GT SCH (08:54)
[2023-04-06] MEDS: PANTOPRAZOLE 40 MG/PACK PACK GT SCH ×2 (08:56→20:19)
[2023-04-06] MEDS: ASCORBIC ACID 500 MG TABLET GT SCH (08:56)
[2023-04-06] MEDS: TRAMADOL HCL 50 MG TABLET GT SCH ×2 (08:57→16:40)
[2023-04-06] MEDS: ZINC SULFATE 220 MG CAPSULE GT SCH (08:58)
[2023-04-06] MEDS: THERAHONEY GEL 1.5 OZ TUBE TP SCH (08:58)
[2023-04-06] MEDS: ENOXAPARIN SODIUM 40 MG/0.4 ML DISP.SYRIN SQ SCH (09:00)
[2023-04-06] MEDS: FLUCONAZOLE (100 MG) 100 MG TABLET GT SCH (16:40)
[2023-04-06] MEDS: CALCIUM CARBONATE (1250) 500 MG TABLET GT SCH (17:25)
[2023-04-06] MEDS: ASPIRIN 81 MG TAB.CHEW GT SCH (17:26)
[2023-04-06] MEDS: QUETIAPINE FUMARATE 25 MG TABLET GT SCH (21:50)
[2023-04-07] VITALS (15 sets, daily range): BP systolic 122–160; BP diastolic 79–90; TEMP 98.2–98.5; O2SAT 94–100
[2023-04-07] MEDS: ACETYLCYSTEINE 10% SOLN 400 MG/4 ML VIAL NEB SCH ×3 (00:38→15:06)
[2023-04-07] MEDS: ALBUTEROL HALF STRENGTH 1.25 MG/3 ML VIAL.NEB NEB SCH ×5 (00:38→20:06)
[2023-04-07] MEDS: IPRATROPIUM NEB FS 0.5 MG/2.5 ML AMPUL.NEB NEB SCH ×5 (00:38→20:06)
[2023-04-07] MEDS: HYDROCORTISONE SOD SUCCINATE 100 MG/2 ML VIAL IV SCH ×3 (02:07→17:21)
[2023-04-07] MEDS: METRONIDAZOLE 500 MG TABLET GT SCH ×3 (05:42→20:27)
[2023-04-07 06:03] LABS: CALCIUM, SERUM 9.3 mg/dL (8.5-10.1); CREATININE 0.7 mg/dL (0.6-1.3)
[2023-04-07] MEDS: MEROPENEM 500 MG in IV NS 0.9% 100 ML IV SCH ×2 (09:36→21:09)
[2023-04-07] MEDS: PANTOPRAZOLE 40 MG/PACK PACK GT SCH ×2 (09:38→20:27)
[2023-04-07] MEDS: CHLORHEXIDINE GLUCONATE 15 ML UDC MM SCH ×2 (09:39→17:21)
[2023-04-07] MEDS: ZINC SULFATE 220 MG CAPSULE GT SCH (09:39)
[2023-04-07] MEDS: MULTIVITAMINS,THERAGRAN 1 UDTAB TABLET GT SCH (09:39)
[2023-04-07] MEDS: TRAMADOL HCL 50 MG TABLET GT SCH ×2 (09:39→17:21)
[2023-04-07] MEDS: DOCUSATE SODIUM LIQ 100 MG/10 ML UDC GT SCH (09:40)
[2023-04-07] MEDS: ASCORBIC ACID 500 MG TABLET GT SCH (09:40)
[2023-04-07] MEDS: PROSOURCE / PROSTAT (PYXIS) 30 ML UDC GT SCH ×2 (09:40→17:04)
[2023-04-07] MEDS: THERAHONEY GEL 1.5 OZ TUBE TP SCH (09:41)
[2023-04-07] MEDS: ENOXAPARIN SODIUM 40 MG/0.4 ML DISP.SYRIN SQ SCH (09:46)
[2023-04-07] MEDS ORDERED: POTASSIUM CHLORIDE 20 MEQ POWDER PACKET PO ONE (10:00)
[2023-04-07] MEDS ORDERED: GLUCERNA 1.2 1,000 ML BOTTLE NG PRN (12:00)
[2023-04-07] MEDS: IV D5/0.45 NACL 1,000 ML IV PRN (17:03)
[2023-04-07] MEDS: ASPIRIN 81 MG TAB.CHEW GT SCH (17:21)
[2023-04-07] MEDS: CALCIUM CARBONATE (1250) 500 MG TABLET GT SCH (17:21)
[2023-04-07] MEDS: FLUCONAZOLE (100 MG) 100 MG TABLET GT SCH (17:21)
[2023-04-07] MEDS: QUETIAPINE FUMARATE 25 MG TABLET GT SCH (21:34)
[2023-04-08] MEDS: ALBUTEROL HALF STRENGTH 1.25 MG/3 ML VIAL.NEB NEB SCH ×3 (02:02→13:30)
[2023-04-08] MEDS: IPRATROPIUM NEB FS 0.5 MG/2.5 ML AMPUL.NEB NEB SCH ×3 (02:02→13:30)
[2023-04-08] MEDS: ACETYLCYSTEINE 10% SOLN 400 MG/4 ML VIAL NEB SCH ×3 (02:03→14:07)
[2023-04-08 02:05] VITALS: O2SAT 96
[2023-04-08 02:29] VITALS: O2SAT 100
[2023-04-08] MEDS: HYDROCORTISONE SOD SUCCINATE 100 MG/2 ML VIAL IV SCH ×2 (03:11→09:24)
[2023-04-08 04:31] VITALS: BP 148/75; TEMP 98.3; O2SAT 98
[2023-04-08] MEDS: METRONIDAZOLE 500 MG TABLET GT SCH ×2 (05:56→12:52)
[2023-04-08 08:00] VITALS: BP 138/73; TEMP 98.4; O2SAT 96
[2023-04-08 08:15] VITALS: O2SAT 100
[2023-04-08] MEDS: MEROPENEM 500 MG in IV NS 0.9% 100 ML IV SCH (08:15)
[2023-04-08] MEDS: CHLORHEXIDINE GLUCONATE 15 ML UDC MM SCH (08:40)
[2023-04-08] MEDS: ZINC SULFATE 220 MG CAPSULE GT SCH (08:41)
[2023-04-08] MEDS: MULTIVITAMINS,THERAGRAN 1 UDTAB TABLET GT SCH (08:41)
[2023-04-08] MEDS: PANTOPRAZOLE 40 MG/PACK PACK GT SCH (08:41)
[2023-04-08] MEDS: DOCUSATE SODIUM LIQ 100 MG/10 ML UDC GT SCH (08:41)
[2023-04-08] MEDS: PROSOURCE / PROSTAT (PYXIS) 30 ML UDC GT SCH (08:42)
[2023-04-08] MEDS: ASCORBIC ACID 500 MG TABLET GT SCH (08:43)
[2023-04-08] MEDS: TRAMADOL HCL 50 MG TABLET GT SCH (08:43)
[2023-04-08] MEDS: ENOXAPARIN SODIUM 40 MG/0.4 ML DISP.SYRIN SQ SCH (08:48)
[2023-04-08] MEDS: THERAHONEY GEL 1.5 OZ TUBE TP SCH (08:48)
[2023-04-08 09:47] LABS: CALCIUM, SERUM 9.3 mg/dL (8.5-10.1); CARBON DIOXIDE 29 mmol/L (21-32); CHLORIDE 114 mmol/L (98-107); CREATININE 0.8 mg/dL (0.6-1.3); GLUCOSE 180 mg/dL (74-106); POTASSIUM 3.1 mmol/L (3.5-5.1); SODIUM SERUM 150 mmol/L (136-145); UREA NITROGEN, BLOOD 29 mg/dL (7-18)
[2023-04-08] MEDS ORDERED: FLUC100T8 GT (09:55)
[2023-04-08] MEDS ORDERED: METH4TAB17 PO (11:26)
== END 2023-04-08 15:41 | DRG 853 ==
LOC: ER 19:28 → TELE 23:58 → MED 03-26 08:54 → ICU 04-01 19:23 → TELE1 04-03 14:06 → MEDSG1 04-04 15:41
PROVIDERS: ADMIT Nurse Practitioner Family; ATTEND Legal Medicine
PROC: 0DB68ZX Excision of Stomach, Via Natural or Artificial Opening Endoscopic, Diagnostic (ICD-10-PCS; principal; 2023-03-25)
PROC: 0KBG0ZZ Excision of Left Trunk Muscle, Open Approach (ICD-10-PCS; 2023-03-28)
PROC: 0KBS0ZZ Excision of Right Lower Leg Muscle, Open Approach (ICD-10-PCS; 2023-03-28)
PROC: 05HA33Z Insertion of Infusion Device into Left Brachial Vein, Percutaneous Approach (ICD-10-PCS; 2023-04-02)
PROC: 0KBS0ZZ Excision of Right Lower Leg Muscle, Open Approach (ICD-10-PCS; 2023-04-05)
PROC: 0KBG0ZZ Excision of Left Trunk Muscle, Open Approach (ICD-10-PCS; 2023-04-05)
DX: A41.9 Sepsis, unspecified organism (principal); G92.8 Other toxic encephalopathy; L89.124 Pressure ulcer of left upper back, stage 4; L89.894 Pressure ulcer of other site, stage 4; J69.0 Pneumonitis due to inhalation of food and vomit; I21.A1 Myocardial infarction type 2; J96.01 Acute respiratory failure with hypoxia; R53.2 Functional quadriplegia; K29.71 Gastritis, unspecified, with bleeding; E44.0 Moderate protein-calorie malnutrition; D68.59 Other primary thrombophilia; E11.52 Type 2 diabetes mellitus with diabetic peripheral angiopathy with gangrene; J44.0 Chronic obstructive pulmonary disease with (acute) lower respiratory infection; I69.351 Hemiplegia and hemiparesis following cerebral infarction affecting right dominant side; N17.9 Acute kidney failure, unspecified; F05 Delirium due to known physiological condition; F03.93 Unspecified dementia, unspecified severity, with mood disturbance; F03.94 Unspecified dementia, unspecified severity, with anxiety; B37.49 Other urogenital candidiasis; I10 Essential (primary) hypertension; E78.5 Hyperlipidemia, unspecified; Z74.01 Bed confinement status; M62.59 Muscle wasting and atrophy, not elsewhere classified, multiple sites; K21.9 Gastro-esophageal reflux disease without esophagitis; F41.9 Anxiety disorder, unspecified; F29 Unspecified psychosis not due to a substance or known physiological condition; R13.10 Dysphagia, unspecified; H54.8 Legal blindness, as defined in USA; Z79.4 Long term (current) use of insulin; Z79.899 Other long term (current) drug therapy; Z79.51 Long term (current) use of inhaled steroids; Z79.82 Long term (current) use of aspirin; I71.43 Infrarenal abdominal aortic aneurysm, without rupture; F17.200 Nicotine dependence, unspecified, uncomplicated; E87.6 Hypokalemia; E88.09 Other disorders of plasma-protein metabolism, not elsewhere classified; Z86.19 Personal history of other infectious and parasitic diseases; M62.461 Contracture of muscle, right lower leg; M62.462 Contracture of muscle, left lower leg; M62.422 Contracture of muscle, left upper arm; M62.421 Contracture of muscle, right upper arm; D75.839 Thrombocytosis, unspecified; Z87.39 Personal history of other diseases of the musculoskeletal system and connective tissue; E11.621 Type 2 diabetes mellitus with foot ulcer; L97.519 Non-pressure chronic ulcer of other part of right foot with unspecified severity; Z93.1 Gastrostomy status; Z22.322 Carrier or suspected carrier of Methicillin resistant Staphylococcus aureus; G89.29 Other chronic pain; F31.9 Bipolar disorder, unspecified
CPT/HCPCS: 36415; 36600; 71045-TC; 80048-TC; 80076-TC; 80202-TC; 81001; 82272-TC; 82533; 82803-TC; 82962-TC; 83605-TC; 83735-TC; 84100-TC; 84443-TC; 84484-TC; 85025-TC; 85027-TC; 85730-TC; 87040-TC; 87081-TC; 87086-TC; 88305-TC; 88313-TC; 88342; 94762-TC; 94799-TC; A4216; A4223; A6403; C9113; C9803; G0378; J1450; J1650; J1720; J1940; J2185; J2543; J2704; J3370; J3480; J3490; J7030; J7040; J7050; J7060; Q9967

== ENCOUNTER 2024-12-20 21:30 | Emergency (ER) | payer MEDICARE, OTHER ==
[~2024-12-20] VITALS: Ht 157.5 cm; Wt 61.2 kg
[~2024-12-20 21:30] MED LIST changes: +ASCO500L2 GT; -ASCORBIC ACID GT; -ATOR40TA GT; +CALC-1026 GT; -CALC1TAB30 GT; +CARB15DR EACHEYE; +COLL1POW2 TP; +DEXT15DR23 EACHEYE; -DIPH25CA51 GT; +DIPH25TA25 GT; +FLUC100T8 GT; -MAGN400O6 GT; -MERO500P IV; +METH4TAB17 PO; -METO25TA20 PO; +METO25TA6 GT; +NUTR1PAC14 GT; -POVI3780 TP; -VANC500F2 IV; -ZINC1CAP2 GT; +ZINC50TA69 GT
[2024-12-20 23:00] VITALS: BP 134/64; TEMP 98.9; O2SAT 99
== END 2024-12-21 00:29 ==
LOC: ER 21:32
DX: M41.9 Scoliosis, unspecified (principal); M85.88 Other specified disorders of bone density and structure, other site; K46.9 Unspecified abdominal hernia without obstruction or gangrene; J44.9 Chronic obstructive pulmonary disease, unspecified; I10 Essential (primary) hypertension; F17.200 Nicotine dependence, unspecified, uncomplicated; F03.90 Unspecified dementia, unspecified severity, without behavioral disturbance, psychotic disturbance, mood disturbance, and anxiety; E78.5 Hyperlipidemia, unspecified; M48.061 Spinal stenosis, lumbar region without neurogenic claudication; Z79.82 Long term (current) use of aspirin; Z79.899 Other long term (current) drug therapy; W18.39XA Other fall on same level, initial encounter; Y93.89 Activity, other specified; Y92.89 Other specified places as the place of occurrence of the external cause; Y99.8 Other external cause status
CPT/HCPCS: 72131-TC